=== PATIENT | female | born 1940 | race Two or more races ===

== ENCOUNTER 2016-10-08 20:23 | Emergency (ER) | payer OTHER ==
[~2016-10-08] VITALS: Ht 162.6 cm; Wt 58.0 kg
[~2016-10-08 20:23] MED LIST: AMLO-110 PO; ASPI81TA28 PO; CALC-20 PO; CIPR-255 PO; DICL1GEL12 TD; DONE5TAB14 PO; FERR1TAB62 PO; FLUO10CA48 PO; LEVO75TA5 PO; MAGNSOL11 PO; MULT-614 PO; OMEP40CA PO; SIMV5TAB2 PO; TRAM-10 PO; TRML160 TOP
[2016-10-08 20:36] VITALS: TEMP 36.6; Ht 162.6 cm; Wt 58.0 kg
[2016-10-08] MEDS ORDERED: SODIUM CHLORIDE 0.9% 1000ML 1,000 ML IV STA (21:37)
[2016-10-08] MEDS ORDERED: ONDANSETRON INJ 2 MG/ML 2 ML VIAL IV STA (21:37)
[2016-10-08] MEDS ORDERED: LOPERAMIDE LIQUID 1MG/7.5ML 120ML BTL PO ONE (21:45)
[2016-10-08 21:46] LABS: BASO % 0.4 %; BASO ABS # 0.03 K/uL (0-0.2); COMPLETE YES; EOS % 2.7 %; HEMATOCRIT 33.7 % (37-47); IG% 0.3 %; LYMPH % 22.8 %; MEAN CELL VOLUME 84.5 fL (80-100); MEAN CORPUSCULAR HEMOGLOBIN 27.8 pg (25-34); MEAN CORPUSCULAR HGB CONC 32.9 g/dl (32-36); MONO % 12.8 %; PLATELET COUNT 293 K/uL (130-400); RED BLOOD COUNT 3.99 M/uL (4.2-5.4); WHITE BLOOD COUNT 7.01 K/uL (4.8-10.8)
[2016-10-08 21:55] LABS: BUN/CREATININE RATIO 12.3 (10-20); CALCIUM 8.3 mg/dl (8.5-10.1); CREATININE 0.74 mg/dl (0.60-1.20); POTASSIUM 3.2 mmol/L (3.5-5.1)
[2016-10-08] MEDS ORDERED: ONDA4TAB10 SL (22:21)
--- NOTE | 2016-10-08 22:22 | EMERGENCY ROOM VISIT NOTE ---
History Report prepared by Dana: Mable Rodriguez Under the Supervision of: Dr. Neri Montoya D.O. 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 The patient' s states that she came back from [place] yesterday but states while in [place] only drank bottled water. She states that over the last few days she has been feeling weaker. She states she has had diarrhea and an upset stomach for the last 4 days. She states that after every meal she eats she has about 3-4 episodes of diarrhea and is unable to control her bowels. The patient states she also had an episode of vomiting yesterday and has been nauseous. She also states she has been having dizziness and pain in her facial muscles. 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 Review of Systems See HPI for pertinent positives & negatives. A total of 10 systems reviewed and were otherwise negative. Past Medical & Surgical Medical Problems: (1) H/O blood clots (2) Hypertension Surgical Problems: (1) H/O: hysterectomy Family History No significant family history Social History Smoking Status: Never Smoker Alcohol Use: none Drug Use: none Marital Status: Housing Status: lives with family Occupation Status: retired Current/Historical Medications Scheduled Amlodipine (Norvasc), 5 MG PO DAILY Aspirin (Aspirin Ec), 81 MG PO DAILY Calcium Carbonate-Vitamin D (Calcium 600 + D), 1 TABLET PO BID Ciprofloxacin Hcl (Cipro), 1 TAB PO BID Donepezil Hydrochloride (Aricept), 5 MG PO DAILY WITH FOOD Ferrous Sulfate (Ferrous Sulfate), 325 MG PO BID Fluoxetine (Prozac), 20 MG PO DAILY Levothyroxine Sodium (Levothyroxine Sodium), 75 MCG PO DAILY Multiple Vitamins W/ Minerals (Centrum Silver Ultra [place]), 1 TABLET PO DAILY Omeprazole (Prilosec), 40 MG PO DAILY Ondasetron Odt (Zofran Odt), 4 MG SL Q6H Simvastatin (Zocor), 5 MG PO QPM Scheduled PRN Diclofenac Sodium (Topical) (Voltaren 1% Top Gel), 1 APPLN TD BID PRN for Pain Magnesium Citrate (Citrate Of Magnesia), 4-8 OZ PO DAILY PRN for Constipation Tramadol (Ultram), 50 MG PO Q6 PRN Triamcinolone (Triamcinolone Acetonide), 1 APPLN TOP TID PRN for RASH Allergies Coded Allergies: Penicillins (Verified Allergy, Mild, RASH, 01/24/16) UNSURE OF REACTION. REPORTS SHE WAS TOLD SHE HAS AN ALLERGY TO PCN SINCE CHILDHOOD.POSSIBLY A RASH. Physical Exam Vital Signs Date Time Temp Pulse Resp B/P Pulse Ox O2 Delivery O2 Flow Rate FiO2 10/08/16 20:36 36.6 78 18 160/85 96 Room Air Physical Exam CONSTITUTIONAL/VITAL SIGNS: Reviewed / noted above. GENERAL: Non-toxic in appearance. INTEGUMENTARY: Warm, dry, and Flushing. HEAD: Normocephalic. EYES: without scleral icterus or trauma. ENT/OROPHARYNX: clear and moist. LYMPHADENOPATHY/NECK: Is supple without lymphadenopathy or meningismus. RESPIRATORY: Lungs clear and equal. CARDIOVASCULAR: Regular rate and rhythm. GI/ABDOMEN: Soft and nontender. No organomegaly or pulsatile mass. No rebound or guarding. Normal bowel sounds. EXTREMITIES: Warm and well perfused. BACK: No CVA tenderness. NEUROLOGICAL: Intact without focal deficits. PSYCHIATRIC: normal affect. MUSCULOSKELETAL: Normally developed with good muscle tone. Medical Decision & Procedures Laboratory Results 10/08/16 21:00 Red Blood Count 3.99, Mean Corpuscular Volume 84.5, Mean Corpuscular Hemoglobin 27.8, Mean Corpuscular Hemoglobin Concent 32.9, Mean Platelet Volume 9.0, Neutrophils (%) (Auto) 61.0, Lymphocytes (%) (Auto) 22.8, Monocytes (%) (Auto) 12.8, Eosinophils (%) (Auto) 2.7, Basophils (%) (Auto) 0.4, Neutrophils # (Auto ) 4.27, Lymphocytes # (Auto) 1.60, Monocytes # (Auto) 0.90, Eosinophils # (Auto ) 0.19, Basophils # (Auto) 0.03 10/08/16 21:00 Test 10/08/16 21:00 White Blood Count 7.01 K/uL (4.8-10.8) Red Blood Count 3.99 M/uL (4.2-5.4) Hemoglobin 11.1 g/dL (12.0-16.0) Hematocrit 33.7 % (37-47) Mean Corpuscular Volume 84.5 fL (80-100) Mean Corpuscular Hemoglobin 27.8 pg (25-34) Mean Corpuscular Hemoglobin Concent 32.9 g/dl (32-36) Platelet Count 293 K/uL (130-400) Mean Platelet Volume 9.0 fL (7.4-10.4) Neutrophils (%) (Auto) 61.0 % Lymphocytes (%) (Auto) 22.8 % Monocytes (%) (Auto) 12.8 % Eosinophils (%) (Auto) 2.7 % Basophils (%) (Auto) 0.4 % Neutrophils # (Auto) 4.27 K/uL (1.4-6.5) Lymphocytes # (Auto) 1.60 K/uL (1.2-3.4) Monocytes # (Auto) 0.90 K/uL (0.11-0.59) Eosinophils # (Auto) 0.19 K/uL (0-0.5) Basophils # (Auto) 0.03 K/uL (0-0.2) RDW Standard Deviation 41.6 fL (36.4-46.3) RDW Coefficient of Variation 13.5 % (11.5-14.5) Immature Granulocyte % (Auto) 0.3 % Immature Granulocyte # (Auto) 0.02 K/uL (0.00-0.02) Anion Gap 10.0 mmol/L (3-11) Est Creatinine Clear Calc Drug Dose 57.6 ml/min Estimated GFR () 92.5 Estimated GFR (Non- 79.8 BUN/Creatinine Ratio 12.3 (10-20) Calcium Level 8.3 mg/dl (8.5-10.1) Total Bilirubin 0.4 mg/dl (0.2-1) Direct Bilirubin 0.1 mg/dl (0-0.2) Aspartate Amino Transf (AST/SGOT) 22 U/L (15-37) Alanine Aminotransferase (ALT/SGPT) 18 U/L (12-78) Alkaline Phosphatase 80 U/L (45-117) Total Protein 7.0 gm/dl (6.4-8.2) Albumin 3.1 gm/dl (3.4-5.0) Lipase 123 U/L (73-393) Laboratory results as stated above per my review. Medications Administered Medications (Trade) Dose Ordered Sig/Yong Route Start Time Stop Time Status Last Admin Dose Admin Sodium Chloride (Nss 1000ml) 1,000 ml @ 999 mls/hr Q1H1M STAT IV 10/08/16 21:37 10/08/16 22:37 10/08/16 22:06 999 MLS/HR Ondansetron HCl (Zofran Inj) 4 mg NOW STAT IV 10/08/16 21:37 10/08/16 21:40 DC 10/08/16 22:06 4 MG Loperamide HCl (Imodium A-D Liquid) 2 mg ONE ONCE PO 10/08/16 21:45 10/08/16 21:46 DC 10/08/16 21:45 2 MG ED Course 3: Previous medical records were reviewed. The patient was evaluated in room B6. A complete history and physical examination was performed. 2136: Ordered Zofran Inj 4 mg IV, Sodium Chloride 1,000 ml @ 999 mls/hr IV. 2144: Ordered Loperamide HCl 2 mg PO. 2224: On reevaluation, the patient is resting comfortably. I discussed the results and findings with the patient. She verbalized agreement of the treatment plan. The patient was discharged home. Medical Decision Differential diagnosis: Etiologies such as gastroenteritis, food borne illness, infections, appendicitis , diverticulitis, inflammatory bowel disease, obstruction, GI bleed, biliary pathology, as well as others were entertained. This is 76-year-old female who presents to the ED with a chief complaint of generalized weakness. The patient just got back from [place] yesterday. While she was there she had 4-5 days worth of diarrhea. She vomited yesterday and has nausea. She states that her diarrhea is primarily with eating. She also felt little lightheaded/dizzy. Her vital signs are normal. Her physical exam did not reveal any tenderness to the abdomen. CBC is unremarkable. The potassium was 3.2. Chemistry panel was otherwise unremarkable. She was treated with normal saline IV, Zofran IV and Imodium by mouth. She was told the results the test. She is felt to be stable for discharge and outpatient follow-up. She was unable to provide a stool sample. Impression Primary Impression: Vomiting and diarrhea Scribe Attestation The scribe's documentation has been prepared under my direction and personally reviewed by me in its entirety. I confirm that the note above accurately reflects all work, treatment, procedures, and medical decision making performed by me. Departure Information Dispostion Home / Self-Care Prescriptions Ondasetron Odt (ZOFRAN ODT) 4 Mg Tab 4 MG SL Q6H for Nausea, #20 TAB Prov: Neri Montoya D.O. 10/08/16 Referrals Merced Mcgraw M.D. (PCP) Forms HOME CARE DOCUMENTATION FORM, IMPORTANT VISIT INFORMATION Patient Instructions Diarrhea, My [facility] Additional Instructions Try Imodium AD for diarrhea. Zofran: Allow one tablet to dissolve under the tongue every 6 hours as needed for nausea or vomiting. Follow-up with your doctor for further care and evaluation in 1-4 days. Return to the emergency department for worsening or new symptoms or any concerns. You have been examined and treated today on an emergency basis only. This is not a substitute for, or an effort to provide, complete comprehensive medical care. It is impossible to recognize and treat all injuries or illnesses in a single emergency department visit. It is therefore important that you follow up closely with your doctor. Call as soon as possible for an appointment.
[2016-10-08 22:32] VITALS: BP 127/76; PULSE 80; O2SAT 99
== END 2016-10-08 22:33 | disposition home or self-care (01) ==
LOC: C.EDB 20:24
DX: R11.10 Vomiting, unspecified (principal); R19.7 Diarrhea, unspecified; Z86.718 Personal history of other venous thrombosis and embolism; I10 Essential (primary) hypertension; Z79.82 Long term (current) use of aspirin; Z79.899 Other long term (current) drug therapy

== ENCOUNTER 2018-07-15 14:36 | Inpatient (IN) ==
--- NOTE | 2018-07-15 14:58 | CT Scan Report ---
CT OF THE HEAD WITHOUT CONTRAST CLINICAL HISTORY: Stroke evaluation. COMPARISON STUDY: Head CT and MRI of the brain February 08, 2013. TECHNIQUE: Helical axial images of the head were obtained without IV contrast. Automated exposure con trol was utilized for the study. A dose lowering technique was utilized adhering to the principles o f ALARA. FINDINGS: No acute intracranial hemorrhage, midline shift or mass effect is present. Jugular system i s stable. Basilar cisterns are patent. There are no extra-axial collections. White matter hypodensity suggests small vessel disease. Old infarct within the left caudate nucleus is unchanged since exam o f February 18, 2013. There are no findings to suggest acute dural sinus thrombosis or acute territorial infarct. There is no calvarial fracture. IMPRESSION: 1. No acute intracranial findings. 2. 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 Electronically signed by: King Decker M.D. 07/15/2018 2:56 PM
--- NOTE | 2018-07-15 15:02 | CT Scan Report ---
CERVICAL SPINE CT CT DOSE: 958.56 mGy.cm HISTORY: ams, on floor TECHNIQUE: Multiaxial CT images of the cervical spine were performed and reformatted in the sagittal and coronal plane without the use of contrast. A dose lowering technique was utilized adhering to th e principles of ALARA. COMPARISON: None. FINDINGS: No fractures within the cervical spine. There is 2 mm of anterolisthesis of C3 on C4 and 1 mm retrolisthesis of C5 on C6. Severe disc space narrowing at C5-C6. Mild to moderate disc space narr owing at C3-C4 and C4-C5. Mild disc space narrowing at C6-C7. Mild reversal of the normal lordotic cu rvature. Prevertebral soft tissues and the C1-C2 interval are intact. IMPRESSION: No fractures within the cervical spine. Degenerative changes as described above. Electronically signed by: Perry Gill M.D. 07/15/2018 3:01 PM
[2018-07-15 15:09] LABS: Basophils # (auto) 0.01 K/uL (0-0.2); Basophils % (auto) 0.2 %; Eosinophils # (auto) 0.07 K/uL (0-0.5); Eosinophils % (auto) 1.1 %; Hematocrit (blood only) 38.8 % (37-47); Hemoglobin 12.3 g/dL (12.0-16.0); Immature Granulocytes # (auto) 0.02 K/uL (0.00-0.02); Immature Granulocytes % (auto) 0.3 %; Lymphocytes # (auto) 1.14 K/uL (1.2-3.4); Lymphocytes % (auto) 17.3 %; Mean Corpuscular Hgb Conc 31.7 g/dL (32-36); Mean Corpuscular Volume 84.2 fL (80-100); Mean Platelet Volume 9.4 fL (7.4-10.4); Monocytes # (auto) 0.24 K/uL (0.11-0.59); Monocytes % (auto) 3.6 %; Neutrophils # (auto) 5.12 K/uL (1.4-6.5); Neutrophils % (auto) 77.5 %; Platelet Count 278 K/uL (130-400); RDW Coefficient of Variation 13.9 % (11.5-14.5); RDW Standard Deviation 42.9 fL (36.4-46.3); Red Blood Count 4.61 M/uL (4.2-5.4)
[2018-07-15 15:16] LABS: iSTAT Hemoglobin 13.6 g/dl (12.0-16.0); iSTAT Ionized Calcium 1.17 mmol/l (1.12-1.32)
[2018-07-15 15:18] LABS: Partial Thromboplastin Time 25.9 Seconds (21.0-31.0); Prothrombin Time 10.4 Seconds (9.0-12.0)
--- NOTE | 2018-07-15 15:31 | XRay Report ---
XR chest 1V portable HISTORY: Altered mental status. COMPARISON: Chest 01/20/2018. FINDINGS: The heart remains mildly enlarged. Stable calcified granuloma within the right upper lobe. No pleural effusions. No pneumothorax. No focal lung consolidations to suggest pneumonia. Round densi ty overlying the liver is likely external to the patient. IMPRESSION: Stable cardiomegaly. No acute process within the chest. Electronically signed by: Perry Gill M.D. 07/15/2018 3:30 PM
[2018-07-15] MEDS ORDERED: IOVERSOL 100ml IV PRN (16:00)
--- NOTE | 2018-07-15 16:28 | CT Scan Report ---
HEAD & NECK CTA HISTORY: weakness, L gaze, altered mental status TECHNIQUE: Multiaxial CT images of the head were performed following the intravenous administration o f contrast to evaluate the major cerebral vessels. Multiaxial CT images of the neck were also perform ed following the intravenous administration of contrast to evaluate the major cervical vessels. Maxim um intensity projection images were also obtained. A dose lowering technique was utilized adhering to the principles of ALARA. COMPARISON: Head CT 07/15/2018. Carotid Doppler 02/08/2013. Brain MRI 02/08/2013. FINDINGS: There is no mass, hematoma, midline shift, or acute infarct. Visualized intracranial internal carotid arteries, distal vertebral arteries, and basilar artery are widely patent. No aneurysm or arterial o cclusion identified. Mild calcified plaque within the bilateral carotid siphons. Mild focal stenosis within the left M1 segment. Mild multifocal stenosis within the bilateral ACAs and left POST ACUTE CARE REGISTERED NURSE. The righ t POST ACUTE CARE REGISTERED NURSE is widely patent. The aortic arch and proximal great vessels are widely patent. There is no significant stenosis, occ lusion, or dissection identified within the bilateral common carotid, internal carotid, or vertebral arteries. IMPRESSION: 1. No arterial occlusion or aneurysm within the [place]. Mild multifocal stenosis within the bilateral ACAs, left MCA, and left POST ACUTE CARE REGISTERED NURSE. 2. No significant stenosis, occlusion, or dissection identified within the carotid or vertebral arter ies. Electronically signed by: Perry Gill M.D. 07/15/2018 4:27 PM
--- NOTE | 2018-07-15 16:28 | CT Scan Report ---
HEAD & NECK CTA HISTORY: weakness, L gaze, altered mental status TECHNIQUE: Multiaxial CT images of the head were performed following the intravenous administration o f contrast to evaluate the major cerebral vessels. Multiaxial CT images of the neck were also perform ed following the intravenous administration of contrast to evaluate the major cervical vessels. Maxim um intensity projection images were also obtained. A dose lowering technique was utilized adhering to the principles of ALARA. COMPARISON: Head CT 07/15/2018. Carotid Doppler 02/08/2013. Brain MRI 02/08/2013. FINDINGS: There is no mass, hematoma, midline shift, or acute infarct. Visualized intracranial internal carotid arteries, distal vertebral arteries, and basilar artery are widely patent. No aneurysm or arterial o cclusion identified. Mild calcified plaque within the bilateral carotid siphons. Mild focal stenosis within the left M1 segment. Mild multifocal stenosis within the bilateral ACAs and left LARD BLEACHER. The righ t LARD BLEACHER is widely patent. The aortic arch and proximal great vessels are widely patent. There is no significant stenosis, occ lusion, or dissection identified within the bilateral common carotid, internal carotid, or vertebral arteries. IMPRESSION: 1. No arterial occlusion or aneurysm within the [place]. Mild multifocal stenosis within the bilateral ACAs, left MCA, and left LARD BLEACHER. 2. No significant stenosis, occlusion, or dissection identified within the carotid or vertebral arter ies. Electronically signed by: Perry Gill M.D. 07/15/2018 4:27 PM
--- NOTE | 2018-07-15 17:04 | Emergency Department Note ---
Entered by Misty Brown acting as a scribe for History of Present Illness General Chief complaint: Stroke Alert Time Seen by Provider: 07/15/18 14:38 Mode of arrival: EMS History of Present Illness Provider complaint: Stroke Alert The patient fell at home and was last seen at midnight by family. She is non verbal and has decreased movement of the left side. Left gaze preference. No complaints that family were aware of yesterday; they found her down today. Normal ambulatory and talks. HPI is limited secondary to patient's condition. Home Medications Home Medications Medication Instructions Recorded Confirmed Type amlodipine 2.5 mg PO DAILY 07/15/18 07/15/18 History aspirin [Aspirin Low Dose] 81 mg PO DAILY 07/15/18 07/15/18 History calcium carbonate-vitamin D3 1 tab PO BID 07/15/18 07/15/18 History [Calcium 600 + D(3)] dicyclomine 10 mg PO BIDM 07/15/18 07/15/18 History donepezil [Aricept] 5 mg PO HS 07/15/18 07/15/18 History ferrous sulfate 325 mg PO BIDM 07/15/18 07/15/18 History fluoxetine 20 mg PO QAM 07/15/18 07/15/18 History levothyroxine 50 mcg PO QAM 07/15/18 07/15/18 History udhozuiy-fdj-VN-lycopen-lutein 1 tab PO DAILY 07/15/18 07/15/18 History [Centrum Silver] omeprazole 40 mg PO QAM 07/15/18 07/15/18 History sennosides [senna] 8.6 mg PO DAILY PRN 07/15/18 07/15/18 History simvastatin 5 mg PO HS 07/15/18 07/15/18 History sucralfate 1 g PO QID 07/15/18 07/15/18 History Allergies Allergy/AdvReac Type Severity Reaction Status Date / Time Penicillins Allergy Mild RASH Verified 01/20/18 21:35 Past Med/Surg History Medical History Pre-diabetes (Chronic) Dementia (Chronic) Osteoporosis (Chronic) Osteoarthritis (Chronic) GERD (gastroesophageal reflux disease) (Chronic) H/O blood clots (Resolved) Hypertension (Chronic) Surgical History H/O: hysterectomy (Resolved) Family History Father Diabetes Social History marital status: Current Living Situation: Family current occupational status: retired Feels Safe at Home: Yes Smoking Status: Never smoker Hx Alcohol Use: No Preferred Language: Mike Review of Systems ROS limited secondary to patient's condition. Physical Exam Vital Signs Vital Signs - 24 hr 07/15/18 14:45 07/15/18 15:01 07/15/18 15:15 Temperature 35.3 C L Temperature Source Rectal Sepsis Recent Fever Within 48 Hours No Sepsis New/Unexplained Change in Mental Status No Sepsis Action Taken by Nursing No Action Required Pulse Rate 57 L 57 L 55 L Pulse Rate [Apical] Pulse Rhythm Regular Pulse Rhythm [Apical] Pulse Strength Normal Pulse Strength [Apical] Respiratory Rate 18 Respiratory Effort / Characteristics Non-Labored Spontaneous Respiratory Depth Normal Respiratory Pattern Regular Blood Pressure 202/83 H 202/83 H Blood Pressure [Right Arm] Blood Pressure Mean 122 122 Blood Pressure Mean [Right Arm] Pulse Oximetry 99 99 97 Oxygen Delivery Method Room Air 07/15/18 15:16 07/15/18 15:17 07/15/18 15:57 Temperature Temperature Source Sepsis Recent Fever Within 48 Hours Sepsis New/Unexplained Change in Mental Status Sepsis Action Taken by Nursing Pulse Rate 56 L 57 L 63 Pulse Rate [Apical] Pulse Rhythm Pulse Rhythm [Apical] Pulse Strength Pulse Strength [Apical] Respiratory Rate Respiratory Effort / Characteristics Respiratory Depth Respiratory Pattern Blood Pressure 191/82 H Blood Pressure [Right Arm] Blood Pressure Mean 118 Blood Pressure Mean [Right Arm] Pulse Oximetry 95 98 100 Oxygen Delivery Method 07/15/18 15:58 07/15/18 16:00 07/15/18 16:01 Temperature Temperature Source Sepsis Recent Fever Within 48 Hours Sepsis New/Unexplained Change in Mental Status Sepsis Action Taken by Nursing Pulse Rate 63 60 58 L Pulse Rate [Apical] Pulse Rhythm Pulse Rhythm [Apical] Pulse Strength Pulse Strength [Apical] Respiratory Rate Respiratory Effort / Characteristics Respiratory Depth Respiratory Pattern Blood Pressure 207/84 H 196/82 H Blood Pressure [Right Arm] Blood Pressure Mean 125 120 Blood Pressure Mean [Right Arm] Pulse Oximetry 100 99 96 Oxygen Delivery Method 07/15/18 16:02 07/15/18 16:15 07/15/18 16:16 Temperature Temperature Source Sepsis Recent Fever Within 48 Hours Sepsis New/Unexplained Change in Mental Status Sepsis Action Taken by Nursing Pulse Rate 59 L 56 L 56 L Pulse Rate [Apical] Pulse Rhythm Pulse Rhythm [Apical] Pulse Strength Pulse Strength [Apical] Respiratory Rate Respiratory Effort / Characteristics Respiratory Depth Respiratory Pattern Blood Pressure 191/81 H Blood Pressure [Right Arm] Blood Pressure Mean 117 Blood Pressure Mean [Right Arm] Pulse Oximetry 98 92 98 Oxygen Delivery Method 07/15/18 16:30 07/15/18 16:31 07/15/18 16:40 Temperature Temperature Source Sepsis Recent Fever Within 48 Hours Sepsis New/Unexplained Change in Mental Status Sepsis Action Taken by Nursing Pulse Rate 55 L 55 L 71 Pulse Rate [Apical] Pulse Rhythm Pulse Rhythm [Apical] Pulse Strength Pulse Strength [Apical] Respiratory Rate 23 Respiratory Effort / Characteristics Respiratory Depth Respiratory Pattern Blood Pressure 175/73 H 203/85 H Blood Pressure [Right Arm] Blood Pressure Mean 107 124 Blood Pressure Mean [Right Arm] Pulse Oximetry 96 99 97 Oxygen Delivery Method 07/15/18 17:00 07/15/18 17:30 07/15/18 18:00 Temperature Temperature Source Sepsis Recent Fever Within 48 Hours Sepsis New/Unexplained Change in Mental Status Sepsis Action Taken by Nursing Pulse Rate Pulse Rate [Apical] 55 L 54 L 57 L Pulse Rhythm Pulse Rhythm [Apical] Regular Regular Regular Pulse Strength Pulse Strength [Apical] Normal Normal Respiratory Rate 16 16 16 Respiratory Effort / Characteristics Non-Labored Spontaneous Non-Labored Spontaneous Non-Labored Spontaneous Respiratory Depth Normal Normal Normal Respiratory Pattern Regular Regular Regular Blood Pressure Blood Pressure [Right Arm] 181/78 H 191/85 H 201/84 H Blood Pressure Mean Blood Pressure Mean [Right Arm] 112 120 123 Pulse Oximetry 97 95 99 Oxygen Delivery Method Room Air Room Air Room Air GENERAL: Awake looking to left in no distress. Non-verbal. HENT: Normocephalic, atraumatic. Oropharynx unremarkable. EYES: Normal conjunctiva. Sclera non-icteric. Left gaze deviation. Pupils 3 mm and reactive bilaterally. NECK: Supple. No nuchal rigidity. RESPIRATORY: Clear to auscultation. No wheezes. Normal respiratory effort. CARDIAC: Bradycardic rate. Normal rhythm. Extremities warm and well perfused. GI: Soft, non-distended. No tenderness to palpation. No rebound or guarding. RECTAL: Deferred. MUSCULOSKELETAL: Atraumatic. Chest examination reveals no tenderness. LOWER EXTREMITIES: Calves are equal size bilaterally and non-tender. No edema NEURO: 1/5 left arm. 1/5 left leg. 3/5 right leg. 4/5 right arm. Unable to speak. Myself and family unable to get her to speak. With draws to pain in RUE/ RLE/LLE. SKIN: Warm and dry. No rash or jaundice noted. Course 1453: Past medical records reviewed. The patient was evaluated in room A1, and a complete history and physical examination were performed. 1455: I talked to radiology. Nothing acute on the CT. 1640: I paged Kerrie Martin. The patient is being admitted. 1647: I reviewed the patient's case with MANUEL Hearn at [facility]. She will evaluate the patient for further management. Administered Medications Ioversol (Optiray 320 100ml) 93 ml IV ONCE PRN PRN Reason: Interaction Checking Stop: 07/19/18 15:59 Last Admin: 07/15/18 16:00 Dose: 93 ml Medical Decision Making Differential Diagnosis Differential includes acute coronary syndrome, myocardial infarction, CVA, TIA , anemia, infection, pneumonia, UTI, pyelonephritis, poor nutrition, dehydration , electrolyte disturbance,hypoglycemia. Medical Records Attestation: I reviewed the patient's medical records. Home Medications Current Medication List: was personally reviewed by me Laboratory Data Attestation: I reviewed the patient's lab results. Result diagrams: 07/15/18 14:58 07/15/18 14:58 Lab Results 07/15/18 07/15/18 07/15/18 Range/Units 14:58 14:58 14:58 WBC 6.60 (4.8-10.8) K/uL RBC 4.61 (4.2-5.4) M/uL Hgb 12.3 (12.0-16.0) g/dL POC Hgb (12.0-16.0) g/dl Hct 38.8 (37-47) % POC Hct (37-47) % MCV 84.2 (80-100) fL MCH 26.7 (25-34) pg MCHC 31.7 L (32-36) g/dL RDW Std Deviation 42.9 (36.4-46.3) fL RDW Coeff of Vivienne 13.9 (11.5-14.5) % Plt Count 278 (130-400) K/uL MPV 9.4 (7.4-10.4) fL Immature Gran % (Auto) 0.3 % Neut % (Auto) 77.5 % Lymph % (Auto) 17.3 % [place] % (Auto) 3.6 % Eos % (Auto) 1.1 % Baso % (Auto) 0.2 % Immature Gran # (Auto) 0.02 (0.00-0.02) K/uL Neut # (Auto) 5.12 (1.4-6.5) K/uL Lymph # (Auto) 1.14 L (1.2-3.4) K/uL [place] # (Auto) 0.24 (0.11-0.59) K/uL Eos # (Auto) 0.07 (0-0.5) K/uL Baso # (Auto) 0.01 (0-0.2) K/uL PT 10.4 (9.0-12.0) Seconds INR 1.0 (0.9-1.1) APTT 25.9 (21.0-31.0) Seconds PTT Ratio 1.0 POC Sodium (135-144) mEq/L Sodium 134 L (136-145) mmol/L POC Potassium (3.3-5.0) mEq/L Potassium 3.2 L (3.5-5.1) mmol/L POC Chloride (101-112) mEq/L Chloride 98 (98-107) mmol/L Carbon Dioxide 28 (21-32) mmol/L POC Total CO2 (24-31) mEq/l Anion Gap 11.0 (3-11) POC Anion Gap (16-25) mmol/L POC BUN (7-18) mg/dl BUN 12 (7-18) mg/dl Creatinine 0.84 (0.6-1.2) mg/dl POC Creatinine (0.6-1.3) mg/dl Est Cr Clr Drug Dosing Not Reportable Est GFR ( Amer) 78.2 Est GFR (Non-Af Amer) 67.5 BUN/Creatinine Ratio 14.8 (10-20) Glucose 135 H (70-99) mg/dl POC Glucose (70-99) POC Glucose (other) (70-99) mg/dl Lactate (0.4-2.0) mmol/L Calcium 9.3 (8.5-10.1) mg/dl POC Ioniz Calcium Clemente (1.12-1.32) mmol/l Magnesium 2.0 (1.8-2.4) mg/dl Total Creatine Kinase (26-192) U/L Troponin I < 0.015 (0-0.045) ng/ml TSH (0.300-4.500) uIu/ml Blood Type Antibody Screen 07/15/18 07/15/18 07/15/18 Range/Units 14:58 14:58 14:58 WBC (4.8-10.8) K/uL RBC (4.2-5.4) M/uL Hgb (12.0-16.0) g/dL POC Hgb (12.0-16.0) g/dl Hct (37-47) % POC Hct (37-47) % MCV (80-100) fL MCH (25-34) pg MCHC (32-36) g/dL RDW Std Deviation (36.4-46.3) fL RDW Coeff of Vivienne (11.5-14.5) % Plt Count (130-400) K/uL MPV (7.4-10.4) fL Immature Gran % (Auto) % Neut % (Auto) % Lymph % (Auto) % [place] % (Auto) % Eos % (Auto) % Baso % (Auto) % Immature Gran # (Auto) (0.00-0.02) K/uL Neut # (Auto) (1.4-6.5) K/uL Lymph # (Auto) (1.2-3.4) K/uL [place] # (Auto) (0.11-0.59) K/uL Eos # (Auto) (0-0.5) K/uL Baso # (Auto) (0-0.2) K/uL PT (9.0-12.0) Seconds INR (0.9-1.1) APTT (21.0-31.0) Seconds PTT Ratio POC Sodium (135-144) mEq/L Sodium (136-145) mmol/L POC Potassium (3.3-5.0) mEq/L Potassium (3.5-5.1) mmol/L POC Chloride (101-112) mEq/L Chloride (98-107) mmol/L Carbon Dioxide (21-32) mmol/L POC Total CO2 (24-31) mEq/l Anion Gap (3-11) POC Anion Gap (16-25) mmol/L POC BUN (7-18) mg/dl BUN (7-18) mg/dl Creatinine (0.6-1.2) mg/dl POC Creatinine (0.6-1.3) mg/dl Est Cr Clr Drug Dosing Est GFR ( Amer) Est GFR (Non-Af Amer) BUN/Creatinine Ratio (10-20) Glucose (70-99) mg/dl POC Glucose (70-99) POC Glucose (other) (70-99) mg/dl Lactate 1.4 (0.4-2.0) mmol/L Calcium (8.5-10.1) mg/dl POC Ioniz Calcium Clemente (1.12-1.32) mmol/l Magnesium (1.8-2.4) mg/dl Total Creatine Kinase 122 (26-192) U/L Troponin I (0-0.045) ng/ml TSH 1.340 (0.300-4.500) uIu/ml Blood Type AB Positive Antibody Screen NEGATIVE 07/15/18 07/15/18 Range/Units 14:58 15:03 WBC (4.8-10.8) K/uL RBC (4.2-5.4) M/uL Hgb (12.0-16.0) g/dL POC Hgb 13.6 (12.0-16.0) g/dl Hct (37-47) % POC Hct 40 (37-47) % MCV (80-100) fL MCH (25-34) pg MCHC (32-36) g/dL RDW Std Deviation (36.4-46.3) fL RDW Coeff of Vivienne (11.5-14.5) % Plt Count (130-400) K/uL MPV (7.4-10.4) fL Immature Gran % (Auto) % Neut % (Auto) % Lymph % (Auto) % [place] % (Auto) % Eos % (Auto) % Baso % (Auto) % Immature Gran # (Auto) (0.00-0.02) K/uL Neut # (Auto) (1.4-6.5) K/uL Lymph # (Auto) (1.2-3.4) K/uL [place] # (Auto) (0.11-0.59) K/uL Eos # (Auto) (0-0.5) K/uL Baso # (Auto) (0-0.2) K/uL PT (9.0-12.0) Seconds INR (0.9-1.1) APTT (21.0-31.0) Seconds PTT Ratio POC Sodium 136 (135-144) mEq/L Sodium (136-145) mmol/L POC Potassium 3.2 L (3.3-5.0) mEq/L Potassium (3.5-5.1) mmol/L POC Chloride 96 L (101-112) mEq/L Chloride (98-107) mmol/L Carbon Dioxide (21-32) mmol/L POC Total CO2 26 (24-31) mEq/l Anion Gap (3-11) POC Anion Gap 18.0 (16-25) mmol/L POC BUN 12 (7-18) mg/dl BUN (7-18) mg/dl Creatinine (0.6-1.2) mg/dl POC Creatinine 0.7 (0.6-1.3) mg/dl Est Cr Clr Drug Dosing Est GFR ( Amer) Est GFR (Non-Af Amer) BUN/Creatinine Ratio (10-20) Glucose (70-99) mg/dl POC Glucose 136 H (70-99) POC Glucose (other) 138 H (70-99) mg/dl Lactate (0.4-2.0) mmol/L Calcium (8.5-10.1) mg/dl POC Ioniz Calcium Clemente 1.17 (1.12-1.32) mmol/l Magnesium (1.8-2.4) mg/dl Total Creatine Kinase (26-192) U/L Troponin I (0-0.045) ng/ml TSH (0.300-4.500) uIu/ml Blood Type Antibody Screen Imaging Data Radiologist's Impression: Radiology results as stated below per my review and the radiologist's interpretation: CERVICAL SPINE CT CT DOSE: 958.56 mGy.cm HISTORY: ams, on floor TECHNIQUE: Multiaxial CT images of the cervical spine were performed and reformatted in the sagittal and coronal plane without the use of contrast. A dose lowering technique was utilized adhering to the principles of ALARA. COMPARISON: None. FINDINGS: No fractures within the cervical spine. There is 2 mm of anterolisthesis of C3 on C4 and 1 mm retrolisthesis of C5 on C6. Severe disc space narrowing at C5-C6. Mild to moderate disc space narrowing at C3-C4 and C4- C5. Mild disc space narrowing at C6-C7. Mild reversal of the normal lordotic curvature. Prevertebral soft tissues and the C1-C2 interval are intact. IMPRESSION: No fractures within the cervical spine. Degenerative changes as described above. Electronically signed by: Perry Gill M.D. 07/15/2018 3:[address] OF THE HEAD WITHOUT CONTRAST CLINICAL HISTORY: Stroke evaluation. COMPARISON STUDY: Head CT and MRI of the brain February 08, 2013. TECHNIQUE: Helical axial images of the head were obtained without IV contrast. Automated exposure control was utilized for the study. A dose lowering technique was utilized adhering to the principles of ALARA. FINDINGS: No acute intracranial hemorrhage, midline shift or mass effect is present. Jugular system is stable. Basilar cisterns are patent. There are no extra-axial collections. White matter hypodensity suggests small vessel disease. Old infarct within the left caudate nucleus is unchanged since exam of February 18, 2013. There are no findings to suggest acute dural sinus thrombosis or acute territorial infarct. There is no calvarial fracture. IMPRESSION: 1. No acute intracranial findings. 2. 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 Electronically signed by: King Decker M.D. 07/15/2018 2:56 PM XR chest 1V portable HISTORY: Altered mental status. COMPARISON: Chest 01/20/2018. FINDINGS: The heart remains mildly enlarged. Stable calcified granuloma within the right upper lobe. No pleural effusions. No pneumothorax. No focal lung consolidations to suggest pneumonia. Round density overlying the liver is likely external to the patient. IMPRESSION: Stable cardiomegaly. No acute process within the chest. Electronically signed by: Perry Gill M.D. 07/15/2018 3:30 PM HEAD & NECK CTA HISTORY: weakness, L gaze, altered mental status TECHNIQUE: Multiaxial CT images of the head were performed following the intravenous administration of contrast to evaluate the major cerebral vessels. Multiaxial CT images of the neck were also performed following the intravenous administration of contrast to evaluate the major cervical vessels. Maximum intensity projection images were also obtained. A dose lowering technique was utilized adhering to the principles of ALARA. COMPARISON: Head CT 07/15/2018. Carotid Doppler 02/08/2013. Brain MRI 02/08/2013. FINDINGS: There is no mass, hematoma, midline shift, or acute infarct. Visualized intracranial internal carotid arteries, distal vertebral arteries, and basilar artery are widely patent. No aneurysm or arterial occlusion identified. Mild calcified plaque within the bilateral carotid siphons. Mild focal stenosis within the left M1 segment. Mild multifocal stenosis within the bilateral ACAs and left IC DESIGN MANAGER. The right IC DESIGN MANAGER is widely patent. The aortic arch and proximal great vessels are widely patent. There is no significant stenosis, occlusion, or dissection identified within the bilateral common carotid, internal carotid, or vertebral arteries. IMPRESSION: 1. No arterial occlusion or aneurysm within the [place]. Mild multifocal stenosis within the bilateral ACAs, left MCA, and left IC DESIGN MANAGER. 2. No significant stenosis, occlusion, or dissection identified within the carotid or vertebral arteries. Electronically signed by: Perry Gill M.D. 07/15/2018 4:27 PM HEAD & NECK CTA HISTORY: weakness, L gaze, altered mental status TECHNIQUE: Multiaxial CT images of the head were performed following the intravenous administration of contrast to evaluate the major cerebral vessels. Multiaxial CT images of the neck were also performed following the intravenous administration of contrast to evaluate the major cervical vessels. Maximum intensity projection images were also obtained. A dose lowering technique was utilized adhering to the principles of ALARA. COMPARISON: Head CT 07/15/2018. Carotid Doppler 02/08/2013. Brain MRI 02/08/2013. FINDINGS: There is no mass, hematoma, midline shift, or acute infarct. Visualized intracranial internal carotid arteries, distal vertebral arteries, and basilar artery are widely patent. No aneurysm or arterial occlusion identified. Mild calcified plaque within the bilateral carotid siphons. Mild focal stenosis within the left M1 segment. Mild multifocal stenosis within the bilateral ACAs and left IC DESIGN MANAGER. The right IC DESIGN MANAGER is widely patent. The aortic arch and proximal great vessels are widely patent. There is no significant stenosis, occlusion, or dissection identified within the bilateral common carotid, internal carotid, or vertebral arteries. IMPRESSION: 1. No arterial occlusion or aneurysm within the [place]. Mild multifocal stenosis within the bilateral ACAs, left MCA, and left IC DESIGN MANAGER. 2. No significant stenosis, occlusion, or dissection identified within the carotid or vertebral arteries. Electronically signed by: Perry Gill M.D. 07/15/2018 4:27 PM ECG Data Attestation: I personally reviewed and interpreted this ECG as follows: Indication: altered mental status Rate (beats per minute): 57 Rhythm: sinus bradycardia Findings: + 1st degree AV block; no PVC, no ST depression and no ST elevation Comparison ECG Date: from (January 20, 2018) Change: the following changes noted (Heart rate decreased.) Blood Pressure Blood Pressure Findings: Elevated blood pressure Blood Pressure Disposition: further management by hospitalist MDM Narrative 78-year-old female found on the floor nonverbal with left gaze preference by EMS. Reported history of TIAs, blood clots, and hypertension. Made stroke alert given report of some focal deficits. CT of the head and CT of the cervical spine was completed. Given the time course the patient is outside of TPA window. Patient's granddaughter stated last seen her at midnight last night. Minimal movement of the left arm movement of the right arm and right leg some diminished movement of the left leg. Significant left gaze deviation. Patient will nod to some questions when her is unable to speak. Limited history. CT the head shows no acute intracranial bleed. CT of the cervical spine was completed as well given the unclear history without acute traumatic findings. CT angiogram of the head and neck was completed as well to look for possible LVO. No leukocytosis or signs of anemia on laboratory studies. Kidney function within normal limits. Trop negative. TSH within normal limits. CT angiogram so no acute vessel cutoff. Given this will admit to the hospitalist for further stroke workup and MRI as clinically it appears she has had a stroke. Patient still with significant left-sided deficits and gaze preference. I do not believe this represents seizure or meningitis at this time. Discussed with hospitalist for admission. Impression & Plan Stroke, Altered mental status Discharge Plan Visit Data Chief Complaint: Stroke Alert ED Provider: Billy Avelar Discharge Problem: Stroke, Altered mental status Patient Disposition: Being Evaluated by Hospitalist Forms Stand Alone Forms: My [employer] Prescriptions Prescriptions: No Action sennosides [senna] 8.6 mg Tablet 8.6 mg PO DAILY PRN (Reason: Constipation) RF: 0 donepezil [Aricept] 5 mg Tablet 5 mg PO HS RF: 0 sucralfate 1 gram tablet 1 g PO QID RF: 0 amlodipine 2.5 mg tablet 2.5 mg PO DAILY RF: 0 omeprazole 40 mg capsule,delayed release(DR/EC) 40 mg PO QAM RF: 0 aspirin [Aspirin Low Dose] 81 mg Tablet,Delayed Release (Dr/Ec) 81 mg PO DAILY RF: 0 simvastatin 5 mg Tablet 5 mg PO HS RF: 0 levothyroxine 50 mcg tablet 50 mcg PO QAM RF: 0 ferrous sulfate 325 mg (65 mg iron) Tablet,Delayed Release (Dr/Ec) 325 mg PO BIDM RF: 0 fluoxetine 20 mg capsule 20 mg PO QAM RF: 0 dicyclomine 10 mg capsule 10 mg PO BIDM RF: 0 ewmnlyme-nkd-DA-lycopen-lutein [Centrum Silver] 0.4-300-250 mg-mcg-mcg Tablet 1 tab PO DAILY RF: 0 calcium carbonate-vitamin D3 [Calcium 600 + D(3)] 600 mg calcium- 200 unit Capsule 1 tab PO BID RF: 0 Referrals Referrals: Merced Mcgraw MD [Primary Care Provider] - The scribe's documentation has been prepared under my direction and personally reviewed by me in its entirety. I confirm that the note above accurately reflects all work, treatment, procedures, and medical decision making performed by me.
[2018-07-15 17:34] LABS: BUN Creatinine Ratio 14.8 (10-20); Blood Urea Nitrogen 12 mg/dl (7-18); Calcium 9.3 mg/dl (8.5-10.1); Chloride 98 mmol/L (98-107); Est GFR (African American) 78.2; Est GFR (Non-African American) 67.5; Glucose 135 mg/dl (70-99); Potassium 3.2 mmol/L (3.5-5.1); Sodium 134 mmol/L (136-145)
[2018-07-15 17:38] LABS: Troponin I < 0.015 ng/ml (0-0.045)
[2018-07-15 17:39] LABS: Carbon Dioxide 28 mmol/L (21-32)
--- NOTE | 2018-07-15 18:18 | History & Physical Report ---
Date of Service July 15, 2018 Assessment & Plan (1) Left-sided weakness: (2) Aphasia: This is a 78yo F with a PMH of HTN, mild dementia, pre-diabetes and other medical problems listed below who presents from home with stroke like symptoms. -Aphasia, leftward gaze, unable to open mouth, left sided weakness clinically consistent with CVA -Stroke alert called but outside of tpa window upon arrival -CT head, CTA head/neck without acute abnormality -Check MRI brain combo, echo w/ bubble study -Give Aspirin per rectum -Keep NPO until able to be evaluated by speech -Neuro checks -PT, OT, speech therapy evaluations -Discussed plan with neurology,who will evaluate patient tomorrow (3) Hypertension: Elevated at 202/83 -Allow for permissive HTN in setting of possible ischemic stroke * Notify provider if SBP exceeds 220 or DBP exceeds 110 -Hold home amlodipine for now (4) Dementia: Mild dementia at baseline but only limited to short term -Hold Aricept for now (5) GERD (gastroesophageal reflux disease): Hold home PPI for now DVT Ppx: SQ heparin Code status: FULL per discussion with patient (with granddaughter translating) PCP: Lucien Dispo: Admission telemetry. Patient seen in collaboration with Dr. Sunshine. Please see addendum. History of Present Illness Chief Complaint: stroke like symptoms Primary Care Provider: Merced Mcgraw MD This is a 78yo F with a PMH of HTN, mild dementia, pre-diabetes and other medical problems listed below who presents from home with stroke like symptoms. Patient lives at home with family and was found on the floor by granddaughter around 2 pm today, unable to speak or move off on the floor. Was last seen in normal state of health last evening. History was obtained by granddaughter at bedside. At baseline, patient has mild dementia but speaks readily with family (primary language is Mike) and is able to ambulate independently. Patient was evaluated as a stroke alert and was found to have left gaze preference and minimal movement of LUE as well as some movement of LUE. CT head , CTA head/neck without acute abnormality. EKG without acute ST changes. Is able to nod yes or no for a limited ROS and denies any chest pain, shortness of breath, abdominal pain or nausea. May take baby aspirin at home but granddaughter is not sure. No known history of CVA or seizure but was evaluated for TIA at [facility] in January 2013. Per chart review during that visit, patient did mention ? h/o blood clot in hip but family is unsure of this. Allergies Allergy/AdvReac Type Severity Reaction Status Date / Time Penicillins Allergy Mild RASH Verified 01/20/18 21:35 Home Medications Home Medications Medication Instructions Recorded Confirmed Type amlodipine 2.5 mg PO DAILY 07/15/18 07/15/18 History aspirin [Aspirin Low Dose] 81 mg PO DAILY 07/15/18 07/15/18 History calcium carbonate-vitamin D3 1 tab PO BID 07/15/18 07/15/18 History [Calcium 600 + D(3)] dicyclomine 10 mg PO BIDM 07/15/18 07/15/18 History donepezil [Aricept] 5 mg PO HS 07/15/18 07/15/18 History ferrous sulfate 325 mg PO BIDM 07/15/18 07/15/18 History fluoxetine 20 mg PO QAM 07/15/18 07/15/18 History levothyroxine 50 mcg PO QAM 07/15/18 07/15/18 History dpbvbpoi-egy-FJ-lycopen-lutein 1 tab PO DAILY 07/15/18 07/15/18 History [Centrum Silver] omeprazole 40 mg PO QAM 07/15/18 07/15/18 History sennosides [senna] 8.6 mg PO DAILY PRN 07/15/18 07/15/18 History simvastatin 5 mg PO HS 07/15/18 07/15/18 History sucralfate 1 g PO QID 07/15/18 07/15/18 History Past Med/Surg History Medical History Pre-diabetes (Chronic) Dementia (Chronic) Osteoporosis (Chronic) Osteoarthritis (Chronic) GERD (gastroesophageal reflux disease) (Chronic) H/O blood clots (Resolved) Hypertension (Chronic) Surgical History H/O: hysterectomy (Resolved) Family History Father Diabetes Social History marital status: Current Living Situation: Family current occupational status: retired Other Information That Helps Us Care for You: No Feels Safe at Home: Yes Safety Concerns: Feels Safe At This Time Smoking Status: Never smoker Hx Alcohol Use: No Hx Substance Use: No Beliefs That Will Affect Care: None Communication Tools: Lip Movement/Reading Review of Systems ROS limited 2/2 aphasia but able to not yes/no. Endorses weakness. Denies fever , chills, chest pain, shortness of breath or abdominal pain. Physical Exam 2 Vital Signs (Past 24 Hours): Last Vital Signs Temp 35.3 C L 07/15/18 14:45 Pulse 57 L 07/15/18 18:00 Resp 16 07/15/18 18:00 BP 201/84 H 07/15/18 18:00 Pulse Ox 99 07/15/18 18:00 Physical Exam: General Appearance: WD/WN, no apparent distress, left facial droop, able to nod yes/no Head: normocephalic, atraumatic Eyes: Left gaze preference but able to cross midline with gaze. PERRL. ENT: hearing grossly normal, unable to examine pharynx since patient cannot fully open mouth Neck: supple, no JVD, no adenopathy Respiratory/Chest: lungs clear to auscultation. No wheezes, rales or rhonci. No respiratory distress or accessory muscle use Cardiovascular: regular rate, rhythm, no murmur, normal peripheral pulses Abdomen/GI: normal bowel sounds, soft, non-tender to palpation Extremities/Musculoskelatal: normal inspection, no calf tenderness, normal capillary refill, no pedal edema Neurologic/Psych: Alert. + Aphasia. Unable to fully open mouth. Limited mobility of LUE. Strength deficits of left side LUE: 3/5, LLE: 4/5. RUE and RLE intact. Unable to perform [id number] on either side. Did not assess gate. Skin: normal color, warm/dry Results & Data Laboratory Results Short CBC 07/15/18 Range/Units 14:58 WBC 6.60 (4.8-10.8) K/uL Hgb 12.3 (12.0-16.0) g/dL Hct 38.8 (37-47) % Plt Count 278 (130-400) K/uL BMP 07/15/18 14:58 Sodium 134 L Potassium 3.2 L Chloride 98 Carbon Dioxide 28 BUN 12 Creatinine 0.84 Glucose 135 H Calcium 9.3 Cardiac Enzymes 07/15/18 07/15/18 Range/Units 14:58 14:58 Total Creatine Kinase 122 (26-192) U/L Troponin I < 0.015 (0-0.045) ng/ml ECG Rhythm: sinus rhythm Findings: + 1st degree AV block Code Status & VTE Plan Code Status FULL VTE Prophylaxis Plan VTE Prophylaxis will be ordered: Yes Supervising Physician Co-Signing Physician Notes HISTORY: Record reviewed. Patient interviewed and examined. Care coordinated with Addie Meyer PA-C. Please refer to her documentation for patient's history. Briefly, 78 YO female with history of cerebrovascular disease, s/p left caudate infarct prior to Jan 2013 and TIA in Jan. Found on floor this afternoon by family with confusion, left gaze preference, left-sided weakness. Last known well last evening- about 20 hours before ED arrival. EXAM: General- no distress Lungs- clear to auscultation; no respiratory distress Cardiovascular- RRR; no murmur; no gallop; no JVD; no pretibial edema Abdomen- + bowel sounds, soft, nontender Extremities- no cyanosis; no calf tenderness Neuro- alert, PERRL, left gaze preference, dysarthric, LUE 3/5, LLE 3/5, left plantar reflex equivocally upgoing Skin- warm & dry DATA: K 3.2. Other labs as noted. Other lab studies as noted. Chest x-ray - cardiomegaly, no acute findings. CT head - old left caudate infarct, no acute findings. CTA cervical and intracranial vessels - mild multifocal stenosis within bilateral ABHI's, left MCA, left FRAME ALIGNER. EKG performed at 1459 reviewed and demonstrated NB at 57 / minute, baseline artifact, no acute changes. ASSESSMENT AND PLAN: Probable ischemic stroke. Not candidate for TPA due to delayed presentation. Stroke care per protocol. Antiplatelet therapy with ASA. NPO pending FIRER AUTOMATIC STOKER eval. Check MRI. Consult Neuro. BP's elevated. Allow permissive hypertension for first 24-48 hrs, then then gradually lower BP. Hypokalemia. Replace, follow. History of dementia. Avoid meds with anticholinergic side effects. Monitor for delirium. Please refer to MANUEL Meyer's documentation for discussion of other issues.
[2018-07-15] MEDS ORDERED: PHARMACIST DISCHARGE MED REC CONSULT PRN (19:21)
[2018-07-15] MEDS ORDERED: ONDANSETRON INJ 2 MG/ML 2 ML VIAL IV PRN (19:21)
[2018-07-15] MEDS ORDERED: ASPIRIN 300 MG SUPP PR ONE (20:00)
[2018-07-15] MEDS: POTASSIUM CHLORIDE 40 MEQ in D5W AND NSS 1,000 ML IV SCH (20:02)
[2018-07-15] MEDS ORDERED: HEPARIN SOD 5,000 UNIT/0.5 ML VIAL SQ SCH (22:00)
[2018-07-16] MEDS ORDERED: GADOBUTROL 30ML VIAL IV PRN (01:35)
[2018-07-16 04:12] LABS: Appearance Urine Cloudy (Clear); Bacteria Urine Automated Negative (Negative); Bilirubin Urine Negative (Negative); Color Urine Yellow; Epithelial Cell Urine Auto 20-30 /lpf (0-5); Glucose Urine UA Trace (Negative); Ketones Urine Trace (Negative); Leukocyte Esterase Urine Negative (Negative); Nitrite Urine Negative (Negative); Specific Gravity Urine > 1.045 (1.000-1.030); Urobilinogen Urine Negative (Negative); pH Urine 7.5 (4.5-7.5)
[2018-07-16 04:29] LABS: Protein Urine 1+ (Negative)
[2018-07-16 06:57] LABS: Estimated Average Glucose 137 mg/dl
--- NOTE | 2018-07-16 07:14 | Magnetic Resonance Report ---
MRI OF THE BRAIN WITHOUT AND WITH IV CONTRAST CLINICAL HISTORY: Stroke symptoms. COMPARISON STUDY: Head CT and CTA of the head July 15, 2018. TECHNIQUE: Utilizing a 1.5 Laura magnet and dedicated coil, multiplanar, multiecho imaging of the br ain was performed pre and postcontrast administration. IV administration of 5.4 mL of Gadavist contr ast was uneventful. FINDINGS: Diffusion-weighted sequences demonstrate ill-defined increased hyperintensity within the po ns this is likely hypointense on the ADC map. This suggest small acute to subacute infarct. No additi onal sites of restricted diffusion are noted. Ventricular system is stable. Basilar cisterns are muniz nt. There are no extra-axial collections. Old infarct within the left caudate head is noted. There is no acute intracranial hemorrhage, midline shift or mass effect. White matter T2 hyperintense foci re present small vessel disease. There is no intracranial mass or pathologic enhancement. IMPRESSION: 1. Small ill-defined foci of restricted diffusion within the jozef suggestive of small acute to subacu te infarcts. No hemorrhage. No mass effect. 2. No intracranial mass or pathologic enhancement. 3. 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 Electronically signed by: King Decker M.D. 07/16/2018 7:13 AM
[2018-07-16 07:35] LABS: Basophils # (auto) 0.01 K/uL (0-0.2); Basophils % (auto) 0.1 %; Hematocrit (blood only) 33.4 % (37-47); Hemoglobin 10.6 g/dL (12.0-16.0); Immature Granulocytes # (auto) 0.05 K/uL (0.00-0.02); Immature Granulocytes % (auto) 0.3 %; Lymphocytes # (auto) 1.33 K/uL (1.2-3.4); Lymphocytes % (auto) 8.6 %; Mean Corpuscular Hgb Conc 31.7 g/dL (32-36); Mean Corpuscular Volume 83.7 fL (80-100); Mean Platelet Volume 9.1 fL (7.4-10.4); Monocytes # (auto) 0.74 K/uL (0.11-0.59); Monocytes % (auto) 4.8 %; Neutrophils # (auto) 13.36 K/uL (1.4-6.5); Neutrophils % (auto) 86.2 %; Platelet Count 258 K/uL (130-400); RDW Coefficient of Variation 14.1 % (11.5-14.5); Red Blood Count 3.99 M/uL (4.2-5.4); White Blood Count 15.49 K/uL (4.8-10.8)
[2018-07-16 08:10] LABS: BUN Creatinine Ratio 16.3 (10-20); Calcium 9.3 mg/dl (8.5-10.1); Creatinine Clr Calc Pharmacy 38.4 ml/min; Est GFR (African American) 68.3; Est GFR (Non-African American) 58.9; Potassium 3.5 mmol/L (3.5-5.1)
[2018-07-16] MEDS: POTASSIUM CHLORIDE 40 MEQ in D5W AND NSS 1,000 ML IV SCH (10:27)
[2018-07-16] MEDS: HEPARIN SOD 5,000 UNIT/0.5 ML VIAL SQ SCH ×2 (10:28→21:37)
--- NOTE | 2018-07-16 13:04 | Neurology Consultation ---
Date of Consultation July 16, 2018 Assessment & Plan (1) Left-sided weakness: 1. aspirin 81 mg daily- was not taking on regular basis 2. lipid profile - would continue statin 3. optimize DM, HLD, HTN, LDL <70 last check in [facility] system LDL = 155 4. MRI brain with small jozef infarct 5. TTE- EF 60-65% 6. CTA head and neck - no high grade stenosis on imaging 7. PT/OT speech for discharge needs follow up with neurology 8 weeks Mary Do PAC schedule (2) Aphasia: 1. same as above Supervising Physician Co-Signing Physician Notes I have seen and discussed above patient with Dr Hank Andersen. Patient was seen and examined. I argee with Mary Do PA-C as noted below. Granddaughter at bedside helps with examine and history as patient does not speek equatorial guinean. abdirizak states speech has improved. Patient without complaint. Wishing to do home PT/OT. MRI results discussed with abdirizak. 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 Recommend starting ASA 81 mg daily and high intensity statin, Lipitor 40 mg daily TTE completed, Preserved EF Recommend SBP goal <140 mm Hg, DBP<90 mm Hg HA1c 6.4 , TSH WNL CTA head and neck review. No high grade stenosis. Dispo: Patient wishes to be discharged to home. PT/OT ordered. Patient can follow up with neurology in 8-weeks. Please call with any further questions. History of Present Illness Reason for Consultation: EF 60-65% No ASD Requesting Physician: Caleb Painter MD Attending Physician: Caleb Painter MD History of Present Illness Kade is a 78 year old [place] woman with PMH of HTN, mild dementia, pre- diabetes. She presents from home after family and was found on the floor by her granddaughter. She was unable to speak or move off on the floor. History is obtained through granddaughter at bedside. At baseline, patient has mild dementia but speaks readily with family (primary language is Mike) and is able to ambulate independently. A stroke alert was called, and was found to have left gaze preference and minimal movement of LUE as well as some movement of LUE. CT head, CTA head/neck without acute abnormality. EKG without acute ST changes. She has taken an aspirin at home but granddaughter but not daily. There was an admission in 2013 for some left sided weakness. After the testing it was thought to be small vessel event and recommended to have blood pressure control and continue aspirin. She denies CP, SOB, abdominal pain, current issues with swallowing or weakness. Allergies Allergy/AdvReac Type Severity Reaction Status Date / Time Penicillins Allergy Mild RASH Verified 01/20/18 21:35 Home Medications Home Medications Medication Instructions Recorded Confirmed Type amlodipine 2.5 mg PO DAILY 07/15/18 07/15/18 History aspirin [Aspirin Low Dose] 81 mg PO DAILY 07/15/18 07/15/18 History calcium carbonate-vitamin D3 1 tab PO BID 07/15/18 07/15/18 History [Calcium 600 + D(3)] dicyclomine 10 mg PO BIDM 07/15/18 07/15/18 History donepezil [Aricept] 5 mg PO HS 07/15/18 07/15/18 History ferrous sulfate 325 mg PO BIDM 07/15/18 07/15/18 History fluoxetine 20 mg PO QAM 07/15/18 07/15/18 History levothyroxine 50 mcg PO QAM 07/15/18 07/15/18 History hsmgigzm-ttw-RI-lycopen-lutein 1 tab PO DAILY 07/15/18 07/15/18 History [Centrum Silver] omeprazole 40 mg PO QAM 07/15/18 07/15/18 History sennosides [senna] 8.6 mg PO DAILY PRN 07/15/18 07/15/18 History simvastatin 5 mg PO HS 07/15/18 07/15/18 History sucralfate 1 g PO QID 07/15/18 07/15/18 History Patient History Medical History Pre-diabetes (Chronic) Dementia (Chronic) Osteoporosis (Chronic) Osteoarthritis (Chronic) GERD (gastroesophageal reflux disease) (Chronic) H/O blood clots (Resolved) Hypertension (Chronic) Surgical History H/O: hysterectomy (Resolved) Family History Father Diabetes Social History marital status: Current Living Situation: Family current occupational status: retired Other Information That Helps Us Care for You: No Feels Safe at Home: Yes Safety Concerns: Feels Safe At This Time Smoking Status: Never smoker Hx Alcohol Use: No Hx Substance Use: No Beliefs That Will Affect Care: None Communication Tools: Lip Movement/Reading Physical Exam 2 Vital Signs (Past 24 Hours): Last Vital Signs Temp 36.6 C 07/16/18 11:48 Pulse 60 07/16/18 11:48 Resp 18 07/16/18 11:48 BP 158/71 H 07/16/18 11:48 Pulse Ox 91 07/16/18 11:48 Physical Exam: Constitutional: appearance nourished, healthy and normal Ears, Nose, Mouth and Throat: mucous membranes moist, no injection and skin normal, eyes normal Cardiovascular: normal S-1 and S-2 and regular rate and rhythm Respiratory: clear to auscultation (CTA) and no rales, rhonchi or wheeze Musculoskeletal: no peripheral edema and good distal pulses Skin: no stigmata of neurocutaneous disease noted and normal and intact Eyes: extraocular muscles intact (EOMI) and pupils equal, round and reactive to light (PERRL) no gaze preference NEUROLOGIC EXAMINATION: Mental status: Alert and interactive Oriented to person Speech appears intact responds actively with questions instructions Cranial Nerves smile eye brow raise, facial symmetry Reflexes: Deep tendon reflexes were symmetrical and graded 2/5. Plantar responses were flexor. Sensory: intact to light touch and cool touch Coordination: finger to nose no bi pass Gait/Stance: Posture normal. lying in bed Motor: Negative for pronator drift of out stretched arms with eyes closed. Strength: hand grizzly worker biceps triceps bilaterally 5/5, hip flex 5/5 Results & Data Laboratory Results Abnormal lab results 07/15/18 07/15/18 07/15/18 Range/Units 14:58 14:58 14:58 WBC (4.8-10.8) K/uL RBC (4.2-5.4) M/uL Hgb (12.0-16.0) g/dL Hct (37-47) % MCHC 31.7 L (32-36) g/dL Immature Gran # (Auto) (0.00-0.02) K/uL Neut # (Auto) (1.4-6.5) K/uL Lymph # (Auto) 1.14 L (1.2-3.4) K/uL [place] # (Auto) (0.11-0.59) K/uL Sodium 134 L (136-145) mmol/L POC Potassium (3.3-5.0) mEq/L Potassium 3.2 L (3.5-5.1) mmol/L POC Chloride (101-112) mEq/L Glucose 135 H (70-99) mg/dl POC Glucose 136 H (70-99) POC Glucose (other) (70-99) mg/dl Hemoglobin A1c (4.5-5.6) % Total Creatine Kinase (26-192) U/L Cholesterol (0-200) mg/dl Urine Appearance (Clear) Ur Specific [place] (1.000-1.030) Urine Protein (Negative) Urine Glucose (UA) (Negative) Urine Ketones (Negative) Urine WBC (Auto) (0-5) /hpf U Epithel Cells (Auto) (0-5) /lpf 07/15/18 07/15/18 07/15/18 Range/Units 14:58 15:03 19:46 WBC (4.8-10.8) K/uL RBC (4.2-5.4) M/uL Hgb (12.0-16.0) g/dL Hct (37-47) % MCHC (32-36) g/dL Immature Gran # (Auto) (0.00-0.02) K/uL Neut # (Auto) (1.4-6.5) K/uL Lymph # (Auto) (1.2-3.4) K/uL [place] # (Auto) (0.11-0.59) K/uL Sodium (136-145) mmol/L POC Potassium 3.2 L (3.3-5.0) mEq/L Potassium (3.5-5.1) mmol/L POC Chloride 96 L (101-112) mEq/L Glucose (70-99) mg/dl POC Glucose (70-99) POC Glucose (other) 138 H (70-99) mg/dl Hemoglobin A1c 6.4 H (4.5-5.6) % Total Creatine Kinase 280 H (26-192) U/L Cholesterol (0-200) mg/dl Urine Appearance (Clear) Ur Specific [place] (1.000-1.030) Urine Protein (Negative) Urine Glucose (UA) (Negative) Urine Ketones (Negative) Urine WBC (Auto) (0-5) /hpf U Epithel Cells (Auto) (0-5) /lpf 07/16/18 07/16/18 07/16/18 Range/Units 03:40 07:24 07:24 WBC 15.49 H (4.8-10.8) K/uL RBC 3.99 L (4.2-5.4) M/uL Hgb 10.6 L (12.0-16.0) g/dL Hct 33.4 L (37-47) % MCHC 31.7 L (32-36) g/dL Immature Gran # (Auto) 0.05 H (0.00-0.02) K/uL Neut # (Auto) 13.36 H (1.4-6.5) K/uL Lymph # (Auto) (1.2-3.4) K/uL [place] # (Auto) 0.74 H (0.11-0.59) K/uL Sodium (136-145) mmol/L POC Potassium (3.3-5.0) mEq/L Potassium (3.5-5.1) mmol/L POC Chloride (101-112) mEq/L Glucose 144 H (70-99) mg/dl POC Glucose (70-99) POC Glucose (other) (70-99) mg/dl Hemoglobin A1c (4.5-5.6) % Total Creatine Kinase (26-192) U/L Cholesterol 201 H (0-200) mg/dl Urine Appearance Cloudy H (Clear) Ur Specific [place] > 1.045 H (1.000-1.030) Urine Protein 1+ H (Negative) Urine Glucose (UA) Trace H (Negative) Urine Ketones Trace H (Negative) Urine WBC (Auto) 10-30 H (0-5) /hpf U Epithel Cells (Auto) 20-30 H (0-5) /lpf Diagnostic Findings CT neck- No fractures within the cervical spine. Degenerative changes as described in full report CT head- No acute intracranial findings. 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 CXR- Stable cardiomegaly. No acute process within the chest. CTA head and neck -No arterial occlusion or aneurysm within the [place] of [place]. Mild multifocal stenosis within the bilateral ACAs, left MCA, and left LOGISTIC MANAGER. No significant stenosis, occlusion, or dissection identified within the carotid or vertebral arteries. MRI brain- Small ill-defined foci of restricted diffusion within the jozef suggestive of small acute to subacute infarcts. No hemorrhage. No mass effect. No intracranial mass or pathologic enhancement. 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 TTE- 60-65% EF, no ASD
--- NOTE | 2018-07-16 15:01 | Hospitalist Progress Note ---
Date of Service July 16, 2018 Assessment & Plan (1) Left-sided weakness: (2) Aphasia: 78 year old female with history of cerebrovascular disease, s/p left caudate infarct prior to Jan 2013 and TIA in Jan. Found on floor by family with confusion, left gaze preference, left-sided weakness. -Aphasia, leftward gaze, unable to open mouth, left sided weakness clinically consistent with stroke (cerebrovascular accident) -Stroke alert called but outside of TPA window upon arrival -CT head, CTA head/neck without acute abnormality -MRI brain 07/16/18: Small ill-defined foci of restricted diffusion within the jozef suggestive of small acute to subacute infarcts. No hemorrhage. No mass effect. No intracranial mass or pathologic enhancement. Old left caudate infarct -perhaps have pontine stroke? -Give Aspirin per rectum, continue for now. when more certain that patient can swallow then can transition to aspirin 81 mg daily as per neurology service - optimize DM, HLD, HTN, LDL <70 recent LDL is 134, when more certain that patient can swallow then can give statin -speech swallow services: puree, nectar thick liquids for now -PT, OT evaluations (3) Hypertension: admission with hypertension in context of stroke blood pressure today 173/73 is better, will stop IV fluids and monitor blood pressure, plan on resuming home oral amlodipine and add other oral antihypertensives when more confident that patient can tolerate orals; for now can give hydralazine 5 mg q6 hours if systolic blood pressure greater than 180 echocardiogram 07/16/18 with EF 60 to 65% (4) Dementia: Mild dementia at baseline but only limited to short term -Hold Aricept for now (5) GERD (gastroesophageal reflux disease): Hold home PPI for now DVT Ppx: SQ heparin Code status: FULL Patient's son Jaime [phone], daughter in law Get [phone], granddaughter [phone] Dilkeith[place]osteve, granddaughter [phone] Subjective I have seen and examined patient with patient's grand daughter at bedside who speaks Mike with the patient as there is a lack of official Mike coffee brewer services. Patient has been following directions as per medical doctor. She is able to follow directions by tracking examiner's finger with her eyes only and able to follow commands to raise upper and lower extremities. Patient is verbal in her [place] language Patient denies of having any acute pain or distress Physical Exam 2 Vital Signs (Past 24 Hours): Last Vital Signs Temp 36.6 C 07/16/18 14:41 Pulse 61 07/16/18 14:41 Resp 18 07/16/18 14:41 BP 173/73 H 07/16/18 14:41 Pulse Ox 92 07/16/18 14:41 Physical Exam: Constitutional: appearance nourished, healthy and normal Ears, Nose, Mouth and Throat: mucous membranes moist, no injection and skin normal, eyes normal Cardiovascular:egular rate and rhythm Respiratory: clear to auscultation Musculoskeletal: no peripheral edema and good distal pulses Skin: no stigmata of neurocutaneous disease noted and normal and intact Eyes: extraocular muscles intact (EOMI) and pupils equal, round and reactive to light (PERRL) no gaze preference NEUROLOGIC EXAMINATION: Mental status: Alert and interactive Speech appears intact responds actively with questions instructions Cranial Nerves smile eye brow raise, facial symmetry Gait/Stance: Posture normal. lying in bed Motor: moves upper and lower extremities
[2018-07-16] MEDS ORDERED: ASPIRIN 300 MG SUPP PR ONE (15:10)
[2018-07-16] MEDS ORDERED: HydrALAZINE HCL 20 MG/ML VIAL IV PRN (15:22)
[2018-07-16] MEDS ORDERED: ASPIRIN 81 MG ECTAB PO STA (16:27)
[2018-07-17 06:46] LABS: Basophils # (auto) 0.04 K/uL (0-0.2); Basophils % (auto) 0.5 %; Eosinophils # (auto) 0.16 K/uL (0-0.5); Eosinophils % (auto) 1.8 %; Hematocrit (blood only) 34.5 % (37-47); Hemoglobin 10.7 g/dL (12.0-16.0); Immature Granulocytes # (auto) 0.02 K/uL (0.00-0.02); Immature Granulocytes % (auto) 0.2 %; Lymphocytes # (auto) 2.06 K/uL (1.2-3.4); Lymphocytes % (auto) 23.6 %; Mean Corpuscular Volume 85.4 fL (80-100); Mean Platelet Volume 9.5 fL (7.4-10.4); Monocytes # (auto) 0.67 K/uL (0.11-0.59); Monocytes % (auto) 7.7 %; Neutrophils # (auto) 5.77 K/uL (1.4-6.5); Neutrophils % (auto) 66.2 %; Platelet Count 262 K/uL (130-400); RDW Coefficient of Variation 14.3 % (11.5-14.5); RDW Standard Deviation 44.7 fL (36.4-46.3); Red Blood Count 4.04 M/uL (4.2-5.4); White Blood Count 8.72 K/uL (4.8-10.8)
[2018-07-17 07:16] LABS: BUN Creatinine Ratio 20.4 (10-20); Calcium 9.1 mg/dl (8.5-10.1); Creatinine Clr Calc Pharmacy 46.9 ml/min; Est GFR (African American) 86.9; Potassium 3.6 mmol/L (3.5-5.1)
[2018-07-17] MEDS: HEPARIN SOD 5,000 UNIT/0.5 ML VIAL SQ SCH ×2 (08:04→20:40)
[2018-07-17] MEDS: ASPIRIN 81 MG CHEW PO SCH (08:07)
[2018-07-17] MEDS: ATORVASTATIN 40 MG TAB PO SCH (12:56)
[2018-07-17] MEDS: AMLODIPINE BESYLATE 5 MG TAB PO SCH (12:56)
--- NOTE | 2018-07-17 19:25 | Hospitalist Progress Note ---
Date of Service July 17, 2018 Assessment & Plan (1) Left-sided weakness: (2) Aphasia: 78 year old female with history of cerebrovascular disease, s/p left caudate infarct prior to Jan 2013 and TIA in Jan. Found on floor by family with confusion, left gaze preference, left-sided weakness. stroke involving the Jozef -on admission with Aphasia, leftward gaze, unable to open mouth, left sided weakness clinically consistent with stroke (cerebrovascular accident), Stroke alert called but outside of TPA window upon arrival, CT head, CTA head/neck without acute abnormality -as of 07/16/18 the strength is symmetric on both sides and the aphasia is resolved and no occular gaze deviations -MRI brain 07/16/18: Small ill-defined foci of restricted diffusion within the jozef suggestive of small acute to subacute infarcts. No hemorrhage. No mass effect. No intracranial mass or pathologic enhancement. 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 video swallow test to be performed on 07/18/18 -PT, OT evaluation recommending acute rehabilitation center and case management is working on this disposition (3) Hypertension: admission with hypertension in context of stroke echocardiogram 07/16/18 with EF 60 to 65% blood pressure controlled today continue amlodipine as 5 mg daily can give hydralazine 5 mg q6 hours if systolic blood pressure greater than 180 (4) Dementia: Mild dementia at baseline but only limited to short term -mentating well at this time -Hold Aricept for now -resume fluoxetine History of hypothyroidism TSH with in normal limits resume home dose levothyroxine (5) GERD (gastroesophageal reflux disease): Hold home PPI for now DVT Ppx: SQ heparin Code status: FULL Patient's son Jaime [phone], daughter in law Get [phone], granddaughter [phone] Dilkeithyot, granddaughter [phone] Subjective I have seen and examined patient with patient's family at bedside who speaks Mike with the patient as there is a lack of official [facility] volcanology professor services. Patient has been following directions as per medical doctor. Patient is verbal in her sitka language Patient denies of having any acute pain or distress or changes with vision Patient has been able to ambulate with walker today. Patient had pike removed today and no apparent problems with bathroom needs Physical Exam 2 Vital Signs (Past 24 Hours): Last Vital Signs Temp 36.4 C L 07/17/18 15:40 Pulse 64 07/17/18 15:40 Resp 20 07/17/18 15:40 BP 126/66 07/17/18 15:40 Pulse Ox 92 07/17/18 15:40 Physical Exam: Constitutional: appearance nourished, healthy and normal Ears, Nose, Mouth and Throat: mucous membranes moist, no injection and skin normal, eyes normal Cardiovascular:egular rate and rhythm Respiratory: clear to auscultation Musculoskeletal: no peripheral edema and good distal pulses Eyes: extraocular muscles intact (EOMI) and pupils equal, round and reactive to light (PERRL) no gaze deviation NEUROLOGIC EXAMINATION: Mental status: Alert and interactive Speech appears intact responds actively with questions instructions in sitka language Cranial Nerves smile eye brow raise, facial symmetry Motor: moves upper and lower extremities
[2018-07-18] MEDS: LEVOTHYROXINE SODIUM 50 MCG TABLET PO SCH (05:51)
[2018-07-18 06:21] LABS: Basophils # (auto) 0.02 K/uL (0-0.2); Basophils % (auto) 0.2 %; Eosinophils # (auto) 0.21 K/uL (0-0.5); Eosinophils % (auto) 2.1 %; Hematocrit (blood only) 35.3 % (37-47); Hemoglobin 11.1 g/dL (12.0-16.0); Immature Granulocytes # (auto) 0.02 K/uL (0.00-0.02); Immature Granulocytes % (auto) 0.2 %; Lymphocytes % (auto) 17.9 %; Mean Corpuscular Hgb Conc 31.4 g/dL (32-36); Mean Corpuscular Volume 85.3 fL (80-100); Mean Platelet Volume 9.6 fL (7.4-10.4); Monocytes # (auto) 0.66 K/uL (0.11-0.59); Monocytes % (auto) 6.6 %; Neutrophils # (auto) 7.34 K/uL (1.4-6.5); Platelet Count 269 K/uL (130-400); RDW Coefficient of Variation 14.2 % (11.5-14.5); RDW Standard Deviation 43.7 fL (36.4-46.3); Red Blood Count 4.14 M/uL (4.2-5.4); White Blood Count 10.05 K/uL (4.8-10.8)
[2018-07-18 07:00] LABS: BUN Creatinine Ratio 23.2 (10-20); Calcium 8.9 mg/dl (8.5-10.1); Creatinine Clr Calc Pharmacy 51.6 ml/min; Est GFR (African American) 97.5; Est GFR (Non-African American) 84.2; Potassium 3.5 mmol/L (3.5-5.1)
[2018-07-18] MEDS: AMLODIPINE BESYLATE 5 MG TAB PO SCH (07:32)
[2018-07-18] MEDS: ATORVASTATIN 40 MG TAB PO SCH (07:33)
[2018-07-18] MEDS: ASPIRIN 81 MG CHEW PO SCH (07:33)
[2018-07-18] MEDS: HEPARIN SOD 5,000 UNIT/0.5 ML VIAL SQ SCH ×2 (07:33→21:57)
[2018-07-18] MEDS: FLUOXETINE HCL 20 MG CAP PO SCH (07:33)
--- NOTE | 2018-07-18 08:58 | Hospitalist Progress Note ---
Date of Service July 18, 2018 Assessment & Plan (1) Left-sided weakness: (2) Aphasia: 78 year old female with history of cerebrovascular disease, s/p left caudate infarct prior to Jan 2013 and TIA in Jan. Found on floor by family with confusion, left gaze preference, left-sided weakness. ACUTE CVA, ACUTE PONTINE INFARCT -on admission with Aphasia, leftward gaze, unable to open mouth, left sided weakness clinically consistent with stroke (cerebrovascular accident), Stroke alert called but outside of TPA window upon arrival, CT head, CTA head/neck without acute abnormality -MRI brain 07/16/18: Small ill-defined foci of restricted diffusion within the jozef suggestive of small acute to subacute infarcts. No hemorrhage. No mass effect. No intracranial mass or pathologic enhancement. 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 video swallow test to be performed on 07/18/18 (3) Hypertension: admission with hypertension in context of stroke echocardiogram 07/16/18 with EF 60 to 65% Amlodipine increased to 5mg daily goal BP for today 140s to 150s monitor (4) Dementia: Mild dementia at baseline but only limited to short term - usually on Aricept and Fluoxeteine\ History of hypothyroidism TSH with in normal limits continue levothyroxine (5) GERD (gastroesophageal reflux disease): usually on PPI DVT Ppx: SQ heparin Code status: FULL Patient's son Jaime [phone], daughter in law Get [phone], granddaughter [phone] Diljyot, granddaughter [phone] Subjective seen with granddaughter at bedside, sought assistance for translation seen resting in bed, comfortable able to walk better, speech is 90% better as per family denies any new focal neuro symptoms reports dysuria, but no abdominal pain/chills/hematuria denies other symptoms Physical Exam 2 Vital Signs (Past 24 Hours): Last Vital Signs Temp 36.9 C 07/18/18 07:07 Pulse 56 L 07/18/18 08:47 Resp 17 07/18/18 07:07 BP 157/78 H 07/18/18 07:07 Pulse Ox 93 07/18/18 07:07 Physical Exam: General- oriented x 2, not in distress, speaks in sentences with no effort or accessory muscle use Head- atraumatic Eyes- PERRL, EOMI, anicteric ENT- oropharynx clear Neck- supple, no JVD, no adenopathy, no thyromegaly; carotids +2/2, no bruits appreciated Lungs- clear to auscultation bilaterally, no rales/wheezes Heart- normal rate, regular rhythm; no murmur, no gallop, no rub appreciated Abdomen- normal bowel sounds, nondistended, soft, nontender, no masses or hepatosplenomegaly Extremities- no pretibial edema, no calf tenderness; peripheral pulses intact Neuro- alert, oriented x 2; CN 2-12 grossly intact; motor 5/5 bilaterally; sensation 100% on all extremities; no other gross focal neurologic deficits Skin- warm & dry Results & Data Laboratory Results Laboratory Results - last 24 hr 07/18/18 07/18/18 07/18/18 05:53 05:53 15:10 WBC 10.05 RBC 4.14 L Hgb 11.1 L Hct 35.3 L MCV 85.3 MCH 26.8 MCHC 31.4 L RDW Std Deviation 43.7 RDW Coeff of Vivienne 14.2 Plt Count 269 MPV 9.6 Immature Gran % (Auto) 0.2 Neut % (Auto) 73.0 Lymph % (Auto) 17.9 [place] % (Auto) 6.6 Eos % (Auto) 2.1 Baso % (Auto) 0.2 Immature Gran # (Auto) 0.02 Neut # (Auto) 7.34 H Lymph # (Auto) 1.80 [place] # (Auto) 0.66 H Eos # (Auto) 0.21 Baso # (Auto) 0.02 Sodium 138 Potassium 3.5 Chloride 105 Carbon Dioxide 27 Anion Gap 6.0 BUN 16 Creatinine 0.70 Est Cr Clr Drug Dosing 51.6 Est GFR ( Amer) 97.5 Est GFR (Non-Af Amer) 84.2 BUN/Creatinine Ratio 23.2 H Glucose 103 H Calcium 8.9 Urine Color Yellow Urine Appearance Turbid H Urine pH 7.5 Ur Specific [place] 1.018 Urine Protein 2+ H Urine Glucose (UA) Trace H Urine Ketones Negative Urine Blood 3+ H Urine Nitrite Positive H Urine Bilirubin Negative Urine Urobilinogen Negative Ur Leukocyte Esterase 3+ H Urine WBC (Auto) >30 H Urine RBC (Auto) 10-30 H U Hyaline Cast (Auto) 0 U Epithel Cells (Auto) >30 H Urine Bacteria (Auto) 4+ H Urine Yeast Not Reportable
[2018-07-18] MEDS: SENNA 8.6 MG TAB PO SCH (11:06)
--- NOTE | 2018-07-18 13:37 | Fluoroscopy Report ---
FL video swallow CLINICAL HISTORY: r/o aspiration COMPARISON STUDY: None. FLUOROSCOPY TIME: 4.3 minutes. FINDINGS: There were several episodes of tracheal aspiration with thin liquids. Premature spillage wa s noted with delayed initiation of the swallowing mechanism. Note is made of mild prominence of the c ricopharyngeus. There is no aspiration with nectar thick liquids, pudding or crackers with paste. IMPRESSION: 1. Mild tracheal aspiration within liquids. No aspiration with the remainder of the consistencies. 2. Premature spillage with delayed initiation of the swallowing mechanism. 3. Full recommendations by speech pathology to follow. Electronically signed by: King Decker M.D. 07/18/2018 1:36 PM
[2018-07-18 16:10] LABS: Appearance Urine Turbid (Clear); Bacteria Urine Automated 4+ (Negative); Bilirubin Urine Negative (Negative); Color Urine Yellow; Epithelial Cell Urine Auto >30 /lpf (0-5); Glucose Urine UA Trace (Negative); Ketones Urine Negative (Negative); Leukocyte Esterase Urine 3+ (Negative); Nitrite Urine Positive (Negative); Specific Gravity Urine 1.018 (1.000-1.030); Urobilinogen Urine Negative (Negative); WBC Urine Automated >30 /hpf (0-5); pH Urine 7.5 (4.5-7.5)
[2018-07-18 16:22] LABS: Protein Urine 2+ (Negative)
[2018-07-18 16:25] LABS: Cast Urine Automated 0 /lpf (0-5)
[2018-07-18] MEDS: PANTOprazole 40 MG TAB PO SCH (18:39)
[2018-07-18] MEDS: cefTRIAXone SODIUM 1,000 MG in DEXTROSE 5% 50 ML IV SCH (18:40)
[2018-07-19] MEDS: LEVOTHYROXINE SODIUM 50 MCG TABLET PO SCH (06:44)
[2018-07-19] MEDS ORDERED: AMLODIPINE BESYLATE 5 MG TAB PO SCH (09:00)
[2018-07-19] MEDS: ATORVASTATIN 40 MG TAB PO SCH (09:13)
[2018-07-19] MEDS: ASPIRIN 81 MG CHEW PO SCH (09:13)
[2018-07-19] MEDS: SENNA 8.6 MG TAB PO SCH (09:14)
[2018-07-19] MEDS: PANTOprazole 40 MG TAB PO SCH (09:14)
[2018-07-19] MEDS: FLUOXETINE HCL 20 MG CAP PO SCH (09:15)
[2018-07-19] MEDS: HEPARIN SOD 5,000 UNIT/0.5 ML VIAL SQ SCH (09:23)
--- NOTE | 2018-07-19 12:27 | Hospitalist Progress Note ---
Date of Service July 19, 2018 Assessment & Plan (1) Left-sided weakness: (2) Aphasia: 78 year old female with history of cerebrovascular disease, s/p left caudate infarct prior to Jan 2013 and TIA in Jan. Found on floor by family with confusion, left gaze preference, left-sided weakness. ACUTE CVA, ACUTE PONTINE INFARCT -on admission with Aphasia, leftward gaze, unable to open mouth, left sided weakness clinically consistent with stroke (cerebrovascular accident), Stroke alert called but outside of TPA window upon arrival, CT head, CTA head/neck without acute abnormality -MRI brain 07/16/18: Small ill-defined foci of restricted diffusion within the jozef suggestive of small acute to subacute infarcts. No hemorrhage. No mass effect. No intracranial mass or pathologic enhancement. 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 video swallow test to be performed on 07/18/1807/19 stable overall BP improved Speech Therapy recommendations noted ok for discharge today home health with PT/OT/ST ff up with Neurology in 1 month (3) Hypertension: admission with hypertension in context of stroke echocardiogram 07/16/18 with EF 60 to 65% Amlodipine increased to 7.5mg daily BP improved now 132/66 continue to monitor as outpatient (4) Dementia: Mild dementia at baseline but only limited to short term - usually on Aricept and Fluoxeteine History of hypothyroidism TSH with in normal limits continue levothyroxine (5) GERD (gastroesophageal reflux disease): usually on PPI DVT Ppx: SQ heparin Code status: FULL d/c home with home PT, OT, ST ff up with PCP Dr. Jennifer Mcgraw 07/24/18 ff up with Neurologist Dr. Johnson in 1 month Subjective ff up for acute CVA seen resting in bed, comfortable family at the bedside, they helped to translate patient feels fine overall, just a mild frontal headache, intermittent no nausea, dizziness, chest pain, dyspnea, palpitations speech is back to baseline no problems with swallowing today no new focal deficits, tolerating PT/OT, per granddaughter she is able to move better today patient states she is comfortable for discharge today family also comfortable with her discharge Physical Exam 2 Vital Signs (Past 24 Hours): Last Vital Signs Temp 36.9 C 07/19/18 10:53 Pulse 61 07/19/18 10:53 Resp 16 07/19/18 10:53 BP 132/66 07/19/18 10:53 Pulse Ox 92 07/19/18 10:53 Physical Exam: General- oriented x 2, not in distress, speaks in sentences with no effort or accessory muscle use Eyes- anicteric Neck- no JVD Lungs- clear breath sounds bilaterally Heart- normal rate, regular rhythm; no murmurs Abdomen- normal bowel sounds, nondistended, soft, nontender Extremities- no pretibial edema, no calf tenderness Neuro- alert, oriented x 2; no gross focal neurologic deficits Skin- warm & dry Results & Data Laboratory Results Laboratory Results - last 24 hr 07/18/18 15:10 Urine Color Yellow Urine Appearance Turbid H Urine pH 7.5 Ur Specific [place] 1.018 Urine Protein 2+ H Urine Glucose (UA) Trace H Urine Ketones Negative Urine Blood 3+ H Urine Nitrite Positive H Urine Bilirubin Negative Urine Urobilinogen Negative Ur Leukocyte Esterase 3+ H Urine WBC (Auto) >30 H Urine RBC (Auto) 10-30 H U Hyaline Cast (Auto) 0 U Epithel Cells (Auto) >30 H Urine Bacteria (Auto) 4+ H Urine Yeast Not Reportable
[2018-07-19] MEDS: cefTRIAXone SODIUM 1,000 MG in DEXTROSE 5% 50 ML IV SCH (12:52)
--- NOTE | 2018-07-19 13:11 | Discharge Summary ---
Date of Service July 19, 2018 Admission HPI Per Admitting Provider This is a 78yo F with a PMH of HTN, mild dementia, pre-diabetes and other medical problems listed below who presents from home with stroke like symptoms. Patient lives at home with family and was found on the floor by granddaughter around 2 pm today, unable to speak or move off on the floor. Was last seen in normal state of health last evening. History was obtained by granddaughter at bedside. At baseline, patient has mild dementia but speaks readily with family (primary language is Mike) and is able to ambulate independently. Patient was evaluated as a stroke alert and was found to have left gaze preference and minimal movement of LUE as well as some movement of LUE. CT head , CTA head/neck without acute abnormality. EKG without acute ST changes. Is able to nod yes or no for a limited ROS and denies any chest pain, shortness of breath, abdominal pain or nausea. May take baby aspirin at home but granddaughter is not sure. No known history of CVA or seizure but was evaluated for TIA at [facility] in January 2013. Per chart review during that visit, patient did mention ? h/o blood clot in hip but family is unsure of this. Admission Exam Per Admitting Provider Vital Signs (Past 24 Hours): Last Vital Signs Temp 35.3 C L 07/15/18 14:45 Pulse 57 L 07/15/18 18:00 Resp 16 07/15/18 18:00 BP 201/84 H 07/15/18 18:00 Pulse Ox 99 07/15/18 18:00 Physical Exam: General Appearance: WD/WN, no apparent distress, left facial droop, able to nod yes/no Head: normocephalic, atraumatic Eyes: Left gaze preference but able to cross midline with gaze. PERRL. ENT: hearing grossly normal, unable to examine pharynx since patient cannot fully open mouth Neck: supple, no JVD, no adenopathy Respiratory/Chest: lungs clear to auscultation. No wheezes, rales or rhonci. No respiratory distress or accessory muscle use Cardiovascular: regular rate, rhythm, no murmur, normal peripheral pulses Abdomen/GI: normal bowel sounds, soft, non-tender to palpation Extremities/Musculoskelatal: normal inspection, no calf tenderness, normal capillary refill, no pedal edema Neurologic/Psych: Alert. + Aphasia. Unable to fully open mouth. Limited mobility of LUE. Strength deficits of left side LUE: 3/5, LLE: 4/5. RUE and RLE intact. Unable to perform deqshx-cm-btol on either side. Did not assess gate. Skin: normal color, warm/dry Principal Diagnosis ACUTE CVA, JARAD Discharge Exam Vital Signs (Past 24 Hours): Last Vital Signs Temp 36.9 C 07/19/18 10:53 Pulse 61 07/19/18 10:53 Resp 16 07/19/18 10:53 BP 132/66 07/19/18 10:53 Pulse Ox 92 07/19/18 10:53 Physical Exam: General- oriented x 2, not in distress, speaks in sentences with no effort or accessory muscle use Eyes- anicteric Neck- no JVD Lungs- clear breath sounds bilaterally Heart- normal rate, regular rhythm; no murmurs Abdomen- normal bowel sounds, nondistended, soft, nontender Extremities- no pretibial edema, no calf tenderness Neuro- alert, oriented x 2; no gross focal neurologic deficits Skin- warm & dry Discharge Data Allergies Allergy/AdvReac Type Severity Reaction Status Date / Time Penicillins Allergy Mild RASH Verified 01/20/18 21:35 Consultations 07/15/18 16:48 ED Decision to Admit Stat 07/15/18 19:21 Consult Case Management - Discharge Planning Routine Consult Neurology Routine Ordered Studies 07/15/18 14:38 CT cervical spine wo con Stat IMPRESSION: No fractures within the cervical spine. Degenerative changes as described above. CT head/brain wo con Stat 1. No acute intracranial findings. 2. 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 07/15/18 14:43 CT angio head w con Stat CT angio neck with con Stat 1. No arterial occlusion or aneurysm within the [place] of [place]. Mild multifocal stenosis within the bilateral ACAs, left MCA, and left WATCH ADJUSTER. 2. No significant stenosis, occlusion, or dissection identified within the carotid or vertebral arteries. 07/16/18 00:41 MR brain wo/w con Routine 1. Small ill-defined foci of restricted diffusion within the jarad suggestive of small acute to subacute infarcts. No hemorrhage. No mass effect. 2. No intracranial mass or pathologic enhancement. 3. Old left caUdate infarct. 07/18/18 11:30 FL video swallow Routine 1. Mild tracheal aspiration within liquids. No aspiration with the remainder of the consistencies. 2. Premature spillage with delayed initiation of the swallowing mechanism. 3. Full recommendations by speech pathology to follow. Hospital Course (1) Left-sided weakness: (2) Aphasia: 78 year old female with history of cerebrovascular disease, s/p left caudate infarct prior to Jan 2013 and TIA in Jan. Found on floor by family with confusion, left gaze preference, left-sided weakness. ACUTE CVA, ACUTE PONTINE INFARCT -on admission with Aphasia, leftward gaze, unable to open mouth, left sided weakness clinically consistent with stroke (cerebrovascular accident), Stroke alert called but outside of TPA window upon arrival, CT head, CTA head/neck without acute abnormality -MRI brain 07/16/18: Small ill-defined foci of restricted diffusion within the jarad suggestive of small acute to subacute infarcts. No hemorrhage. No mass effect. No intracranial mass or pathologic enhancement. Old left caudate infarct - Neurology consulted Dr. 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 continued on ASA 81mg (patient was not taking consistently), added Lipitor 40mg HS - symptoms resolved patient showed progress during PT/OT eval, recommend home with home health/PT speech therapy evaluated the aptient, s/p video swallow test: mechanical soft diet -- stable overall BP improved home health with PT/OT/ST ff up with Neurology in 1 month (3) Hypertension: admission with hypertension in context of stroke echocardiogram 07/16/18 with EF 60 to 65% Amlodipine increased to 7.5mg daily BP improved now 132/66 continue to monitor as outpatient (4) UTI (urinary tract infection): pike cath placed during admission patient then developed UTI symptoms UA showed possible UTI patient received empiric Ceftri x 2 days, discharged with 1 day of Cefuroxime urine culture showing Enterobacter >100k and Klebsiella 50k (sens to Cipro) patient's son called, informed of findings, Cipro 250mg BID x 5 days sent to pharmacy , son advised to pick and he agreed (5) Dementia: Mild dementia at baseline but only limited to short term - usually on Aricept and Fluoxeteine History of hypothyroidism - TSH with in normal limits continue levothyroxine (6) GERD (gastroesophageal reflux disease): usually on PPI d/c home with home PT, OT, ST ff up with PCP Dr. Jennifer Mcgraw 07/24/18 ff up with Neurologist Dr. Johnson in 1 month Total Time Total Time Spent Total Time Spent (In Minutes): 45 mins Discharge Plan Discharge Items Patient Disposition: Home - Home Health Services Reason For Visit: STROKE LIKE SYMPTOMS Discharge Diagnosis: ACUTE STROKE, HIGH BLOOD PRESSURE Discharge Goals: Diagnostic testing Activity: As commented below Activity Comment: ALWAYS USE ROLLING WALKER, ALWAYS WITH ASSISTANCE Lifting: Wait until after follow-up appointment Exercise/Sports: Wait until after follow-up appointment Driving/Machine Use Comment: NO DRIVING Non-emergency contact: Primary Care Provider Call non-emergency contact if: you have any medication questions, your pain is not controlled, your pain is worsening, your pain is unusual for you, your pain is concerning for you and you have a fever Follow-up/Referrals: Olga Mcgraw MD [Primary Care Provider] - 07/24/18 1:45 pm Hank Andersen, [Physician] - Diet: Heart Healthy Diet Texture: Mechanical soft (ground) Liquid Consistency: [place] thick Addtl Provider Instructions: FOLLOW UP WITH DR. OLGA MCGRAW NOTED ABOVE. PLEASE FOLLOW UP WITH [facility] NEUROLOGIST DR. ANDERSEN IN 1 MONTH. PLEASE CALL HIS OFFICE FOR AN APPOINTMENT. CONTACT INFORMATION NOTED ABOVE. CONTINUE PHYSICAL THERAPY, OCCUPATIONAL THERAPY, SPEECH THERAPY AT HOME. PLEASE FOLLOW SPEECH THERAPY RECOMMENDATIONS. Minced and moist mechanical soft diet Aspiration and Reflux precautions Supervise patient at meals. Make sure the patient actually swallow each bite/ sip before another one is taken. Alternate solid and liquid Crush medications Supervise meals Fully alert and upright Give medications in a carrier Oral hygiene Single bites/Small sips/Slow rate Alternate solids and liquids Head of Bed 30 degrees ALL the time Upright with meals for at least 30 minutes Who to Call and When: Medical Emergencies: Call 911 immediately if you experience any of the following warning signs and symptoms of Stroke: Sudden numbness or weakness of the face, arm or leg, especially on one side of the body Sudden confusion, trouble speaking or understanding Sudden trouble seeing in one or both eyes Sudden trouble walking, dizziness, loss of balance or coordination Sudden severe headache with no cause Delay in seeking medical attention may affect what treatments can be given to you. Risk Factors for Stroke: You can reduce your chances of stroke by working with your medical provider to adopt a healthy lifestyle. Some specific ways to lower your chance of stroke are: If you are a smoker, now is the time to stop smoking cigarettes If you are diabetic, improve the control of your blood sugars Avoid excessive amounts of alcohol Control high blood pressure Lose weight if you are overweight Be sure to lead an active lifestyle Eat a healthy diet low in salt, cholesterol and fat You should know about other risk factors for stroke that you are unable to control. These include: Age 55 years or older Male gender Certain racial groups: , or / Family History of Stroke, Mini stroke or Heart Attack Sickle Cell Disease Follow Up: It is important for you to keep your follow up appointments with your medical provider. Prescriptions: New atorvastatin 40 mg Tablet 40 mg PO DAILY 30 Days Qty: 30 RF: 2 amlodipine [Norvasc] 5 mg Tablet 7.5 mg PO QAM 30 Days Qty: 45 RF: 2 ciprofloxacin HCl 250 mg tablet 250 mg PO BID 5 Days Qty: 10 RF: 0 Continue sennosides [senna] 8.6 mg Tablet 8.6 mg PO DAILY PRN (Reason: Constipation) RF: 0 donepezil [Aricept] 5 mg Tablet 5 mg PO HS RF: 0 sucralfate 1 gram tablet 1 g PO QID RF: 0 omeprazole 40 mg capsule,delayed release(DR/EC) 40 mg PO QAM RF: 0 levothyroxine 50 mcg tablet 50 mcg PO QAM RF: 0 ferrous sulfate 325 mg (65 mg iron) Tablet,Delayed Release (Dr/Ec) 325 mg PO BIDM RF: 0 fluoxetine 20 mg capsule 20 mg PO QAM RF: 0 dicyclomine 10 mg capsule 10 mg PO BIDM RF: 0 uustztzc-zfu-KM-lycopen-lutein [Centrum Silver] 0.4-300-250 mg-mcg-mcg Tablet 1 tab PO DAILY RF: 0 calcium carbonate-vitamin D3 [Calcium 600 + D(3)] 600 mg calcium- 200 unit Capsule 1 tab PO BID RF: 0 aspirin [Aspirin Low Dose] 81 mg Tablet,Delayed Release (Dr/Ec) 81 mg PO DAILY Qty: 0 RF: 0 Discontinued amlodipine 2.5 mg tablet 2.5 mg PO DAILY RF: 0 simvastatin 5 mg Tablet 5 mg PO HS RF: 0 Stand-Alone Forms: Medications to Prevent Stroke, [facility]/Other Patient Handouts: Cefuroxime Axetil Oral tablet, Stroke Sx, Dysarthria, Stroke Taking Meds, Stroke Prepare Home After, Stroke Resources Support, Stroke Self Care, Stroke Tips Swallow, Stroke Prevent Recurrent Discharge Orders: Discharge Order (Routine); Ordered 07/19/18 Ordered By: Randy Salcedo Admission Data Admit Date/Time: 07/15/18 17:55 Attending Provider: Randy Salcedo Admit Provider: Clinton Sunshine Primary Care Provider: Olga Mcgraw Other Providers: Hank Andersen ; Home,Nursing Agency Service: Telemetry Other Interventions: Discharge Summary Assessment (RN) Last Done: 07/19/18 17:05 DC Date/Time DO NOT enter until pt leaves facility: 07/19/18 18:23
--- NOTE | 2018-07-19 13:12 | Pharmacy Report ---
Pharmacist Stroke Counseling - Date of Service July 19, 2018 - Scope: Pharmacy has been consulted to provide medication discharge counseling for this patient admitted with [ischemic stroke] [hemorrhagic stroke] [transient ischemic attack] as per the Pharmacist Discharge Counseling for Stroke Patients Protocol. - Medications on Discharge: Home Medications Medication Instructions Recorded Confirmed amlodipine 2.5 mg PO DAILY 07/15/18 07/15/18 aspirin [Aspirin Low Dose] 81 mg PO DAILY 07/15/18 07/15/18 calcium carbonate-vitamin D3 1 tab PO BID 07/15/18 07/15/18 [Calcium 600 + D(3)] dicyclomine 10 mg PO BIDM 07/15/18 07/15/18 donepezil [Aricept] 5 mg PO HS 07/15/18 07/15/18 ferrous sulfate 325 mg PO BIDM 07/15/18 07/15/18 fluoxetine 20 mg PO QAM 07/15/18 07/15/18 levothyroxine 50 mcg PO QAM 07/15/18 07/15/18 hapomumi-fmz-XP-lycopen-lutein 1 tab PO DAILY 07/15/18 07/15/18 [Centrum Silver] omeprazole 40 mg PO QAM 07/15/18 07/15/18 sennosides [senna] 8.6 mg PO DAILY PRN 07/15/18 07/15/18 simvastatin 5 mg PO HS 07/15/18 07/15/18 sucralfate 1 g PO QID 07/15/18 07/15/18 New Rx's Medication Instructions Recorded amlodipine [Norvasc] 7.5 mg PO QAM 30 Days #45 tab 07/19/18 atorvastatin 40 mg PO DAILY 30 Days #30 tab 07/19/18 cefuroxime axetil 250 mg PO BID 1 Days #2 tab 07/19/18 - Action: The above medications, specifically ones for stroke treatment/prophylaxis, have been reviewed in detail with the patient and/or patient customer care representative(s) prior to discharge. This includes indication, common adverse reactions, drug interactions, and medication administration. Medication counseling has been employed using the teach-back method to ensure understanding. - Outcome: The patient and/or patient customer care representative(s) have demonstrated understanding of the medications. Please note, they are aware that the pharmacist will call them within 72 hours post-discharge to confirm that the appropriate medications are being taken and answer any further medication related questions the patient might have at that time. Contact information Individual to be contacted: Ramses Relationship to patient (if applicable): daughter Phone number: [phone] Best time to call: anytime Additional comments: Ramses asked if she could change the administration time of [facility] home meds to simplify regimen. I reviewed her medication list. I recommended that amlodipine remain in the morning, levothyroxine remain in the morning (taken on empty stomach and from other meds), and Aricept remain at HS. I suggested that all other meds ordered once daily could be adjusted to her preferred administration time as long as they are consistently taken at the same time each day. Thank you for allowing pharmacy to be involved in the care of this patient. Please call [phone] with any additional questions
[2018-07-19] MEDS ORDERED: STROKE PATIENT DISCHARGE STA (16:27)
--- NOTE | 2018-07-19 17:12 | Pharmacy Report ---
Pharmacist Stroke Counseling - Date of Service July 19, 2018 - Scope: Pharmacy has been consulted to provide medication discharge counseling for this patient admitted with [ischemic stroke] [hemorrhagic stroke] [transient ischemic attack] as per the Pharmacist Discharge Counseling for Stroke Patients Protocol. - Medications on Discharge: Home Medications Medication Instructions Recorded Confirmed amlodipine 2.5 mg PO DAILY 07/15/18 07/15/18 aspirin [Aspirin Low Dose] 81 mg PO DAILY 07/15/18 07/15/18 calcium carbonate-vitamin D3 1 tab PO BID 07/15/18 07/15/18 [Calcium 600 + D(3)] dicyclomine 10 mg PO BIDM 07/15/18 07/15/18 donepezil [Aricept] 5 mg PO HS 07/15/18 07/15/18 ferrous sulfate 325 mg PO BIDM 07/15/18 07/15/18 fluoxetine 20 mg PO QAM 07/15/18 07/15/18 levothyroxine 50 mcg PO QAM 07/15/18 07/15/18 indwogcf-lfr-RI-lycopen-lutein 1 tab PO DAILY 07/15/18 07/15/18 [Centrum Silver] omeprazole 40 mg PO QAM 07/15/18 07/15/18 sennosides [senna] 8.6 mg PO DAILY PRN 07/15/18 07/15/18 simvastatin 5 mg PO HS 07/15/18 07/15/18 sucralfate 1 g PO QID 07/15/18 07/15/18 New Rx's Medication Instructions Recorded amlodipine [Norvasc] 7.5 mg PO QAM 30 Days #45 tab 07/19/18 atorvastatin 40 mg PO DAILY 30 Days #30 tab 07/19/18 cefuroxime axetil 250 mg PO BID 1 Days #2 tab 07/19/18 - Action: The above medications, specifically ones for stroke treatment/prophylaxis, have been reviewed in detail with the patient and/or patient retail customer service representative(s) prior to discharge. This includes indication, common adverse reactions, drug interactions, and medication administration. Medication counseling has been employed using the teach-back method to ensure understanding. - Outcome: The patient and/or patient retail customer service representative(s) have demonstrated understanding of the medications. Please note, they are aware that the pharmacist will call them within 72 hours post-discharge to confirm that the appropriate medications are being taken and answer any further medication related questions the patient might have at that time. Contact information Individual to be contacted: Ramses (pronounced "dill-deep") Relationship to patient (if applicable): raymond Phone number: [phone] Best time to call: after 9am Additional comments: Patient does not speak any [place]o. Her granddaughter translates for her. Thank you for allowing pharmacy to be involved in the care of this patient. Please call [phone] with any additional questions
== END 2018-07-19 18:23 | disposition home health service (06) | DRG 65 ==
LOC: ED 14:36 → 2S 17:55 → SUATTDRO 17:55 → 2S 18:54

== ENCOUNTER 2020-05-28 10:23 | Inpatient (IN) ==
--- NOTE | 2020-05-28 11:09 | XRay Report ---
XR chest 1V portable HISTORY: 80 years-old Female fall acute chest trauma status post fall COMPARISON: Chest radiograph 07/15/2018 TECHNIQUE: Portable AP view of the chest FINDINGS: Cardiac silhouette is mildly enlarged, unchanged. Calcified plaque of the thoracic aorta. There is no pneumothorax, large pleural effusion, airspace consolidation or overt pulmonary edema. Descending th oracic aortic tortuosity. Degenerative changes of the shoulders and spine. IMPRESSION: No acute process. ACT 112: Negative or not required by law. The above report was generated using voice recognition software. It may contain grammatical, syntax o r spelling errors. Electronically signed by: Tejinder Rangel M.D. 05/28/2020 11:07 AM
--- NOTE | 2020-05-28 11:10 | XRay Report ---
XR pelvis 1-2V routine HISTORY: 80 years-old Female fall acute pelvic pain status post fall COMPARISON: Pelvis radiograph 09/07/2017 TECHNIQUE: AP view of the pelvis FINDINGS: Linear 8 mm calcification adjacent to the right greater trochanter suggests calcific tendinosis of th e gluteal insertion site. Mildly demineralized appearance of the bones. No acute fracture, dislocatio n or avascular necrosis. 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 IMPRESSION: No acute fracture or dislocation. ACT 112: Negative or not required by law. The above report was generated using voice recognition software. It may contain grammatical, syntax o r spelling errors. Electronically signed by: Tejinder Rangel M.D. 05/28/2020 11:09 AM
[2020-05-28 11:14] LABS: Basophils # (auto) 0.02 K/uL (0-0.2); Basophils % (auto) 0.1 %; Eosinophils # (auto) 0.06 K/uL (0-0.5); Eosinophils % (auto) 0.4 %; Hematocrit (blood only) 35.7 % (37-47); Hemoglobin 11.5 g/dL (12.0-16.0); Immature Granulocytes # (auto) 0.04 K/uL (0.00-0.02); Immature Granulocytes % (auto) 0.3 %; Lymphocytes # (auto) 1.46 K/uL (1.2-3.4); Lymphocytes % (auto) 9.9 %; Mean Corpuscular Hemoglobin 28.7 pg (25-34); Mean Corpuscular Hgb Conc 32.2 g/dL (32-36); Mean Platelet Volume 9.4 fL (7.4-10.4); Monocytes # (auto) 1.82 K/uL (0.11-0.59); Monocytes % (auto) 12.3 %; Neutrophils # (auto) 11.38 K/uL (1.4-6.5); Platelet Count 293 K/uL (130-400); RDW Coefficient of Variation 12.9 % (11.5-14.5); RDW Standard Deviation 42.1 fL (36.4-46.3); Red Blood Count 4.01 M/uL (4.2-5.4); White Blood Count 14.78 K/uL (4.8-10.8)
[2020-05-28 11:24] LABS: Partial Thromboplastin Time 27.5 Seconds (21.0-31.0); Prothrombin Time 10.9 Seconds (9.0-12.0)
[2020-05-28 11:31] LABS: Alanine Aminotransferase 25 U/L (12-78); Albumin Level 2.9 gm/dl (3.4-5.0); Aspartate Aminotransferase 18 U/L (15-37); BUN Creatinine Ratio 19.8 (10-20); Blood Urea Nitrogen 17 mg/dl (7-18); Calcium 9.4 mg/dl (8.5-10.1); Carbon Dioxide 32 mmol/L (21-32); Chloride 101 mmol/L (98-107); Est GFR (Non-African American) 64.7; Glucose 115 mg/dl (70-99); Lipase 81 U/L (73-393); Magnesium 2.4 mg/dl (1.8-2.4); Potassium 3.2 mmol/L (3.5-5.1); Sodium 136 mmol/L (136-145)
[2020-05-28 11:36] LABS: Albumin Globulin Ratio 0.6 (0.9-2); Alkaline Phosphatase 92 U/L (45-117); Bilirubin,Total 0.5 mg/dl (0.2-1); Creatine Kinase 63 U/L (26-192); Globulin 4.6 gm/dl (2.5-4.0); Total Protein 7.5 gm/dl (6.4-8.2); Troponin I < 0.015 ng/ml (0-0.045)
[2020-05-28] MEDS ORDERED: IOVERSOL 100ml IV ONE (11:57)
--- NOTE | 2020-05-28 12:05 | CT Scan Report ---
CT head/brain wo con CLINICAL HISTORY: 80 years-old Female with fall. Acute head injury status post fall TECHNIQUE: Multiple axial CT images of the head were obtained without contrast. A dose lowering tech nique was utilized adhering to the principles of ALARA. COMPARISON: CT cervical spine of same day, head CT 07/15/2018, brain MRI 07/16/2018. FINDINGS: No acute intracranial hemorrhage, midline shift, intracranial mass, hydrocephalus, territorial ischem ia or abnormal extra-axial collection. Age-related involutional changes. Remote lacunar infarct of th e left caudate nucleus/anterior limb left internal capsule. Patchy white matter hypodensities suggest chronic microvascular disease. Remote pontine lacunar infarct, 6 mm. The calvarium is intact. Prior bilateral lens replacement. Small right mastoid effusion. Left mastoid air cells and paranasal sinuses are unremarkable. IMPRESSION: No acute intracranial abnormality or calvarial fracture. ACT 112: Negative or not required by law. The above report was generated using voice recognition software. It may contain grammatical, syntax o r spelling errors. Electronically signed by: Tejinder Rangel M.D. 05/28/2020 12:04 PM
--- NOTE | 2020-05-28 12:11 | CT Scan Report ---
CT cervical spine wo con CT DOSE: 1199.66 mGy.cm CLINICAL HISTORY: 80 years-old Female with fall. Acute head and neck injury status post fall COMPARISON: CT cervical spine 07/15/2018 TECHNIQUE: Multiple axial CT images of the cervical spine were obtained without contrast. A dose low ering technique was utilized adhering to the principles of ALARA. FINDINGS: There is unchanged anterolisthesis C3 on C4 and minimal retrolisthesis C5 on C6. Severe disc space na rrowing at C5-6 with moderate space narrowing at C6-C7. Moderate multilevel spondylitic spurring with severe facet arthrosis. No acute fracture or subluxation. Small right mastoid effusion. Evaluation o f the central canal and neuroforamina is better assessed by MRI. Note is made of multilevel foraminal narrowing. No pneumothorax or prevertebral edema. IMPRESSION: No acute fracture or subluxation. ACT 112: Negative or not required by law. The above report was generated using voice recognition software. It may contain grammatical, syntax o r spelling errors. Electronically signed by: Tejinder Rangel M.D. 05/28/2020 12:10 PM
--- NOTE | 2020-05-28 12:24 | Emergency Department Note ---
History of Present Illness General Chief Complaint: Abdominal Pain Stated Complaint: RLQ ABD PAIN,WONT EAT,2 FALL IN PAST 24 HOURS Time Seen by Provider: 05/28/20 10:34 Source: family (Granddaughter is translating from [facility] language) History of Present Illness Provider Complaint: abdominal pain Onset (ago): 2 day(s) Pain Consistency: intermittent Location: RLQ Radiation: none Migration to: no migration Severity: severe Maximum Pain Intensity: 10 Current Pain Intensity: 10 Quality: + sharp Relieved By: + nothing Exacerbated By: + nothing Context: no foreign travel, no possible food poisoning, no sick contacts, no recent antibiotic use, no recent surgery/procedure and no recent injury Associated Symptoms: + anorexia and + weakness; no nausea, no vomiting, no diarrhea, no fever, no dysuria, no hematemesis, no hematochezia, no melena, no hematuria, no headache and no chest pain Patient's granddaughter states that the patient also fell twice yesterday. She states her hit her head yesterday and was confused afterward. Home Medications Medication Instructions Recorded Confirmed Type Calcium 600 + D(3) 1 tab PO BID 07/15/18 05/28/20 History Centrum Silver 1 tab PO QAM 07/15/18 05/28/20 History dicyclomine 10 mg PO BIDM 07/15/18 05/28/20 History donepezil [Aricept] 5 mg PO HS 07/15/18 05/28/20 History ferrous sulfate 325 mg PO Q2D 07/15/18 05/28/20 History fluoxetine 20 mg PO QAM 07/15/18 05/28/20 History levothyroxine 50 mcg PO QAM 07/15/18 05/28/20 History omeprazole 40 mg PO QAM 07/15/18 05/28/20 History sennosides [senna] 8.6 mg PO DAILY PRN 07/15/18 05/28/20 History sucralfate 1 g PO QID 07/15/18 05/28/20 History ciprofloxacin HCl 250 mg PO BID 07/28/18 07/28/18 History aspirin [Aspirin Low Dose] 81 mg PO QAM 05/28/20 05/28/20 History polyethylene glycol 3350 [Miralax] 17 g PO QPM 11/26/20 11/26/20 History Allergies Allergy/AdvReac Type Severity Reaction Status Date / Time Penicillins Allergy Mild RASH Verified 05/28/20 12:23 Past Med/Surg History Medical History Dementia GERD (gastroesophageal reflux disease) H/O blood clots Hypertension Osteoarthritis Osteoporosis Pre-diabetes Stroke Surgical History H/O: hysterectomy Family History Father Diabetes Social History Smoking Status: Never smoker Hx Alcohol Use: No Hx Substance Use: No Preferred Language: Clif Communication Tools: Lip Movement/Reading Review Engineer Required: Yes Beliefs That Will Affect Care: None marital status: Current Living Situation: Family current occupational status: retired Feels Safe at Home: Yes Assistive Devices: None and Walker Review of Systems A total of 10 systems reviewed and were otherwise negative Physical Exam Vital Signs: Vital Signs - 24 hr 05/28/20 10:31 05/28/20 11:14 05/28/20 11:37 Temperature 37.1 C Temperature Source Oral Pulse Rate 71 77 Pulse Rate [Right Finger] Pulse Rate from Sp O2 Sensor Respiratory Rate 18 20 Respiratory Effort / Characteristics Respiratory Depth Respiratory Patter n Blood Pressure 120/76 140/67 Blood Pressure [Le ft Arm] Blood Pressure Peggy n 90 95 Blood Pressure Peggy n [Left Arm] Blood Pressure Pos ition [Left Arm] Pulse Oximetry 97 Oxygen Delivery Me thod Room Air Sepsis Recent Feve r Within 48 Hours No Sepsis New/Unexpla ined Change in Men royer Status No Sepsis Action Take n by Nursing No Action Required 05/28/20 11:38 05/28/20 11:55 05/28/20 11:56 Temperature Temperature Source Pulse Rate 77 73 Pulse Rate [Right Finger] 70 Pulse Rate from Sp O2 Sensor 76 74 Respiratory Rate 18 16 20 Respiratory Effort / Characteristics Respiratory Depth Normal Respiratory Patter n Regular Blood Pressure 139/55 L Blood Pressure [Le ft Arm] 140/67 Blood Pressure Peggy n 74 Blood Pressure Peggy n [Left Arm] 91 Blood Pressure Pos ition [Left Arm] Sitting Pulse Oximetry 94 93 94 Oxygen Delivery Me thod Room Air Room Air Room Air Sepsis Recent Feve r Within 48 Hours Sepsis New/Unexpla ined Change in Men royer Status Sepsis Action Take n by Nursing 05/28/20 13:30 Temperature Temperature Source Pulse Rate Pulse Rate [Right Finger] 69 Pulse Rate from Sp O2 Sensor Respiratory Rate 18 Respiratory Effort / Characteristics Non-Labored Sponta neous Respiratory Depth Normal Respiratory Patter n Regular Blood Pressure Blood Pressure [Le ft Arm] 125/59 L Blood Pressure Peggy n Blood Pressure Peggy n [Left Arm] 81 Blood Pressure Pos ition [Left Arm] Lying Pulse Oximetry 93 Oxygen Delivery Me thod Room Air Sepsis Recent Feve r Within 48 Hours Sepsis New/Unexpla ined Change in Men royer Status Sepsis Action Take n by Nursing Physical Exam: Physical Exam HENT: Exam performed. -Head: Normocephalic and atraumatic. -Right Ear: External ear normal. No mastoid tenderness. -Left Ear: External ear normal. No mastoid tenderness. -Mouth/Throat: The oropharynx is clear and moist. No trismus in the jaw. No dental abscesses or uvula swelling. No oropharyngeal exudate or tonsillar abscesses. EYES: Conjunctivae and EOM are normal. Pupils are equal, round, and reactive to light. Right eye exhibits no discharge. Left eye exhibits no discharge. No scleral icterus. NECK: Normal range of motion. Neck supple. No JVD present. No spinous process tenderness present. No carotid bruit present. No rigidity. No tracheal deviation and normal range of motion present. No Brudzinski's sign and no Kernig's sign noted. CV: Normal rate, regular rhythm, normal heart sounds and intact distal pulses. There is no peripheral edema. Palpable radial pulses bue. PULM/CHEST: Effort normal and breath sounds normal. No respiratory distress. No stridor. She has no wheezes. She has no rales. -Chest Wall: She exhibits no tenderness. ABD: The abdomen is soft. Bowel sounds are normal. She has no distension. No mass is present. There is tenderness to palpation of the right lower quadrant. There is no rebound, no guarding, no Giordano's sign. MUSC/SKEL: Normal range of motion. There is no peripheral edema, tenderness or deformity. LYMPH: No cervical adenopathy. NEURO: Motor and sensation is grossly intact. Course Course 1034: The patient was evaluated in room B2. A complete history and physical exam was performed. Cardiac monitoring: An order was placed for continuous cardiac monitoring. The monitor shows a rate of 70 with sinus rhythm 1300: Vital signs stable. Labs show a leukocytosis of 14.78. Potassium 3.2. CT of the abdomen shows a perforated acute appendicitis with right lower quadrant abscess measuring up to 2.8 cm with an appendicolith present. I discussed the case with Dr. Bhat general surgery who stated that this could be managed medically with IV antibiotics. She states she will come in to evaluate the patient but the patient should be admitted to medicine. We were going to give the patient Zosyn however the patient has a listed allergy to penicillins. I discussed this with the family emergency at bedside and they stated that the patient was diagnosed with an allergy to penicillins during the while she was in [place] and they are not sure what her exact allergy is they are in the medical profession or asking that we avoid penicillins as we do not know if she has ever had truly anaphylactic reaction. Given this the patient will be started on meropenem. Dr. Bhat is okay with this antibiotic. Case will be discussed with Dr. Jong Harkins hospitalist who will evaluate the patient for admission. Administered Medications Discontinued Medications Meropenem 500 mg/ Syringe 10 mls @ 2 mls/min IV NOW ONE; Protocol Stop: 05/28/20 14:49 Last Admin: 05/28/20 14:53 Dose: 2 mls/min Documented by: [id number] Ioversol (Ioversol 100ml) 94 ml IV ONCE ONE Stop: 05/28/20 11:58 Last Admin: 05/28/20 11:57 Dose: 94 ml Documented by: [id number] Morphine Sulfate (Morphine Sulfate 2 Mg/Ml Carp) 2 mg IV NOW STA Stop: 05/28/20 13:20 Last Admin: 05/28/20 13:28 Dose: 2 mg Documented by: [id number] Ondansetron HCl (Ondansetron Inj 2 Mg/Ml 2 Ml Vial) 4 mg IV NOW STA Stop: 05/28/20 13:20 Last Admin: 05/28/20 13:28 Dose: 4 mg Documented by: [id number] Medical Decision Making Laboratory Data Result diagrams: 05/28/20 10:59 05/28/20 10:59 Lab Results 05/28/20 05/28/20 05/28/20 Range/Units 10:59 10:59 10:59 WBC 14.78 H (4.8-10.8) K/uL RBC 4.01 L (4.2-5.4) M/uL Hgb 11.5 L (12.0-16.0) g/dL Hct 35.7 L (37-47) % MCV 89.0 (80-100) fL MCH 28.7 (25-34) pg MCHC 32.2 (32-36) g/dL RDW Std Deviation 42.1 (36.4-46.3) fL RDW Coeff of Vivienne 12.9 (11.5-14.5) % Plt Count 293 (130-400) K/uL MPV 9.4 (7.4-10.4) fL Immature Gran % (Auto) 0.3 % Neut % (Auto) 77.0 % Lymph % (Auto) 9.9 % [place] % (Auto) 12.3 % Eos % (Auto) 0.4 % Baso % (Auto) 0.1 % Neut # (Auto) 11.38 H (1.4-6.5) K/uL Lymph # (Auto) 1.46 (1.2-3.4) K/uL [place] # (Auto) 1.82 H (0.11-0.59) K/uL Eos # (Auto) 0.06 (0-0.5) K/uL Baso # (Auto) 0.02 (0-0.2) K/uL Immature Gran # (Auto) 0.04 H (0.00-0.02) K/uL PT 10.9 (9.0-12.0) Seconds INR 1.0 (0.9-1.1) APTT 27.5 (21.0-31.0) Seconds PTT Ratio 1.0 Sodium 136 (136-145) mmol/L Potassium 3.2 L (3.5-5.1) mmol/L Chloride 101 (98-107) mmol/L Carbon Dioxide 32 (21-32) mmol/L Anion Gap 3.0 (3-11) BUN 17 (7-18) mg/dl Creatinine 0.86 (0.6-1.2) mg/dl Est Cr Clr Drug Dosing 51.0 ml/min Est GFR ( Amer) 75.0 Est GFR (Non-Af Amer) 64.7 BUN/Creatinine Ratio 19.8 (10-20) Glucose 115 H (70-99) mg/dl Lactate (0.4-2.0) mmol/L Calcium 9.4 (8.5-10.1) mg/dl Magnesium 2.4 (1.8-2.4) mg/dl Total Bilirubin 0.5 (0.2-1) mg/dl AST 18 (15-37) U/L ALT 25 (12-78) U/L Alkaline Phosphatase 92 (45-117) U/L Total Creatine Kinase 63 (26-192) U/L Troponin I < 0.015 (0-0.045) ng/ml Total Protein 7.5 (6.4-8.2) gm/dl Albumin 2.9 L (3.4-5.0) gm/dl Globulin 4.6 H (2.5-4.0) gm/dl Albumin/Globulin Ratio 0.6 L (0.9-2) Lipase 81 (73-393) U/L Procalcitonin (0-0.5) ng/ml 05/28/20 05/28/20 Range/Units 10:59 10:59 WBC (4.8-10.8) K/uL RBC (4.2-5.4) M/uL Hgb (12.0-16.0) g/dL Hct (37-47) % MCV (80-100) fL MCH (25-34) pg MCHC (32-36) g/dL RDW Std Deviation (36.4-46.3) fL RDW Coeff of Vivienne (11.5-14.5) % Plt Count (130-400) K/uL MPV (7.4-10.4) fL Immature Gran % (Auto) % Neut % (Auto) % Lymph % (Auto) % [place] % (Auto) % Eos % (Auto) % Baso % (Auto) % Neut # (Auto) (1.4-6.5) K/uL Lymph # (Auto) (1.2-3.4) K/uL [place] # (Auto) (0.11-0.59) K/uL Eos # (Auto) (0-0.5) K/uL Baso # (Auto) (0-0.2) K/uL Immature Gran # (Auto) (0.00-0.02) K/uL PT (9.0-12.0) Seconds INR (0.9-1.1) APTT (21.0-31.0) Seconds PTT Ratio Sodium (136-145) mmol/L Potassium (3.5-5.1) mmol/L Chloride (98-107) mmol/L Carbon Dioxide (21-32) mmol/L Anion Gap (3-11) BUN (7-18) mg/dl Creatinine (0.6-1.2) mg/dl Est Cr Clr Drug Dosing ml/min Est GFR ( Amer) Est GFR (Non-Af Amer) BUN/Creatinine Ratio (10-20) Glucose (70-99) mg/dl Lactate 1.0 (0.4-2.0) mmol/L Calcium (8.5-10.1) mg/dl Magnesium (1.8-2.4) mg/dl Total Bilirubin (0.2-1) mg/dl AST (15-37) U/L ALT (12-78) U/L Alkaline Phosphatase (45-117) U/L Total Creatine Kinase (26-192) U/L Troponin I (0-0.045) ng/ml Total Protein (6.4-8.2) gm/dl Albumin (3.4-5.0) gm/dl Globulin (2.5-4.0) gm/dl Albumin/Globulin Ratio (0.9-2) Lipase (73-393) U/L Procalcitonin 0.23 (0-0.5) ng/ml Imaging Data Radiologist's Impression: ABDOMEN AND PELVIS CT WITH IV CONTRAST HISTORY: Acute right lower quadrant abdominal pain abdominal pain fall RLQ tenderness TECHNIQUE: Multiaxial CT images of the abdomen and pelvis were performed following the IV administration of 94 cc of Optiray 320, A dose lowering technique was utilized adhering to the principles of ALARA. COMPARISON STUDY: CT abdomen and pelvis 01/24/2016 FINDINGS: Mild subsegmental bibasilar atelectasis. No pneumatosis or pneumoperitoneum. Cardiomegaly. Coronary artery calcifications. Mitral and aortic annular calcifications also noted. Trace pericardial effusion. The spleen, mildly atrophic pancreas, adrenal glands and mildly contracted gallbladder are unremarkable. Liver is also within normal limits. Punctate calcification near the alyssa hepatis. There is patency of the hepatic and portal veins. Cortical scarring and parenchymal thinning of the left kidney. No hydronephrosis. Indeterminate ill-defined 12 mm area of decreased attenuation involves the lateral interpolar left kidney. No ureteral calculi or obstructive uropathy. Partial distention of the urinary bladder with mild wall thickening. Hysterectomy. No adnexal mass lesions. Mixed plaque of the abdominal aorta without aneurysm. Unremarkable IVC. Mildly prominent lymph nodes of the retroperitoneum measuring up to 7 mm are likely reactive. No bowel obstruction. Moderate fecal retention. There is moderate circumferential wall thickening of the terminal ileum. Wall thickening of the cecum and proximal ascending colon is also noted. The visualized appendix is thick and and hyperemic measuring up to approximately 1.4 cm transversely. Peripherally enhancing fluid collection of the abdominal right lower quadrant measures 2.4 x 2.8 x 2.8 cm containing a 6 mm linear calcification possibly reflective of an appendicolith. Prominent lymph nodes of the right lower quadrant mesentery measure up to 7 mm. Unremarkable soft tissues. Degenerative changes of the spine, pelvis and hips. L1 compression deformity without retropulsion is chronic and unchanged. Healed remote fracture deformity of the left inferior pubic ramus. No acute fracture identified. IMPRESSION: 1. Findings are suggestive of acute appendicitis with perforation and right lower quadrant abscess measuring up to 2.8 cm. Subcentimeter linear calcification within the fluid collection may reflect an appendicolith. Surgical consultation is needed. 2. Wall thickening of the cecum, ascending colon and terminal ileum is likely reactive. 3. Cardiomegaly. 4. Moderate fecal retention. 5. Ill-defined 12 mm area of decreased attenuation involving the posterolateral aspect of the interpolar left kidney. This may reflect a complex cyst versus solid lesion. 6. Additional findings as above. ACT 112: Negative or not required by law. The above report was generated using voice recognition software. It may contain grammatical, syntax or spelling errors. Electronically signed by: Tejinder Rangel M.D. 05/28/2020 12:25 PM Dictated: 05/28/20 1210Transcribed: 05/28/20 1210 XR pelvis 1-2V routine HISTORY: 80 years-old Female fall acute pelvic pain status post fall COMPARISON: Pelvis radiograph 09/07/2017 TECHNIQUE: AP view of the pelvis FINDINGS: Linear 8 mm calcification adjacent to the right greater trochanter suggests calcific tendinosis of the gluteal insertion site. Mildly demineralized appearance of the bones. No acute fracture, dislocation or avascular necrosis. 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 IMPRESSION: No acute fracture or dislocation. ACT 112: Negative or not required by law. The above report was generated using voice recognition software. It may contain grammatical, syntax or spelling errors. Electronically signed by: Tejinder Rangel M.D. 05/28/2020 11:09 AM Dictated: 05/28/20 1108Transcribed: 05/28/[address] head/brain wo con CLINICAL HISTORY: 80 years-old Female with fall. Acute head injury status post fall TECHNIQUE: Multiple axial CT images of the head were obtained without contrast. A dose lowering technique was utilized adhering to the principles of ALARA. COMPARISON: CT cervical spine of same day, head CT 07/15/2018, brain MRI . FINDINGS: No acute intracranial hemorrhage, midline shift, intracranial mass, hydrocepha jignesh, territorial ischemia or abnormal extra-axial collection. Age-related involutional changes. Remote lacunar infarct of the left caudate nucleus/anterior limb left internal capsule. Patchy white matter hypodensities suggest chronic microvascular disease. Remote pontine lacunar infarct, 6 mm. The calvarium is intact. Prior bilateral lens replacement. Small right mastoid effusion. Left mastoid air cells and paranasal sinuses are unremarkable. IMPRESSION: No acute intracranial abnormality or calvarial fracture. ACT 112: Negative or not required by law. The above report was generated using voice recognition software. It may contain grammatical, syntax or spelling errors. Electronically signed by: Tejinder Rangel M.D. 05/28/2020 12:04 PM Dictated: 05/28/20 1200Transcribed: 05/28/20 1200 XR chest 1V portable HISTORY: 80 years-old Female fall acute chest trauma status post fall COMPARISON: Chest radiograph 07/15/2018 TECHNIQUE: Portable AP view of the chest FINDINGS: Cardiac silhouette is mildly enlarged, unchanged. Calcified plaque of the thoracic aorta. There is no pneumothorax, large pleural effusion, airspace consolidation or overt pulmonary edema. Descending thoracic aortic tortuosity. Degenerative changes of the shoulders and spine. IMPRESSION: No acute process. ACT 112: Negative or not required by law. The above report was generated using voice recognition software. It may contain grammatical, syntax or spelling errors. Electronically signed by: Tejinder Rangel M.D. 05/28/2020 11:07 AM Dictated: 05/28/201105Transcribed: 05/28/201105 CT cervical spine wo con CT DOSE: 1199.66 mGy.cm CLINICAL HISTORY: 80 years-old Female with fall. Acute head and neck injury status post fall COMPARISON: CT cervical spine 07/15/2018 TECHNIQUE: Multiple axial CT images of the cervical spine were obtained without contrast. A dose lowering technique was utilized adhering to the principles of ALARA. FINDINGS: There is unchanged anterolisthesis C3 on C4 and minimal retrolisthesis C5 on C6. Severe disc space narrowing at C5-6 with moderate space narrowing at C6-C7. Moderate multilevel spondylitic spurring with severe facet arthrosis. No acute fracture or subluxation. Small right mastoid effusion. Evaluation of the central canal and neuroforamina is better assessed by MRI. Note is made of multilevel foraminal narrowing. No pneumothorax or prevertebral edema. IMPRESSION: No acute fracture or subluxation. ACT 112: Negative or not required by law. The above report was generated using voice recognition software. It may contain grammatical, syntax or spelling errors. Electronically signed by: Tejinder Rangel M.D. 05/28/2020 12:10 PM Dictated: 05/28/20 1204Transcribed: 05/28/20 120 ECG Data Indication: abdominal pain Rate (beats per minute): 69 Rhythm: normal sinus Findings: + mobitz I block; no ST depression, no ST elevation and no prolonged QT Additional Comments: QRS interval within normal limits. MDM Narrative Vital signs stable. Labs show a leukocytosis of 14.78. Potassium 3.2. CT of the abdomen shows a perforated acute appendicitis with right lower quadrant abscess measuring up to 2.8 cm with an appendicolith present. I discussed the case with Dr. Bhat general surgery who stated that this could be managed medically with IV antibiotics. She states she will come in to evaluate the pat ient but the patient should be admitted to medicine. We were going to give the patient Zosyn however the patient has a listed allergy to penicillins. I discussed this with the family emergency at bedside and they stated that the patient was diagnosed with an allergy to penicillins during the while she was in [place] and they are not sure what her exact allergy is they are in the medical profession or asking that we avoid penicillins as we do not know if she has ever had truly anaphylactic reaction. Given this the patient will be started on meropenem. Dr. Bhat is okay with this antibiotic. Case will be discussed with Dr. Jong Harkins hospitalist who will evaluate the patient fo r admission. Impression & Plan Acute appendicitis Discharge Plan Visit Data Chief Complaint: Abdominal Pain Stated Complaint: RLQ ABD PAIN,WONT EAT,2 FALL IN PAST 24 HOURS ED Provider: Omero Estevez Discharge Problem: Acute appendicitis Patient Disposition: Admitted As Inpatient Discharge Instructions Interventions: ED Discharge Assessment Last Done: 05/28/20 16:14 Discharge Problem: Acute appendicitis Qualifiers: Acute appendicitis type: with localized peritonitis Appendicitis gangrene presence: unspecified whether gangrene present Appendicitis perforation presence: with perforation Appendicitis abscess presence: with abscess Qualified Code(s): K35.33 - Acute appendicitis with perforation and localized peritonitis, with abscess
--- NOTE | 2020-05-28 12:27 | CT Scan Report ---
ABDOMEN AND PELVIS CT WITH IV CONTRAST HISTORY: Acute right lower quadrant abdominal pain abdominal pain fall RLQ tenderness TECHNIQUE: Multiaxial CT images of the abdomen and pelvis were performed following the IV administrat ion of 94 cc of Optiray 320, A dose lowering technique was utilized adhering to the principles of AL MAYTE. COMPARISON STUDY: CT abdomen and pelvis 01/24/2016 FINDINGS: Mild subsegmental bibasilar atelectasis. No pneumatosis or pneumoperitoneum. Cardiomegaly. Coronary artery calcifications. Mitral and aortic annular calcifications also noted. Trace pericardia l effusion. The spleen, mildly atrophic pancreas, adrenal glands and mildly contracted gallbladder are unremarkab le. Liver is also within normal limits. Punctate calcification near the alyssa hepatis. There is paten cy of the hepatic and portal veins. Cortical scarring and parenchymal thinning of the left kidney. No hydronephrosis. Indeterminate ill-defined 12 mm area of decreased attenuation involves the lateral i nterpolar left kidney. No ureteral calculi or obstructive uropathy. Partial distention of the urinary bladder with mild wall thickening. Hysterectomy. No adnexal mass lesions. Mixed plaque of the abdomi nal aorta without aneurysm. Unremarkable IVC. Mildly prominent lymph nodes of the retroperitoneum ney suring up to 7 mm are likely reactive. No bowel obstruction. Moderate fecal retention. There is moderate circumferential wall thickening of the terminal ileum. Wall thickening of the cecum and proximal ascending colon is also noted. The visu alized appendix is thick and and hyperemic measuring up to approximately 1.4 cm transversely. Periphe rally enhancing fluid collection of the abdominal right lower quadrant measures 2.4 x 2.8 x 2.8 cm co ntaining a 6 mm linear calcification possibly reflective of an appendicolith. Prominent lymph nodes o f the right lower quadrant mesentery measure up to 7 mm. Unremarkable soft tissues. Degenerative more ges of the spine, pelvis and hips. L1 compression deformity without retropulsion is chronic and uncha nged. Healed remote fracture deformity of the left inferior pubic ramus. No acute fracture identified . IMPRESSION: 1. Findings are suggestive of acute appendicitis with perforation and right lower quadrant abscess me asuring up to 2.8 cm. Subcentimeter linear calcification within the fluid collection may reflect an a ppendicolith. Surgical consultation is needed. 2. Wall thickening of the cecum, ascending colon and terminal ileum is likely reactive. 3. Cardiomegaly. 4. Moderate fecal retention. 5. Ill-defined 12 mm area of decreased attenuation involving the posterolateral aspect of the interpo lar left kidney. This may reflect a complex cyst versus solid lesion. 6. Additional findings as above. ACT 112: Negative or not required by law. The above report was generated using voice recognition software. It may contain grammatical, syntax o r spelling errors. Electronically signed by: Tejinder Rangel M.D. 05/28/2020 12:25 PM
--- NOTE | 2020-05-28 13:12 | Surgery Consultation ---
Date of Consultation May 28, 2020 Assessment & Plan (1) Acute perforated appendicitis: 80 yr old woman with perforated appendicitis with 2.8 cm abscess. Discussed that treatment is usually nonoperative (similar to diverticulitis) with IV abx, bowel rest. If no improvement, would repeat CT scan in 48 hrs to assess for drainable fluid or increase in size of abscess. If improves on IV abx, will be able to advance diet and finish course of treatment with PO antibiotics. Reviewed that interval appendectomy is no longer routinely recommended but done for persistent symptoms or recurrent infections. Will follow. Plan IV abx (given pcn allergy, cipro/flagyl is reasonable alternative), bowel rest until improvement in pain/ leukocytosis, IV hydration. Present on Admission?: Yes History of Present Illness Reason for Consultation: abdominal pain Requesting Physician: Dr. Estevez History of Present Illness 80 yr old Mike speaking woman accompanied by granddaughter today (PA student). She notes a history of lower abdominal pain in the past. For the last few days, pain has been more intense, both sides of lower abdomen but worse on right side. No fevers/ chills. Has been noticing decreased appetite. Bowels are still functioning (small bowel movement last night and today). Grand-daughter had examined abdomen on Monday and no psoas sign was present. Today, pain worsened and on repeat exam, she had a psoas sign. Thus, brought to ER for evaluation. PMHx notable for stroke a few years ago with residual dysphagia, history of hysterectomy in past. Allergies Allergy/AdvReac Type Severity Reaction Status Date / Time Penicillins Allergy Mild RASH Verified 05/28/20 12:23 Home Medications Medication Instructions Recorded Confirmed Type Calcium 600 + D(3) 1 tab PO BID 07/15/18 05/28/20 History Centrum Silver 1 tab PO QAM 07/15/18 05/28/20 History dicyclomine 10 mg PO BIDM 07/15/18 05/28/20 History donepezil [Aricept] 5 mg PO HS 07/15/18 05/28/20 History ferrous sulfate 325 mg PO Q2D 07/15/18 05/28/20 History fluoxetine 20 mg PO QAM 07/15/18 05/28/20 History levothyroxine 50 mcg PO QAM 07/15/18 05/28/20 History omeprazole 40 mg PO QAM 07/15/18 05/28/20 History sennosides [senna] 8.6 mg PO DAILY PRN 07/15/18 05/28/20 History sucralfate 1 g PO QID 07/15/18 05/28/20 History ciprofloxacin HCl 250 mg PO BID 07/28/18 07/28/18 History aspirin [Aspirin Low Dose] 81 mg PO QAM 05/28/20 05/28/20 History polyethylene glycol 3350 [Miralax] 17 g PO QPM 05/28/20 05/28/20 History Patient History Medical History Dementia GERD (gastroesophageal reflux disease) H/O blood clots Hypertension Osteoarthritis Osteoporosis Pre-diabetes Stroke Surgical History H/O: hysterectomy Family History Father Diabetes Social History Smoking Status: Never smoker Hx Alcohol Use: No Hx Substance Use: No Preferred Language: Clif Communication Tools: Lip Movement/Reading Solutions Specialist Required: Yes Beliefs That Will Affect Care: None marital status: Current Living Situation: Family current occupational status: retired Feels Safe at Home: Yes Assistive Devices: None and Walker Review of Systems Review of Systems: All systems reviewed & are unremarkable except as noted in HPI & below dysphagia from stroke Physical Exam Constitutional: WD/WN, vitals as above Eyes: PERRL, conjunctivae normal, anicteric sclerae ENMT: Ears: no hearing impairment and no external ear abnormality Neck: trachea midline Respiratory: normal respiratory effort, lungs clear to auscultation Cardiovascular: RRR, no murmur, no edema Gastrointestinal (Abdomen): Inspection/Auscultation: abdomen normal to inspection and normal bowel sounds; abdomen not distended Percussion/Palpation: + abdomen tender (over McBurney's point) and + guarding (in RLQ) Musculoskeletal: Head/Neck/Chest: normocephalic and head atraumatic Skin: no rashes, warm and dry Neurologic: CN's II-XI intact bilaterally; no focal motor deficits Psychiatric: Orientation: alert and oriented x 3 Results & Data ([facility]) Vital Signs (Past 12 Hours) Vital Signs Temp Pulse Pulse Resp BP BP Pulse Ox 05/28/20 11:56 73 20 139/55 L 94 05/28/20 11:55 77 16 93 05/28/20 11:38 70 18 140/67 94 05/28/20 11:37 140/67 05/28/20 11:14 77 20 05/28/20 10:31 37.1 C 71 18 120/76 97 Laboratory Results Abnormal lab results 05/28/20 05/28/20 Range/Units 10:59 10:59 WBC 14.78 H (4.8-10.8) K/uL RBC 4.01 L (4.2-5.4) M/uL Hgb 11.5 L (12.0-16.0) g/dL Hct 35.7 L (37-47) % Neut # (Auto) 11.38 H (1.4-6.5) K/uL [place] # (Auto) 1.82 H (0.11-0.59) K/uL Immature Gran # (Auto) 0.04 H (0.00-0.02) K/uL Potassium 3.2 L (3.5-5.1) mmol/L Glucose 115 H (70-99) mg/dl Albumin 2.9 L (3.4-5.0) gm/dl Globulin 4.6 H (2.5-4.0) gm/dl Albumin/Globulin Ratio 0.6 L (0.9-2) Diagnostic Findings FINDINGS: Mild subsegmental bibasilar atelectasis. No pneumatosis or pneumoperitoneum. Cardiomegaly. Coronary artery calcifications. Mitral and aortic annular calcifications also noted. Trace pericardial effusion. The spleen, mildly atrophic pancreas, adrenal glands and mildly contracted gallbladder are unremarkable. Liver is also within normal limits. Punctate calcification near the alyssa hepatis. There is patency of the hepatic and portal veins. Cortical scarring and parenchymal thinning of the left kidney. No hydronephrosis. Indeterminate ill-defined 12 mm area of decreased attenuation involves the lateral interpolar left kidney. No ureteral calculi or obstructive uropathy. Partial distention of the urinary bladder with mild wall thickening. Hysterectomy. No adnexal mass lesions. Mixed plaque of the abdominal aorta without aneurysm. Unremarkable IVC. Mildly prominent lymph nodes of the retroperitoneum measuring up to 7 mm are likely reactive. No bowel obstruction. Moderate fecal retention. There is moderate circumferential wall thickening of the terminal ileum. Wall thickening of the cecum and proximal ascending colon is also noted. The visualized appendix is thick and and hyperemic measuring up to approximately 1.4 cm transversely. Peripherally enhancing fluid collection of the abdominal right lower quadrant measures 2.4 x 2.8 x 2.8 cm containing a 6 mm linear calcification possibly reflective of an appendicolith. Prominent lymph nodes of the right lower quadrant mesentery measure up to 7 mm. Unremarkable soft tissues. Degenerative changes of the spine, pelvis and hips. L1 compression deformity without retropulsion is chronic and unchanged. Healed remote fracture deformity of the left inferior pubic ramus. No acute fracture identified. IMPRESSION: 1. Findings are suggestive of acute appendicitis with perforation and right lower quadrant abscess measuring up to 2.8 cm. Subcentimeter linear calcification within the fluid collection may reflect an appendicolith. Surgical consultation is needed. 2. Wall thickening of the cecum, ascending colon and terminal ileum is likely reactive. 3. Cardiomegaly. 4. Moderate fecal retention. 5. Ill-defined 12 mm area of decreased attenuation involving the posterolateral aspect of the interpolar left kidney. This may reflect a complex cyst versus solid lesion. 6. Additional findings as above.
[2020-05-28] MEDS ORDERED: MoRPHine SULFATE 2 MG/ML CARP IV STA (13:19)
[2020-05-28] MEDS ORDERED: ONDANSETRON INJ 2 MG/ML 2 ML VIAL IV STA (13:19)
--- NOTE | 2020-05-28 13:53 | History & Physical Report ---
Date of Service May 28, 2020 Assessment & Plan (1) Acute appendicitis: Presented with RLQ abdominal pain. WBC 14,000. Afebrile. Hemodynamically stable. CT demonstrated acute appendicitis with perforation and 2.8 cm abscess. General Surgery consulted and assessed patient in ED. Medical management recommended unless condition worsens. Initial management will consist of bowel rest, IV antibiotics (meropenem selected in light of penicillin allergy), analgesics. Follow-up CT in 48 hours recommended if no improvement. (2) Hypokalemia: K = 3.2. IV replacement. Follow. (3) Hypertension: Hemodynamically stable. Continue amlodipine. (4) Cerebrovascular disease: 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. No acute findings on CT of head. Hold aspirin until need for urgent invasive procedures ruled out. Continue statin. (5) GERD (gastroesophageal reflux disease): Continue PPI. (6) Dysphagia: Dysphagia secondary to stroke. Thicken liquids. Aspiration precautions. (7) Dyslipidemia: Continue atorvastatin. (8) Dementia: Continue donepezil. Monitor for delirium. Maintain adequate pain control. Avoid or minimize meds with LORRY WEIGHER side-effects. (9) Depression: Continue fluoxetine. (10) Abnormal CT scan, kidney: Incidental finding on CT of abdomen & pelvis: "Ill-defined 12 mm area of decreased attenuation involving the posterolateral aspect of the interpolar left kidney. This may reflect a complex cyst versus solid lesion." Check ultrasound of kidney once abdominal pain has improved. (11) COVID-19 ruled out: COVID-19 screening per protocol. SARS-CoV-2 antigen negative. (12) DVT prophylaxis: SQ heparin. Ambulate with walker and assistance. (13) Discharge planning issues: Anticipated discharge to home. Internal Medicine follow-up with Dr. Merced Mcgraw. History of Present Illness Chief Complaint: abdominal pain Primary Care Provider: Merced Mcgraw MD 80 YO female followed by Dr. Merced Mcgraw for Internal Medicine. History of hypertension, pre-diabetes, and other problems noted below. Lives with her family. Ambulatory with walker. Speaks Mike. Granddaughter at bedside in ED and assisted with history and translation. Experiencing lower abdominal pain for last few days. Patient and her family were not very concerned because has chronic constipation. Pain was much worse today; located in RLQ with some radiation towards the left. Pain rated as severe. Nothing seemed to alleviate the pain. No associated fever, chills, sweats. No nausea, vomiting, diarrhea, melena, hematochezia. Patient feels weak. 1 day prior to admission she fell twice. Allergies Allergy/AdvReac Type Severity Reaction Status Date / Time Penicillins Allergy Mild RASH Verified 05/28/20 12:23 Home Medications Medication Instructions Recorded Confirmed Type Calcium 600 + D(3) 1 tab PO BID 07/15/18 05/28/20 History Centrum Silver 1 tab PO QAM 07/15/18 05/28/20 History donepezil [Aricept] 5 mg PO HS 07/15/18 05/28/20 History ferrous sulfate 325 mg PO Q2D 07/15/18 05/28/20 History fluoxetine 20 mg PO QAM 07/15/18 05/28/20 History levothyroxine 50 mcg PO QAM 07/15/18 05/28/20 History omeprazole 40 mg PO QAM 07/15/18 05/28/20 History sennosides [senna] 8.6 mg PO DAILY PRN 07/15/18 05/28/20 History sucralfate 1 g PO QID 07/15/18 05/28/20 History amlodipine 7.5 mg PO DAILY 05/28/20 05/28/20 History aspirin [Aspirin Low Dose] 81 mg PO QAM 05/28/20 05/28/20 History atorvastatin 40 mg PO DAILY 05/28/20 05/28/20 History polyethylene glycol 3350 [Miralax] 17 g PO QPM 05/28/20 05/28/20 History Past Med/Surg History Medical History (Updated 05/28/20 @ 23:04 by Clinton Sunshine MD) Abnormal CT scan, kidney Cerebrovascular disease stroke L caudate before 2012; TIA 2012; stroke jozef 2018 Dementia Depression Dyslipidemia Dysphagia Dysphagia due to stroke. Thickened liquids. GERD (gastroesophageal reflux disease) H/O blood clots Hypertension Osteoarthritis Osteoporosis Pre-diabetes Stroke Surgical History H/O: hysterectomy Family History (Updated 05/28/20 @ 21:55 by Clinton Sunshine MD) Father Diabetes Son Hypertension Diabetes Sister Cancer ? primary Social History Smoking Status: Former smoker Do You Dip or Chew Tobacco: No; Hx Alcohol Use: No Hx Substance Use: No Preferred Language: Mike Communication Ability: Impaired Communication Tools: Lip Movement/Reading Cow Trimmer Required: Yes Beliefs That Will Affect Care: None marital status: Current Living Situation: Family current occupational status: retired Feels Safe at Home: Yes Safety Concerns: Feels Safe At This Time Assistive Devices: Cane Review of Systems Constitutional: + malaise and + weight loss; no fever Eyes: no worsening vision Ear, Nose, Mouth, Throat: no nasal congestion, no sinus pain/pressure and no sore throat Respiratory: no cough and no dyspnea Cardiovascular: no chest pain, no palpitations and no edema Gastrointestinal: as per Subjective / HPI Genitourinary: + dysuria (occasional); no hematuria Musculoskeletal: + joint pain Integumentary: + rash (recent rash LLE, ? zoster) Neurologic: + memory loss; no headache(s) Endocrine: no polydipsia and no polyuria Hematologic / Lymphatic: + easy bruising; no easy bleeding and no lymphadeno samina Physical Exam Physical Exam: VS- as noted Constitutional- elderly female; thin; no acute distress Eyes- PERRL, anicteric sclerae, conjunctivae normal ENMT- external ear and nose normal; oropharynx clear; upper dentures + lower partial plate Neck- trachea midline; no thyromegaly Respiratory- no respiratory distress; lungs clear Cardiovascular- RRR, no murmur/gallop/rub; no JVD; no pretibial edema; normal capillary refill Abdomen- diminished bowel sounds; nondistended; moderate RLQ tenderness with g uarding; no palpable masses or hepatosplenomegaly Musculoskeletal- no cyanosis Skin- warm & dry; normal color; no rashes Neurologic- no facial palsy; no dysarthria or aphasia; motor strength extrem ities grossly intact; patellar DTR's 2/2 bilaterally Psychiatric- alert, oriented x 2 (person and hospital); normal affect Lymphatic- no cervical adenopathy Results & Data Results & Data ([facility]) Vital Signs (Past 12 Hours) Vital Signs Temp Pulse Pulse Resp BP BP Pulse Ox 05/28/20 11:56 73 20 139/55 L 94 05/28/20 11:55 77 16 93 05/28/20 11:38 70 18 140/67 94 05/28/20 11:37 140/67 05/28/20 11:14 77 20 05/28/20 10:31 37.1 C 71 18 120/76 97 Laboratory Results Laboratory Results - last 24 hr 05/28/20 05/28/20 05/28/20 10:59 10:59 10:59 WBC 14.78 H RBC 4.01 L Hgb 11.5 L Hct 35.7 L MCV 89.0 MCH 28.7 MCHC 32.2 RDW Std Deviation 42.1 RDW Coeff of Vivienne 12.9 Plt Count 293 MPV 9.4 Immature Gran % (Auto) 0.3 Neut % (Auto) 77.0 Lymph % (Auto) 9.9 Mayes % (Auto) 12.3 Eos % (Auto) 0.4 Baso % (Auto) 0.1 Neut # (Auto) 11.38 H Lymph # (Auto) 1.46 [place] # (Auto) 1.82 H Eos # (Auto) 0.06 Baso # (Auto) 0.02 Immature Gran # (Auto) 0.04 H PT 10.9 INR 1.0 APTT 27.5 PTT Ratio 1.0 Sodium 136 Potassium 3.2 L Chloride 101 Carbon Dioxide 32 Anion Gap 3.0 BUN 17 Creatinine 0.86 Est Cr Clr Drug Dosing 51.0 Est GFR ( Amer) 75.0 Est GFR (Non-Af Amer) 64.7 BUN/Creatinine Ratio 19.8 Glucose 115 H Lactate Calcium 9.4 Magnesium 2.4 Total Bilirubin 0.5 AST 18 ALT 25 Alkaline Phosphatase 92 Total Creatine Kinase 63 Troponin I < 0.015 Total Protein 7.5 Albumin 2.9 L Globulin 4.6 H Albumin/Globulin Ratio 0.6 L Lipase 81 Procalcitonin SARS-CoV-2 Ag (Rapid) 05/28/20 05/28/20 05/28/20 10:59 10:59 Unknown WBC RBC Hgb Hct MCV MCH MCHC RDW Std Deviation RDW Coeff of Vivienne Plt Count MPV Immature Gran % (Auto) Neut % (Auto) Lymph % (Auto) [place] % (Auto) Eos % (Auto) Baso % (Auto) Neut # (Auto) Lymph # (Auto) [place] # (Auto) Eos # (Auto) Baso # (Auto) Immature Gran # (Auto) PT INR APTT PTT Ratio Sodium Potassium Chloride Carbon Dioxide Anion Gap BUN Creatinine Est Cr Clr Drug Dosing Est GFR ( Amer) Est GFR (Non-Af Amer) BUN/Creatinine Ratio Glucose Lactate 1.0 Calcium Magnesium Total Bilirubin AST ALT Alkaline Phosphatase Total Creatine Kinase Troponin I Total Protein Albumin Globulin Albumin/Globulin Ratio Lipase Procalcitonin 0.23 SARS-CoV-2 Ag (Rapid) Negative 05/28/20 Unknown WBC RBC Hgb Hct MCV MCH MCHC RDW Std Deviation RDW Coeff of Vivienne Plt Count MPV Immature Gran % (Auto) Neut % (Auto) Lymph % (Auto) [place] % (Auto) Eos % (Auto) Baso % (Auto) Neut # (Auto) Lymph # (Auto) Mayes # (Auto) Eos # (Auto) Baso # (Auto) Immature Gran # (Auto) PT INR APTT PTT Ratio Sodium Potassium Chloride Carbon Dioxide Anion Gap BUN Creatinine Est Cr Clr Drug Dosing Est GFR ( Amer) Est GFR (Non-Af Amer) BUN/Creatinine Ratio Glucose Lactate Calcium Magnesium Total Bilirubin AST ALT Alkaline Phosphatase Total Creatine Kinase Troponin I Total Protein Albumin Globulin Albumin/Globulin Ratio Lipase Procalcitonin SARS-CoV-2 Ag (Rapid) Negative Diagnostic Findings PORTABLE CHEST X-RAY Reviewed by the undersigned and formally interpreted by Radiology: FINDINGS: Cardiac silhouette is mildly enlarged, unchanged. Calcified plaque of the thoracic aorta. There is no pneumothorax, large pleural effusion, airspace consolidation or overt pulmonary edema. Descending thoracic aortic tortuosity. Degenerative changes of the shoulders and spine. IMPRESSION: No acute process. Electronically signed by: Tejinder Rangel M.D. 05/28/2020 11:07 AM X-RAY PELVIS FINDINGS: Linear 8 mm calcification adjacent to the right greater trochanter suggests calcific tendinosis of the gluteal insertion site. Mildly demineralized appearance of the bones. No acute fracture, dislocation or avascular necrosis. 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 IMPRESSION: No acute fracture or dislocation. Electronically signed by: Tejinder Rangel M.D. 05/28/2020 11:[address] HEAD FINDINGS: No acute intracranial hemorrhage, midline shift, intracranial mass, hydrocephalus, territorial ischemia or abnormal extra-axial collection. Age- related involutional changes. Remote lacunar infarct of the left caudate nucleus/anterior limb left internal capsule. Patchy white matter hypodensities suggest chronic microvascular disease. Remote pontine lacunar infarct, 6 mm. The calvarium is intact. Prior bilateral lens replacement. Small right mastoid effusion. Left mastoid air cells and paranasal sinuses are unremarkable. IMPRESSION: No acute intracranial abnormality or calvarial fracture. Electronically signed by: Tejinder Rangel M.D. 05/28/2020 12:[address] C-SPINE FINDINGS: There is unchanged anterolisthesis C3 on C4 and minimal retrolisthesis C5 on C6. Severe disc space narrowing at C5-6 with moderate space narrowing at C6-C7. Moderate multilevel spondylitic spurring with severe facet arthrosis. No acute fracture or subluxation. Small right mastoid effusion. Evaluation of the central canal and neuroforamina is better assessed by MRI. Note is made of multilevel foraminal narrowing. No pneumothorax or prevertebral edema. IMPRESSION: No acute fracture or subluxation. Electronically signed by: Tejinder Rangel M.D. 05/28/2020 12:[address] ABDOMEN & PELVIS IMPRESSION: 1. Findings are suggestive of acute appendicitis with perforation and right lower quadrant abscess measuring up to 2.8 cm. Subcentimeter linear calcification within the fluid collection may reflect an appendicolith. Surgical consultation is needed. 2. Wall thickening of the cecum, ascending colon and terminal ileum is likely reactive. 3. Cardiomegaly. 4. Moderate fecal retention. 5. Ill-defined 12 mm area of decreased attenuation involving the posterolateral aspect of the interpolar left kidney. This may reflect a complex cyst versus solid lesion. 6. Additional findings as above. Electronically signed by: Tejinder Rangel M.D. 05/28/2020 12:25 PM ECG Additional Comments: EKG performed at 1109 reviewed and demonstrated NSR at 70 / min, no acute changes. Code Status & VTE Plan Code Status Discussed with patient and her granddaughter. No living will. Full code. VTE Prophylaxis Plan VTE Prophylaxis will be ordered: Yes (1) Acute appendicitis Acute appendicitis type: with localized peritonitis Appendicitis abscess presence: with abscess Appendicitis gangrene presence: unspecified whether gangrene present Appendicitis perforation presence: with perforation Qualified Code(s): K35.33 - Acute appendicitis with perforation and localized peritonitis, with abscess
[2020-05-28] MEDS ORDERED: MEROPENEM 500 MG in SYRINGE 0 ML IV ONE (14:45)
[2020-05-28] MEDS ORDERED: HYDROmorphone INJ 0.5 MG/0.5 ML SYR IV PRN (15:54)
[2020-05-28] MEDS ORDERED: MEROPENEM CONSULT ACITVE PRN ×2 (15:54)
[2020-05-28] MEDS: POTASSIUM CHLORIDE 40 MEQ in D5W AND 1/2NSS 1,000 ML IV SCH (17:32)
[2020-05-28] MEDS: DONEPEZIL HCL 5 MG TAB PO SCH (20:30)
[2020-05-28] MEDS: MEROPENEM 500 MG in SYRINGE 0 ML IV SCH (20:30)
[2020-05-28] MEDS: HEPARIN SOD 5,000 UNIT/0.5 ML VIAL SQ SCH (20:38)
[2020-05-29] MEDS: POTASSIUM CHLORIDE 40 MEQ in D5W AND 1/2NSS 1,000 ML IV SCH (03:18)
[2020-05-29] MEDS: MEROPENEM 500 MG in SYRINGE 0 ML IV SCH ×4 (03:18→23:52)
[2020-05-29] MEDS: LEVOTHYROXINE SODIUM 50 MCG TABLET PO SCH (06:01)
[2020-05-29] MEDS: HEPARIN SOD 5,000 UNIT/0.5 ML VIAL SQ SCH (06:01)
[2020-05-29 07:01] LABS: Basophils # (auto) 0.02 K/uL (0-0.2); Basophils % (auto) 0.1 %; Eosinophils # (auto) 0.05 K/uL (0-0.5); Eosinophils % (auto) 0.4 %; Hematocrit (blood only) 31.8 % (37-47); Hemoglobin 10.1 g/dL (12.0-16.0); Immature Granulocytes # (auto) 0.06 K/uL (0.00-0.02); Immature Granulocytes % (auto) 0.4 %; Lymphocytes # (auto) 1.48 K/uL (1.2-3.4); Mean Corpuscular Hemoglobin 27.9 pg (25-34); Mean Corpuscular Hgb Conc 31.8 g/dL (32-36); Mean Corpuscular Volume 87.8 fL (80-100); Mean Platelet Volume 8.9 fL (7.4-10.4); Monocytes # (auto) 1.32 K/uL (0.11-0.59); Monocytes % (auto) 9.8 %; Neutrophils # (auto) 10.53 K/uL (1.4-6.5); Neutrophils % (auto) 78.3 %; Platelet Count 257 K/uL (130-400); RDW Coefficient of Variation 12.9 % (11.5-14.5); RDW Standard Deviation 41.7 fL (36.4-46.3); Red Blood Count 3.62 M/uL (4.2-5.4); White Blood Count 13.46 K/uL (4.8-10.8)
[2020-05-29] MEDS ORDERED: ACETAMINOPHEN 325 MG TAB PO PRN (07:18)
[2020-05-29] MEDS ORDERED: ACETAMINOPHEN 325 MG TAB PO ONE (07:19)
[2020-05-29 07:32] LABS: BUN Creatinine Ratio 16.5 (10-20); Calcium 8.5 mg/dl (8.5-10.1); Creatinine Clr Calc Pharmacy 46.6 ml/min; Est GFR (African American) 67.3; Est GFR (Non-African American) 58.1; Potassium 4.2 mmol/L (3.5-5.1)
--- NOTE | 2020-05-29 07:55 | Hospitalist Progress Note ---
Date of Service May 29, 2020 Assessment & Plan (1) Acute appendicitis: -patient presented Presented with RLQ abdominal pain and was afebrile with WBC at 14K, Hemodynamically stable. CT demonstrated acute appendicitis with perforation and 2.8 cm abscess. General Surgery Dr. Bhat consulted and assessed patient in ED. -as per general surgery Dr. Bhat on 05/28/2020 "that treatment is usually nonoperative (similar to diverticulitis) with IV abx, bowel rest. If no improvement, would repeat CT scan in 48 hrs to assess for drainable fluid or increase in size of abscess. If improves on IV abx, will be able to advance diet and finish course of treatment with PO antibiotics. Reviewed that interval appendectomy is no longer routinely recommended but done for persistent symptoms or recurrent infections. Will follow. Plan IV abx (given pcn allergy, cipro/flagyl is reasonable alterna tive), bowel rest until improvement in pain/ leukocytosis, IV hydration." -because of reported penicillin allergy, admitting hospitalist Dr. Sunshine started patient on Meropenem antibiotics -05/29/2020: Patient had fever of 38.4 celsius (101 F) at 7 AM on 05/29/2020. Acetaminophen ordered and additional lactic acid and blood culture labs to be drawn. Patient is otherwise hemodynamically stable. She is not in distress. She is in the bed with granddaughter [phone] who helps with translating [facility] [place] language and also for corroboration of health history. Patient reports right lower quadrant pain still present but that there is less pain compared to day of admission on 05/28/2020. Patient denies vomiting. She had bowel movement yesterday. She has been able to urinate. She denies any pains to chest or problems with breathing. No other symptoms on review of systems. Granddaughter also reports that patient's son Jaime [phone] is the patient's medical decision maker and that her family has been confused as to why patient has had appendix operation at this time. Hospitalist explained of initial surgical assessment on 05/29/2020 for further observation with antibiotics. Currently on Meropenem antibiotics. Hospitalist attempting to notify general surgery team of recent fever and will transfer patient to telemetry [facility]ott for closer monitoring (2) Hypokalemia: -admission serum potassium 3.2 -after IV fluids with potassium supplementation serum potassium 4.2 on 05/29/2020 labs (3) Hypertension: -on home dose amlodipine 7.5 mg (4) Cerebrovascular disease: -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. -No acute findings on CT of head. -Hold aspirin until need for urgent invasive procedures ruled out. 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 -Aspiration precautions. (7) Dyslipidemia: -hold atorvastatin for now while NPO (8) Dementia: -Continue donepezil. (9) Depression: -Continue fluoxetine. (10) Abnormal CT scan, kidney: -Incidental finding on CT of abdomen & pelvis: "Ill-defined 12 mm area of decreased attenuation involving the posterolateral aspect of the interpolar left kidney. This may reflect a complex cyst versus solid lesion." Check ultrasound of kidney once abdominal pain has improved. (11) COVID-19 ruled out: -COVID-19 screening per protocol and SARS-CoV-2 antigen negative. (12) DVT prophylaxis: -SCDs for now -Ambulate with walker and assistance (13) Discharge planning issues: -awaiting general surgery re-assessments Admission and Anticipated Discharge Date Admission Date: May 28, 2020 Subjective Patient had fever of 38.4 celsius (101 F) at 7 AM on 05/29/2020. Acetaminophen ordered and additional lactic acid and blood culture labs to be drawn. Patient is otherwise hemodynamically stable. She is not in distress. She is in the bed with granddaughter [phone] who helps with translating [facility] [place] language and also for corroboration of health history. Patient reports right lower quadrant pain still present but that there is less pain compared to day of admission on 05/28/2020. Patient denies vomiting. She had bowel movement yesterday. She has been able to urinate. She denies any pains to chest or problems with breathing. No other symptoms on review of systems. Granddaughter also reports that patient's son Jaime [phone] is the patient's medical decision maker and that her family has been confused as to why patient has had appendix operation at this time. Hospitalist explained of initial surgical assessment on 05/29/2020 for further observation with antibiotics. Currently on Meropenem antibiotics. Hospitalist attempting to notify general surgery team of recent fever and will transfer patient to telemetry abbott for closer monitoring. Review of Systems Review of Systems: All systems reviewed & are unremarkable except as noted in Subjective Physical Exam Constitutional: cooperative Eyes: PERRL, conjunctivae normal, anicteric sclerae EOM intact bilaterally ENMT: external ear and nose normal, oropharynx normal Neck: normal visual inspection Respiratory: normal respiratory effort, lungs clear to auscultation Cardiovascular: Rate/Rhythm: regular rate Gastrointestinal (Abdomen): Percussion/Palpation: + abdomen tender (tenderness of right lower quadrant) and abdomen soft Neurologic: moves all extremities Psychiatric: Orientation: alert and cooperative Results & Data Results & Data ([facility]) Vital Signs (Past 12 Hours) Vital Signs Temp Pulse Resp BP Pulse Ox 05/29/20 07:02 38.4 C H 87 19 116/69 88 L 05/28/20 22:50 36.7 C 80 18 116/69 90 (1) Acute appendicitis Acute appendicitis type: with localized peritonitis Appendicitis abscess presence: with abscess Appendicitis gangrene presence: unspecified whether gangrene present Appendicitis perforation presence: with perforation Qualified Code(s): K35.33 - Acute appendicitis with perforation and localized peritonitis, with abscess
[2020-05-29] MEDS: D5W AND 1/2NSS 1,000 ML IV SCH ×2 (08:02→23:52)
[2020-05-29] MEDS: amLODIPine BESYLATE 5 MG TAB PO SCH (08:02)
[2020-05-29] MEDS: FLUoxetine HCL 20 MG CAP PO SCH (08:02)
[2020-05-29] MEDS ORDERED: ATORVASTATIN 40 MG TAB PO SCH (09:00)
[2020-05-29] MEDS: PANTOprazole 40 MG in SYRINGE 0 ML IV SCH (12:15)
--- NOTE | 2020-05-29 15:06 | Surgery Progress Note ---
Date of Service May 29, 2020 Assessment & Plan (1) Acute perforated appendicitis: Acute appendicitis with perforation and small abscess Continue conservative management with IV antibiotics Had a long discussion with patient's granddaughter about the benefits of conservative management and the possible increased complications with surgical intervention in this situation The patient has no evidence of peritonitis White blood cell count has decreased slightly today Admission and Anticipated Discharge Date Admission Date: May 28, 2020 Subjective Patient resting comfortably Interviewed with help from granddaughter who translated Not complaining of pain Has burning sensation in the upper chest area No shortness of breath Physical Exam Gastrointestinal (Abdomen): Inspection/Auscultation: normal bowel sounds; abdomen not distended Percussion/Palpation: + abdomen tender (Tender to moderate palpation in the right lower quadrant only) and abdomen soft Results & Data ([facility]) Vital Signs (Past 12 Hours) Vital Signs Temp Pulse Pulse Resp BP Pulse Ox 05/29/20 11:07 37.0 C 66 18 104/58 L 97 05/29/20 09:40 82 05/29/20 09:00 37.5 C 87 18 116/64 94 05/29/20 08:18 93 05/29/20 07:02 38.4 C H 87 19 116/69 88 L Laboratory Results 05/29/20 05/29/20 05/29/20 Range/Units 14:45 07:52 06:49 WBC (4.8-10.8) K/uL RBC (4.2-5.4) M/uL Hgb (12.0-16.0) g/dL Hct (37-47) % MCV (80-100) fL MCH (25-34) pg MCHC (32-36) g/dL RDW Std Deviation (36.4-46.3) fL RDW Coeff of Vivienne (11.5-14.5) % Plt Count (130-400) K/uL MPV (7.4-10.4) fL Immature Gran % (Auto) % Neut % (Auto) % Lymph % (Auto) % [place] % (Auto) % Eos % (Auto) % Baso % (Auto) % Neut # (Auto) (1.4-6.5) K/uL Lymph # (Auto) (1.2-3.4) K/uL [place] # (Auto) (0.11-0.59) K/uL Eos # (Auto) (0-0.5) K/uL Baso # (Auto) (0-0.2) K/uL Immature Gran # (Auto) (0.00-0.02) K/uL Sodium 136 (136-145) mmol/L Potassium 4.2 D (3.5-5.1) mmol/L Chloride 105 (98-107) mmol/L Carbon Dioxide 31 (21-32) mmol/L Anion Gap 0 L (3-11) BUN 16 (7-18) mg/dl Creatinine 0.94 (0.6-1.2) mg/dl Est Cr Clr Drug Dosing 46.6 ml/min Est GFR ( Amer) 67.3 Est GFR (Non-Af Amer) 58.1 BUN/Creatinine Ratio 16.5 (10-20) Glucose 158 H (70-99) mg/dl Lactate 0.7 (0.4-2.0) mmol/L Calcium 8.5 (8.5-10.1) mg/dl Urine Color Pending Urine Appearance Pending Urine pH Pending Ur Specific [place] Pending Urine Protein Pending Urine Glucose (UA) Pending Urine Ketones Pending Urine Blood Pending Urine Nitrite Pending Urine Bilirubin Pending Urine Urobilinogen Pending Ur Leukocyte Esterase Pending 05/29/20 Range/Units 06:49 WBC 13.46 H (4.8-10.8) K/uL RBC 3.62 L (4.2-5.4) M/uL Hgb 10.1 L (12.0-16.0) g/dL Hct 31.8 L (37-47) % MCV 87.8 (80-100) fL MCH 27.9 (25-34) pg MCHC 31.8 L (32-36) g/dL RDW Std Deviation 41.7 (36.4-46.3) fL RDW Coeff of Vivienne 12.9 (11.5-14.5) % Plt Count 257 (130-400) K/uL MPV 8.9 (7.4-10.4) fL Immature Gran % (Auto) 0.4 % Neut % (Auto) 78.3 % Lymph % (Auto) 11.0 % [place] % (Auto) 9.8 % Eos % (Auto) 0.4 % Baso % (Auto) 0.1 % Neut # (Auto) 10.53 H (1.4-6.5) K/uL Lymph # (Auto) 1.48 (1.2-3.4) K/uL [place] # (Auto) 1.32 H (0.11-0.59) K/uL Eos # (Auto) 0.05 (0-0.5) K/uL Baso # (Auto) 0.02 (0-0.2) K/uL Immature Gran # (Auto) 0.06 H (0.00-0.02) K/uL Sodium (136-145) mmol/L Potassium (3.5-5.1) mmol/L Chloride (98-107) mmol/L Carbon Dioxide (21-32) mmol/L Anion Gap (3-11) BUN (7-18) mg/dl Creatinine (0.6-1.2) mg/dl Est Cr Clr Drug Dosing ml/min Est GFR ( Amer) Est GFR (Non-Af Amer) BUN/Creatinine Ratio (10-20) Glucose (70-99) mg/dl Lactate (0.4-2.0) mmol/L Calcium (8.5-10.1) mg/dl Urine Color Urine Appearance Urine pH Ur Specific [place] Urine Protein Urine Glucose (UA) Urine Ketones Urine Blood Urine Nitrite Urine Bilirubin Urine Urobilinogen Ur Leukocyte Esterase
[2020-05-29 15:07] LABS: Appearance Urine Clear (Clear); Bacteria Urine Automated Negative (Negative); Bilirubin Urine Negative (Negative); Blood Urine Negative (Negative); Color Urine Yellow; Epithelial Cell Urine Auto >30 /lpf (0-5); Glucose Urine UA Negative (Negative); Ketones Urine Trace (Negative); Leukocyte Esterase Urine 1+ (Negative); Nitrite Urine Negative (Negative); Protein Urine 1+ (Negative); RBC Urine Automated 0-4 /hpf (0-4); Specific Gravity Urine 1.023 (1.000-1.030); Urobilinogen Urine Negative (Negative); pH Urine 6.5 (4.5-7.5)
[2020-05-29] MEDS: DONEPEZIL HCL 5 MG TAB PO SCH (20:55)
--- NOTE | 2020-05-29 22:19 | Electrocardiogram Report ---
Test Reason : Blood Pressure : / mmHG Vent. Rate : 069 BPM Atrial Rate : 069 BPM P-R Int : 208 ms QRS Dur : 086 ms QT Int : 416 ms P-R-T Axes : 004 027 029 degrees QTc Int : 445 ms Normal sinus rhythm Low voltage QRS Borderline ECG When compared with ECG of 28-JUL-2018 00:53, No significant change was found Confirmed by Tyron Elise ([id number]) on 05/29/2020 10:18:35 PM Referred By: REFERRED SELF Confirmed By:Tyron Elise
[2020-05-30] MEDS: LEVOTHYROXINE SODIUM 50 MCG TABLET PO SCH (06:33)
[2020-05-30 07:39] LABS: Basophils # (auto) 0.02 K/uL (0-0.2); Basophils % (auto) 0.2 %; Eosinophils # (auto) 0.07 K/uL (0-0.5); Eosinophils % (auto) 0.7 %; Hematocrit (blood only) 32.6 % (37-47); Hemoglobin 10.2 g/dL (12.0-16.0); Immature Granulocytes # (auto) 0.08 K/uL (0.00-0.02); Immature Granulocytes % (auto) 0.8 %; Lymphocytes # (auto) 1.07 K/uL (1.2-3.4); Lymphocytes % (auto) 11.3 %; Mean Corpuscular Hgb Conc 31.3 g/dL (32-36); Mean Corpuscular Volume 89.6 fL (80-100); Mean Platelet Volume 9.4 fL (7.4-10.4); Monocytes # (auto) 1.46 K/uL (0.11-0.59); Monocytes % (auto) 15.4 %; Neutrophils # (auto) 6.78 K/uL (1.4-6.5); Neutrophils % (auto) 71.6 %; Platelet Count 297 K/uL (130-400); RDW Standard Deviation 42.7 fL (36.4-46.3); Red Blood Count 3.64 M/uL (4.2-5.4); White Blood Count 9.48 K/uL (4.8-10.8)
[2020-05-30 07:56] LABS: Albumin Level 2.4 gm/dl (3.4-5.0); BUN Creatinine Ratio 13.9 (10-20); Calcium 8.9 mg/dl (8.5-10.1); Creatinine Clr Calc Pharmacy 44.3 ml/min; Est GFR (African American) 83.1; Est GFR (Non-African American) 71.7; Potassium 3.4 mmol/L (3.5-5.1)
[2020-05-30 08:00] LABS: Albumin Globulin Ratio 0.6 (0.9-2); Bilirubin,Total 0.5 mg/dl (0.2-1); Total Protein 6.4 gm/dl (6.4-8.2)
[2020-05-30] MEDS ORDERED: POTASSIUM CHLORIDE CRTAB 20 MEQ TABCR PO STA (08:28)
--- NOTE | 2020-05-30 08:51 | Hospitalist Progress Note ---
Date of Service May 30, 2020 Assessment & Plan (1) Acute appendicitis: -patient presented Presented with RLQ abdominal pain and was afebrile with WBC at 14K, Hemodynamically stable. CT demonstrated acute appendicitis with perforation and 2.8 cm abscess. General Surgery Dr. Bhat consulted and assessed patient in ED. -as per general surgery Dr. Bhat on 05/28/2020 "that treatment is usually nonoperative (similar to diverticulitis) with IV abx, bowel rest. If no improvement, would repeat CT scan in 48 hrs to assess for drainable fluid or increase in size of abscess. If improves on IV abx, will be able to advance diet and finish course of treatment with PO antibiotics. Reviewed that interval appendectomy is no longer routinely recommended but done for persistent symptoms or recurrent infections. Will follow. Plan IV abx (given pcn allergy, cipro/flagyl is reasonable alterna tive), bowel rest until improvement in pain/ leukocytosis, IV hydration." -because of reported penicillin allergy, admitting hospitalist Dr. Sunshine started patient on Meropenem antibiotics -05/29/2020: Patient had fever of 38.4 celsius (101 F) at 7 AM on 05/29/2020. Acetaminophen ordered and additional lactic acid and blood culture labs to be drawn. Patient is otherwise hemodynamically stable. She is not in distress. She is in the bed with granddaughter [phone] who helps with translating [place] language and also for corroboration of health history. Patient reports right lower quadrant pain still present but that there is less pain compared to day of admission on 05/28/2020. Patient denies vomiting. She had bowel movement yesterday. She has been able to urinate. She denies any pains to chest or problems with breathing. No other symptoms on review of systems. Granddaughter also reports that patient's son Jaime [phone] is the patient's medical decision maker. Genera surgery following and continues to recommend antibiotic management at this time -05/30/2020: the WBC normalized as 9.48 K as of AM labs. Patient seen at bedside with granddaughter translating in [place]. As per both granddaughter and patient there appears to be less discomfort of the right sided abdomen recently. On my exam with palpation of the right abdomen, the patient not grimacing compared to 05/29/2020 AM. Continues to be on IV Meropenem antibiotics. Discussed at this time with patient and granddaughter that general surgery continues to follow and patient to remain NPO unless otherwise recommended by general surgery. Continues to be on IV fluids with D5 1/2 normal saline at 60 cc/hr. additional potassium ordered for patient as serum potassium low normal levels of 4.34. Tentatively a CT abdomen/pelvis with IV contrast is ordered for 05/31/2020 AM. On review of systems, patient denies other symptoms although granddaughter did report she was told that patient has been having hallucination there there has been "a man" watching her in the room but this is likely due to mild delirium in context of patient with dementia. Patient has been cooperative with medical staff and does not pull the IV line) (2) Hypokalemia: -admission serum potassium 3.2 -after IV fluids with potassium supplementation serum potassium 4.2 on 05/29/2020 labs -additional potassium supplements ordered for 05/30/2020 (3) Hypertension: -on home dose amlodipine 7.5 mg (4) Abnormal CT scan, kidney: -Incidental finding on CT of abdomen & pelvis: "Ill-defined 12 mm area of decreased attenuation involving the posterolateral aspect of the interpolar left kidney. This may reflect a complex cyst versus solid lesion." -re-assess with planned repeat CT abdomen/pelvis (5) Dementia: -Continue donepezil. 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 -No acute findings on CT of head. -Hold aspirin until need for urgent invasive procedures ruled out. -Hold statin while NPO (7) Dysphagia: -Dysphagia secondary to stroke in the past -Thicken liquids. -Aspiration precautions. (8) GERD (gastroesophageal reflux disease): -on PPI (9) Dyslipidemia: -hold atorvastatin for now while NPO (10) Depression: -Continue fluoxetine. (11) COVID-19 ruled out: -COVID-19 screening per protocol and SARS-CoV-2 antigen negative. (12) DVT prophylaxis: -SCDs for now -Ambulate with walker and assistance (13) Discharge planning issues: -awaiting general surgery re-assessments Admission and Anticipated Discharge Date Admission Date: May 28, 2020 Subjective the WBC normalized as 9.48 K as of AM labs. Patient seen at bedside with granddaughter translating in [facility]. As per both granddaughter and patient there appears to be less discomfort of the right sided abdomen recently. On my exam with palpation of the right abdomen, the patient not grimacing compared to 05/29/2020 AM. Continues to be on IV Meropenem antibiotics. Discussed at this time with patient and granddaughter that general surgery continues to follow and patient to remain NPO unless otherwise recommended by general surgery. Continues to be on IV fluids with D5 1/2 normal saline at 60 cc/hr. additional potassium ordered for patient as serum potassium low normal levels of 4.34. Tentatively a CT abdomen/pelvis with IV contrast is ordered for 05/31/2020 AM. On review of systems, patient denies other symptoms although granddaughter did report she was told that patient has been having hallucination there there has been "a man" watching her in the room but this is likely due to mild delirium in context of patient with dementia. Patient has been cooperative with medical staff and does not pull the IV line) Review of Systems Review of Systems: All systems reviewed & are unremarkable except as noted in Subjective Physical Exam 2 Constitutional: cooperative Eyes: PERRL, conjunctivae normal, anicteric sclerae EOM intact bilaterally ENMT: external ear and nose normal, oropharynx normal Neck: normal visual inspection Respiratory: normal respiratory effort, lungs clear to auscultation Cardiovascular: Rate/Rhythm: regular rate Gastrointestinal (Abdomen): Percussion/Palpation: + abdomen tender (tenderness of right lower quadrant) and abdomen soft Neurologic: moves all extremities Psychiatric: Orientation: alert and cooperative Results & Data Results & Data ([facility]) Vital Signs (Past 12 Hours) Vital Signs Temp Pulse Pulse Resp BP Pulse Ox 05/30/20 07:24 65 05/30/20 07:10 36.6 C 67 18 130/69 94 05/30/20 04:00 37.7 C H 78 18 110/62 94 05/30/20 02:00 38 C H 05/30/20 00:11 37.2 C 87 84 18 133/65 84 L (1) Acute appendicitis Acute appendicitis type: with localized peritonitis Appendicitis abscess presence: with abscess Appendicitis gangrene presence: unspecified whether gangrene present Appendicitis perforation presence: with perforation Qualified Code(s): K35.33 - Acute appendicitis with perforation and localized peritonitis, with abscess
[2020-05-30] MEDS: POTASSIUM CHLORIDE / WTR 10 MEQ/100 ML PLCT IV SCH (09:56)
[2020-05-30] MEDS: MEROPENEM 500 MG in SYRINGE 0 ML IV SCH ×2 (09:57→14:40)
[2020-05-30] MEDS: amLODIPine BESYLATE 5 MG TAB PO SCH (09:58)
[2020-05-30] MEDS: FLUoxetine HCL 20 MG CAP PO SCH (09:58)
[2020-05-30] MEDS: PANTOprazole 40 MG in SYRINGE 0 ML IV SCH (11:13)
[2020-05-30] MEDS: D5W AND 1/2NSS 1,000 ML IV SCH (14:39)
--- NOTE | 2020-05-30 19:14 | Surgery Progress Note ---
Date of Service May 30, 2020 Assessment & Plan (1) Acute perforated appendicitis: Patient with perforated appendicitis and a small abscess Tolerating and responding to conservative medical management We will continue IV antibiotics Consider clear liquid diet Temperature curve decreasing Admission and Anticipated Discharge Date Admission Date: May 28, 2020 Subjective Feeling much better Having very little pain No nausea or vomiting Passing flatus but no bowel movement T-max 38 Physical Exam Gastrointestinal (Abdomen): Inspection/Auscultation: normal bowel sounds; abdomen not distended Percussion/Palpation: + abdomen tender (Minimal tenderness in the right lower quadrant) and abdomen soft; no abdominal mass Results & Data ([facility]) Vital Signs (Past 12 Hours) Vital Signs Temp Pulse Pulse Resp BP Pulse Ox 05/30/20 15:20 36.9 C 83 18 129/65 96 05/30/20 11:10 37.3 C 88 18 131/71 94 05/30/20 08:00 75 05/30/20 07:24 65 Laboratory Results 05/30/20 05/30/20 05/30/20 Range/Units Unknown Unknown 07:07 WBC (4.8-10.8) K/uL RBC (4.2-5.4) M/uL Hgb (12.0-16.0) g/dL Hct (37-47) % MCV (80-100) fL MCH (25-34) pg MCHC (32-36) g/dL RDW Std Deviation (36.4-46.3) fL RDW Coeff of Vivienne (11.5-14.5) % Plt Count (130-400) K/uL MPV (7.4-10.4) fL Immature Gran % (Auto) % Neut % (Auto) % Lymph % (Auto) % [place] % (Auto) % Eos % (Auto) % Baso % (Auto) % Neut # (Auto) (1.4-6.5) K/uL Lymph # (Auto) (1.2-3.4) K/uL [place] # (Auto) (0.11-0.59) K/uL Eos # (Auto) (0-0.5) K/uL Baso # (Auto) (0-0.2) K/uL Immature Gran # (Auto) (0.00-0.02) K/uL Sodium 136 (136-145) mmol/L Potassium 3.4 L D (3.5-5.1) mmol/L Chloride 103 (98-107) mmol/L Carbon Dioxide 29 (21-32) mmol/L Anion Gap 4.0 (3-11) BUN 11 (7-18) mg/dl Creatinine 0.79 (0.6-1.2) mg/dl Est Cr Clr Drug Dosing 44.3 ml/min Est GFR ( Amer) 83.1 Est GFR (Non-Af Amer) 71.7 BUN/Creatinine Ratio 13.9 (10-20) Glucose 121 H (70-99) mg/dl Calcium 8.9 (8.5-10.1) mg/dl Total Bilirubin 0.5 (0.2-1) mg/dl AST 27 (15-37) U/L ALT 23 (12-78) U/L Alkaline Phosphatase 80 (45-117) U/L Total Protein 6.4 (6.4-8.2) gm/dl Albumin 2.4 L (3.4-5.0) gm/dl Globulin 4.0 (2.5-4.0) gm/dl Albumin/Globulin Ratio 0.6 L (0.9-2) COVID-19 Eval [facility] SARS-CoV-2, RNA, NAAT NEGATIVE (NEGATIVE) 05/30/20 Range/Units 07:07 WBC 9.48 (4.8-10.8) K/uL RBC 3.64 L (4.2-5.4) M/uL Hgb 10.2 L (12.0-16.0) g/dL Hct 32.6 L (37-47) % MCV 89.6 (80-100) fL MCH 28.0 (25-34) pg MCHC 31.3 L (32-36) g/dL RDW Std Deviation 42.7 (36.4-46.3) fL RDW Coeff of Vivienne 13.0 (11.5-14.5) % Plt Count 297 (130-400) K/uL MPV 9.4 (7.4-10.4) fL Immature Gran % (Auto) 0.8 % Neut % (Auto) 71.6 % Lymph % (Auto) 11.3 % [place] % (Auto) 15.4 % Eos % (Auto) 0.7 % Baso % (Auto) 0.2 % Neut # (Auto) 6.78 H (1.4-6.5) K/uL Lymph # (Auto) 1.07 L (1.2-3.4) K/uL [place] # (Auto) 1.46 H (0.11-0.59) K/uL Eos # (Auto) 0.07 (0-0.5) K/uL Baso # (Auto) 0.02 (0-0.2) K/uL Immature Gran # (Auto) 0.08 H (0.00-0.02) K/uL Sodium (136-145) mmol/L Potassium (3.5-5.1) mmol/L Chloride (98-107) mmol/L Carbon Dioxide (21-32) mmol/L Anion Gap (3-11) BUN (7-18) mg/dl Creatinine (0.6-1.2) mg/dl Est Cr Clr Drug Dosing ml/min Est GFR ( Amer) Est GFR (Non-Af Amer) BUN/Creatinine Ratio (10-20) Glucose (70-99) mg/dl Calcium (8.5-10.1) mg/dl Total Bilirubin (0.2-1) mg/dl AST (15-37) U/L ALT (12-78) U/L Alkaline Phosphatase (45-117) U/L Total Protein (6.4-8.2) gm/dl Albumin (3.4-5.0) gm/dl Globulin (2.5-4.0) gm/dl Albumin/Globulin Ratio (0.9-2) COVID-19 Eval Order SARS-CoV-2, RNA, NAAT (NEGATIVE)
[2020-05-30] MEDS: DONEPEZIL HCL 5 MG TAB PO SCH (20:40)
[2020-05-31] MEDS: MEROPENEM 500 MG in SYRINGE 0 ML IV SCH ×4 (00:31→23:20)
[2020-05-31] MEDS: LEVOTHYROXINE SODIUM 50 MCG TABLET PO SCH (06:04)
[2020-05-31 07:00] LABS: Basophils # (auto) 0.01 K/uL (0-0.2); Basophils % (auto) 0.1 %; Eosinophils # (auto) 0.05 K/uL (0-0.5); Eosinophils % (auto) 0.5 %; Hematocrit (blood only) 31.3 % (37-47); Hemoglobin 9.9 g/dL (12.0-16.0); Immature Granulocytes # (auto) 0.05 K/uL (0.00-0.02); Immature Granulocytes % (auto) 0.5 %; Lymphocytes % (auto) 12.6 %; Mean Corpuscular Hgb Conc 31.6 g/dL (32-36); Mean Corpuscular Volume 88.7 fL (80-100); Mean Platelet Volume 9.1 fL (7.4-10.4); Monocytes # (auto) 1.68 K/uL (0.11-0.59); Monocytes % (auto) 17.7 %; Neutrophils # (auto) 6.51 K/uL (1.4-6.5); Neutrophils % (auto) 68.6 %; Platelet Count 310 K/uL (130-400); RDW Coefficient of Variation 13.1 % (11.5-14.5); RDW Standard Deviation 42.1 fL (36.4-46.3); Red Blood Count 3.53 M/uL (4.2-5.4)
[2020-05-31 07:29] LABS: Albumin Level 2.3 gm/dl (3.4-5.0); BUN Creatinine Ratio 11.3 (10-20); Calcium 8.9 mg/dl (8.5-10.1); Creatinine Clr Calc Pharmacy 46.6 ml/min; Est GFR (African American) 88.5; Est GFR (Non-African American) 76.3; Potassium 3.4 mmol/L (3.5-5.1)
[2020-05-31 07:33] LABS: Albumin Globulin Ratio 0.6 (0.9-2); Bilirubin,Total 0.5 mg/dl (0.2-1); Globulin 4.1 gm/dl (2.5-4.0); Total Protein 6.4 gm/dl (6.4-8.2)
[2020-05-31] MEDS: FLUoxetine HCL 20 MG CAP PO SCH (07:37)
[2020-05-31] MEDS: amLODIPine BESYLATE 5 MG TAB PO SCH (07:37)
[2020-05-31] MEDS ORDERED: POTASSIUM CHLORIDE / WTR 10 MEQ/100 ML PLCT IV ONE (07:56)
[2020-05-31] MEDS ORDERED: IOVERSOL 100ml IV ONE (09:13)
--- NOTE | 2020-05-31 09:48 | CT Scan Report ---
CT SCAN OF THE ABDOMEN AND PELVIS WITH IV CONTRAST CLINICAL HISTORY: Generalized abdominal pain. Appendicitis with abscess. COMPARISON STUDY: Abdominal CT dated 05/28/2020. TECHNIQUE: Following the IV administration of 94 cc of Optiray 320, CT scan of the abdomen and pelvi s is performed from the lung bases to the proximal femora. Images are reviewed in the axial, sagittal , and coronal planes. IV contrast was administered without complication. A dose lowering technique wa s utilized adhering to the principles of ALARA. The examination is degraded by motion artifact. CT DOSE: 291.74 mGy.cm FINDINGS: Lung bases: The heart is enlarged and without pericardial effusion. The coronary arteries and mitral annulus are densely calcified. There is ectasia of the aortic root which measures up to 3.8 cm in xavi meter. Evaluation of the lung bases is degraded by motion artifact. The lung bases are clear noting d ependent atelectasis. Liver: The contrast-enhanced liver is normal in size, contour, and attenuation. There is no intrahepa tic biliary ductal dilatation. The hepatic veins and portal veins are patent. Gallbladder: Unremarkable. Spleen: Normal in size and attenuation. Pancreas: Moderately atrophic and grossly unremarkable. Adrenal glands: Unremarkable. Kidneys: The contrast enhanced kidneys are normal in size and without hydronephrosis. The kidneys enh ance symmetrically. Foci of cortical scarring are noted in the left kidney. A 12 mm indeterminate low -attenuation lesion is again suggested in the interpolar left kidney on image #144. This was better s een on the 05/28/2020 examination. Abdominal vasculature: There is moderate to advanced atherosclerotic calcification and ectasia of the abdominal aorta. Bowel: Again seen is an inflammatory process in the right lower quadrant, likely resenting acute per forated appendicitis. There is significant associated edema within the cecum, ascending colon, and th e adjacent distal ileum. There is an enlarging multiloculated and thick-walled intramural abscess at the base of the cecum seen on image #276. This measures 3.7 x 4.2 x 3.9 cm. A calcified appendicolith is seen within the abscess on image #282. A developing peripherally enhancing loculated fluid collec tion is also seen along the medial aspect of the ascending colon on image #223. This measures 6.7 x 4 .0 x 2.0 cm. There is mild colonic diverticulosis without CT evidence of acute diverticulitis. No bow el obstruction is seen. Peritoneum: There is no intraperitoneal free air. Trace free fluid is noted in the right paracolic gu tter. Lymphadenopathy: None. Pelvic viscera: The bladder is normal as visualized. The uterus is surgically absent. No adnexal lesi on is seen. Skeletal structures: The skeletal structures are osteopenic. No lytic or blastic lesions are seen. Mo derate lumbosacral spondylosis is observed. There is a mild chronic compression deformity of L1. Ther e are healed left pubic ring fractures. IMPRESSION: 1. An inflammatory process is again seen in the right lower quadrant. This is most typical for perfor ated appendicitis. 2. There is an enlarging multiloculated intramural abscess at the base of the cecum which contains a calcified appendicolith. 3. There is a second developing abscess identified along the medial aspect of the ascending colon. 4. There is associated wall thickening and edema of the cecum, ascending colon, and adjacent distal i leum. 5. Cardiomegaly with ectasia of the aortic root. 6. There is no bowel obstruction. 7. An indeterminant left renal lesion is again suggested in the interpolar left kidney. 8. Additional findings as above. ACT 112: Negative or not required by law. Electronically signed by: Shaheen Lopez M.D. 05/31/2020 9:47 AM
[2020-05-31] MEDS ORDERED: SODIUM CHLORIDE 0.9% 500 ML IV SCH (10:00)
--- NOTE | 2020-05-31 10:13 | Hospitalist Progress Note ---
Date of Service May 31, 2020 Assessment & Plan (1) Acute appendicitis: -patient presented Presented with RLQ abdominal pain and was afebrile with WBC at 14K, Hemodynamically stable. CT demonstrated acute appendicitis with perforation and 2.8 cm abscess. General Surgery Dr. Bhat consulted and assessed patient in ED. -as per general surgery Dr. Bhat on 05/28/2020 "that treatment is usually nonoperative (similar to diverticulitis) with IV abx, bowel rest. If no improvement, would repeat CT scan in 48 hrs to assess for drainable fluid or increase in size of abscess. If improves on IV abx, will be able to advance diet and finish course of treatment with PO antibiotics. Reviewed that interval appendectomy is no longer routinely recommended but done for persistent symptoms or recurrent infections. Will follow. Plan IV abx (given pcn allergy, cipro/flagyl is reasonable alterna tive), bowel rest until improvement in pain/ leukocytosis, IV hydration." -because of reported penicillin allergy, admitting hospitalist Dr. Sunshine started patient on Meropenem antibiotics -05/29/2020: Patient had fever of 38.4 celsius (101 F) at 7 AM on 05/29/2020. Acetaminophen ordered and additional lactic acid and blood culture labs to be drawn. Patient is otherwise hemodynamically stable. She is not in distress. She is in the bed with granddaughter [phone] who helps with translating [place] language and also for corroboration of health history. Patient reports right lower quadrant pain still present but that there is less pain compared to day of admission on 05/28/2020. Patient denies vomiting. She had bowel movement yesterday. She has been able to urinate. She denies any pains to chest or problems with breathing. No other symptoms on review of systems. Granddaughter also reports that patient's son Jaime [phone] is the patient's medical decision maker. Genera surgery following and continues to recommend antibiotic management at this time -05/30/2020: the WBC normalized as 9.48 K as of AM labs. Patient seen at bedside with granddaughter translating in Mike. As per both granddaughter and patient there appears to be less discomfort of the right sided abdomen recently. On my exam with palpation of the right abdomen, the patient not grimacing compared to 05/29/2020 AM. Continues to be on IV Meropenem antibiotics. Discussed at this time with patient and granddaughter that general surgery continues to follow and patient to remain NPO unless otherwise recommended by general surgery. Continues to be on IV fluids with D5 1/2 normal saline at 60 cc/hr. additional potassium ordered for patient as serum potassium low normal levels of 4.34. Tentatively a CT abdomen/pelvis with IV contrast is ordered for 05/31/2020 AM. On review of systems, patient denies other symptoms although granddaughter did report she was told that patient has been having hallucination there there has been "a man" watching her in the room but this is likely due to mild delirium in context of patient with dementia. Patient has been cooperative with medical staff and does not pull the IV line) -05/31/2020 CT abdomen performed: Again seen is an inflammatory process in the right lower quadrant, likely resenting acute perforated appendicitis. There is significant associated edema within the cecum, ascending colon, and the adjacent distal ileum. There is an enlarging multiloculated and thick-walled intramural abscess at the base of the cecum seen on image #276. This measures 3.7 x 4.2 x 3.9 cm. A calcified appendicolith is seen within the abscess on image #282. A developing peripherally enhancing loculated fluid collection is also seen along the medial aspect of the ascending colon on image #223. This measures 6.7 x 4.0 x 2.0 cm. There is mild colonic diverticulosis without CT evidence of acute diverticulitis. No bowel obstruction is seen. -general surgery notified about CT abdomen results on 05/31/2020. patient's WBC remains normalized. There is tenderness on palpation on right lower quadrant on exam. On exam with her granddaughter at bedside as Mike translating, patient denies other acute symptoms. She has been able to make bowel movement. Continues to be breathing comfortably on room air. Patient is cooperative on exam and is cooperative with medical staff. Discussed with her through the granddaughter that hospitalist awaiting general surgery to review with radiologist about the 05/31/2020 CT scan in regards to treatment plans and currently still NPO with IV hydration and IV antibiotics until further (2) Hypokalemia: -admission serum potassium 3.2 -after IV fluids with potassium supplementation serum potassium 4.2 on 05/29/2020 labs -additional potassium supplements ordered for 05/30/2020 and 05/31/2020 when serum potassium around 3.4 (3) Hypertension: -on home dose amlodipine 7.5 mg (4) Abnormal CT scan, kidney: -Incidental finding on CT of abdomen & pelvis on 05/28/2020 "Ill-defined 12 mm area of decreased attenuation involving the posterolateral aspect of the interpolar left kidney. This may reflect a complex cyst versus solid lesion." -05/31/2020 CT abdomen finding: "The contrast enhanced kidneys are normal in size and without hydronephrosis. The kidneys enhance symmetrically. Foci of cortical scarring are noted in the left kidney. A 12 mm indeterminate low- attenuation lesion is again suggested in the interpolar left kidney on image #144. This was better seen on the 05/28/2020 examination." (5) Dementia: -Continue donepezil. 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 -No acute findings on CT of head. -Hold aspirin until need for urgent invasive procedures ruled out. -Hold statin while NPO (7) Dysphagia: -Dysphagia secondary to stroke in the past -Thicken liquids. -Aspiration precautions. (8) GERD (gastroesophageal reflux disease): -on PPI (9) Dyslipidemia: -hold atorvastatin for now while NPO (10) Depression: -Continue fluoxetine. (11) COVID-19 ruled out: -COVID-19 negative test on admission and negative on 05/30/2020 (12) DVT prophylaxis: -SCDs for now -Ambulate with walker and assistance (13) Discharge planning issues: -awaiting general surgery re-assessments Admission and Anticipated Discharge Date Admission Date: May 28, 2020 Subjective -05/31/2020 CT abdomen performed: Again seen is an inflammatory process in the right lower quadrant, likely resenting acute perforated appendicitis. There is significant associated edema within the cecum, ascending colon, and the adjacent distal ileum. There is an enlarging multiloculated and thick-walled intramural abscess at the base of the cecum seen on image #276. This measures 3.7 x 4.2 x 3.9 cm. A calcified appendicolith is seen within the abscess on image #282. A developing peripherally enhancing loculated fluid collection is also seen along the medial aspect of the ascending colon on image #223. This measures 6.7 x 4.0 x 2.0 cm. There is mild colonic diverticulosis without CT evidence of acute diverticulitis. No bowel obstruction is seen. -general surgery notified about CT abdomen results on 05/31/2020. patient's WBC remains normalized. There is tenderness on palpation on right lower quadrant on exam. On exam with her granddaughter at bedside as Mike huitron, patient denies other acute symptoms. She has been able to make bowel movement. Continues to be breathing comfortably on room air. Patient is cooperative on exam and is cooperative with medical staff. Discussed with her through the granddaughter that hospitalist awaiting general surgery to review with radiologist about the 05/31/2020 CT scan in regards to treatment plans Review of Systems Review of Systems: All systems reviewed & are unremarkable except as noted in Subjective Physical Exam Constitutional: cooperative Eyes: PERRL, conjunctivae normal, anicteric sclerae EOM intact bilaterally ENMT: external ear and nose normal, oropharynx normal Neck: normal visual inspection Respiratory: normal respiratory effort, lungs clear to auscultation Cardiovascular: Rate/Rhythm: regular rate and regular rhythm Gastrointestinal (Abdomen): Inspection/Auscultation: abdomen normal to inspection Percussion/Palpation: + abdomen tender (right lower quadrant tenderness on palpation) Musculoskeletal: Head/Neck/Chest: normocephalic and head atraumatic Neurologic: PERRL, EOMI, accommodation nl, no face palsy, no dysarthria Psychiatric: Orientation: alert and cooperative Results & Data Results & Data ([facility]) Vital Signs (Past 12 Hours) Vital Signs Temp Pulse Pulse Resp BP Pulse Ox 05/31/20 06:41 36.8 C 77 18 110/63 92 05/31/20 03:37 36.8 C 73 18 115/59 L 90 05/31/20 00:06 71 05/30/20 23:18 36.7 C 70 18 130/65 93 (1) Acute appendicitis Acute appendicitis type: with localized peritonitis Appendicitis abscess presence: with abscess Appendicitis gangrene presence: unspecified whether gangrene present Appendicitis perforation presence: with perforation Qualified Code(s): K35.33 - Acute appendicitis with perforation and localized peritonitis, with abscess
[2020-05-31] MEDS: PANTOprazole 40 MG in SYRINGE 0 ML IV SCH (11:04)
--- NOTE | 2020-05-31 17:18 | Surgery Progress Note ---
Date of Service May 31, 2020 Assessment & Plan (1) Acute perforated appendicitis: This patient has an increase in the size of her abscess may be developing a second abscess. Percutaneous drainage would be the best option for her at this time. Transfer to a tertiary care center would be appropriate. I discussed her case with Dr. Jv Cerda at [facility]. He has accepted the patient. I discussed transfer with the patient's granddaughter. They are agreeable. Admission and Anticipated Discharge Date Admission Date: May 28, 2020 Subjective She seems to be having some pain today. Her temperature curve is been normal over the last 24 hours. Her white blood cell count has decreased to normal. Physical Exam Gastrointestinal (Abdomen): Inspection/Auscultation: normal bowel sounds; abdomen not distended Percussion/Palpation: + abdomen tender (Moderate tenderness to moderate palpation in the right lower quadrant) and abdomen soft Results & Data ([facility]) Vital Signs (Past 12 Hours) Vital Signs Temp Pulse Pulse Resp BP Pulse Ox 05/31/20 16:03 37.0 C 70 18 113/80 91 05/31/20 11:41 36.5 C 71 18 114/61 96 05/31/20 11:38 67 05/31/20 06:41 36.8 C 77 18 110/63 92 Laboratory Results 05/31/20 05/31/20 Range/Units 06:35 06:35 WBC 9.50 (4.8-10.8) K/uL RBC 3.53 L (4.2-5.4) M/uL Hgb 9.9 L (12.0-16.0) g/dL Hct 31.3 L (37-47) % MCV 88.7 (80-100) fL MCH 28.0 (25-34) pg MCHC 31.6 L (32-36) g/dL RDW Std Deviation 42.1 (36.4-46.3) fL RDW Coeff of Vivienne 13.1 (11.5-14.5) % Plt Count 310 (130-400) K/uL MPV 9.1 (7.4-10.4) fL Immature Gran % (Auto) 0.5 % Neut % (Auto) 68.6 % Lymph % (Auto) 12.6 % Bandera % (Auto) 17.7 % Eos % (Auto) 0.5 % Baso % (Auto) 0.1 % Neut # (Auto) 6.51 H (1.4-6.5) K/uL Lymph # (Auto) 1.20 (1.2-3.4) K/uL Bandera # (Auto) 1.68 H (0.11-0.59) K/uL Eos # (Auto) 0.05 (0-0.5) K/uL Baso # (Auto) 0.01 (0-0.2) K/uL Immature Gran # (Auto) 0.05 H (0.00-0.02) K/uL Sodium 134 L (136-145) mmol/L Potassium 3.4 L (3.5-5.1) mmol/L Chloride 100 (98-107) mmol/L Carbon Dioxide 29 (21-32) mmol/L Anion Gap 5.0 (3-11) BUN 8 (7-18) mg/dl Creatinine 0.75 (0.6-1.2) mg/dl Est Cr Clr Drug Dosing 46.6 ml/min Est GFR ( Amer) 88.5 Est GFR (Non-Af Amer) 76.3 BUN/Creatinine Ratio 11.3 (10-20) Glucose 123 H (70-99) mg/dl Calcium 8.9 (8.5-10.1) mg/dl Total Bilirubin 0.5 (0.2-1) mg/dl AST 27 (15-37) U/L ALT 21 (12-78) U/L Alkaline Phosphatase 74 (45-117) U/L Total Protein 6.4 (6.4-8.2) gm/dl Albumin 2.3 L (3.4-5.0) gm/dl Globulin 4.1 H (2.5-4.0) gm/dl Albumin/Globulin Ratio 0.6 L (0.9-2) Diagnostic Findings CT SCAN OF THE ABDOMEN AND PELVIS WITH IV CONTRAST CLINICAL HISTORY: Generalized abdominal pain. Appendicitis with abscess. COMPARISON STUDY: Abdominal CT dated 05/28/2020. TECHNIQUE: Following the IV administration of 94 cc of Optiray 320, CT scan of the abdomen and pelvis is performed from the lung bases to the proximal femora. Images are reviewed in the axial, sagittal, and coronal planes. IV contrast was administered without complication. A dose lowering technique was utilized adhering to the principles of ALARA. The examination is degraded by motion artifact. CT DOSE: 291.74 mGy.cm FINDINGS: Lung bases: The heart is enlarged and without pericardial effusion. The coronary arteries and mitral annulus are densely calcified. There is ectasia of the aortic root which measures up to 3.8 cm in diameter. Evaluation of the lung bases is degraded by motion artifact. The lung bases are clear noting dependent atelectasis. Liver: The contrast-enhanced liver is normal in size, contour, and attenuation. There is no intrahepatic biliary ductal dilatation. The hepatic veins and portal veins are patent. Gallbladder: Unremarkable. Spleen: Normal in size and attenuation. Pancreas: Moderately atrophic and grossly unremarkable. Adrenal glands: Unremarkable. Kidneys: The contrast enhanced kidneys are normal in size and without hydronephrosis. The kidneys enhance symmetrically. Foci of cortical scarring are noted in the left kidney. A 12 mm indeterminate low-attenuation lesion is again suggested in the interpolar left kidney on image #144. This was better seen on the 05/28/2020 examination. Abdominal vasculature: There is moderate to advanced atherosclerotic calcification and ectasia of the abdominal aorta. Bowel: Again seen is an inflammatory process in the right lower quadrant, likely resenting acute perforated appendicitis. There is significant associated edema within the cecum, ascending colon, and the adjacent distal ileum. There is an enlarging multiloculated and thick-walled intramural abscess at the base of the cecum seen on image #276. This measures 3.7 x 4.2 x 3.9 cm. A calcified appendicolith is seen within the abscess on image #282. A developing peripherally enhancing loculated fluid collection is also seen along the medial aspect of the ascending colon on image #223. This measures 6.7 x 4.0 x 2.0 cm. There is mild colonic diverticulosis without CT evidence of acute diverticulitis. No bowel obstruction is seen. Peritoneum: There is no intraperitoneal free air. Trace free fluid is noted in the right paracolic gutter. Lymphadenopathy: None. Pelvic viscera: The bladder is normal as visualized. The uterus is surgically absent. No adnexal lesion is seen. Skeletal structures: The skeletal structures are osteopenic. No lytic or blastic lesions are seen. Moderate lumbosacral spondylosis is observed. There is a mild chronic compression deformity of L1. There are healed left pubic ring fractures. IMPRESSION: 1. An inflammatory process is again seen in the right lower quadrant. This is most typical for perforated appendicitis. 2. There is an enlarging multiloculated intramural abscess at the base of the cecum which contains a calcified appendicolith. 3. There is a second developing abscess identified along the medial aspect of the ascending colon. 4. There is associated wall thickening and edema of the cecum, ascending colon, and adjacent distal ileum. 5. Cardiomegaly with ectasia of the aortic root. 6. There is no bowel obstruction. 7. An indeterminant left renal lesion is again suggested in the interpolar left kidney. 8. Additional findings as above.
[2020-05-31] MEDS: D5W AND 1/2NSS 1,000 ML IV SCH (17:32)
--- NOTE | 2020-05-31 18:20 | Discharge Summary ---
Date of Service May 31, 2020 Admission HPI Per Admitting Provider 80 YO female followed by Dr. Merced Mcgraw for Internal Medicine. History of hypertension, pre-diabetes, and other problems noted below. Lives with her family. Ambulatory with walker. Speaks Mike. Granddaughter at bedside in ED and assisted with history and translation. Experiencing lower abdominal pain for last few days. Patient and her family were not very concerned because has chronic constipation. Pain was much worse today; located in RLQ with some radiation towards the left. Pain rated as severe. Nothing seemed to alleviate the pain. No associated fever, chills, sweats. No nausea, vomiting, diarrhea, melena, hematochezia. Patient feels weak. 1 day prior to admission she fell twice. 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 Dementia GERD (gastroesophageal reflux disease) Discharge Exam Constitutional cooperative Eyes PERRL, conjunctivae normal, anicteric sclerae EOM intact bilaterally ENMT external ear and nose normal, oropharynx normal Neck normal visual inspection Respiratory normal respiratory effort, lungs clear to auscultation Cardiovascular Rate/Rhythm: regular rate and regular rhythm Gastrointestinal (Abdomen) Inspection/Auscultation: abdomen normal to inspection Percussion/Palpation: + abdomen tender (right lower quadrant tenderness on palpation) and abdomen soft Musculoskeletal Head/Neck/Chest: normocephalic and head atraumatic Neurologic PERRL, EOMI, accommodation nl, no face palsy, no dysarthria moves all extremities Psychiatric Orientation: alert and cooperative Discharge Data Allergies Allergy/AdvReac Type Severity Reaction Status Date / Time Penicillins Allergy Mild RASH Verified 05/28/20 12:23 Consultations 05/28/20 15:14 ED Decision to Admit Stat 05/28/20 23:24 Consult General Surgery Routine Ordered Studies 05/28/20 10:44 CT abd pelvis IV con only Stat CT cervical spine wo con Stat CT head/brain wo con Stat 05/31/20 08:00 CT abd pelvis IV con only Routine Hospital Course (1) Acute appendicitis: acute appendicitis (with perforation and abscess) -patient presented Presented with RLQ abdominal pain and was afebrile with WBC at 14K, Hemodynamically stable. CT demonstrated acute appendicitis with perforation and 2.8 cm abscess. General Surgery Dr. Bhat consulted and assessed patient in ED. -as per general surgery Dr. Bhat on 05/28/2020 "that treatment is usually nonoperative (similar to diverticulitis) with IV abx, bowel rest. If no improvement, would repeat CT scan in 48 hrs to assess for drainable fluid or increase in size of abscess. If improves on IV abx, will be able to advance diet and finish course of treatment with PO antibiotics. Reviewed that interval appendectomy is no longer routinely recommended but done for persistent symptoms or recurrent infections. Will follow. Plan IV abx (given pcn allergy, cipro/flagyl is reasonable alternative), bowel rest until improvement in pain/ leukocytosis, IV hydration." -because of reported penicillin allergy, admitting hospitalist Dr. Sunshine started patient on Meropenem antibiotics -05/29/2020: Patient had fever of 38.4 celsius (101 F) at 7 AM on 05/29/2020. Acetaminophen ordered and additional lactic acid and blood culture labs to be drawn. Patient is otherwise hemodynamically stable. She is not in distress. She is in the bed with granddaughter [phone] who helps with translating [facility] [place] language and also for corroboration of health history. Patient reports right lower quadrant pain still present but that there is less pain compared to day of admission on 05/28/2020. Patient denies vomiting. She had bowel movement yesterday. She has been able to urinate. She denies any pains to chest or problems with breathing. No other symptoms on review of systems. Granddaughter also reports that patient's son Jaime [phone] is the patient's medical decision maker. Genera surgery following and continues to recommend antibiotic management at this time -05/30/2020: the WBC normalized as 9.48 K as of AM labs. Patient seen at bedside with granddaughter translating in Mike. As per both granddaughter and patient there appears to be less discomfort of the right sided abdomen recently. On my exam with palpation of the right abdomen, the patient not grimacing compared to 05/29/2020 AM. Continues to be on IV Meropenem antibiotics. Discussed at this time with patient and granddaughter that general surgery continues to follow and patient to remain NPO unless otherwise recommended by general surgery. Continues to be on IV fluids with D5 1/2 normal saline at 60 cc/hr. additional potassium ordered for patient as serum potassium low normal levels of 4.34. Tentatively a CT abdomen/pelvis with IV contrast is ordered for 05/31/2020 AM. On review of systems, patient denies other symptoms although granddaughter did report she was told that patient has been having hallucination there there has been "a man" watching her in the room but this is likely due to mild delirium in context of patient with dementia. Patient has been cooperative with medical staff and does not pull the IV line) -05/31/2020 CT abdomen performed: Again seen is an inflammatory process in the right lower quadrant, likely resenting acute perforated appendicitis. There is significant associated edema within the cecum, ascending colon, and the adjacent distal ileum. There is an enlarging multiloculated and thick-walled intramural abscess at the base of the cecum seen on image #276. This measures 3.7 x 4.2 x 3.9 cm. A calcified appendicolith is seen within the abscess on image #282. A developing peripherally enhancing loculated fluid collection is also seen along the medial aspect of the ascending colon on image #223. This measures 6.7 x 4.0 x 2.0 cm. There is mild colonic diverticulosis without CT evidence of acute diverticulitis. No bowel obstruction is seen. -general surgery notified about CT abdomen results on 05/31/2020. patient's WBC remains normalized. There is tenderness on palpation on right lower quadrant on exam. On exam with her granddaughter at bedside as Mike translating, patient denies other acute symptoms. She has been able to make bowel movement. Continues to be breathing comfortably on room air. Patient is cooperative on exam and is cooperative with medical staff. Discussed with her through the granddaughter that hospitalist awaiting general surgery to review with radiologist about the 05/31/2020 CT scan in regards to treatment plans and currently still NPO with IV hydration and IV antibiotics To summarize (while performing initial conservative management as initially requested by general surgery that patient under [facility] hospitalist team at [facility], patient has been on bowel rest since 05/28/2020 and on D5 1/2 normal saline. She is on D5 1/2 normal saline recently at 50 cc/hr for hydration and nutrition - continue IV hydration and bowel rest for now. Patient also have been on IV antibiotics of Meropenem 500 mg q8 hours - continue for now) per general surgery Dr. Gipson recommendations on Acute perforated appendicitis on 05/31/2020 "This patient has an increase in the size of her abscess may be developing a second abscess. Percutaneous drainage would be the best option for her at this time. Transfer to a tertiary care center would be appropriate. I discussed her case with Dr. Jv Cerda at [facility]. He has accepted the patient" discharge/Transfer to [facility] in [place] when available bed and transportation (2) Hypokalemia: -admission serum potassium 3.2 -after IV fluids with potassium supplementation serum potassium 4.2 on 05/29/2020 labs -additional potassium supplements ordered for 05/30/2020 and 05/31/2020 when serum potassium around 3.4 (3) Hypertension: -on home dose amlodipine 7.5 mg (4) Abnormal CT scan, kidney: -Incidental finding on CT of abdomen & pelvis on 05/28/2020 "Ill-defined 12 mm area of decreased attenuation involving the posterolateral aspect of the interpolar left kidney. This may reflect a complex cyst versus solid lesion." -05/31/2020 CT abdomen finding: "The contrast enhanced kidneys are normal in size and without hydronephrosis. The kidneys enhance symmetrically. Foci of cortical scarring are noted in the left kidney. A 12 mm indeterminate low- attenuation lesion is again suggested in the interpolar left kidney on image #144. This was better seen on the 05/28/2020 examination." (5) Dementia: -Continue donepezil. 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 -No acute findings on CT of head. -Hold aspirin until need for urgent invasive procedures ruled out. -Hold statin while NPO (7) Dysphagia: -Dysphagia secondary to stroke in the past -Thicken liquids. -Aspiration precautions. (8) GERD (gastroesophageal reflux disease): -on PPI (9) Dyslipidemia: -hold atorvastatin for now while NPO (10) Depression: -Continue fluoxetine. (11) COVID-19 ruled out: -COVID-19 negative test on admission and negative on 05/30/2020 (12) DVT prophylaxis: -SCDs for now -Ambulate with walker and assistance (13) Discharge planning issues: -awaiting transfer to [facility] Total Time Total Time Spent Total Time Spent (In Minutes): 40 minutes Total Time Includes: Examination of the Patient, Discharge Planning, Medication Reconciliation and Communication With Other Providers Discharge Plan Discharge Items Patient Disposition: Transfer Acute Care Hospital Reason For Visit: ABDOMINAL PAIN Discharge Diagnosis: acute appendicitis (with perforation and abscess) hypokalemia hypertension Other diagnosis (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 Dementia GERD (gastroesophageal reflux disease) Condition on Discharge: Fair Activity: Per Instructions section Non-emergency contact: Surgeon Call non-emergency contact if: you have any medication questions Follow-up/Referrals: Merced Mcgraw MD [Primary Care Provider] - Diet: Other - See Diet Comment Diet Comment: npo Addtl Attending Provider Instructions: while performing initial conservative management as initially requested by general surgery that patient under [facility] hospitalist team at [facility], patient has been on bowel rest since 05/28/2020 and on D5 1/2 normal saline. She is on D5 1/2 normal saline recently at 50 cc/hr for hydration and nutrition - continue IV hydration and bowel rest for now. 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 Gipson recommendations on Acute perforated appendicitis on 05/31/2020 "This patient has an increase in the size of her abscess may be developing a second abscess. Percutaneous drainage would be the best option for her at this time. Transfer to a tertiary care center would be appropriate. I discussed her case with Dr. Jv Cerda at [facility]. He has accepted the patient" discharge/Transfer to [facility] in [place] when available bed and transportation Pending Studies at Discharge: No Stand-Alone Forms: My [facility] Skilled Items Patient informed of condition?: Yes DNR: No Discharge Level of Care: Other Communicable Disease: No Discharge Prognosis: Stable Lines: Peripheral IV Urinary Catheter: No Medications and DC Order Prescriptions: Continued donepezil [Aricept] 5 mg Tablet 5 mg PO HS RF: 0 levothyroxine 50 mcg tablet 50 mcg PO QAM RF: 0 fluoxetine 20 mg capsule 20 mg PO QAM RF: 0 amlodipine 2.5 mg tablet 7.5 mg PO DAILY RF: 0 Discontinued sennosides [senna] 8.6 mg Tablet 8.6 mg PO DAILY PRN (Reason: Constipation) RF: 0 sucralfate 1 gram tablet 1 g PO QID RF: 0 omeprazole 40 mg capsule,delayed release(DR/EC) 40 mg PO QAM RF: 0 ferrous sulfate 325 mg (65 mg iron) Tablet,Delayed Release (Dr/Ec) 325 mg PO Q2D RF: 0 Centrum Silver 0.4-300-250 mg-mcg-mcg Tablet 1 tab PO QAM RF: 0 Calcium 600 + D(3) 600 mg calcium- 200 unit Capsule 1 tab PO BID RF: 0 polyethylene glycol 3350 [Miralax] 17 gram Powder In Packet 17 g PO QPM RF: 0 aspirin [Aspirin Low Dose] 81 mg tablet,delayed release (DR/EC) 81 mg PO QAM RF: 0 atorvastatin 40 mg tablet 40 mg PO DAILY RF: 0 Discharge Orders: Discharge Order (Routine); Ordered 05/31/20 Ordered By: Caleb Painter Admission Data Admit Date/Time: 05/28/20 13:39 Attending Provider: Caleb Painter Admit Provider: Clinton Sunshine Primary Care Provider: Merced Mcgraw Other Providers: Clinton Sunshine ; Apolonia Bhat
[2020-05-31] MEDS: DONEPEZIL HCL 5 MG TAB PO SCH (20:36)
[2020-06-01] MEDS: LEVOTHYROXINE SODIUM 50 MCG TABLET PO SCH (06:31)
[2020-06-01] MEDS: FLUoxetine HCL 20 MG CAP PO SCH (10:09)
[2020-06-01] MEDS: amLODIPine BESYLATE 5 MG TAB PO SCH (10:09)
[2020-06-01] MEDS: MEROPENEM 500 MG in SYRINGE 0 ML IV SCH ×2 (10:10→18:55)
[2020-06-01] MEDS: PANTOprazole 40 MG in SYRINGE 0 ML IV SCH (10:10)
[2020-06-01] MEDS: D5W AND 1/2NSS 1,000 ML IV SCH (10:11)
--- NOTE | 2020-06-01 11:07 | Surgery Progress Note ---
Date of Service June 01, 2020 Assessment & Plan (1) Acute perforated appendicitis: Perforated appendicitis with abscess formation Plan is for transfer to [facility] which has been arranged. Awaiting bed availability No evidence of sepsis or diffuse peritonitis Continue antibiotics Admission and Anticipated Discharge Date Admission Date: May 28, 2020 Subjective Awake and alert Appears comfortable Has some pain in the right lower quadrant Has not had nausea or vomiting Physical Exam Gastrointestinal (Abdomen): Inspection/Auscultation: abdomen not distended Percussion/Palpation: + abdomen tender (Mild tenderness in the right lower quadrant) and abdomen soft; no abdominal mass Results & Data ([facility]) Vital Signs (Past 12 Hours) Vital Signs Temp Pulse Pulse Resp BP Pulse Ox 06/01/20 07:12 37.0 C 67 18 118/69 90 06/01/20 04:28 36.6 C 71 18 127/65 90 06/01/20 00:27 75 05/31/20 23:57 36.6 C 68 15 145/64 H 93
--- NOTE | 2020-06-01 17:50 | Communication Note ---
Date of Service: June 01, 2020 Hospitalist, Dr. Painter called [facility] transfer center and notified that [facility] has accepting bed in [address] and the nursing report number is [phone]. hospitalist communicated to the front office developer. Patient is currently sleeping. There are no translators at the bedside currently
--- NOTE | 2020-06-01 18:41 | Discharge Summary ---
Date of Service June 01, 2020 Admission HPI Per Admitting Provider 80 YO female followed by Dr. Merced Mcgraw for Internal Medicine. History of hypertension, pre-diabetes, and other problems noted below. Lives with her family. Ambulatory with walker. Speaks Mike. Granddaughter at bedside in ED and assisted with history and translation. Experiencing lower abdominal pain for last few days. Patient and her family were not very concerned because has chronic constipation. Pain was much worse today; located in RLQ with some radiation towards the left. Pain rated as severe. Nothing seemed to alleviate the pain. No associated fever, chills, sweats. No nausea, vomiting, diarrhea, melena, hematochezia. Patient feels weak. 1 day prior to admission she fell twice. 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 Dementia GERD (gastroesophageal reflux disease) Principal Diagnosis Discharge Exam Constitutional cooperative Eyes PERRL, conjunctivae normal, anicteric sclerae EOM intact bilaterally ENMT external ear and nose normal, oropharynx normal Neck normal visual inspection Respiratory normal respiratory effort, lungs clear to auscultation Cardiovascular Rate/Rhythm: regular rate and regular rhythm Gastrointestinal (Abdomen) Inspection/Auscultation: abdomen normal to inspection Percussion/Palpation: + abdomen tender (right lower quadrant tenderness on palpation) and abdomen soft Musculoskeletal Head/Neck/Chest: normocephalic and head atraumatic Neurologic PERRL, EOMI, accommodation nl, no face palsy, no dysarthria moves all extremities Psychiatric Orientation: alert and cooperative Discharge Data Allergies Allergy/AdvReac Type Severity Reaction Status Date / Time Penicillins Allergy Mild RASH Verified 05/28/20 12:23 Consultations 05/28/20 15:14 ED Decision to Admit Stat 05/28/20 23:24 Consult General Surgery Routine 05/31/20 18:23 Burn CD for patient Stat Ordered Studies 05/28/20 10:44 CT abd pelvis IV con only Stat CT cervical spine wo con Stat CT head/brain wo con Stat 05/31/20 08:00 CT abd pelvis IV con only Routine Hospital Course (1) Acute appendicitis: acute appendicitis (with perforation and abscess) -patient presented Presented with RLQ abdominal pain and was afebrile with WBC at 14K, Hemodynamically stable. CT demonstrated acute appendicitis with perforation and 2.8 cm abscess. General Surgery Dr. Bhat consulted and assessed patient in ED. -as per general surgery Dr. Bhat on 05/28/2020 "that treatment is usually nonoperative (similar to diverticulitis) with IV abx, bowel rest. If no improvement, would repeat CT scan in 48 hrs to assess for drainable fluid or increase in size of abscess. If improves on IV abx, will be able to advance diet and finish course of treatment with PO antibiotics. Reviewed that interval appendectomy is no longer routinely recommended but done for persistent symptoms or recurrent infections. Will follow. Plan IV abx (given pcn allergy, cipro/flagyl is reasonable alternative), bowel rest until improvement in pain/ leukocytosis, IV hydration." -because of reported penicillin allergy, admitting hospitalist Dr. Sunshine started patient on Meropenem antibiotics -05/29/2020: Patient had fever of 38.4 celsius (101 F) at 7 AM on 05/29/2020. Acetaminophen ordered and additional lactic acid and blood culture labs to be drawn. Patient is otherwise hemodynamically stable. She is not in distress. She is in the bed with granddaughter [phone] who helps with translating [facility] deering language and also for corroboration of health history. Patient reports right lower quadrant pain still present but that there is less pain compared to day of admission on 05/28/2020. Patient denies vomiting. She had bowel movement yesterday. She has been able to urinate. She denies any pains to chest or problems with breathing. No other symptoms on review of systems. Granddaughter also reports that patient's son Jaime [phone] is the patient's medical decision maker. Genera surgery following and continues to recommend antibiotic management at this time -05/30/2020: the WBC normalized as 9.48 K as of AM labs. Patient seen at bedside with granddaughter translating in Mike. As per both granddaughter and patient there appears to be less discomfort of the right sided abdomen recently. On my exam with palpation of the right abdomen, the patient not grimacing compared to 05/29/2020 AM. Continues to be on IV Meropenem antibiotics. Discussed at this time with patient and granddaughter that general surgery continues to follow and patient to remain NPO unless otherwise recommended by general surgery. Continues to be on IV fluids with D5 1/2 normal saline at 60 cc/hr. additional potassium ordered for patient as serum potassium low normal levels of 4.34. Tentatively a CT abdomen/pelvis with IV contrast is ordered for 05/31/2020 AM. On review of systems, patient denies other symptoms although granddaughter did report she was told that patient has been having hallucination there there has been "a man" watching her in the room but this is likely due to mild delirium in context of patient with dementia. Patient has been cooperative with medical staff and does not pull the IV line) -05/31/2020 CT abdomen performed: Again seen is an inflammatory process in the right lower quadrant, likely resenting acute perforated appendicitis. There is significant associated edema within the cecum, ascending colon, and the adjacent distal ileum. There is an enlarging multiloculated and thick-walled intramural abscess at the base of the cecum seen on image #276. This measures 3.7 x 4.2 x 3.9 cm. A calcified appendicolith is seen within the abscess on image #282. A developing peripherally enhancing loculated fluid collection is also seen along the medial aspect of the ascending colon on image #223. This measures 6.7 x 4.0 x 2.0 cm. There is mild colonic diverticulosis without CT evidence of acute diverticulitis. No bowel obstruction is seen. -general surgery notified about CT abdomen results on 05/31/2020. patient's WBC remains normalized. There is tenderness on palpation on right lower quadrant on exam. On exam with her granddaughter at bedside as Mike huitron, patient denies other acute symptoms. She has been able to make bowel movement. Continues to be breathing comfortably on room air. Patient is cooperative on exam and is cooperative with medical staff. Discussed with her through the granddaughter that hospitalist awaiting general surgery to review with radiologist about the 05/31/2020 CT scan in regards to treatment plans and currently still NPO with IV hydration and IV antibiotics To summarize (while performing initial conservative management as initially requested by general surgery that patient under [facility] hospitalist team at [facility], patient has been on bowel rest since 05/28/2020 and on D5 1/2 normal saline. She is on D5 1/2 normal saline recently at 50 cc/hr for hydration and nutrition - continue IV hydration and bowel rest for now. Patient also have been on IV antibiotics of Meropenem 500 mg q8 hours - continue for now) per general surgery Dr. Gipson recommendations on Acute perforated appendicitis on 05/31/2020 "This patient has an increase in the size of her abscess may be developing a second abscess. Percutaneous drainage would be the best option for her at this time. Transfer to a tertiary care center would be appropriate. I discussed her case with Dr. Jv Cerda at [facility]. He has accepted the patient" discharge/Transfer to [facility] in [place] when available bed and transportation 06/01/2020: Hospitalist, Dr. Painter called [facility] transfer center and notified that sandip has accepting bed in [facility] and the nursing report number is [phone]. hospitalist communicated to the front end developer. Patient seen and examined at bedside. No acute changes on exam compared to that of 05/31/2020. continue current IV fluids and antibiotics, nursing station informed that transport expect to be at 10 PM from [facility] to [facility] in [place] (2) Hypokalemia: -admission serum potassium 3.2 -after IV fluids with potassium supplementation serum potassium 4.2 on 05/29/2020 labs -additional potassium supplements ordered for 05/30/2020 and 05/31/2020 when serum potassium around 3.4 (3) Hypertension: -on home dose amlodipine 7.5 mg (4) Abnormal CT scan, kidney: -Incidental finding on CT of abdomen & pelvis on 05/28/2020 "Ill-defined 12 mm area of decreased attenuation involving the posterolateral aspect of the interpolar left kidney. This may reflect a complex cyst versus solid lesion." -05/31/2020 CT abdomen finding: "The contrast enhanced kidneys are normal in size and without hydronephrosis. The kidneys enhance symmetrically. Foci of cortical scarring are noted in the left kidney. A 12 mm indeterminate low- attenuation lesion is again suggested in the interpolar left kidney on image #144. This was better seen on the 05/28/2020 examination." (5) Dementia: -Continue donepezil. 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 -No acute findings on CT of head. -Hold aspirin until need for urgent invasive procedures ruled out. -Hold statin while NPO (7) Dysphagia: -Dysphagia secondary to stroke in the past -Thicken liquids. -Aspiration precautions. (8) GERD (gastroesophageal reflux disease): -on PPI (9) Dyslipidemia: -hold atorvastatin for now while NPO (10) Depression: -Continue fluoxetine. (11) COVID-19 ruled out: -COVID-19 negative test on admission and negative on 05/30/2020 (12) DVT prophylaxis: -SCDs for now -Ambulate with walker and assistance (13) Discharge planning issues: [facility] Total Time Total Time Spent Total Time Spent (In Minutes): 40 minutes Total Time Includes: Examination of the Patient, Discharge Planning, Medication Reconciliation and Communication With Other Providers Discharge Plan Discharge Items Patient Disposition: Transfer Acute Care Hospital Reason For Visit: ABDOMINAL PAIN Discharge Diagnosis: acute appendicitis (with perforation and abscess) hypokalemia hypertension Other diagnosis (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 Dementia GERD (gastroesophageal reflux disease) Condition on Discharge: Fair Activity: Per Instructions section Non-emergency contact: Surgeon Call non-emergency contact if: you have any medication questions Follow-up/Referrals: Merced Mcgraw MD [Primary Care Provider] - Diet: Other - See Diet Comment Diet Comment: npo Addtl Attending Provider Instructions: while performing initial conservative management as initially requested by general surgery that patient under [facility] hospitalist team at [facility], patient has been on bowel rest since 05/28/2020 and on D5 1/2 normal saline. She is on D5 1/2 normal saline recently at 50 cc/hr for hydration and nutrition - co ntinue IV hydration and bowel rest for now. 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 Gipson recommendations on Acute perforated appendicitis on 05/31/2020 "This patient has an increase in the size of her abscess may be developing a second abscess. Percutaneous drainage would be the best option for her at this time. Transfer to a tertiary care center would be appropriate. I discussed her case with Dr. Jv Cerda at [facility]. He has accepted the patient" discharge/Transfer to [facility] in [place] when available bed and transportation Pending Studies at Discharge: No Stand-Alone Forms: My [facility] Skilled Items Patient informed of condition?: Yes DNR: No Discharge Level of Care: Other Communicable Disease: No Discharge Prognosis: Stable Lines: Peripheral IV Urinary Catheter: No Medications and DC Order Prescriptions: Continued donepezil [Aricept] 5 mg Tablet 5 mg PO HS RF: 0 levothyroxine 50 mcg tablet 50 mcg PO QAM RF: 0 fluoxetine 20 mg capsule 20 mg PO QAM RF: 0 amlodipine 2.5 mg tablet 7.5 mg PO DAILY RF: 0 Discontinued sennosides [senna] 8.6 mg Tablet 8.6 mg PO DAILY PRN (Reason: Constipation) RF: 0 sucralfate 1 gram tablet 1 g PO QID RF: 0 omeprazole 40 mg capsule,delayed release(DR/EC) 40 mg PO QAM RF: 0 ferrous sulfate 325 mg (65 mg iron) Tablet,Delayed Release (Dr/Ec) 325 mg PO Q2D RF: 0 Centrum Silver 0.4-300-250 mg-mcg-mcg Tablet 1 tab PO QAM RF: 0 Calcium 600 + D(3) 600 mg calcium- 200 unit Capsule 1 tab PO BID RF: 0 polyethylene glycol 3350 [Miralax] 17 gram Powder In Packet 17 g PO QPM RF: 0 aspirin [Aspirin Low Dose] 81 mg tablet,delayed release (DR/EC) 81 mg PO QAM RF: 0 atorvastatin 40 mg tablet 40 mg PO DAILY RF: 0 Discharge Orders: Discharge Order (Routine); Ordered 05/31/20 Ordered By: Caleb Painter Admission Data Admit Date/Time: 05/28/20 13:39 Attending Provider: Caleb Painter Admit Provider: Clinton Sunshine Primary Care Provider: Merced Mcgraw Other Providers: Clinton Sunshine ; Apolonia Bhat Other Interventions: Discharge Summary Assessment (RN) Last Done: 06/01/20 12:18
[2020-06-01] MEDS: DONEPEZIL HCL 5 MG TAB PO SCH (19:08)
== END 2020-06-01 23:15 | disposition short-term general hospital (02) | DRG 373 ==
LOC: ED 10:23 → 3W 13:39 → SUATTDRO 13:39 → 3W 16:14 → 2N 05-29 09:31

== ENCOUNTER 2022-04-07 15:39 | Inpatient (IN) ==
[2022-04-07] MEDS ORDERED: SODIUM CHLORIDE 0.9% 1000ML 1,000 ML IV SCH (16:30)
[2022-04-07 16:36] LABS: Basophils # (auto) 0.04 K/uL (0-0.2); Basophils % (auto) 0.3 %; Eosinophils # (auto) 0.09 K/uL (0-0.50); Eosinophils % (auto) 0.6 %; Hematocrit (blood only) 40.2 % (34.1-44.9); Hemoglobin 12.8 g/dl (12.0-16.0); Immature Granulocytes # (auto) 0.06 K/uL (0.00-0.02); Immature Granulocytes % (auto) 0.4 %; Lymphocytes # (auto) 1.32 K/uL (1.2-3.4); Lymphocytes % (auto) 8.7 %; Mean Corpuscular Hemoglobin 27.1 pg (25.0-34.0); Mean Corpuscular Hgb Conc 31.8 g/dL (32.0-36.0); Mean Platelet Volume 10.1 fL (9.4-12.3); Monocytes % (auto) 4.6 %; Neutrophils # (auto) 12.93 K/uL (1.4-6.5); Neutrophils % (auto) 85.4 %; Platelet Count 287 K/uL (130-400); RDW Coefficient of Variation 13.3 % (11.5-14.5); RDW Standard Deviation 41.4 fL (36.4-46.3); Red Blood Count 4.73 M/uL (3.93-5.22); White Blood Count 15.14 K/ul (4.8-10.8)
--- NOTE | 2022-04-07 16:44 | CT Scan Report ---
CT SCAN OF THE BRAIN WITHOUT IV CONTRAST CLINICAL HISTORY: Strokelike symptoms. COMPARISON STUDY: CT of the brain dated 05/28/2020. TECHNIQUE: Unenhanced axial CT scan of the brain is performed from the vertex to the skull base. A do se lowering technique was utilized adhering to the principles of ALARA. FINDINGS: Brain parenchyma: There is age-related involutional change noting [id number] subcortical and pe riventricular microangiopathic disease. There is no hemorrhage, mass effect, or evidence of acute ter ritorial ischemia by CT criteria. A chronic lacunar infarct is noted in the left basal ganglia. Villagran- white matter differentiation is preserved. No extra-axial fluid collection is seen. Ventricles, sulci, cisterns: Prominent secondary to involutional change. Intracranial vasculature: There is atherosclerotic calcification of the cavernous carotid and vertebr al arteries. Calvarium: Unremarkable. Sinuses and mastoids: The visualized paranasal sinuses are clear. The mastoid air cells are well pneu matized. Orbits: The bony orbits are grossly intact. There are bilateral ocular lens implants. IMPRESSION: There is no hemorrhage, mass effect, or evidence of acute territorial ischemia by CT daisha colón. ACT 112: Negative or not required by law. Electronically signed by: Shaheen Lopez M.D. 04/07/2022 4:41 PM
[2022-04-07] MEDS ORDERED: OPTIRAY 300 500mL IV ONE (16:47)
[2022-04-07 16:52] LABS: Prothrombin Time 10.6 Seconds (9.0-12.0)
--- NOTE | 2022-04-07 17:03 | CT Scan Report ---
CT ANGIOGRAM OF THE BRAIN CLINICAL HISTORY: Strokelike symptoms. COMPARISON STUDY: Unenhanced CT of the brain performed concurrently on 04/07/2022. CT angiogram of th e brain dated 07/15/2018 TECHNIQUE: Following the IV administration of 118 cc of Optiray 300, CT angiogram of the brain was pe rformed from the skull base to the vertex. Images are reviewed in the axial, sagittal, and coronal pl anes. 3-D MIPS images are created and assessed. IV contrast was administered without complication. A dose lowering technique was utilized adhering to the principles of ALARA. FINDINGS: Brain parenchyma: There is age related involutional change noting mild to moderate subcortical and pe riventricular microangiopathic disease. A chronic lacunar infarct is noted in the left basal ganglia. There is no evidence of hemorrhage, mass effect, or acute territorial ischemia noting angiographic p hase technique. There is no evidence of enhancing mass lesion on the angiogram phase images. No extra -axial fluid collection is seen. Villagran-white matter differentiation is preserved. Ventricles, sulci, and cisterns: Prominent secondary to involutional change. CT angiogram of the brain: There is atherosclerotic calcification of the cavernous carotid and verteb ral arteries. The internal carotid arteries are widely patent, as are the anterior and middle cerebra l arteries. The vertebrobasilar system and posterior cerebral arteries are widely patent. The vertebr al arteries are codominant. 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 No aneurysm or focal vessel cutoff identified throughout the intracranial circ ulation. Dural sinuses: Clear as visualized. Orbits: The bony orbits are intact. The orbital contents are normal as visualized noting bilateral oc ular lens implants. Sinuses and mastoids: The paranasal sinuses are clear. There is a small right mastoid effusion. The l eft mastoid air cells are well pneumatized. Calvarium: Unremarkable. IMPRESSION: 1 There is no evidence of hemorrhage, mass effect, or acute territorial ischemia noting angiographic phase technique. 2. 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 3. Otherwise unremarkable CT angiogram of the brain. ACT 112: Negative or not required by law. Electronically signed by: Shaheen Lopez M.D. 04/07/2022 5:02 PM
--- NOTE | 2022-04-07 17:03 | CT Scan Report ---
NECK CTA HISTORY: Stroke Like Symptoms TECHNIQUE: Multiaxial CT images of the neck were performed following the intravenous administration o f contrast to evaluate the major cervical vessels. Maximum intensity projection images were also obta ined. All measurements were calculated based on NASCET criteria. A dose lowering technique was utili zed adhering to the principles of ALARA. COMPARISON STUDY: Neck CTA 07/15/2018. FINDINGS: The aortic arch is widely patent. There is no significant stenosis, occlusion, or dissecti on identified within the bilateral common carotid, internal carotid, or vertebral arteries. Calcified plaque within the proximal right subclavian artery demonstrating approximately 20% stenosis. This re nicole unchanged. IMPRESSION: No significant stenosis, occlusion, or dissection identified within the carotid or vertebral arteries . ACT 112: Negative or not required by law. Electronically signed by: Perry Gill M.D. 04/07/2022 5:01 PM
[2022-04-07 17:06] LABS: Troponin I High Sensitivity 10.1 pg/ml (0-14)
[2022-04-07 17:16] LABS: Alanine Aminotransferase 8 U/L (7-52); Albumin Globulin Ratio 1.1 (0.9-2); Albumin Level 3.8 gm/dl (3.4-5.0); Alkaline Phosphatase 101 U/L (34-104); Anion Gap 8 (3-11); Aspartate Aminotransferase 16 U/L (13-39); BUN Creatinine Ratio 19.8 (10-20); Bilirubin,Total 0.4 mg/dl (0.2-1.0); Blood Urea Nitrogen 18 mg/dl (6-23); Calcium 9.5 mg/dl (8.5-10.1); Carbon Dioxide 28 mmol/L (21-32); Chloride 103 mmol/L (98-107); Est GFR (African American) 69.1 ml/min; Est GFR (Non-African American) 59.6 ml/min; Globulin 3.5 gm/dl (2.5-4.0); Glucose 138 mg/dl (70-99(Fasting)); Magnesium 1.9 mg/dl (1.7-2.4); Potassium 3.9 mmol/L (3.5-5.1); Sodium 139 mmol/L (136-145); Total Protein 7.3 gm/dl (6.0-8.3)
[2022-04-07] MEDS ORDERED: ASPIRIN CHEW 324 MG PO STA (18:20)
--- NOTE | 2022-04-07 18:56 | Emergency Department Note ---
History of Present Illness General Chief complaint: TIA Symptoms Stated complaint: possible tia, shortness of breath, speech slurred Time Seen by Provider: 04/07/22 16:10 Source: patient Mode of arrival: ambulatory Limitations: language barrier (Family helps to translate at bedside) History of Present Illness Provider complaint: possible cva This is an 82-year-old female presents emergency department due to concern for possible recurrent stroke. Family states symptoms began at 2 PM when they noticed she was having a difficult time walking and was almost dragging her left leg. Patient does have residual left-sided deficits from a prior stroke in 2019. Patient has been taking low-dose aspirin daily however ran out of her medication 6 days ago. They state they also noticed her left arm/hand were weak, she seemed to have difficulty understanding conversation and questions, and they noticed a slight facial droop and slight slurred speech in her [place] language. Granddaughter is at bedside help with translation and performing evaluation. They deny any recent fevers, chills, or illness. No recent trauma or change in activity. Home Medications Medication Instructions Recorded Confirmed Type donepezil 5 mg tablet (Aricept) 5 mg PO QDL 07/15/18 04/07/22 History fluoxetine 20 mg capsule 20 mg PO QPM 07/15/18 04/07/22 History levothyroxine 50 mcg tablet 50 mcg PO DAILYBB 07/15/18 04/07/22 History amlodipine 2.5 mg tablet 7.5 mg PO QAM 05/28/20 04/07/22 History atorvastatin 40 mg tablet 40 mg PO HS 08/25/20 04/07/22 History calcium carbonate 600 mg-vitamin 1 tab PO BID 08/25/20 04/07/22 History D3 5 mcg (200 unit) tablet docusate sodium 100 mg capsule 100 mg PO BID PRN Constipation 08/25/20 04/07/22 History (Stool Softener) ferrous sulfate 325 mg (65 mg 325 mg PO BID 08/25/20 04/07/22 History iron) tablet [id number] 0.4 mg-calcium 162 1 tab PO QDL 08/25/20 04/07/22 History mg-iron 18 [id number] tablet omeprazole 40 mg capsule,delayed 40 mg PO QDL 08/25/20 04/07/22 History release sucralfate 1 gram tablet 1 g PO QID 08/25/20 04/07/22 History vitamin B complex 1 tab PO HS 08/25/20 04/07/22 History aspirin 81 mg tablet,delayed 81 mg PO HS 04/07/22 04/07/22 History release bisacodyl 5 mg tablet,delayed 5 - 10 mg PO DAILY PRN Constipation 04/07/22 04/07/22 History release (Dulcolax (bisacodyl)) magnesium citrate 120 ml PO DAILY PRN Constipation 04/07/22 04/07/22 History multivitamin 1 tab PO DAILY 04/07/22 04/07/22 History polyethylene glycol 3350 17 17 g PO DAILY PRN Constipation 04/07/22 04/07/22 History gram/dose oral powder (Miralax) Allergies Allergy/AdvReac Type Severity Reaction Status Date / Time Penicillins Allergy Mild RASH Verified 08/27/20 09:38 Past Med/Surg History Medical History Abnormal CT scan, kidney Cerebrovascular disease stroke L caudate before 2012; TIA 2012; stroke jozef 2019 (treated at [facility]) Dementia Alert & Oriented x3. "loose train of thought and has trouble putting words together at times". Depression Dyslipidemia Dysphagia Dysphagia due to stroke. Thickened liquids. GERD (gastroesophageal reflux disease) H/O blood clots possibly in 2019? family unsure of specifics. Hypertension Osteoarthritis Osteoporosis Pre-diabetes family denies Stroke hx of stroke (2013 & 2019) treated at [facility]. dysphagia since stroke 2019 -- uses thickening for liquids. Transient ischemic attack (TIA) 2012 Surgical History H/O: hysterectomy History of colonoscopy Family History Father Diabetes Son Diabetes Hypertension Sister Cancer ? primary Other No family history of adverse response to anesthesia Social History Smoking Status: Never smoker Second Hand Exposure: No; Hx Alcohol Use: No Hx Substance Use: No Preferred Language: Mike Communication Ability: Impaired Communication Tools: Other Personal Fitness Manager Required: Yes Beliefs That Will Affect Care: None marital status: Current Living Situation: Family current occupational status: retired Feels Safe at Home: Yes Assistive Devices: Walker Review of Systems A total of 10 systems reviewed and were otherwise negative All systems reviewed & are unremarkable except as noted in HPI & below Physical Exam Vital Signs Vital Signs - 24 hr 04/07/22 15:56 04/07/22 15:40 04/07/22 17:40 Temperature 37.3 C Temperature Source Oral Pulse Rate 100 H Pulse Rate [Apical] 92 H 87 Pulse Rhythm Regular Pulse Rhythm [Apical] Regular Regular Pulse Strength Normal Pulse Strength [Apical] Normal Normal Respiratory Rate 20 18 18 Respiratory Effort / Characteristics Non-Labored Spontaneous Non-Labored Non-Labored Respiratory Depth Normal Normal Normal Respiratory Pattern Regular Regular Regular Blood Pressure 149/86 H Blood Pressure [Left Arm] 161/83 H 131/77 Blood Pressure Mean 107 Blood Pressure Mean [Left Arm] 109 95 Blood Pressure Position Sitting Blood Pressure Position [Left Arm] Lying Lying Pulse Oximetry 91 94 94 Oxygen Delivery Method Room Air Room Air Room Air Sepsis Recent Fever Within 48 Hours No Sepsis New/Unexplained Change in Mental Status No Sepsis Action Taken by Nursing No Action Required 04/07/22 19:00 Temperature Temperature Source Pulse Rate Pulse Rate [Apical] 86 Pulse Rhythm Pulse Rhythm [Apical] Regular Pulse Strength Pulse Strength [Apical] Normal Respiratory Rate 20 Respiratory Effort / Characteristics Respiratory Depth Respiratory Pattern Blood Pressure Blood Pressure [Left Arm] 138/55 L Blood Pressure Mean Blood Pressure Mean [Left Arm] 82 Blood Pressure Position Blood Pressure Position [Left Arm] Lying Pulse Oximetry 94 Oxygen Delivery Method Room Air Sepsis Recent Fever Within 48 Hours Sepsis New/Unexplained Change in Mental Status Sepsis Action Taken by Nursing GENERAL: alert, well appearing, well nourished, no distress, non-toxic EYE EXAM: normal conjunctiva, PERRL and EOM's grossly intact OROPHARYNX: no exudate, no erythema, lips, buccal mucosa, and tongue normal and mucous membranes are moist NECK: supple, no nuchal rigidity, no adenopathy, non-tender LUNGS: Clear to auscultation. Normal chest wall mechanics, no w/r/r HEART: no murmurs, S1 normal and S2 normal ABDOMEN: abdomen soft, non-tender, normo-active bowel sounds, no masses, no rebound or guarding. BACK: Back is symmetrical on inspection and there is no deformity, no midline tenderness, no CVA tenderness. SKIN: no rashes and no bruising UPPER EXTREMITIES: upper extremities are grossly normal. FROM, nml pulses b/l. LOWER EXTREMITIES: No pitting edema. FROM, nml pulses b/l. NEURO EXAM: Normal sensorium, cranial nerves II-XII grossly intact, normal speech, no gross weakness of arms, no gross weakness of legs. Gross sensation intact. Course Course 1634: [place] Khalil[place] [facility] [place]. 1700: Dr. Khalil evaluating pt via stroke cart. Administered Medications Discontinued Medications Aspirin (Aspirin Chew 324 Mg) 324 mg PO NOW STA Stop: 04/07/22 18:21 Last Admin: 04/07/22 18:45 Dose: 324 mg Documented By: RSL Sodium Chloride (Nss 1000ml) 1,000 mls @ 125 mls/hr IV .Q8H [place] Stop: 05/07/22 16:29 Last Admin: 04/07/22 23:03 Dose: Not Given Documented By: THERESE Magnesium Sulfate/Dextrose (Magnesium Sulfate / D5w) 1 gm in 100 mls @ 50 mls/hr IV ONE ONE Stop: 04/07/22 21:21 Last Infusion: 04/07/22 23:03 Dose: 0 mls/hr Documented By: Admin: 04/07/22 20:37 Dose: 50 mls/hr Documented By: RSFrancisco Cefepime HCl (Maxipime) 2,000 mg in 20 mls @ 5 mls/min IV NOW STA; Protocol Stop: 04/07/22 20:19 Last Admin: 04/07/22 20:37 Dose: 5 mls/min Documented By: RSL Ioversol (Optiray 300 500ml) 118 ml IV ONCE ONE Stop: 04/07/22 16:48 Last Admin: 04/07/22 16:48 Dose: 118 ml Documented By: NGUYEN Medical Decision Making Medical Records Attestation: I reviewed the patient's medical records. Home Medications Current Medication List: was personally reviewed by me Laboratory Data Attestation: I reviewed the patient's lab results. Result diagrams: 04/07/22 16:15 04/07/22 16:15 Lab Results 04/07/22 04/07/22 04/07/22 Range/Units 16:15 16:15 16:15 WBC 15.14 H (4.8-10.8) K/ul RBC 4.73 (3.93-5.22) M/uL Hgb 12.8 (12.0-16.0) g/dl Hct 40.2 (34.1-44.9) % MCV 85.0 (80.0-100.0) fL MCH 27.1 (25.0-34.0) pg MCHC 31.8 L (32.0-36.0) g/dL RDW Std Deviation 41.4 (36.4-46.3) fL RDW Coeff of Vivienne 13.3 (11.5-14.5) % Plt Count 287 (130-400) K/uL MPV 10.1 (9.4-12.3) fL Immature Gran % (Auto) 0.4 % Neut % (Auto) 85.4 % Lymph % (Auto) 8.7 % [place] % (Auto) 4.6 % Eos % (Auto) 0.6 % Baso % (Auto) 0.3 % Neut # (Auto) 12.93 H (1.4-6.5) K/uL Lymph # (Auto) 1.32 (1.2-3.4) K/uL [place] # (Auto) 0.70 (0.24-0.82) K/uL Eos # (Auto) 0.09 (0-0.50) K/uL Baso # (Auto) 0.04 (0-0.2) K/uL Immature Gran # (Auto) 0.06 H (0.00-0.02) K/uL PT 10.6 (9.0-12.0) Seconds INR 1.0 (0.9-1.1) Sodium 139 (136-145) mmol/L Potassium 3.9 (3.5-5.1) mmol/L Chloride 103 (98-107) mmol/L Carbon Dioxide 28 (21-32) mmol/L Anion Gap 8 (3-11) BUN 18 (6-23) mg/dl Creatinine 0.91 (0.6-1.2) mg/dl Est Cr Clr Drug Dosing Not Reportable Est GFR ( Amer) 69.1 ml/min Est GFR (Non-Af Amer) 59.6 ml/min BUN/Creatinine Ratio 19.8 (10-20) Glucose 138 H (70-99(Fasting)) mg/dl POC Glucose (70-99) mg/dl Calcium 9.5 (8.5-10.1) mg/dl Magnesium 1.9 (1.7-2.4) mg/dl Total Bilirubin 0.4 (0.2-1.0) mg/dl AST 16 (13-39) U/L ALT 8 (7-52) U/L Alkaline Phosphatase 101 (34-104) U/L Troponin I High Sens 10.1 (0-14) pg/ml Total Protein 7.3 (6.0-8.3) gm/dl Albumin 3.8 (3.4-5.0) gm/dl Globulin 3.5 (2.5-4.0) gm/dl Albumin/Globulin Ratio 1.1 (0.9-2) Urine Color Urine Appearance (Clear) Urine pH (4.5-7.5) Ur Specific [place] (1.000-1.030) Urine Protein (Negative) Urine Glucose (UA) (Negative) Urine Ketones (Negative) Urine Blood (Negative) Urine Nitrite (Negative) Urine Bilirubin (Negative) Urine Urobilinogen (Negative) Ur Leukocyte Esterase (Negative) Urine WBC (Auto) (0-5) /hpf Urine RBC (Auto) (0-4) /hpf U Hyaline Cast (Auto) (0-5) /lpf U Epithel Cells (Auto) (0-5) /lpf Urine Bacteria (Auto) (Negative) SARS-CoV-2, RNA, NAAT (NEGATIVE) 04/07/22 04/07/22 04/07/22 Range/Units 16:48 19:02 19:31 WBC (4.8-10.8) K/ul RBC (3.93-5.22) M/uL Hgb (12.0-16.0) g/dl Hct (34.1-44.9) % MCV (80.0-100.0) fL MCH (25.0-34.0) pg MCHC (32.0-36.0) g/dL RDW Std Deviation (36.4-46.3) fL RDW Coeff of Vivienne (11.5-14.5) % Plt Count (130-400) K/uL MPV (9.4-12.3) fL Immature Gran % (Auto) % Neut % (Auto) % Lymph % (Auto) % [place] % (Auto) % Eos % (Auto) % Baso % (Auto) % Neut # (Auto) (1.4-6.5) K/uL Lymph # (Auto) (1.2-3.4) K/uL [place] # (Auto) (0.24-0.82) K/uL Eos # (Auto) (0-0.50) K/uL Baso # (Auto) (0-0.2) K/uL Immature Gran # (Auto) (0.00-0.02) K/uL PT (9.0-12.0) Seconds INR (0.9-1.1) Sodium (136-145) mmol/L Potassium (3.5-5.1) mmol/L Chloride (98-107) mmol/L Carbon Dioxide (21-32) mmol/L Anion Gap (3-11) BUN (6-23) mg/dl Creatinine (0.6-1.2) mg/dl Est Cr Clr Drug Dosing Est GFR ( Amer) ml/min Est GFR (Non-Af Amer) ml/min BUN/Creatinine Ratio (10-20) Glucose (70-99(Fasting)) mg/dl POC Glucose 136 H (70-99) mg/dl Calcium (8.5-10.1) mg/dl Magnesium (1.7-2.4) mg/dl Total Bilirubin (0.2-1.0) mg/dl AST (13-39) U/L ALT (7-52) U/L Alkaline Phosphatase (34-104) U/L Troponin I High Sens (0-14) pg/ml Total Protein (6.0-8.3) gm/dl Albumin (3.4-5.0) gm/dl Globulin (2.5-4.0) gm/dl Albumin/Globulin Ratio (0.9-2) Urine Color [place] Urine Appearance Cloudy A (Clear) Urine pH 8.5 H (4.5-7.5) Ur Specific [place] 1.032 H (1.000-1.030) Urine Protein Trace H (Negative) Urine Glucose (UA) Negative (Negative) Urine Ketones Negative (Negative) Urine Blood 2+ H (Negative) Urine Nitrite Positive A (Negative) Urine Bilirubin Negative (Negative) Urine Urobilinogen Negative (Negative) Ur Leukocyte Esterase 1+ H (Negative) Urine WBC (Auto) 5-10 H (0-5) /hpf Urine RBC (Auto) 10-30 H (0-4) /hpf U Hyaline Cast (Auto) 1-5 (0-5) /lpf U Epithel Cells (Auto) >30 H (0-5) /lpf Urine Bacteria (Auto) 4+ H (Negative) SARS-CoV-2, RNA, NAAT NEGATIVE (NEGATIVE) Imaging Data Radiologist's Impression: Chest X-Ray 04/07/22 16:23 SINGLE VIEW CHEST CLINICAL HISTORY: Strokelike symptoms. FINDINGS: An AP, portable, upright chest radiograph is compared to study dated 05/28/2020. The examination is degraded by portable technique and patient rotation. The heart is mildly enlarged note the atherosclerotic calcification of the thoracic aorta. There is prominence of the pulmonary vasculature. Atelectasis is noted at the lung bases. The lungs and pleural spaces are otherwise clear. No pneumothorax is seen. The skeletal structures are osteopenic. The bony thorax is grossly intact. IMPRESSION: 1. Cardiomegaly with prominence of the pulmonary vasculature. Correlate clinically for evidence of fluid overload/congestive changes. 2. No airspace consolidation or large pleural effusion is identified ACT 112: Negative or not required by law. Electronically signed by: Shaheen Lopez M.D. 04/07/2022 7:[address] 04/07/22 16:23 CT SCAN OF THE BRAIN WITHOUT IV CONTRAST CLINICAL HISTORY: Strokelike symptoms. COMPARISON STUDY: CT of the brain dated 05/28/2020. TECHNIQUE: Unenhanced axial CT scan of the brain is performed from the vertex to the skull base. A dose lowering technique was utilized adhering to the principles of ALARA. FINDINGS: Brain parenchyma: There is age-related involutional change noting [id number] subcortical and periventricular microangiopathic disease. There is no hemorrhage, mass effect, or evidence of acute territorial ischemia by CT criteria. A chronic lacunar infarct is noted in the left basal ganglia. Villagran- white matter differentiation is preserved. No extra-axial fluid collection is seen. Ventricles, sulci, cisterns: Prominent secondary to involutional change. Intracranial vasculature: There is atherosclerotic calcification of the [place] carotid and vertebral arteries. Calvarium: Unremarkable. Sinuses and mastoids: The visualized paranasal sinuses are clear. The mastoid air cells are well pneumatized. Orbits: The bony orbits are grossly intact. There are bilateral ocular lens implants. IMPRESSION: There is no hemorrhage, mass effect, or evidence of acute territorial ischemia by CT criteria. ACT 112: Negative or not required by law. Electronically signed by: Shaheen Lopez M.D. 04/07/2022 4:41 PM Head CTA 04/07/22 16:23 CT ANGIOGRAM OF THE BRAIN CLINICAL HISTORY: Strokelike symptoms. COMPARISON STUDY: Unenhanced CT of the brain performed concurrently on 04/07/2022. CT angiogram of the brain dated 07/15/2018 TECHNIQUE: Following the IV administration of 118 cc of Optiray 300, CT angiogram of the brain was performed from the skull base to the vertex. Images are reviewed in the axial, sagittal, and coronal planes. 3-D MIPS images are created and assessed. IV contrast was administered without complication. A dose lowering technique was utilized adhering to the principles of ALARA. FINDINGS: Brain parenchyma: There is age related involutional change noting mild to moderate subcortical and periventricular microangiopathic disease. A chronic lacunar infarct is noted in the left basal ganglia. There is no evidence of hemorrhage, mass effect, or acute territorial ischemia noting angiographic phase technique. There is no evidence of enhancing mass lesion on the angiogram phase images. No extra-axial fluid collection is seen. Villagran-white matter differentiation is preserved. Ventricles, sulci, and cisterns: Prominent secondary to involutional change. CT angiogram of the brain: There is atherosclerotic calcification of the cavernous carotid and vertebral arteries. The internal carotid arteries are widely patent, as are the anterior and middle cerebral arteries. The vertebrobasilar system and posterior cerebral arteries are widely patent. The vertebral arteries are codominant. 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 No aneurysm or focal vessel cutoff identified throughout the intracranial circulation. Dural sinuses: Clear as visualized. Orbits: The bony orbits are intact. The orbital contents are normal as visualized noting bilateral ocular lens implants. Sinuses and mastoids: The paranasal sinuses are clear. There is a small right mastoid effusion. The left mastoid air cells are well pneumatized. Calvarium: Unremarkable. IMPRESSION: 1 There is no evidence of hemorrhage, mass effect, or acute territorial ischemia noting angiographic phase technique. 2. 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 3. Otherwise unremarkable CT angiogram of the brain. ACT 112: Negative or not required by law. Electronically signed by: Shaheen Lopez M.D. 04/07/2022 5:02 PM Neck CTA 04/07/22 16:23 NECK CTA HISTORY: Stroke Like Symptoms TECHNIQUE: Multiaxial CT images of the neck were performed following the intravenous administration of contrast to evaluate the major cervical vessels. Maximum intensity projection images were also obtained. All measurements were calculated based on NASCET criteria. A dose lowering technique was utilized adhering to the principles of ALARA. COMPARISON STUDY: Neck CTA 07/15/2018. FINDINGS: The aortic arch is widely patent. There is no significant stenosis, occlusion, or dissection identified within the bilateral common carotid, internal carotid, or vertebral arteries. Calcified plaque within the proximal right subclavian artery demonstrating approximately 20% stenosis. This remains unchanged. IMPRESSION: No significant stenosis, occlusion, or dissection identified within the carotid or vertebral arteries. ACT 112: Negative or not required by law. Electronically signed by: Perry Gill M.D. 04/07/2022 5:01 PM ECG Data Attestation: I personally reviewed and interpreted this ECG as follows: Indication: + weakness Rate (beats per minute): 91 Rhythm: + normal sinus ECG Intervals/blocks: + Normal QRS and + Normal QT ECG [place]: + Normal ECG ST segments: + Nonspecific ST abnormalities MDM Narrative An order was placed for continuous cardiac monitoring. The monitor shows a rate of _80_ with _normal sinus__ rhythm. This is an 82-year-old female who presents emergency department with family at bedside due to concern for strokelike symptoms. Patient with prior history of stroke. Patient has been off her aspirin for the last 6 days, no other anticoagulation. No trauma or recent illness. Patient made a stroke alert and was sent promptly to CT. Case discussed with [place] telemetry neurologist Dr. Khalil who was eventually able to perform a bedside evaluation using the telestroke cart after some technical difficulties that required some troubleshooting. Patient was hemodynamically stable, no significant hypertension. Family did feel that her symptoms had improved by the time of presentation here although are still not at her usual baseline. Additional evaluation was undertaken to try and find an alternative cause of her symptoms also. Case discussed with hospitalist for additional evaluation and management, urinalysis still pending at that time. Labs otherwise reassuring. CT/CTA without any acutely concerning findings. Patient not a candidate for TNK after discussion with Dr. Khalil given improving symptoms and other likely alternative diagnosis. They did recommend MRI and ASA as a precaution given advanced age and prior CVA. Impression & Plan Left-sided weakness, AMS (altered mental status) Discharge Plan Visit Data Chief Complaint: TIA Symptoms Stated Complaint: possible tia, shortness of breath, speech slurred ED Provider: Paulina Vo Discharge Problem: Left-sided weakness, AMS (altered mental status) Patient Disposition: Admitted As Inpatient Discharge Instructions Interventions: ED Discharge Assessment Last Done: 04/07/22 21:31
--- NOTE | 2022-04-07 19:14 | XRay Report ---
SINGLE VIEW CHEST CLINICAL HISTORY: Strokelike symptoms. FINDINGS: An AP, portable, upright chest radiograph is compared to study dated 05/28/2020. The examin ation is degraded by portable technique and patient rotation. The heart is mildly enlarged note the atherosclerotic calcification of the thoracic aorta. There is prominence of the pulmonary vasculature . Atelectasis is noted at the lung bases. The lungs and pleural spaces are otherwise clear. No pneumo thorax is seen. The skeletal structures are osteopenic. The bony thorax is grossly intact. IMPRESSION: 1. Cardiomegaly with prominence of the pulmonary vasculature. Correlate clinically for evidence of fl uid overload/congestive changes. 2. No airspace consolidation or large pleural effusion is identified ACT 112: Negative or not required by law. Electronically signed by: Shaheen Lopez M.D. 04/07/2022 7:13 PM
[2022-04-07] MEDS ORDERED: MAGNESIUM SULFATE / D5W 1 GM/100 ML BAG IV ONE (19:22)
[2022-04-07 19:42] LABS: Appearance Urine Cloudy (Clear); Bacteria Urine Automated 4+ (Negative); Bilirubin Urine Negative (Negative); Blood Urine 2+ (Negative); Color Urine Orange; Epithelial Cell Urine Auto >30 /lpf (0-5); Glucose Urine UA Negative (Negative); Ketones Urine Negative (Negative); Leukocyte Esterase Urine 1+ (Negative); Nitrite Urine Positive (Negative); Specific Gravity Urine 1.032 (1.000-1.030); Urobilinogen Urine Negative (Negative); pH Urine 8.5 (4.5-7.5)
[2022-04-07 19:43] LABS: Protein Urine Trace (Negative)
[2022-04-07] MEDS ORDERED: CEFEPIME 2,000 MG/20 ML VIAL IV STA (20:16)
--- NOTE | 2022-04-07 20:16 | History & Physical Report ---
Date of Service April 07, 2022 Assessment & Plan (1) Complicated UTI (urinary tract infection): Plan: No overt sepsis for now TIA hx CVA as per records ? Stroke recrudescence secondary to UTI hypertension, slight elevated hyperlipidemia on statin Rx dementia prediabetes, hemoglobin A1c of 6.4 last April 2021 hypothyroidism, euthyroid as of today's TSH Medical telemetry Urine CS, Cefepime Neurochecks Facilitate aspirin and statin for secondary stroke prevention MRI brain, TTE for additional stroke work-up May need Neurology consultation pending MRI results. Permissive hypertension for now given possible TIA Update hemoglobin A1c and lipid profile DVT prophylaxis. Lovenox subcu Full code for now as per granddaughter, Ms. German Diggs. She requests updates from providers through [phone]. Text document was generated using [employer] voice recognition software. It may contain grammatical or spelling errors. Kindly contact undersigned for clarification of any documentation item in question. History of Present Illness Chief Complaint: Stroke like symptoms, confusion as per records Primary Care Provider: Merced Mcgraw MD History obtained from patient, family, and records. Limited history from patient secondary to language barrier. Patient's yocha dehe language is Mike. Medical history significant for CVA, hypertension, hyperlipidemia, dementia, GERD, prediabetes, hypothyroidism. Last confinement May 2020 for perforated appendicitis with secondary abscess. Patient transferred to [place] for further management. Around 2 PM today, patient noted by family to be more confused than usual. Patient noted to have left-sided weakness similar to stroke in 2019. Patient dr agging her leg. Slight facial droop and slurred speech noted by family. Patient missed about 6 days of home aspirin Rx because of a pillbox issue as per granddaughter. Patient denies chest pain, shortness of breath, abdominal pain, dysuria symptoms. Improving neurologic symptoms upon arrival at the ER. Stroke alert called upon arrival at the ER. Aspirin administered at the ER. 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 Allergies Allergy/AdvReac Type Severity Reaction Status Date / Time Penicillins Allergy Mild RASH Verified 08/27/20 09:38 Home Medications Medication Instructions Recorded Confirmed Type donepezil 5 mg tablet (Aricept) 5 mg PO QDL 07/15/18 04/07/22 History fluoxetine 20 mg capsule 20 mg PO QPM 07/15/18 04/07/22 History levothyroxine 50 mcg tablet 50 mcg PO DAILYBB 07/15/18 04/07/22 History amlodipine 2.5 mg tablet 7.5 mg PO QAM 05/28/20 04/07/22 History atorvastatin 40 mg tablet 40 mg PO HS 08/25/20 04/07/22 History calcium carbonate 600 mg-vitamin 1 tab PO BID 08/25/20 04/07/22 History D3 5 mcg (200 unit) tablet docusate sodium 100 mg capsule 100 mg PO BID PRN Constipation 08/25/20 04/07/22 History (Stool Softener) ferrous sulfate 325 mg (65 mg 325 mg PO BID 08/25/20 04/07/22 History iron) tablet [id number]-MU 0.4 mg-calcium 162 1 tab PO QDL 08/25/20 04/07/22 History mg-iron 18 sb-[id number]-zohmkz tablet omeprazole 40 mg capsule,delayed 40 mg PO QDL 08/25/20 04/07/22 History release sucralfate 1 gram tablet 1 g PO QID 08/25/20 04/07/22 History vitamin B complex 1 tab PO HS 08/25/20 04/07/22 History aspirin 81 mg tablet,delayed 81 mg PO HS 04/07/22 04/07/22 History release bisacodyl 5 mg tablet,delayed 5 - 10 mg PO DAILY PRN Constipation 04/07/22 04/07/22 History release (Dulcolax (bisacodyl)) magnesium citrate 120 ml PO DAILY PRN Constipation 04/07/22 04/07/22 History multivitamin 1 tab PO DAILY 04/07/22 04/07/22 History polyethylene glycol 3350 17 17 g PO DAILY PRN Constipation 04/07/22 04/07/22 His tory gram/dose oral powder (Miralax) Past Med/Surg History Medical History Abnormal CT scan, kidney Cerebrovascular disease stroke L caudate before 2012; TIA 2012; stroke jozef 2019 (treated at [facility]) Dementia Alert & Oriented x3. "loose train of thought and has trouble putting words together at times". Depression Dyslipidemia Dysphagia Dysphagia due to stroke. Thickened liquids. GERD (gastroesophageal reflux disease) H/O blood clots possibly in 2019? family unsure of specifics. Hypertension Osteoarthritis Osteoporosis Pre-diabetes family denies Stroke hx of stroke (2013 & 2018) treated at [facility]. dysphagia since stroke 2019 -- uses thickening for liquids. Transient ischemic attack (TIA) 2013 Surgical History H/O: hysterectomy History of colonoscopy Family History Father Diabetes Son Diabetes Hypertension Sister Cancer ? primary Other No family history of adverse response to anesthesia Social History Smoking Status: Never smoker Second Hand Exposure: No; Hx Alcohol Use: No Hx Substance Use: No Preferred Language: Mike Communication Ability: Impaired Communication Tools: Other Advertising Operations Coordinator Required: Yes Beliefs That Will Affect Care: None marital status: Current Living Situation: Family current occupational status: retired Feels Safe at Home: Yes Assistive Devices: Walker Review of Systems Review of Systems: Could not be reliably obtained secondary to language barrier Physical Exam Physical Exam: GENERAL: Comfortable, pleasant, no respiratory distress SKIN: Normal color, warm HEENT: [place] palpebral conjunctivae, no ptosis, dry buccal mucosa, facial hair noted NECK : Supple, no tenderness CHEST : CTA, no tenderness HEART : RRR, no obvious murmurs ABDOMEN: Some distention, nontender EXTREMITIES : No LE swelling/tenderness, no other conspicuous deformities noted NEUROLOGIC : Coherent, no facial asymmetry, no other gross focality Results & Data Results & Data ([facility]) Vital Signs (Past 12 Hours) Vital Signs Temp Pulse Pulse Resp BP BP Pulse Ox 04/07/22 19:00 86 20 138/55 L 94 04/07/22 17:40 87 18 131/77 94 04/07/22 15:40 92 H 18 161/83 H 94 04/07/22 15:56 37.3 C 100 H 20 149/86 H 91 O2 Del Method 04/07/22 19:00 Room Air 04/07/22 17:40 Room Air 04/07/22 15:40 Room Air 04/07/22 15:56 Room Air Laboratory Results Laboratory Results WBC 15.14 K/ul (4.8-10.8) H 04/07/22 16:15 RBC 4.73 M/uL (3.93-5.22) 04/07/22 16:15 Hgb 12.8 g/dl (12.0-16.0) 04/07/22 16:15 Hct 40.2 % (34.1-44.9) 04/07/22 16:15 MCV 85.0 fL (80.0-100.0) 04/07/22 16:15 MCH 27.1 pg (25.0-34.0) 04/07/22 16:15 MCHC 31.8 g/dL (32.0-36.0) L 04/07/22 16:15 RDW Std Deviation 41.4 fL (36.4-46.3) 04/07/22 16:15 RDW Coeff of Vivienen 13.3 % (11.5-14.5) 04/07/22 16:15 Plt Count 287 K/uL (130-400) 04/07/22 16:15 MPV 10.1 fL (9.4-12.3) 04/07/22 16:15 Immature Gran % (Auto) 0.4 % 04/07/22 16:15 Neut % (Auto) 85.4 % 04/07/22 16:15 Lymph % (Auto) 8.7 % 04/07/22 16:15 [place] % (Auto) 4.6 % 04/07/22 16:15 Eos % (Auto) 0.6 % 04/07/22 16:15 Baso % (Auto) 0.3 % 04/07/22 16:15 Neut # (Auto) 12.93 K/uL (1.4-6.5) H 04/07/22 16:15 Lymph # (Auto) 1.32 K/uL (1.2-3.4) 04/07/22 16:15 [place] # (Auto) 0.70 K/uL (0.24-0.82) 04/07/22 16:15 Eos # (Auto) 0.09 K/uL (0-0.50) 04/07/22 16:15 Baso # (Auto) 0.04 K/uL (0-0.2) 04/07/22 16:15 Immature Gran # (Auto) 0.06 K/uL (0.00-0.02) H 04/07/22 16:15 PT 10.6 Seconds (9.0-12.0) 04/07/22 16:15 INR 1.0 (0.9-1.1) 04/07/22 16:15 Sodium 139 mmol/L (136-145) 04/07/22 16:15 Potassium 3.9 mmol/L (3.5-5.1) 04/07/22 16:15 Chloride 103 mmol/L (98-107) 04/07/22 16:15 Carbon Dioxide 28 mmol/L (21-32) 04/07/22 16:15 Anion Gap 8 (3-11) 04/07/22 16:15 BUN 18 mg/dl (6-23) 04/07/22 16:15 Creatinine 0.91 mg/dl (0.6-1.2) 04/07/22 16:15 Est Cr Clr Drug Dosing Not Reportable 04/07/22 16:15 Est GFR ( Amer) 69.1 ml/min 04/07/22 16:15 Est GFR (Non-Af Amer) 59.6 ml/min 04/07/22 16:15 BUN/Creatinine Ratio 19.8 (10-20) 04/07/22 16:15 Glucose 138 mg/dl (70-99(Fasting)) H 04/07/22 16:15 POC Glucose 136 mg/dl (70-99) H 04/07/22 16:48 Calcium 9.5 mg/dl (8.5-10.1) 04/07/22 16:15 Magnesium 1.9 mg/dl (1.7-2.4) 04/07/22 16:15 Total Bilirubin 0.4 mg/dl (0.2-1.0) 04/07/22 16:15 AST 16 U/L (13-39) 04/07/22 16:15 ALT 8 U/L (7-52) 04/07/22 16:15 Alkaline Phosphatase 101 U/L (34-104) 04/07/22 16:15 Troponin I High Sens 10.1 pg/ml (0-14) 04/07/22 16:15 Total Protein 7.3 gm/dl (6.0-8.3) 04/07/22 16:15 Albumin 3.8 gm/dl (3.4-5.0) 04/07/22 16:15 Globulin 3.5 gm/dl (2.5-4.0) 04/07/22 16:15 Albumin/Globulin Ratio 1.1 (0.9-2) 04/07/22 16:15 Urine Color [place] 04/07/22: Urine Appearance Cloudy (Clear) A 04/07/22: Urine pH 8.5 (4.5-7.5) H 04/07/22: Ur Specific [place] 1.032 (1.000-1.030) H 04/07/22: Urine Protein Trace (Negative) H 04/07/22: Urine Glucose (UA) Negative (Negative) 04/07/22: Urine Ketones Negative (Negative) 04/07/22: Urine Blood 2+ (Negative) H 04/07/22: Urine Nitrite Positive (Negative) A 04/07/22: Urine Bilirubin Negative (Negative) 04/07/22: Urine Urobilinogen Negative (Negative) 04/07/22: Ur Leukocyte Esterase 1+ (Negative) H 04/07/22: Urine WBC (Auto) 5-10 /hpf (0-5) H 04/07/22 19: Urine RBC (Auto) 10-30 /hpf (0-4) H 04/07/22: U Hyaline Cast (Auto) 1-5 /lpf (0-5) 04/07/22: U Epithel Cells (Auto) >30 /lpf (0-5) H 04/07/22: Urine Bacteria (Auto) 4+ (Negative) H 04/07/22: SARS-CoV-2, RNA, NAAT NEGATIVE (NEGATIVE) 04/07/22 19:02 Impressions Chest X-Ray 04/07/22 16:23 SINGLE VIEW CHEST CLINICAL HISTORY: Strokelike symptoms. FINDINGS: An AP, portable, upright chest radiograph is compared to study dated 05/28/2020. The examination is degraded by portable technique and patient rotation. The heart is mildly enlarged note the atherosclerotic calcification of the thoracic aorta. There is prominence of the pulmonary vasculature. Atelectasis is noted at the lung bases. The lungs and pleural spaces are otherwise clear. No pneumothorax is seen. The skeletal structures are osteopenic. The bony thorax is grossly intact. IMPRESSION: 1. Cardiomegaly with prominence of the pulmonary vasculature. Correlate clinically for evidence of fluid overload/congestive changes. 2. No airspace consolidation or large pleural effusion is identified ACT 112: Negative or not required by law. Electronically signed by: Shaheen Lopez M.D. 04/07/2022 7:[address] 04/07/22 16:23 CT SCAN OF THE BRAIN WITHOUT IV CONTRAST CLINICAL HISTORY: Strokelike symptoms. COMPARISON STUDY: CT of the brain dated 05/28/2020. TECHNIQUE: Unenhanced axial CT scan of the brain is performed from the vertex to the skull base. A dose lowering technique was utilized adhering to the principles of ALARA. FINDINGS: Brain parenchyma: There is age-related involutional change noting gaxs-vz-dmyddivf subcortical and periventricular microangiopathic disease. There is no hemorrhage, mass effect, or evidence of acute territorial ischemia by CT criteria. A chronic lacunar infarct is noted in the left basal ganglia. Villagran- white matter differentiation is preserved. No extra-axial fluid collection is seen. Ventricles, sulci, cisterns: Prominent secondary to involutional change. Intracranial vasculature: There is atherosclerotic calcification of the cavernous carotid and vertebral arteries. Calvarium: Unremarkable. Sinuses and mastoids: The visualized paranasal sinuses are clear. The mastoid air cells are well pneumatized. Orbits: The bony orbits are grossly intact. There are bilateral ocular lens implants. IMPRESSION: There is no hemorrhage, mass effect, or evidence of acute territorial ischemia by CT criteria. ACT 112: Negative or not required by law. Electronically signed by: Shaheen Lopez M.D. 04/07/2022 4:41 PM Head CTA 04/07/22 16:23 CT ANGIOGRAM OF THE BRAIN CLINICAL HISTORY: Strokelike symptoms. COMPARISON STUDY: Unenhanced CT of the brain performed concurrently on 04/07/2022. CT angiogram of the brain dated 07/15/2018 TECHNIQUE: Following the IV administration of 118 cc of Optiray 300, CT angiogram of the brain was performed from the skull base to the vertex. Images are reviewed in the axial, sagittal, and coronal planes. 3-D MIPS images are created and assessed. IV contrast was administered without complication. A dose lowering technique was utilized adhering to the principles of ALARA. FINDINGS: Brain parenchyma: There is age related involutional change noting mild to moderate subcortical and periventricular microangiopathic disease. A chronic lacunar infarct is noted in the left basal ganglia. There is no evidence of hemorrhage, mass effect, or acute territorial ischemia noting angiographic phase technique. There is no evidence of enhancing mass lesion on the angiogram phase images. No extra-axial fluid collection is seen. Villagran-white matter differentiation is preserved. Ventricles, sulci, and cisterns: Prominent secondary to involutional change. CT angiogram of the brain: There is atherosclerotic calcification of the cavernous carotid and vertebral arteries. The internal carotid arteries are wid charline patent, as are the anterior and middle cerebral arteries. The vertebrobasilar system and posterior cerebral arteries are widely patent. The vertebral arteries are codominant. There is moderate focal stenosis of the left anterior cerebral artery seen on axial image #179. No aneurysm or focal vessel cutoff identified throughout the intracranial circulation. Dural sinuses: Clear as visualized. Orbits: The bony orbits are intact. The orbital contents are normal as visualized noting bilateral ocular lens implants. Sinuses and mastoids: The paranasal sinuses are clear. There is a small right mastoid effusion. The left mastoid air cells are well pneumatized. Calvarium: Unremarkable. IMPRESSION: 1 There is no evidence of hemorrhage, mass effect, or acute territorial ischemia noting angiographic phase technique. 2. 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 3. Otherwise unremarkable CT angiogram of the brain. ACT 112: Negative or not required by law. Electronically signed by: Shaheen Lopez M.D. 04/07/2022 5:02 PM Neck CTA 04/07/22 16:23 NECK CTA HISTORY: Stroke Like Symptoms TECHNIQUE: Multiaxial CT images of the neck were performed following the intravenous administration of contrast to evaluate the major cervical vessels. Maximum intensity projection images were also obtained. All measurements were calculated based on NASCET criteria. A dose lowering technique was utilized adhering to the principles of ALARA. COMPARISON STUDY: Neck CTA 07/15/2018. FINDINGS: The aortic arch is widely patent. There is no significant stenosis, occlusion, or dissection identified within the bilateral common carotid, internal carotid, or vertebral arteries. Calcified plaque within the proximal right subclavian artery demonstrating approximately 20% stenosis. This remains unchanged. IMPRESSION: No significant stenosis, occlusion, or dissection identified within the carotid or vertebral arteries. ACT 112: Negative or not required by law. Electronically signed by: Perry iGll M.D. 04/07/2022 5:01 PM Diagnostic Findings EKG as per my interpretation :Rate 90, NSR, normal axis, 1 AVB, inferior infarct, T wave abnormaliies septal leads
[2022-04-07] MEDS ORDERED: PROMETHAZINE HCL 6.25 MG in SODIUM CHLORIDE 0.9% 50 ML IV PRN (20:23)
[2022-04-07] MEDS ORDERED: hydrOXYzine HCl 10 MG TAB PO PRN (20:23)
[2022-04-07] MEDS ORDERED: DOCUSATE SODIUM 100 MG CAP PO PRN (22:57)
[2022-04-07] MEDS ORDERED: ACETAMINOPHEN 325 MG TAB PO PRN (22:57)
[2022-04-07] MEDS ORDERED: ATORVASTATIN 40 MG TAB PO SCH (22:57)
[2022-04-07] MEDS ORDERED: POLYETHYLENE (MIRALAX) 17 GM PACK PO PRN (23:19)
[2022-04-07] MEDS ORDERED: Patient's HEIGHT &/or WEIGHT Needed SCH (23:30)
[2022-04-08 07:18] LABS: Estimated Average Glucose 137 mg/dl; Hemoglobin A1C 6.4 % (4.5-5.6)
--- NOTE | 2022-04-08 07:28 | Magnetic Resonance Report ---
Brain MRI WITHOUT CONTRAST HISTORY: Slurred speech. Left leg weakness. TECHNIQUE: Multiplanar multisequence MRI of the brain was performed without the use of contrast. COMPARISON STUDY: Head CT 04/07/2022. FINDINGS: There is a punctate focus of restricted diffusion within the right hemipons consistent with an acute to subacute infarct. There is evidence for old infarct within the jozef. No additional areas of restricted diffusion identified. The remaining midline structures are intact. No mass, midline sh ift, or acute hemorrhage identified. Evidence for bilateral lens replacement. The paranasal sinuses a re clear. There are trace bilateral mastoid effusions. The major vascular flow-voids at the skull bas e are well-maintained. There is an old left basal ganglia infarct. Mild atrophy and mild microvascula r ischemic changes are noted. IMPRESSION: 1. Acute to subacute punctate infarct within the right hemipons. 2. 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 3. Atrophy and microvascular ischemic changes. ACT 112: Negative or not required by law. Electronically signed by: Perry Gill M.D. 04/08/2022 7:26 AM
[2022-04-08] MEDS ORDERED: CEFEPIME 1,000 MG in SYRINGE 0 ML IV SCH (08:00)
[2022-04-08 09:00] LABS: Basophils # (auto) 0.03 K/uL (0-0.2); Basophils % (auto) 0.2 %; Eosinophils # (auto) 0.14 K/uL (0-0.50); Eosinophils % (auto) 1.1 %; Hematocrit (blood only) 35.8 % (34.1-44.9); Hemoglobin 11.6 g/dl (12.0-16.0); Immature Granulocytes # (auto) 0.05 K/uL (0.00-0.02); Immature Granulocytes % (auto) 0.4 %; Lymphocytes # (auto) 2.17 K/uL (1.2-3.4); Lymphocytes % (auto) 17.7 %; Mean Corpuscular Hemoglobin 27.2 pg (25.0-34.0); Mean Corpuscular Hgb Conc 32.4 g/dL (32.0-36.0); Mean Platelet Volume 10.4 fL (9.4-12.3); Monocytes # (auto) 0.91 K/uL (0.24-0.82); Monocytes % (auto) 7.4 %; Neutrophils # (auto) 8.99 K/uL (1.4-6.5); Neutrophils % (auto) 73.2 %; Platelet Count 266 K/uL (130-400); RDW Coefficient of Variation 13.6 % (11.5-14.5); RDW Standard Deviation 41.9 fL (36.4-46.3); Red Blood Count 4.26 M/uL (3.93-5.22); White Blood Count 12.29 K/ul (4.8-10.8)
[2022-04-08 09:23] LABS: BUN Creatinine Ratio 18.7 (10-20); Calcium 9.1 mg/dl (8.5-10.1); Creatinine Clr Calc Pharmacy 41.7 ml/min; Est GFR (African American) 69.1 ml/min; Est GFR (Non-African American) 59.6 ml/min; Potassium 3.6 mmol/L (3.5-5.1)
[2022-04-08] MEDS: SUCRALFATE 1 GM TAB PO SCH ×4 (09:33→22:40)
[2022-04-08] MEDS: ENOXAPARIN INJ 30 MG/0.3 ML SYR SQ SCH (09:33)
[2022-04-08] MEDS: FERROUS SULFATE 325 MG TAB PO SCH ×2 (09:34→22:42)
[2022-04-08] MEDS: MULTIVITAMIN TAB PO SCH (09:35)
[2022-04-08] MEDS: PANTOprazole 40 MG TAB PO SCH (12:48)
[2022-04-08] MEDS: DONEPEZIL HCL 5 MG TAB PO SCH (12:48)
--- NOTE | 2022-04-08 13:38 | Electrocardiogram Report ---
Test Reason : Blood Pressure : / mmHG Vent. Rate : 091 BPM Atrial Rate : 091 BPM P-R Int : 228 ms QRS Dur : 068 ms QT Int : 366 ms P-R-T Axes : 038 017 032 degrees QTc Int : 450 ms Poor data quality, interpretation may be adversely affected Sinus rhythm with 1st degree A-V block Poor R wave progression, consider anterior [place] vs. lead placement vs. LVH Abnormal ECG When compared with ECG of 28-MAY-2020 11:09, No significant change was found Confirmed by Jv Ferguson ([id number]) on 04/08/2022 1:37:52 PM Referred By: REFERRED SELF Confirmed By:Neptali Ferguson
--- NOTE | 2022-04-08 14:49 | Neurology Consultation ---
Date of Consultation April 08, 2022 Assessment & Plan (1) CVA (cerebral vascular accident): Impression: The patient had new neurological symptoms about the left leg weakness, speech difficulty, facial asymmetry, and was brought to emergency department. MRI revealed acute/subacute ischemic stroke involving right median jozef. Based on imaging findings, mechanism of stroke is most likely small vessel disease. The patient has multiple stroke risk factors including age, prior strokes, prediabetes, hyperlipidemia, and noncompliance to treatment. Plan/recommendations: Aspirin 81 mg daily is restarted. We will recommend adding Plavix 75 mg daily to treatment for at least following 3 months. If the patient tolerates double antiplatelet treatment, she can continue using both medications as before. Based on noncompliance on aspirin, current stroke should not be considered as aspirin failure. Physical therapy on Occupational Therapy. There is no indication for permissive hypertension. Goal blood pressure is below 130/80. Management of hyperlipidemia. Current LDL level is higher than goal level which is lower than 70. We do recommend increasing Lipitor dosage to 60 mg daily. The patient is currently stable neurologically, with improvement no acute neurological deficit and she can be discharged home in next 24 hours. Follow-up with neurology clinic with Dr. Trejo in a month. 2. Hyperlipidemia Impression: The patient has been on Lipitor 40 mg since having strokes in the past. According to family, the patient has been compliant. However, LDL level is much higher than goal level. Plan: As seen able. 3. Hypertension Impression: Good blood pressure control. There is no indication for permissive hypertension and current blood pressure is optimal. 4. Dementia Impression: The patient has been having gradually worsening cognitive functionin g. The patient might have neurodegenerative or senile type dementia with additional vascular component. Plan: We will keep the patient on donepezil as before. Follow-up with neurology. 5. Urinary tract infection Impression: According to family, the patient has been having recurrent urinary tract infections. Recent urinalysis was consistent with UTI. Plan: Per hospitalist physician. Thank you for the consultation. (2) Cerebrovascular disease: (3) UTI (urinary tract infection): (4) AMS (altered mental status): (5) Dyslipidemia: (6) Dementia: Plan As seen above. History of Present Illness Reason for Consultation: CVA Requesting Physician: Ignacio Newton MD Attending Physician: Ignacio Newton MD History of Present Illness The patient is a 82-year-old pleasant female, who was brought to emergency department yesterday, after family noticed that the patient was confused with left leg dragging as well as some facial asymmetry. Apparently, the patient has history of cerebrovascular accidents. In 2014, symptoms were considered to be TIA, but in 2019, the patient had pontine ischemic stroke, which caused leg weakness, confusion, and swallowing difficulty. According to granddaughter, the patient has recovered very well from prior strokes. On her baseline, she is able to ambulate with walker. She eats and sleeps well. She has no residual swallowing difficulty. She has been having progressive cognitive decline and was diagnosed with dementia, which has been treated on donepezil. Since having strokes, the patient has been on daily aspirin and Lipitor. Apparently, she has not been taking aspirin for last 6 days after running out of this medication. In emergency department, the patient's symptoms were resolving gradually and she was not considered a candidate for thrombolytic treatment. CT angiography of head and neck showed mild to moderate atherosclerotic changes of multiple vessels, without hemodynamically significant stenosis. Urinalysis showed urinary tract infection and patient is started on antibiotic treatment. Cardiac monitoring has been showing sinus rhythm. Echocardiogram did not show intracardiac embolic source. Lipid panel showed elevated LDL.The patient's neurological symptoms have been resolved almost completely since the admission. Brain MRI showed acute/subacute lacunar ischemic stroke of right median jozef. This study also showed diffuse cerebral atrophy and old basal ganglia and pontine strokes. I have reviewed the patient's chart and visualized imaging studies personally. I have discussed the case with the family and I have answered their questions in detail. Allergies Allergy/AdvReac Type Severity Reaction Status Date / Time Penicillins Allergy Mild RASH Verified 08/27/20 09:38 Home Medications Medication Instructions Recorded Confirmed Type donepezil 5 mg tablet (Aricept) 5 mg PO QDL 07/15/18 04/07/22 History fluoxetine 20 mg capsule 20 mg PO QPM 07/15/18 04/07/22 History levothyroxine 50 mcg tablet 50 mcg PO DAILYBB 07/15/18 04/07/22 History amlodipine 2.5 mg tablet 7.5 mg PO QAM 05/28/20 04/07/22 History atorvastatin 40 mg tablet 40 mg PO HS 08/25/20 04/07/22 History calcium carbonate 600 mg-vitamin 1 tab PO BID 08/25/20 04/07/22 History D3 5 mcg (200 unit) tablet docusate sodium 100 mg capsule 100 mg PO BID PRN Constipation 08/25/20 04/07/22 History (Stool Softener) ferrous sulfate 325 mg (65 mg 325 mg PO BID 08/25/20 04/07/22 History iron) tablet [id number] 0.4 mg-calcium 162 1 tab PO QDL 08/25/20 04/07/22 History mg-iron 18 vo-lzfhtmk-exdvvo tablet omeprazole 40 mg capsule,delayed 40 mg PO QDL 08/25/20 04/07/22 History release sucralfate 1 gram tablet 1 g PO QID 08/25/20 04/07/22 History vitamin B complex 1 tab PO HS 08/25/20 04/07/22 History aspirin 81 mg tablet,delayed 81 mg PO HS 04/07/22 04/07/22 History release bisacodyl 5 mg tablet,delayed 5 - 10 mg PO DAILY PRN Constipation 04/07/22 04/07/22 History release (Dulcolax (bisacodyl)) magnesium citrate 120 ml PO DAILY PRN Constipation 04/07/22 04/07/22 History multivitamin 1 tab PO DAILY 04/07/22 04/07/22 History polyethylene glycol 3350 17 17 g PO DAILY PRN Constipation 04/07/22 04/07/22 History gram/dose oral powder (Miralax) Patient History Medical History Abnormal CT scan, kidney Cerebrovascular disease stroke L caudate before 2012; TIA 2012; stroke jozef 2019 (treated at [facility]) Dementia Alert & Oriented x3. "loose train of thought and has trouble putting words together at times". Depression Dyslipidemia Dysphagia Dysphagia due to stroke. Thickened liquids. GERD (gastroesophageal reflux disease) H/O blood clots possibly in 2019? family unsure of specifics. Hypertension Osteoarthritis Osteoporosis Pre-diabetes family denies Stroke hx of stroke (2013 & 2019) treated at [facility]. dysphagia since stroke 2019 -- uses thickening for liquids. Transient ischemic attack (TIA) 2012 Surgical History H/O: hysterectomy History of colonoscopy Family History Father Diabetes Son Diabetes Hypertension Sister Cancer ? primary Other No family history of adverse response to anesthesia Social History Smoking Status: Never smoker Second Hand Exposure: No; Hx Alcohol Use: No Hx Substance Use: No Preferred Language: Mike Communication Ability: Impaired Communication Tools: Other [employer] Required: Yes Beliefs That Will Affect Care: None marital status: Current Living Situation: Family current occupational status: retired Feels Safe at Home: Yes Assistive Devices: Cane, Glasses and Walker Review of Systems Review of Systems: All systems reviewed & are unremarkable except as noted in HPI & below Physical Exam Physical Exam: General Examination: Constitutional: Well developed person in no acute distress. HEENT: Normal exam with inspection. CV: Hearth rhythm is regular. Neck: Supple, no carotid bruits. Lungs: Non-labored and comfortable breathing. Abdomen: Soft, non-tender, non-distended. Skin: No rash or ecchymosis. Extremities: No edema or cyanosis NEUROLOGICAL EXAMINATION: Mental Status: Alert and oriented to place, person and time. Cranial Nerves: II-XII are intact. No nystagmus. Funduscopy: Unable to visualize Motor: 5-/5 in all extremities without asymmetry. Tone: Normal without spasticity or rigidity. Sensory: Intact to all sensory modalities. Coordination: No dysmetria with FTN testing. Speech: Fluent. Comprehension is intact. Gait: At her baseline per family. DTR's: 1+ in upper and lower extremities. Plantar reflexes are bilaterally down going. Musculoskeletal: Normal muscle bulk, no atrophy. Results & Data ([facility]) Vital Signs (Past 12 Hours) Vital Signs Temp Pulse Pulse Resp BP Pulse Ox O2 Del Method 04/08/22 12:22 36.7 C 78 16 111/69 93 Room Air 04/08/22 08:41 36.9 C 69 16 128/71 92 Room Air 04/08/22 07:34 67 04/08/22 04:00 36.8 C 86 18 138/86 93 Room Air Laboratory Results Laboratory Results - last 24 hr 04/07/22 04/07/22 04/07/22 16:15 16:15 16:15 WBC 15.14 H RBC 4.73 Hgb 12.8 Hct 40.2 MCV 85.0 MCH 27.1 MCHC 31.8 L RDW Std Deviation 41.4 RDW Coeff of Vivienne 13.3 Plt Count 287 MPV 10.1 Immature Gran % (Auto) 0.4 Neut % (Auto) 85.4 Lymph % (Auto) 8.7 [place] % (Auto) 4.6 Eos % (Auto) 0.6 Baso % (Auto) 0.3 Neut # (Auto) 12.93 H Lymph # (Auto) 1.32 [place] # (Auto) 0.70 Eos # (Auto) 0.09 Baso # (Auto) 0.04 Immature Gran # (Auto) 0.06 H PT 10.6 INR 1.0 Sodium 139 Potassium 3.9 Chloride 103 Carbon Dioxide 28 Anion Gap 8 BUN 18 Creatinine 0.91 Est Cr Clr Drug Dosing Not Reportable Est GFR ( Amer) 69.1 Est GFR (Non-Af Amer) 59.6 BUN/Creatinine Ratio 19.8 Glucose 138 H POC Glucose Estimat Average Glucose Hemoglobin A1c Calcium 9.5 Magnesium 1.9 Total Bilirubin 0.4 AST 16 ALT 8 Alkaline Phosphatase 101 Troponin I High Sens 10.1 B-Natriuretic Peptide Total Protein 7.3 Albumin 3.8 Globulin 3.5 Albumin/Globulin Ratio 1.1 Triglycerides Cholesterol LDL Cholesterol, Calc VLDL Cholesterol, Calc HDL Cholesterol Cholesterol/HDL Ratio TSH Urine Color Urine Appearance Urine pH Ur Specific [place] Urine Protein Urine Glucose (UA) Urine Ketones Urine Blood Urine Nitrite Urine Bilirubin Urine Urobilinogen Ur Leukocyte Esterase Urine WBC (Auto) Urine RBC (Auto) U Hyaline Cast (Auto) U Epithel Cells (Auto) Urine Bacteria (Auto) SARS-CoV-2, RNA, NAAT 04/07/22 04/07/22 04/07/22 16:48 19:02 19:31 WBC RBC Hgb Hct MCV MCH MCHC RDW Std Deviation RDW Coeff of Vivienne Plt Count MPV Immature Gran % (Auto) Neut % (Auto) Lymph % (Auto) [place] % (Auto) Eos % (Auto) Baso % (Auto) Neut # (Auto) Lymph # (Auto) [place] # (Auto) Eos # (Auto) Baso # (Auto) Immature Gran # (Auto) PT INR Sodium Potassium Chloride Carbon Dioxide Anion Gap BUN Creatinine Est Cr Clr Drug Dosing Est GFR ( Amer) Est GFR (Non-Af Amer) BUN/Creatinine Ratio Glucose POC Glucose 136 H Estimat Average Glucose Hemoglobin A1c Calcium Magnesium Total Bilirubin AST ALT Alkaline Phosphatase Troponin I High Sens B-Natriuretic Peptide Total Protein Albumin Globulin Albumin/Globulin Ratio Triglycerides Cholesterol LDL Cholesterol, Calc VLDL Cholesterol, Calc HDL Cholesterol Cholesterol/HDL Ratio TSH Urine Color [place] Urine Appearance Cloudy A Urine pH 8.5 H Ur Specific [place] 1.032 H Urine Protein Trace H Urine Glucose (UA) Negative Urine Ketones Negative Urine Blood 2+ H Urine Nitrite Positive A Urine Bilirubin Negative Urine Urobilinogen Negative Ur Leukocyte Esterase 1+ H Urine WBC (Auto) 5-10 H Urine RBC (Auto) 10-30 H U Hyaline Cast (Auto) 1-5 U Epithel Cells (Auto) >30 H Urine Bacteria (Auto) 4+ H SARS-CoV-2, RNA, NAAT NEGATIVE 04/07/22 04/07/22 04/07/22 20:39 20:39 20:39 WBC RBC Hgb Hct MCV MCH MCHC RDW Std Deviation RDW Coeff of Vivienne Plt Count MPV Immature Gran % (Auto) Neut % (Auto) Lymph % (Auto) [place] % (Auto) Eos % (Auto) Baso % (Auto) Neut # (Auto) Lymph # (Auto) [place] # (Auto) Eos # (Auto) Baso # (Auto) Immature Gran # (Auto) PT INR Sodium Potassium Chloride Carbon Dioxide Anion Gap BUN Creatinine Est Cr Clr Drug Dosing Est GFR ( Amer) Est GFR (Non-Af Amer) BUN/Creatinine Ratio Glucose POC Glucose Estimat Average Glucose 137 Hemoglobin A1c 6.4 H Calcium Magnesium Total Bilirubin AST ALT Alkaline Phosphatase Troponin I High Sens B-Natriuretic Peptide 303 H Total Protein Albumin Globulin Albumin/Globulin Ratio Triglycerides Cholesterol LDL Cholesterol, Calc VLDL Cholesterol, Calc HDL Cholesterol Cholesterol/HDL Ratio TSH 0.863 Urine Color Urine Appearance Urine pH Ur Specific [place] Urine Protein Urine Glucose (UA) Urine Ketones Urine Blood Urine Nitrite Urine Bilirubin Urine Urobilinogen Ur Leukocyte Esterase Urine WBC (Auto) Urine RBC (Auto) U Hyaline Cast (Auto) U Epithel Cells (Auto) Urine Bacteria (Auto) SARS-CoV-2, RNA, NAAT 04/08/22 04/08/22 07:30 07:30 WBC 12.29 H RBC 4.26 Hgb 11.6 L Hct 35.8 MCV 84.0 MCH 27.2 MCHC 32.4 RDW Std Deviation 41.9 RDW Coeff of Vivienne 13.6 Plt Count 266 MPV 10.4 Immature Gran % (Auto) 0.4 Neut % (Auto) 73.2 Lymph % (Auto) 17.7 [place] % (Auto) 7.4 Eos % (Auto) 1.1 Baso % (Auto) 0.2 Neut # (Auto) 8.99 H Lymph # (Auto) 2.17 [place] # (Auto) 0.91 H Eos # (Auto) 0.14 Baso # (Auto) 0.03 Immature Gran # (Auto) 0.05 H PT INR Sodium 139 Potassium 3.6 Chloride 105 Carbon Dioxide 28 Anion Gap 6 BUN 17 Creatinine 0.91 Est Cr Clr Drug Dosing 41.7 Est GFR ( Amer) 69.1 Est GFR (Non-Af Amer) 59.6 BUN/Creatinine Ratio 18.7 Glucose 104 H POC Glucose Estimat Average Glucose Hemoglobin A1c Calcium 9.1 Magnesium Total Bilirubin AST ALT Alkaline Phosphatase Troponin I High Sens B-Natriuretic Peptide Total Protein Albumin Globulin Albumin/Globulin Ratio Triglycerides 52 Cholesterol 182 LDL Cholesterol, Calc 126 VLDL Cholesterol, Calc 10 HDL Cholesterol 46 Cholesterol/HDL Ratio 4.0 TSH Urine Color Urine Appearance Urine pH Ur Specific [place] Urine Protein Urine Glucose (UA) Urine Ketones Urine Blood Urine Nitrite Urine Bilirubin Urine Urobilinogen Ur Leukocyte Esterase Urine WBC (Auto) Urine RBC (Auto) U Hyaline Cast (Auto) U Epithel Cells (Auto) Urine Bacteria (Auto) SARS-CoV-2, RNA, NAAT Diagnostic Findings Chest X-Ray 04/07/22 16:23 SINGLE VIEW CHEST CLINICAL HISTORY: Strokelike symptoms. FINDINGS: An AP, portable, upright chest radiograph is compared to study dated 05/28/2020. The examination is degraded by portable technique and patient rotation. The heart is mildly enlarged note the atherosclerotic calcification of the thoracic aorta. There is prominence of the pulmonary vasculature. Atelectasis is noted at the lung bases. The lungs and pleural spaces are otherwise clear. No pneumothorax is seen. The skeletal structures are osteopenic. The bony thorax is grossly intact. IMPRESSION: 1. Cardiomegaly with prominence of the pulmonary vasculature. Correlate clinically for evidence of fluid overload/congestive changes. 2. No airspace consolidation or large pleural effusion is identified ACT 112: Negative or not required by law. Electronically signed by: Shaheen Lopez M.D. 04/07/2022 7:[address] 04/07/22 16:23 CT SCAN OF THE BRAIN WITHOUT IV CONTRAST CLINICAL HISTORY: Strokelike symptoms. COMPARISON STUDY: CT of the brain dated 05/28/2020. TECHNIQUE: Unenhanced axial CT scan of the brain is performed from the vertex to the skull base. A dose lowering technique was utilized adhering to the principles of ALARA. FINDINGS: Brain parenchyma: There is age-related involutional change noting [id number] subcortical and periventricular microangiopathic disease. There is no hemorrhage, mass effect, or evidence of acute territorial ischemia by CT criteria. A chronic lacunar infarct is noted in the left basal ganglia. Villagran- white matter differentiation is preserved. No extra-axial fluid collection is seen. Ventricles, sulci, cisterns: Prominent secondary to involutional change. Intracranial vasculature: There is atherosclerotic calcification of the cavernous carotid and vertebral arteries. Calvarium: Unremarkable. Sinuses and mastoids: The visualized paranasal sinuses are clear. The mastoid air cells are well pneumatized. Orbits: The bony orbits are grossly intact. There are bilateral ocular lens implants. IMPRESSION: There is no hemorrhage, mass effect, or evidence of acute territorial ischemia by CT criteria. ACT 112: Negative or not required by law. Electronically signed by: Shaheen Lopez M.D. 04/07/2022 4:41 PM Head CTA 04/07/22 16:23 CT ANGIOGRAM OF THE BRAIN CLINICAL HISTORY: Strokelike symptoms. COMPARISON STUDY: Unenhanced CT of the brain performed concurrently on 04/07/2022. CT angiogram of the brain dated 07/15/2018 TECHNIQUE: Following the IV administration of 118 cc of Optiray 300, CT angiog chance of the brain was performed from the skull base to the vertex. Images are reviewed in the axial, sagittal, and coronal planes. 3-D MIPS images are created and assessed. IV contrast was administered without complication. A dose lowering technique was utilized adhering to the principles of ALARA. FINDINGS: Brain parenchyma: There is age related involutional change noting mild to moderate subcortical and periventricular microangiopathic disease. A chronic lacunar infarct is noted in the left basal ganglia. There is no evidence of hemorrhage, mass effect, or acute territorial ischemia noting angiographic phase technique. There is no evidence of enhancing mass lesion on the angiogram phase images. No extra-axial fluid collection is seen. Villagran-white matter differentiation is preserved. Ventricles, sulci, and cisterns: Prominent secondary to involutional change. CT angiogram of the brain: There is atherosclerotic calcification of the cavernous carotid and vertebral arteries. The internal carotid arteries are widely patent, as are the anterior and middle cerebral arteries. The vertebrobasilar system and posterior cerebral arteries are widely patent. The vertebral arteries are codominant. There is moderate focal stenosis of the left anterior cerebral artery seen on axial image #179. No aneurysm or focal vessel cutoff identified throughout the intracranial circulation. Dural sinuses: Clear as visualized. Orbits: The bony orbits are intact. The orbital contents are normal as visualized noting bilateral ocular lens implants. Sinuses and mastoids: The paranasal sinuses are clear. There is a small right mastoid effusion. The left mastoid air cells are well pneumatized. Calvarium: Unremarkable. IMPRESSION: 1 There is no evidence of hemorrhage, mass effect, or acute territorial ischemia noting angiographic phase technique. 2. 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 3. Otherwise unremarkable CT angiogram of the brain. ACT 112: Negative or not required by law. Electronically signed by: Shaheen Lopez M.D. 04/07/2022 5:02 PM Neck CTA 04/07/22 16:23 NECK CTA HISTORY: Stroke Like Symptoms TECHNIQUE: Multiaxial CT images of the neck were performed following the intravenous administration of contrast to evaluate the major cervical vessels. Maximum intensity projection images were also obtained. All measurements were calculated based on NASCET criteria. A dose lowering technique was utilized adhering to the principles of ALARA. COMPARISON STUDY: Neck CTA 07/15/2018. FINDINGS: The aortic arch is widely patent. There is no significant stenosis, occlusion, or dissection identified within the bilateral common carotid, internal carotid, or vertebral arteries. Calcified plaque within the proximal right subclavian artery demonstrating approximately 20% stenosis. This remains unchanged. IMPRESSION: No significant stenosis, occlusion, or dissection identified within the carotid or vertebral arteries. ACT 112: Negative or not required by law. Electronically signed by: Perry Gill M.D. 04/07/2022 5:01 PM Brain MRI 04/08/22 00:16 Brain MRI WITHOUT CONTRAST HISTORY: Slurred speech. Left leg weakness. TECHNIQUE: Multiplanar multisequence MRI of the brain was performed without the use of contrast. COMPARISON STUDY: Head CT 04/07/2022. FINDINGS: There is a punctate focus of restricted diffusion within the right hemipons consistent with an acute to subacute infarct. There is evidence for old infarct within the jozef. No additional areas of restricted diffusion identified. The remaining midline structures are intact. No mass, midline shift, or acute hemorrhage identified. Evidence for bilateral lens replacement. The paranasal sinuses are clear. There are trace bilateral mastoid effusions. The major vascular flow-voids at the skull base are well-maintained. There is an old left basal ganglia infarct. Mild atrophy and mild microvascular ischemic changes are noted. IMPRESSION: 1. Acute to subacute punctate infarct within the right hemipons. 2. 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 3. Atrophy and microvascular ischemic changes. ACT 112: Negative or not required by law. Electronically signed by: Perry Gill M.D. 04/08/2022 7:26 AM ECHO--Normal LV chamber size with moderate concentric LVH. Normal ejection fraction of 55 to 60%. No PFO. Mild aortic valve sclerosis without significant aortic valvular stenosis.
--- NOTE | 2022-04-08 15:01 | Hospitalist Progress Note ---
Date of Service April 08, 2022 Assessment & Plan (1) Complicated UTI (urinary tract infection): Plan: Acute CVA: Missed taking aspirin for about 6 days due to pillbox issue. --MRI Brain: Acute to subacute punctate infarct within the right hemipons. 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 Atrophy and microvascular ischemic changes. --Neck CTA:No significant stenosis, occlusion, or dissection identified within the carotid or vertebral arteries. --Head CTA:There is no evidence of hemorrhage, mass effect, or acute territorial ischemia noting angiographic phase technique. 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 Otherwise unremarkable CT angiogram of the brain. --Head CT:There is no hemorrhage, mass effect, or evidence of acute territorial ischemia by CT criteria. --ECHO: Normal LV chamber size with moderate concentric LVH. EF 55 to 60%. No segmental left ventricle wall motion abnormality. Grade 1 diastolic dysfunction. Interatrial septum is intact with no evidence of ASD. Injection of contrast documented no interatrial shunt. HbA1c 6.4 LDL 126 Speech, PT OT eval Continue Continue aspirin, Lipitor Neuro checks Appreciate neurology input Plan to be started on Plavix 75 mg daily to be continued for at least 3 months. Plan to increase Lipitor to 60 mg daily Needs follow-up with neurology upon discharge Urinary tract infection Urine culture growing gram-negative bacilli Continue IV cefepime Hypertension Slight elevated on presentation Continue home medications Monitor BP Hyperlipidemia on statin Dementia Continue home medications Prediabetes HbA1C:6.4 Hypothyroidism Normal TSH Continue levothyroxine DVT Px: Lovenox SQ Code Status Full code Disposition PT/OT prior to discharge Admission and Anticipated Discharge Date Admission Date: April 07, 2022 Subjective Patient is seen and examined at bedside Poor historian secondary to dementia Discussed with patient's family at bedside Reports generalized weakness Denies chest pain, dyspnea, dizziness, nausea, abdominal pain, change in vision Also denies dysuria, hematuria Review of Systems Review of Systems: Unobtainable due to cognitive status Physical Exam Physical Exam: Physical Exam: Vitals signs as noted above General Appearance:Moderately built and nourished, no apparent distress, Elderly Head: normocephalic, Atraumatic Eyes: normal inspection, EOMI Neck: supple, Trachea midline Respiratory/Chest: Normal breath sounds, CTA, No accessory muscle use Cardiovascular: S1, S2, No murmur Abdomen/GI:Soft, Non tender, Bowel sounds present Extremities/Musculoskeletal:normal inspection, no edema Neurologic/Psych:Alert, awake, grossly no focal neurological deficits, +dementia Skin: normal color, warm Results & Data Results & Data ([facility]) Vital Signs (Past 12 Hours) Vital Signs Temp Pulse Pulse Resp BP Pulse Ox O2 Del Method 04/08/22 12:22 36.7 C 78 16 111/69 93 Room Air 04/08/22 08:41 36.9 C 69 16 128/71 92 Room Air 04/08/22 07:34 67 04/08/22 04:00 36.8 C 86 18 138/86 93 Room Air Laboratory Results Short CBC 04/07/22 04/08/22 Range/Units 16:15 07:30 WBC 15.14 H 12.29 H (4.8-10.8) K/ul Hgb 12.8 11.6 L (12.0-16.0) g/dl Hct 40.2 35.8 (34.1-44.9) % Plt Count 287 266 (130-400) K/uL BMP 04/07/22 04/08/22 16:15 07:30 Sodium 139 139 Potassium 3.9 3.6 Chloride 103 105 Carbon Dioxide 28 28 BUN 18 17 Creatinine 0.91 0.91 Glucose 138 H 104 H Calcium 9.5 9.1 Liver Function 04/07/22 Range/Units 16:15 Total Bilirubin 0.4 (0.2-1.0) mg/dl AST 16 (13-39) U/L ALT 8 (7-52) U/L Alkaline Phosphatase 101 (34-104) U/L Albumin 3.8 (3.4-5.0) gm/dl Urine 04/07/22 Range/Units 19:31 Urine Color [place] Urine Appearance Cloudy A (Clear) Urine pH 8.5 H (4.5-7.5) Ur Specific [place] 1.032 H (1.000-1.030) Urine Protein Trace H (Negative) Urine Glucose (UA) Negative (Negative)
[2022-04-08] MEDS: CLOPIDOGREL BISULFATE 75 MG TAB PO SCH (15:52)
[2022-04-08] MEDS ORDERED: ASPIRIN 81 MG ECTAB PO SCH (21:00)
[2022-04-08] MEDS ORDERED: SERTRALINE HCL 50 MG TABLET PO SCH (21:00)
[2022-04-08] MEDS ORDERED: ATORVASTATIN 20 MG TAB PO SCH (21:00)
[2022-04-08] MEDS ORDERED: FLUoxetine HCL 20 MG CAP PO SCH (21:00)
[2022-04-08] MEDS ORDERED: VITAMIN B COMPLEX TAB PO SCH (21:00)
[2022-04-08] MEDS: CEFEPIME 2,000 MG in SYRINGE 0 ML IV SCH (22:54)
[2022-04-09 06:01] LABS: Basophils # (auto) 0.04 K/uL (0-0.2); Basophils % (auto) 0.5 %; Eosinophils # (auto) 0.46 K/uL (0-0.50); Eosinophils % (auto) 6.2 %; Hematocrit (blood only) 36.5 % (34.1-44.9); Hemoglobin 11.4 g/dl (12.0-16.0); Immature Granulocytes # (auto) 0.03 K/uL (0.00-0.02); Immature Granulocytes % (auto) 0.4 %; Lymphocytes # (auto) 2.05 K/uL (1.2-3.4); Lymphocytes % (auto) 27.5 %; Mean Corpuscular Hemoglobin 26.8 pg (25.0-34.0); Mean Corpuscular Hgb Conc 31.2 g/dL (32.0-36.0); Mean Corpuscular Volume 85.7 fL (80.0-100.0); Mean Platelet Volume 10.1 fL (9.4-12.3); Neutrophils # (auto) 4.28 K/uL (1.4-6.5); Neutrophils % (auto) 57.4 %; Platelet Count 261 K/uL (130-400); RDW Coefficient of Variation 13.6 % (11.5-14.5); RDW Standard Deviation 42.2 fL (36.4-46.3); Red Blood Count 4.26 M/uL (3.93-5.22); White Blood Count 7.46 K/ul (4.8-10.8)
[2022-04-09] MEDS ORDERED: LEVOTHYROXINE SODIUM 50 MCG TABLET PO SCH (06:30)
[2022-04-09 06:31] LABS: Calcium 8.9 mg/dl (8.5-10.1); Creatinine Clr Calc Pharmacy 37.8 ml/min; Est GFR (African American) 61.6 ml/min; Est GFR (Non-African American) 53.2 ml/min; Potassium 3.4 mmol/L (3.5-5.1)
[2022-04-09] MEDS ORDERED: amLODIPine BESYLATE 5 MG TAB PO SCH (09:00)
[2022-04-09] MEDS ORDERED: POTASSIUM CHLORIDE CRTAB 20 MEQ TABCR PO ONE (09:16)
[2022-04-09] MEDS: SUCRALFATE 1 GM TAB PO SCH ×2 (09:22→12:06)
[2022-04-09] MEDS: CLOPIDOGREL BISULFATE 75 MG TAB PO SCH (09:24)
[2022-04-09] MEDS: ENOXAPARIN INJ 30 MG/0.3 ML SYR SQ SCH (09:24)
[2022-04-09] MEDS: FERROUS SULFATE 325 MG TAB PO SCH (09:24)
[2022-04-09] MEDS: MULTIVITAMIN TAB PO SCH (09:25)
[2022-04-09] MEDS ORDERED: cefTRIAXone SODIUM 1,000 MG in DEXTROSE 5% 50 ML IV SCH (10:00)
[2022-04-09] MEDS: CEFEPIME 2,000 MG in SYRINGE 0 ML IV SCH (10:17)
[2022-04-09] MEDS: DONEPEZIL HCL 5 MG TAB PO SCH (12:06)
[2022-04-09] MEDS: PANTOprazole 40 MG TAB PO SCH (12:06)
--- NOTE | 2022-04-09 12:52 | Hospitalist Progress Note ---
Date of Service April 09, 2022 Assessment & Plan (1) Complicated UTI (urinary tract infection): Plan: Acute CVA: Missed taking aspirin for about 6 days due to pillbox issue. --MRI Brain: Acute to subacute punctate infarct within the right hemipons. 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 Atrophy and microvascular ischemic changes. --Neck CTA:No significant stenosis, occlusion, or dissection identified within the carotid or vertebral arteries. --Head CTA:There is no evidence of hemorrhage, mass effect, or acute territorial ischemia noting angiographic phase technique. 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 Otherwise unremarkable CT angiogram of the brain. --Head CT:There is no hemorrhage, mass effect, or evidence of acute territorial ischemia by CT criteria. --ECHO: Normal LV chamber size with moderate concentric LVH. EF 55 to 60%. No segmental left ventricle wall motion abnormality. Grade 1 diastolic dysfunction. Interatrial septum is intact with no evidence of ASD. Injection of contrast documented no interatrial shunt. HbA1c 6.4 LDL 126 Speech, PT OT eval Continue Continue aspirin, Lipitor Neuro checks Appreciate neurology input Plan to be started on Plavix 75 mg daily to be continued for at least 3 months. Plan to increase Lipitor to 60 mg daily Needs follow-up with neurology upon discharge Plan to discharge home with home health Urinary tract infection Urine culture growing E coli Continue IV cefepime>>Rocephin Hypertension Slight elevated on presentation Continue home medications Monitor BP Hyperlipidemia on statin Dementia Continue home medications Prediabetes HbA1C:6.4 Hypothyroidism Normal TSH Continue levothyroxine DVT Px: Lovenox SQ Code Status Full code Disposition Home with Admission and Anticipated Discharge Date Admission Date: April 07, 2022 Subjective Patient is seen and examined at bedside Poor historian secondary to dementia No new complaints Family at bedside Denies chest pain, dyspnea, dizziness, nausea, abdominal pain, change in vision, dysuria, hematuria Plan to be discharged home today Review of Systems Review of Systems: All systems reviewed & are unremarkable except as noted in Subjective Physical Exam Physical Exam: Physical Exam: Vitals signs as noted above General Appearance:Moderately built and nourished, no apparent distress, Elderly Head: normocephalic, Atraumatic Eyes: normal inspection, EOMI Neck: supple, Trachea midline Respiratory/Chest: Normal breath sounds, CTA, No accessory muscle use Cardiovascular: S1, S2, No murmur Abdomen/GI:Soft, Non tender, Bowel sounds present Extremities/Musculoskeletal:normal inspection, no edema Neurologic/Psych:Alert, awake, grossly no focal neurological deficits, +dementia Skin: normal color, warm Results & Data Results & Data ([facility]) Vital Signs (Past 12 Hours) Vital Signs Temp Pulse Pulse Pulse Resp BP BP 04/09/22 08:38 36.5 C 72 16 143/86 H 04/09/22 06:55 72 04/09/22 05:00 96 H 123/79 04/09/22 02:20 36.9 C 71 16 174/79 H Pulse Ox O2 Del Method 04/09/22 08:38 93 Room Air 04/09/22 06:55 04/09/22 05:00 04/09/22 02:20 90 Room Air Laboratory Results Short CBC 04/09/22 Range/Units 05:29 WBC 7.46 (4.8-10.8) K/ul Hgb 11.4 L (12.0-16.0) g/dl Hct 36.5 (34.1-44.9) % Plt Count 261 (130-400) K/uL BMP 04/09/22 05:29 Sodium 140 Potassium 3.4 L Chloride 108 H Carbon Dioxide 26 BUN 22 Creatinine 1.00 Glucose 124 H Calcium 8.9
--- NOTE | 2022-04-09 13:05 | Discharge Summary ---
Date of Service April 09, 2022 Admission HPI Per Admitting Provider History obtained from patient, family, and records. Limited history from patient secondary to language barrier. Patient's ewiiaapaayp language is Mike. Medical history significant for CVA, hypertension, hyperlipidemia, dementia, GERD, prediabetes, hypothyroidism. Last confinement May 2020 for perforated appendicitis with secondary abscess. Patient transferred to [facility] for further management. Around 2 PM today, patient noted by family to be more confused than usual. Patient noted to have left-sided weakness similar to stroke in 2019. Patient dragging her leg. Slight facial droop and slurred speech noted by family. Patient missed about 6 days of home aspirin Rx because of a pillbox issue as per granddaughter. Patient denies chest pain, shortness of breath, abdominal pain, dysuria symptoms. Improving neurologic symptoms upon arrival at the ER. Stroke alert called upon arrival at the ER. Aspirin administered at the ER. 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 Admission Exam Per Admitting Provider Physical Exam Physical Exam: GENERAL: Comfortable, pleasant, no respiratory distress SKIN: Normal color, warm HEENT: [place] palpebral conjunctivae, no ptosis, dry buccal mucosa, facial hair noted NECK : Supple, no tenderness CHEST : CTA, no tenderness HEART : RRR, no obvious murmurs ABDOMEN: Some distention, nontender EXTREMITIES : No LE swelling/tenderness, no other conspicuous deformities noted NEUROLOGIC : Coherent, no facial asymmetry, no other gross focality Principal Diagnosis Acute cerebrovascular accident Urinary tract infection Discharge Data Allergies Allergy/AdvReac Type Severity Reaction Status Date / Time Penicillins Allergy Mild RASH Verified 08/27/20 09:38 Consultations 04/07/22 18:56 ED Decision to Admit Stat 04/08/22 09:02 Consult Neurology Routine Procedures Performed Laboratory Results WBC 7.46 K/ul (4.8-10.8) 04/09/22 05:29 RBC 4.26 M/uL (3.93-5.22) 04/09/22 05:29 Hgb 11.4 g/dl (12.0-16.0) L 04/09/22 05:29 Hct 36.5 % (34.1-44.9) 04/09/22 05:29 MCV 85.7 fL (80.0-100.0) 04/09/22 05:29 MCH 26.8 pg (25.0-34.0) 04/09/22 05: MCHC 31.2 g/dL (32.0-36.0) L 04/09/22 05: RDW Std Deviation 42.2 fL (36.4-46.3) 04/09/22 05: RDW Coeff of Vivienne 13.6 % (11.5-14.5) 04/09/22 05:29 Plt Count 261 K/uL (130-400) 04/09/22 05: MPV 10.1 fL (9.4-12.3) 04/09/22 05:29 Immature Gran % (Auto) 0.4 % 04/09/22 05:29 Neut % (Auto) 57.4 % 04/09/22 05:29 Lymph % (Auto) 27.5 % 04/09/22 05:29 [place] % (Auto) 8.0 % 04/09/22 05:29 Eos % (Auto) 6.2 % 04/09/22 05:29 Baso % (Auto) 0.5 % 04/09/22 05:29 Neut # (Auto) 4.28 K/uL (1.4-6.5) 04/09/22 05:29 Lymph # (Auto) 2.05 K/uL (1.2-3.4) 04/09/22 05:29 [place] # (Auto) 0.60 K/uL (0.24-0.82) 04/09/22 05:29 Eos # (Auto) 0.46 K/uL (0-0.50) 04/09/22 05:29 Baso # (Auto) 0.04 K/uL (0-0.2) 04/09/22 05:29 Immature Gran # (Auto) 0.03 K/uL (0.00-0.02) H 04/09/22 05:29 PT 10.6 Seconds (9.0-12.0) 04/07/22 16:15 INR 1.0 (0.9-1.1) 04/07/22 16:15 Sodium 140 mmol/L (136-145) 04/09/22 05:29 Potassium 3.4 mmol/L (3.5-5.1) L 04/09/22 05:29 Chloride 108 mmol/L (98-107) H 04/09/22 05:29 Carbon Dioxide 26 mmol/L (21-32) 04/09/22 05:29 Anion Gap 6 (3-11) 04/09/22 05:29 BUN 22 mg/dl (6-23) 04/09/22 05:29 Creatinine 1.00 mg/dl (0.6-1.2) 04/09/22 05:29 Est Cr Clr Drug Dosing 37.8 ml/min 04/09/22 05:29 Est GFR ( Amer) 61.6 ml/min 04/09/22 05:29 Est GFR (Non-Af Amer) 53.2 ml/min 04/09/22 05:29 BUN/Creatinine Ratio 22.0 (10-20) H 04/09/22 05:29 Glucose 124 mg/dl (70-99(Fasting)) H 04/09/22 05:29 POC Glucose 136 mg/dl (70-99) H 04/07/22 16:48 Estimat Average Glucose 137 mg/dl 04/07/22 20:39 Hemoglobin A1c 6.4 % (4.5-5.6) H 04/07/22 20:39 Calcium 8.9 mg/dl (8.5-10.1) 04/09/22 05:29 Magnesium 1.9 mg/dl (1.7-2.4) 04/07/22 16:15 Total Bilirubin 0.4 mg/dl (0.2-1.0) 04/07/22 16:15 AST 16 U/L (13-39) 04/07/22 16:15 ALT 8 U/L (7-52) 04/07/22 16:15 Alkaline Phosphatase 101 U/L (34-104) 04/07/22 16:15 Troponin I High Sens 10.1 pg/ml (0-14) 04/07/22 16:15 B-Natriuretic Peptide 303 pg/ml (0-100) H 04/07/22 20:39 Total Protein 7.3 gm/dl (6.0-8.3) 04/07/22 16:15 Albumin 3.8 gm/dl (3.4-5.0) 04/07/22 16:15 Globulin 3.5 gm/dl (2.5-4.0) 04/07/22 16:15 Albumin/Globulin Ratio 1.1 (0.9-2) 04/07/22 16:15 Triglycerides 52 mg/dl (0-150) 04/08/22 07:30 Cholesterol 182 mg/dl (0-200) 04/08/22 07:30 LDL Cholesterol, Calc 126 mg/dl 04/08/22 07:30 VLDL Cholesterol, Calc 10 mg/dl (0-30) 04/08/22 07:30 HDL Cholesterol 46 mg/dl 04/08/22 07:30 Cholesterol/HDL Ratio 4.0 (0-5) 04/08/22 07:30 TSH 0.863 uIu/ml (0.300-4.500) 04/07/22 20:39 Urine Color [place] 04/07/22 19: Urine Appearance Cloudy (Clear) A 04/07/22: Urine pH 8.5 (4.5-7.5) H 04/07/22 19: Ur Specific [place] 1.032 (1.000-1.030) H 04/07/22 19:31 Urine Protein Trace (Negative) H 04/07/22: Urine Glucose (UA) Negative (Negative) 04/07/22: Urine Ketones Negative (Negative) 04/07/22 19: Urine Blood 2+ (Negative) H 04/07/22 19:31 Urine Nitrite Positive (Negative) A 04/07/22: Urine Bilirubin Negative (Negative) 04/07/22: Urine Urobilinogen Negative (Negative) 04/07/22 19: Ur Leukocyte Esterase 1+ (Negative) H 04/07/22 19:31 Urine WBC (Auto) 5-10 /hpf (0-5) H 04/07/22 19: Urine RBC (Auto) 10-30 /hpf (0-4) H 04/07/22 19: U Hyaline Cast (Auto) 1-5 /lpf (0-5) 04/07/22 19:31 U Epithel Cells (Auto) >30 /lpf (0-5) H 04/07/22 19: Urine Bacteria (Auto) 4+ (Negative) H 04/07/22 19:31 SARS-CoV-2, RNA, NAAT NEGATIVE (NEGATIVE) 04/07/22 19:02 Impressions Chest X-Ray 04/07/22 16:23 SINGLE VIEW CHEST CLINICAL HISTORY: Strokelike symptoms. FINDINGS: An AP, portable, upright chest radiograph is compared to study dated 05/28/2020. The examination is degraded by portable technique and patient rotation. The heart is mildly enlarged note the atherosclerotic calcification of the thoracic aorta. There is prominence of the pulmonary vasculature. Atelectasis is noted at the lung bases. The lungs and pleural spaces are otherwise clear. No pneumothorax is seen. The skeletal structures are osteopenic. The bony thorax is grossly intact. IMPRESSION: 1. Cardiomegaly with prominence of the pulmonary vasculature. Correlate clinically for evidence of fluid overload/congestive changes. 2. No airspace consolidation or large pleural effusion is identified ACT 112: Negative or not required by law. Electronically signed by: Shaheen Lopez M.D. 04/07/2022 7:[address] 04/07/22 16:23 CT SCAN OF THE BRAIN WITHOUT IV CONTRAST CLINICAL HISTORY: Strokelike symptoms. COMPARISON STUDY: CT of the brain dated 05/28/2020. TECHNIQUE: Unenhanced axial CT scan of the brain is performed from the vertex to the skull base. A dose lowering technique was utilized adhering to the principles of ALARA. FINDINGS: Brain parenchyma: There is age-related involutional change noting [id number] subcortical and periventricular microangiopathic disease. There is no hemorrhage, mass effect, or evidence of acute territorial ischemia by CT criteria. A chronic lacunar infarct is noted in the left basal ganglia. Villagran- white matter differentiation is preserved. No extra-axial fluid collection is seen. Ventricles, sulci, cisterns: Prominent secondary to involutional change. Intracranial vasculature: There is atherosclerotic calcification of the cavernous carotid and vertebral arteries. Calvarium: Unremarkable. Sinuses and mastoids: The visualized paranasal sinuses are clear. The mastoid air cells are well pneumatized. Orbits: The bony orbits are grossly intact. There are bilateral ocular lens implants. IMPRESSION: There is no hemorrhage, mass effect, or evidence of acute territorial ischemia by CT criteria. ACT 112: Negative or not required by law. Electronically signed by: Shaheen Lopez M.D. 04/07/2022 4:41 PM Head CTA 04/07/22 16:23 CT ANGIOGRAM OF THE BRAIN CLINICAL HISTORY: Strokelike symptoms. COMPARISON STUDY: Unenhanced CT of the brain performed concurrently on 04/07/2022. CT angiogram of the brain dated 07/15/2018 TECHNIQUE: Following the IV administration of 118 cc of Optiray 300, CT angiogram of the brain was performed from the skull base to the vertex. Images are reviewed in the axial, sagittal, and coronal planes. 3-D MIPS images are created and assessed. IV contrast was administered without complication. A dose lowering technique was utilized adhering to the principles of ALARA. FINDINGS: Brain parenchyma: There is age related involutional change noting mild to moderate subcortical and periventricular microangiopathic disease. A chronic lacunar infarct is noted in the left basal ganglia. There is no evidence of hemorrhage, mass effect, or acute territorial ischemia noting angiographic phase technique. There is no evidence of enhancing mass lesion on the angiogram phase images. No extra-axial fluid collection is seen. Villagran-white matter differentiation is preserved. Ventricles, sulci, and cisterns: Prominent secondary to involutional change. CT angiogram of the brain: There is atherosclerotic calcification of the cavernous carotid and vertebral arteries. The internal carotid arteries are widely patent, as are the anterior and middle cerebral arteries. The ve rtebrobasilar system and posterior cerebral arteries are widely patent. The vertebral arteries are codominant. 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 No aneurysm or focal vessel cutoff identified throughout the intracranial circulation. Dural sinuses: Clear as visualized. Orbits: The bony orbits are intact. The orbital contents are normal as visualized noting bilateral ocular lens implants. Sinuses and mastoids: The paranasal sinuses are clear. There is a small right mastoid effusion. The left mastoid air cells are well pneumatized. Calvarium: Unremarkable. IMPRESSION: 1 There is no evidence of hemorrhage, mass effect, or acute territorial ischemia noting angiographic phase technique. 2. 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 3. Otherwise unremarkable CT angiogram of the brain. ACT 112: Negative or not required by law. Electronically signed by: Shaheen Lopez M.D. 04/07/2022 5:02 PM Neck CTA 04/07/22 16:23 NECK CTA HISTORY: Stroke Like Symptoms TECHNIQUE: Multiaxial CT images of the neck were performed following the intrav enous administration of contrast to evaluate the major cervical vessels. Maximum intensity projection images were also obtained. All measurements were calculated based on NASCET criteria. A dose lowering technique was utilized adhering to the principles of ALARA. COMPARISON STUDY: Neck CTA 07/15/2018. FINDINGS: The aortic arch is widely patent. There is no significant stenosis, occlusion, or dissection identified within the bilateral common carotid, internal carotid, or vertebral arteries. Calcified plaque within the proximal right subclavian artery demonstrating approximately 20% stenosis. This remains unchanged. IMPRESSION: No significant stenosis, occlusion, or dissection identified within the carotid or vertebral arteries. ACT 112: Negative or not required by law. Electronically signed by: Perry Gill M.D. 04/07/2022 5:01 PM Brain MRI 04/08/22 00:16 Brain MRI WITHOUT CONTRAST HISTORY: Slurred speech. Left leg weakness. TECHNIQUE: Multiplanar multisequence MRI of the brain was performed without the use of contrast. COMPARISON STUDY: Head CT 04/07/2022. FINDINGS: There is a punctate focus of restricted diffusion within the right hemipons consistent with an acute to subacute infarct. There is evidence for old infarct within the jozef. No additional areas of restricted diffusion identified. The remaining midline structures are intact. No mass, midline shift, or acute hemorrhage identified. Evidence for bilateral lens replacement. The paranasal sinuses are clear. There are trace bilateral mastoid effusions. The major vascular flow-voids at the skull base are well-maintained. There is an old left basal ganglia infarct. Mild atrophy and mild microvascular ischemic changes are noted. IMPRESSION: 1. Acute to subacute punctate infarct within the right hemipons. 2. 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 3. Atrophy and microvascular ischemic changes. ACT 112: Negative or not required by law. Electronically signed by: Perry Gill M.D. 04/08/2022 7:26 AM Ordered Studies 04/07/22 16:23 CT angio head w con Stat CT angio neck with con Stat CT head/brain wo con Stat 04/08/22 00:16 MR brain wo con Urgent Hospital Course (1) Complicated UTI (urinary tract infection): Acute CVA: Missed taking aspirin for about 6 days due to pillbox issue. --MRI Brain: Acute to subacute punctate infarct within the right hemipons. 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 Atrophy and microvascular ischemic changes. --Neck CTA:No significant stenosis, occlusion, or dissection identified within the carotid or vertebral arteries. --Head CTA:There is no evidence of hemorrhage, mass effect, or acute territorial ischemia noting angiographic phase technique. 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 Otherwise unremarkable CT angiogr am of the brain. --Head CT:There is no hemorrhage, mass effect, or evidence of acute territorial ischemia by CT criteria. --ECHO: Normal LV chamber size with moderate concentric LVH. EF 55 to 60%. No segmental left ventricle wall motion abnormality. Grade 1 diastolic dysfunction. Interatrial septum is intact with no evidence of ASD. Injection of contrast documented no interatrial shunt. HbA1c 6.4 LDL 126 Speech, PT OT eval Continue Continue aspirin, Lipitor Neuro checks Appreciate neurology input Plan to be started on Plavix 75 mg daily to be continued for at least 3 months. Plan to increase Lipitor to 60 mg daily Needs follow-up with neurology upon discharge Plan to discharge home with home health Urinary tract infection Urine culture growing E coli Continue IV cefepime>>Rocephin Hypertension Slight elevated on presentation Continue home medications Monitor BP Hyperlipidemia on statin Dementia Continue home medications Prediabetes HbA1C:6.4 Hypothyroidism Normal TSH Continue levothyroxine DVT Px: Lovenox SQ Code Status Full code Disposition Home with Total Time Total Time Spent Total Time Spent (In Minutes): 50 minutes Discharge Plan Discharge Items Patient Disposition: Home - Home Health Services Reason For Visit: TIA, COMP UTI Discharge Diagnosis: Acute cerebrovascular accident Urinary tract infection Activity: Per Instructions section Exercise/Sports: Gradually increase as tolerated Non-emergency contact: Primary Care Provider and Neurologist Call non-emergency contact if: you have any medication questions, your symptoms worsen, your pain is concerning for you and you have a fever Follow-up/Referrals: Merced Mcgraw MD [Primary Care Provider] - Diet: Heart Healthy Addtl Attending Provider Instructions: Follow-up with your primary care physician Dr. Merced Mcgraw in 1 week as advised Follow-up with your neurologist Dr. Mary Johnson in 4 weeks as advised. Medication changes: 1)--- Complete the antibiotic course cefdinir 300 mg twice a day for urinary tract infection. Start taking from 04/10/2022 2_--- Start taking clopidogrel (Plavix) 75 mg daily in addition to aspirin 81 mg daily as recommended by your neurologist 3)--- Lipitor dose is increased to 60 mg daily at bedtime 4)--- Fluoxetine is changed to sertraline 25 mg at bedtime due to Interaction with Plavix. 5)--- Your omeprazole is changed to Protonix 40mg daily due to Interaction with Plavix. Seek immediate medical attention if your symptoms reoccur or worsen Please take all medications as instructed on discharge list below. Please call if you have any questions or problems. You can reach a [facility] hospitalist on duty at [facility] 24 hours a day by calling [phone] Risk Factors for Stroke: You can reduce your chances of stroke by working with your medical provider to adopt a healthy lifestyle. Some specific ways to lower your chance of stroke are: * If you are a smoker, now is the time to stop smoking cigarettes * If you are diabetic, improve the control of your blood sugars * Avoid excessive amounts of alcohol * Control high blood pressure * Lose weight if you are overweight * Be sure to lead an active lifestyle * Eat a healthy diet low in salt, cholesterol and fat You should know about other risk factors for stroke that you are unable to control. These include: * Age 55 years or older * Male gender * Certain racial groups: , or / * Family History of Stroke, Mini stroke or Heart Attack * Sickle Cell Disease Follow Up: It is important for you to keep your follow up appointments with your medical provider. Who to Call and When: Medical Emergencies: Call 911 immediately if you experience any of the following warning signs and symptoms of Stroke: * Sudden numbness or weakness of the face, arm or leg, especially on one side of the body * Sudden confusion, trouble speaking or understanding * Sudden trouble seeing in one or both eyes * Sudden trouble walking, dizziness, loss of balance or coordination * Sudden severe headache with no cause Do not delay calling 911 if you experience any warning signs or symptoms of a stroke. Delay in seeking medical attention may affect what treatments can be given to you. . Pending Studies at Discharge: No Stand-Alone Forms: [facility], Smoking Cessation Medications and DC Order Prescriptions: New clopidogrel 75 mg Tablet 75 mg PO QAM Qty: 30 1RF pantoprazole 40 mg Tablet,Delayed Release (Dr/Ec) 40 mg PO QDL Qty: 30 1RF sertraline 50 mg Tablet 25 mg PO HS Qty: 30 1RF atorvastatin [Lipitor] 20 mg tablet 20 mg PO HS Qty: 30 1RF cefdinir 300 mg capsule 300 mg PO BID Qty: 6 0RF Rx Instructions: Start taking from 04/10/22 Continued donepezil [Aricept] 5 mg Tablet 5 mg PO QDL levothyroxine 50 mcg tablet 50 mcg PO DAILYBB amlodipine 2.5 mg tablet 7.5 mg PO QAM Rx Instructions: TAKE THREE TABLETS DAILY atorvastatin 40 mg tablet 40 mg PO HS sucralfate 1 gram tablet 1 g PO QID calcium carbonate-vitamin D3 600 mg(1,500mg) -200 unit Tablet 1 tab PO BID ferrous sulfate 325 mg (65 mg iron) Tablet 325 mg PO BID docusate sodium [Stool Softener] 100 mg Capsule 100 mg PO BID PRN (Reason: Constipation) vitamin B complex Tablet 1 tab PO HS [id number]-TA-Qi-Hh-bnjhxji-lutein 0.4-162-18 mg Tablet 1 tab PO QDL aspirin [Aspir-Low] 81 mg Tablet,Delayed Release (Dr/Ec) 81 mg PO HS magnesium citrate Solution 120 ml PO DAILY PRN (Reason: Constipation) multivitamin [Multiple Vitamin] Tablet 1 tab PO DAILY bisacodyl [Dulcolax (bisacodyl)] 5 mg Tablet,Delayed Release (Dr/Ec) 5 - 10 mg PO DAILY PRN (Reason: Constipation) polyethylene glycol 3350 [Miralax] 17 gram/dose Powder 17 g PO DAILY PRN (Reason: Constipation) Discontinued fluoxetine 20 mg capsule 20 mg PO QPM omeprazole 40 mg capsule,delayed release(DR/EC) 40 mg PO QDL Discharge Orders: Discharge Order (Routine); Ordered 04/09/22 Ordered By: Ignacio Whitmore/Other Patient Handouts: Prediabetes Admission Data Admit Date/Time: 04/07/22 20:19 Attending Provider: Ignacio Newton Admit Provider: Diego Osullivan Primary Care Provider: Merced Mcgraw Other Providers: Diego Osullivan ; Mitchell Carr
== END 2022-04-09 15:51 | disposition home health service (06) | DRG 65 ==
LOC: ED 15:39 → 2N 20:19

== ENCOUNTER 2022-06-26 20:37 | Inpatient (IN) ==
[2022-06-26] MEDS ORDERED: ONDANSETRON INJ 2 MG/ML 2 ML VIAL ONE (21:07)
[2022-06-26 21:13] LABS: Hematocrit (blood only) 40.4 % (34.1-44.9); Hemoglobin 12.6 g/dl (12.0-16.0); Mean Corpuscular Hemoglobin 26.4 pg (25.0-34.0); Mean Corpuscular Hgb Conc 31.2 g/dL (32.0-36.0); Mean Corpuscular Volume 84.7 fL (80.0-100.0); Mean Platelet Volume 9.8 fL (9.4-12.3); Platelet Count 294 K/uL (130-400); RDW Coefficient of Variation 14.2 % (11.5-14.5); RDW Standard Deviation 43.9 fL (36.4-46.3); Red Blood Count 4.77 M/uL (3.93-5.22); White Blood Count 10.95 K/ul (4.8-10.8)
[2022-06-26 21:25] LABS: Partial Thromboplastin Ratio 0.8; Partial Thromboplastin Time 23.1 Seconds (21.0-31.0); Prothrombin Time 10.7 Seconds (9.0-12.0)
[2022-06-26 21:32] LABS: Alanine Aminotransferase 17 U/L (7-52); Albumin Globulin Ratio 1.1 (0.9-2); Albumin Level 4.3 gm/dl (3.4-5.0); Alkaline Phosphatase 112 U/L (34-104); Anion Gap 9 (3-11); Aspartate Aminotransferase 25 U/L (13-39); BUN Creatinine Ratio 16.7 (10-20); Bilirubin,Total 0.4 mg/dl (0.2-1.0); Blood Urea Nitrogen 15 mg/dl (6-23); Calcium 9.9 mg/dl (8.5-10.1); Carbon Dioxide 29 mmol/L (21-32); Chloride 101 mmol/L (98-107); Est GFR (Non-African American) 60.4 ml/min; Glucose 169 mg/dl (70-99(Fasting)); Potassium 3.9 mmol/L (3.5-5.1); Sodium 139 mmol/L (136-145); Total Protein 8.3 gm/dl (6.0-8.3)
[2022-06-26] MEDS ORDERED: CEFEPIME 2,000 MG/20 ML VIAL IV STA (21:45)
[2022-06-26 22:04] LABS: Troponin I High Sensitivity 7.1 pg/ml (0-14)
[2022-06-26] MEDS: SODIUM CHLORIDE 0.9% 1000ML 1,000 ML IV ONE ×2 (22:14→22:29)
[2022-06-26] MEDS ORDERED: SODIUM CHLORIDE 0.9% 1000ML 1,000 ML IV ONE (22:18)
[2022-06-26] MEDS ORDERED: ACETAMINOPHEN 1,000 MG/100 ML VIAL IV STA (22:18)
[2022-06-26 22:19] LABS: Appearance Urine Cloudy (Clear); Bacteria Urine Automated Negative (Negative); Bilirubin Urine Negative (Negative); Blood Urine Negative (Negative); Cast Urine Automated 0 /lpf (0-5); Color Urine Yellow; Glucose Urine UA Negative (Negative); Ketones Urine Negative (Negative); Leukocyte Esterase Urine Negative (Negative); Nitrite Urine Negative (Negative); Protein Urine Negative (Negative); RBC Urine Automated 0-4 /hpf (0-4); Specific Gravity Urine 1.014 (1.000-1.030); Urobilinogen Urine Negative (Negative)
[2022-06-26 22:37] LABS: iSTAT Creatinine 0.9 mg/dl (0.6-1.3); iSTAT Hemoglobin 13.3 g/dl (12.0-16.0); iSTAT Ionized Calcium 1.21 mmol/l (1.12-1.32)
[2022-06-26 23:02] LABS: Adenovirus PCR Not Detected (NotDetected); Bordetella parapertussis PCR Not Detected (NotDetected); Bordetella pertussis PCR Not Detected (NotDetected); Chlamydia pneumoniae PCR Not Detected (NotDetected); Coronavirus 229E PCR Not Detected (NotDetected); Coronavirus CoV-2 (COVID19)PCR Not Detected (NotDetected); Coronavirus HKU1 PCR Not Detected (NotDetected); Coronavirus NL63 PCR Not Detected (NotDetected); Coronavirus OC43PCR Not Detected (NotDetected); Human Metapneumovirus PCR Not Detected (NotDetected); Influenza A PCR Not Detected (NotDetected); Influenza B PCR Not Detected (NotDetected); Mycoplasma pneumoniae PCR Not Detected (NotDetected); Parainfluenza Virus 1 PCR Not Detected (NotDetected); Parainfluenza Virus 2 PCR Not Detected (NotDetected); Parainfluenza Virus 3 PCR Not Detected (NotDetected); Parainfluenza Virus 4 PCR Not Detected (NotDetected); Respiratory Syncytial VirusPCR Not Detected (NotDetected); Rhinovirus/Enterovirus PCR Not Detected (NotDetected)
[2022-06-26] MEDS ORDERED: OPTIRAY 320 500ml IV ONE (23:12)
--- NOTE | 2022-06-26 23:31 | Emergency Department Note ---
History of Present Illness General Chief complaint: TIA Symptoms Stated complaint: WEAK, CONFUSED, DRAGGING R FOOT, STROKE 2 MO AGO Time Seen by Provider: 06/26/22 21:26 History of Present Illness This 82-year-old with a history of CVA presents to the ER complaining of altered mental status but comes in with family who gives the history as patient is altered Location: Generalized Quality: Confused Severity: Moderate Duration: Today Timing: Today Context: Family was concerned and brought the patient in Modifying factors: better with rest; worse with activity Daughter states that the patient was acting more confused today and appeared weak. She is collapsed trying to go the bathroom. They are concerned she might of had another stroke. Temperature was 99 at home. Patient is confused and kelly ble to follow commands. Patient was immediately sent down for stroke work-up and septic work-up. Home Medications Medication Instructions Recorded Confirmed Type donepezil 5 mg tablet (Aricept) 5 mg PO QDL 07/15/18 04/07/22 History levothyroxine 50 mcg tablet 50 mcg PO DAILYBB 07/15/18 04/07/22 History amlodipine 2.5 mg tablet 7.5 mg PO QAM 05/28/20 04/07/22 History atorvastatin 40 mg tablet 40 mg PO HS 08/25/20 04/07/22 History calcium carbonate 600 mg-vitamin 1 tab PO BID 08/25/20 04/07/22 History D3 5 mcg (200 unit) tablet docusate sodium 100 mg capsule 100 mg PO BID PRN Constipation 08/25/20 04/07/22 History (Stool Softener) ferrous sulfate 325 mg (65 mg 325 mg PO BID 08/25/20 04/07/22 History iron) tablet [id number] 0.4 mg-calcium 162 1 tab PO QDL 08/25/20 04/07/22 History mg-iron 18 sr-jcvmiyt-qdocze tablet sucralfate 1 gram tablet 1 g PO QID 08/25/20 04/07/22 History vitamin B complex 1 tab PO HS 08/25/20 04/07/22 History aspirin 81 mg tablet,delayed 81 mg PO HS 04/07/22 04/07/22 History release bisacodyl 5 mg tablet,delayed 5 - 10 mg PO DAILY PRN Constipation 04/07/22 04/07/22 History release (Dulcolax (bisacodyl)) magnesium citrate 120 ml PO DAILY PRN Constipation 04/07/22 04/07/22 History multivitamin 1 tab PO DAILY 04/07/22 04/07/22 History polyethylene glycol 3350 17 17 g PO DAILY PRN Constipation 04/07/22 04/07/22 History gram/dose oral powder (Miralax) atorvastatin 20 mg tablet (Lipitor) 20 mg PO HS #30 tabs 04/09/22 Rx cefdinir 300 mg capsule 300 mg PO BID #6 caps 04/09/22 Rx clopidogrel 75 mg tablet 75 mg PO QAM #30 tabs 04/09/22 Rx pantoprazole 40 mg tablet,delayed 40 mg PO QDL #30 tabs 04/09/22 Rx release sertraline 50 mg tablet 25 mg PO HS #30 tabs 04/09/22 Rx Allergies Allergy/AdvReac Type Severity Reaction Status Date / Time Penicillins Allergy Mild RASH Verified 08/27/20 09:38 Past Med/Surg History Medical History Abnormal CT scan, kidney Cerebrovascular disease stroke L caudate before 2012; TIA 2012; stroke jozef 2019 (treated at [facility]) Dementia Alert & Oriented x3. "loose train of thought and has trouble putting words together at times". Depression Dyslipidemia Dysphagia Dysphagia due to stroke. Thickened liquids. GERD (gastroesophageal reflux disease) H/O blood clots possibly in 2019? family unsure of specifics. Hypertension Osteoarthritis Osteoporosis Pre-diabetes family denies Stroke hx of stroke (2013 & 2019) treated at [facility]. dysphagia since stroke 2019 -- uses thickening for liquids. Transient ischemic attack (TIA) 2012 Surgical History H/O: hysterectomy History of colonoscopy Family History Father Diabetes Son Diabetes Hypertension Sister Cancer ? primary Other No family history of adverse response to anesthesia Social History Smoking Status: Never smoker Second Hand Exposure: No; Hx Alcohol Use: No Hx Substance Use: No Preferred Language: Mike Communication Ability: Impaired Communication Tools: Facial Expression Associate Professor Of Medicine Required: Yes Beliefs That Will Affect Care: None marital status: Current Living Situation: Family current occupational status: retired Feels Safe at Home: Yes Assistive Devices: Cane, Glasses and Walker Review of Systems A total of 10 systems reviewed and were otherwise negative Physical Exam Vital Signs Vital Signs - 24 hr 06/26/22 20:41 06/26/22 21:58 06/26/22 20:38 Temperature 36.9 C 38.8 C H Temperature Source Temporal Artery Scan Rectal Pulse Rate 110 H Pulse Rate [Apical] 76 Respiratory Rate 20 16 Respiratory Effort / Characteristics Respiratory Depth Blood Pressure 146/84 H Blood Pressure [Right Arm] 145/67 H Blood Pressure Mean 104 Blood Pressure Mean [Right Arm] 93 Blood Pressure Position Sitting Blood Pressure Position [Right Arm] Pulse Oximetry 93 96 Oxygen Delivery Method Nasal Cannula Oxygen Flow Rate 2 Sepsis Recent Fever Within 48 Hours No Sepsis New/Unexplained Change in Mental Status N/A Sepsis Action Taken by Nursing No Action Required 06/26/22 20:45 06/26/22 20:45 06/26/22 22:38 Temperature Temperature Source Pulse Rate 76 Pulse Rate [Apical] 76 Respiratory Rate 18 Respiratory Effort / Characteristics Non-Labored Respiratory Depth Normal Blood Pressure Blood Pressure [Right Arm] 98/62 L Blood Pressure Mean Blood Pressure Mean [Right Arm] 74 Blood Pressure Position Blood Pressure Position [Right Arm] Lying Pulse Oximetry 96 96 96 Oxygen Delivery Method Room Air Room Air Nasal Cannula Oxygen Flow Rate 2 Sepsis Recent Fever Within 48 Hours Sepsis New/Unexplained Change in Mental Status Sepsis Action Taken by Nursing 06/27/22 00:00 Temperature Temperature Source Pulse Rate Pulse Rate [Apical] 67 Respiratory Rate 18 Respiratory Effort / Characteristics Non-Labored Respiratory Depth Normal Blood Pressure Blood Pressure [Right Arm] 103/64 Blood Pressure Mean Blood Pressure Mean [Right Arm] 77 Blood Pressure Position Blood Pressure Position [Right Arm] Pulse Oximetry 93 Oxygen Delivery Method Room Air Oxygen Flow Rate Sepsis Recent Fever Within 48 Hours Sepsis New/Unexplained Change in Mental Status Sepsis Action Taken by Nursing VITALS: Vitals are noted on the nurse's note and reviewed by myself. Vital signs febrile. GENERAL: Elderly female confused appearing but does follow some commands SKIN: The skin was without rashes, erythema, edema, or bruising. There is no tenting of the skin. Capillary reflex less than 2 seconds. HEAD: Normocephalic atraumatic. EARS: External auditory canals clear, tympanic membranes pearly mckeon without erythema or effusion bilaterally. EYES: Pupils equal round and reactive to light and accommodation. Conjunctivae without injection, sclerae without icterus. Extraocular movements intact. NOSE: Patent, turbinates without inflammation or discharge. MOUTH: Mucous membranes mildly dry. Pharynx without erythema or exudate. Uvula midline. Airway patent. Tongue does not deviate. NECK: Supple without nuchal rigidity. No lymphadenopathy. No thyromegaly. Cervical spine is nontender. No JVD. HEART: Regular rate and rhythm LUNGS: Clear to auscultation bilaterally without wheezes, rales or rhonchi. No retractions or accessory muscle use. ABDOMEN: Positive bowel sounds x 4. Normal tympanic percussion. Soft, tender lower abdomen,, without masses or organomegaly. Giordano sign negative. No guarding or rebound tenderness. No CVA tenderness MUSCULOSKELETAL: No muscle atrophy, erythema, or edema noted. NEURO: Patient was alert and oriented to person but not place and time. Normal sensation to light and sharp touch. No focal neurological deficits. Course Administered Medications Discontinued Medications Sodium Chloride (Nss 1000ml) 1,000 mls @ 999 mls/hr IV .Q1H1M ONE Stop: 06/26/22 22:40 Last Infusion: 06/26/22 23:57 Dose: 0 mls/hr Documented By: Admin: 06/26/22 22:29 Dose: 999 mls/hr Documented By: Infusion: 06/26/22 22:29 Dose: 999 mls/hr Documented By: Admin: 06/26/22 22:14 Dose: 999 mls/hr Documented By: TNB Cefepime HCl (Maxipime) 2,000 mg in 20 mls @ 5 mls/min IV NOW STA; Protocol Stop: 06/26/22 21:48 Last Admin: 06/26/22 22:14 Dose: 5 mls/min Documented By: TNB Acetaminophen (Ofirmev) 1,000 mg in 100 mls @ 400 mls/hr IV NOW STA Stop: 06/26/22 22:32 Last Infusion: 06/26/22 23:57 Dose: 0 mls/hr Documented By: Admin: 06/26/22 22:29 Dose: 400 mls/hr Documented By: TNB Sodium Chloride (Nss 1000ml) 1,000 mls @ 999 mls/hr IV .Q1H1M ONE Stop: 06/26/22 23:18 Last Infusion: 06/26/22 23:57 Dose: 0 mls/hr Documented By: Admin: 06/26/22 22:30 Dose: 999 mls/hr Documented By: NUBIA Ioversol (Optiray 320 500ml) 125 ml IV ONCE ONE Stop: 06/26/22 23:13 Last Admin: 06/26/22 23:13 Dose: 104 ml Documented By: DANE Ondansetron HCl (Ondansetron Inj 2 Mg/Ml 2 Ml Vial) Confirm Administered Dose 4 mg .ROUTE .STK-MED ONE Stop: 06/26/22 21:08 Last Admin: 06/26/22 21:13 Dose: 4 mg Documented By: KAILA Medical Decision Making Medical Records Attestation: I reviewed the patient's medical records. Home Medications Current Medication List: was personally reviewed by me Laboratory Data Attestation: I reviewed the patient's lab results. Result diagrams: 06/26/22 21:00 06/26/22 21:00 Lab Results 06/26/22 06/26/22 06/26/22 Range/Units 21:00 21:00 21:00 WBC 10.95 H (4.8-10.8) K/ul RBC 4.77 (3.93-5.22) M/uL Hgb 12.6 (12.0-16.0) g/dl POC Hgb (12.0-16.0) g/dl Hct 40.4 (34.1-44.9) % POC Hct (37-47) % MCV 84.7 (80.0-100.0) fL MCH 26.4 (25.0-34.0) pg MCHC 31.2 L (32.0-36.0) g/dL RDW Std Deviation 43.9 (36.4-46.3) fL RDW Coeff of Vivienne 14.2 (11.5-14.5) % Plt Count 294 (130-400) K/uL MPV 9.8 (9.4-12.3) fL PT 10.7 (9.0-12.0) Seconds INR 1.0 (0.9-1.1) APTT 23.1 (21.0-31.0) Seconds PTT Ratio 0.8 POC Sodium (135-144) mmol/L Sodium 139 (136-145) mmol/L POC Potassium (3.3-5.0) mmol/L Potassium 3.9 (3.5-5.1) mmol/L POC Chloride (101-112) mmol/L Chloride 101 (98-107) mmol/L Carbon Dioxide 29 (21-32) mmol/L POC Total CO2 (24-31) mmol/L Anion Gap 9 (3-11) POC Anion Gap (16-25) mmol/L POC BUN (7-18) mg/dl BUN 15 (6-23) mg/dl Creatinine 0.90 (0.6-1.2) mg/dl POC Creatinine (0.6-1.3) mg/dl Est Cr Clr Drug Dosing Not Reportable Est GFR ( Amer) 70.0 ml/min Est GFR (Non-Af Amer) 60.4 ml/min BUN/Creatinine Ratio 16.7 (10-20) Glucose 169 H (70-99(Fasting)) mg/dl POC Glucose (other) (70-99) mg/dl Lactate (0.4-2.0) mmol/L Calcium 9.9 (8.5-10.1) mg/dl POC Ioniz Calcium [place] (1.12-1.32) mmol/l Magnesium 2.0 (1.7-2.4) mg/dl Total Bilirubin 0.4 (0.2-1.0) mg/dl AST 25 (13-39) U/L ALT 17 (7-52) U/L Alkaline Phosphatase 112 H (34-104) U/L Total Creatine Kinase (26-192) U/L Troponin I High Sens (0-14) pg/ml Total Protein 8.3 (6.0-8.3) gm/dl Albumin 4.3 (3.4-5.0) gm/dl Globulin 4.0 (2.5-4.0) gm/dl Albumin/Globulin Ratio 1.1 (0.9-2) Procalcitonin (0-0.5) ng/ml Urine Color Urine Appearance (Clear) Urine pH (4.5-7.5) Ur Specific [place] (1.000-1.030) Urine Protein (Negative) Urine Glucose (UA) (Negative) Urine Ketones (Negative) Urine Blood (Negative) Urine Nitrite (Negative) Urine Bilirubin (Negative) Urine Urobilinogen (Negative) Ur Leukocyte Esterase (Negative) Urine WBC (Auto) (0-5) /hpf Urine RBC (Auto) (0-4) /hpf U Hyaline Cast (Auto) (0-5) /lpf U Epithel Cells (Auto) (0-5) /lpf Urine Bacteria (Auto) (Negative) Adenovirus (PCR) (NotDetected) B. pertussis DNA (PCR) (NotDetected) B.parapertussis DNA PCR (NotDetected) C. pneumoniae DNA (PCR) (NotDetected) Coronavirus OC43 (PCR) (NotDetected) Coronavirus HKU1 (PCR) (NotDetected) Coronavirus 229E (PCR) (NotDetected) SARS-CoV-2 (PCR) (NotDetected) Coronavirus NL63 (PCR) (NotDetected) Human Metapneumovir PCR (NotDetected) Influenza Type A (PCR) (NotDetected) Influenza Type B (PCR) (NotDetected) M. pneumoniae (PCR) (NotDetected) Parainfluenza 1 (PCR) (NotDetected) Parainfluenza 2 (PCR) (NotDetected) Parainfluenza 3 (PCR) (NotDetected) Parainfluenza 4 (PCR) (NotDetected) RSV (PCR) (NotDetected) Entero/Rhino (PCR) (NotDetected) 06/26/22 06/26/22 06/26/22 Range/Units 21:00 21:00 21:55 WBC (4.8-10.8) K/ul RBC (3.93-5.22) M/uL Hgb (12.0-16.0) g/dl POC Hgb (12.0-16.0) g/dl Hct (34.1-44.9) % POC Hct (37-47) % MCV (80.0-100.0) fL MCH (25.0-34.0) pg MCHC (32.0-36.0) g/dL RDW Std Deviation (36.4-46.3) fL RDW Coeff of Vivienne (11.5-14.5) % Plt Count (130-400) K/uL MPV (9.4-12.3) fL PT (9.0-12.0) Seconds INR (0.9-1.1) APTT (21.0-31.0) Seconds PTT Ratio POC Sodium (135-144) mmol/L Sodium (136-145) mmol/L POC Potassium (3.3-5.0) mmol/L Potassium (3.5-5.1) mmol/L POC Chloride (101-112) mmol/L Chloride (98-107) mmol/L Carbon Dioxide (21-32) mmol/L POC Total CO2 (24-31) mmol/L Anion Gap (3-11) POC Anion Gap (16-25) mmol/L POC BUN (7-18) mg/dl BUN (6-23) mg/dl Creatinine (0.6-1.2) mg/dl POC Creatinine (0.6-1.3) mg/dl Est Cr Clr Drug Dosing Est GFR ( Amer) ml/min Est GFR (Non-Af Amer) ml/min BUN/Creatinine Ratio (10-20) Glucose (70-99(Fasting)) mg/dl POC Glucose (other) (70-99) mg/dl Lactate 1.9 (0.4-2.0) mmol/L Calcium (8.5-10.1) mg/dl POC Ioniz Calcium [place] (1.12-1.32) mmol/l Magnesium (1.7-2.4) mg/dl Total Bilirubin (0.2-1.0) mg/dl AST (13-39) U/L ALT (7-52) U/L Alkaline Phosphatase (34-104) U/L Total Creatine Kinase 52 (26-192) U/L Troponin I High Sens 7.1 (0-14) pg/ml Total Protein (6.0-8.3) gm/dl Albumin (3.4-5.0) gm/dl Globulin (2.5-4.0) gm/dl Albumin/Globulin Ratio (0.9-2) Procalcitonin 0.05 (0-0.5) ng/ml Urine Color Urine Appearance (Clear) Urine pH (4.5-7.5) Ur Specific [place] (1.000-1.030) Urine Protein (Negative) Urine Glucose (UA) (Negative) Urine Ketones (Negative) Urine Blood (Negative) Urine Nitrite (Negative) Urine Bilirubin (Negative) Urine Urobilinogen (Negative) Ur Leukocyte Esterase (Negative) Urine WBC (Auto) (0-5) /hpf Urine RBC (Auto) (0-4) /hpf U Hyaline Cast (Auto) (0-5) /lpf U Epithel Cells (Auto) (0-5) /lpf Urine Bacteria (Auto) (Negative) Adenovirus (PCR) (NotDetected) B. pertussis DNA (PCR) (NotDetected) B.parapertussis DNA PCR (NotDetected) C. pneumoniae DNA (PCR) (NotDetected) Coronavirus OC43 (PCR) (NotDetected) Coronavirus HKU1 (PCR) (NotDetected) Coronavirus 229E (PCR) (NotDetected) SARS-CoV-2 (PCR) (NotDetected) Coronavirus NL63 (PCR) (NotDetected) Human Metapneumovir PCR (NotDetected) Influenza Type A (PCR) (NotDetected) Influenza Type B (PCR) (NotDetected) M. pneumoniae (PCR) (NotDetected) Parainfluenza 1 (PCR) (NotDetected) Parainfluenza 2 (PCR) (NotDetected) Parainfluenza 3 (PCR) (NotDetected) Parainfluenza 4 (PCR) (NotDetected) RSV (PCR) (NotDetected) Entero/Rhino (PCR) (NotDetected) 06/26/22 06/26/22 06/26/22 Range/Units 21:55 21:55 22:19 WBC (4.8-10.8) K/ul RBC (3.93-5.22) M/uL Hgb (12.0-16.0) g/dl POC Hgb 13.3 (12.0-16.0) g/dl Hct (34.1-44.9) % POC Hct 39 (37-47) % MCV (80.0-100.0) fL MCH (25.0-34.0) pg MCHC (32.0-36.0) g/dL RDW Std Deviation (36.4-46.3) fL RDW Coeff of Vivienne (11.5-14.5) % Plt Count (130-400) K/uL MPV (9.4-12.3) fL PT (9.0-12.0) Seconds INR (0.9-1.1) APTT (21.0-31.0) Seconds PTT Ratio POC Sodium 141 (135-144) mmol/L Sodium (136-145) mmol/L POC Potassium 4.0 (3.3-5.0) mmol/L Potassium (3.5-5.1) mmol/L POC Chloride 101 (101-112) mmol/L Chloride (98-107) mmol/L Carbon Dioxide (21-32) mmol/L POC Total CO2 28 (24-31) mmol/L Anion Gap (3-11) POC Anion Gap 17.0 (16-25) mmol/L POC BUN 15 (7-18) mg/dl BUN (6-23) mg/dl Creatinine (0.6-1.2) mg/dl POC Creatinine 0.9 (0.6-1.3) mg/dl Est Cr Clr Drug Dosing Est GFR ( Amer) ml/min Est GFR (Non-Af Amer) ml/min BUN/Creatinine Ratio (10-20) Glucose (70-99(Fasting)) mg/dl POC Glucose (other) 162 H (70-99) mg/dl Lactate (0.4-2.0) mmol/L Calcium (8.5-10.1) mg/dl POC Ioniz Calcium [place] 1.21 (1.12-1.32) mmol/l Magnesium (1.7-2.4) mg/dl Total Bilirubin (0.2-1.0) mg/dl AST (13-39) U/L ALT (7-52) U/L Alkaline Phosphatase (34-104) U/L Total Creatine Kinase (26-192) U/L Troponin I High Sens (0-14) pg/ml Total Protein (6.0-8.3) gm/dl Albumin (3.4-5.0) gm/dl Globulin (2.5-4.0) gm/dl Albumin/Globulin Ratio (0.9-2) Procalcitonin (0-0.5) ng/ml Urine Color Yellow Urine Appearance Cloudy A (Clear) Urine pH 8.0 H (4.5-7.5) Ur Specific [place] 1.014 (1.000-1.030) Urine Protein Negative (Negative) Urine Glucose (UA) Negative (Negative) Urine Ketones Negative (Negative) Urine Blood Negative (Negative) Urine Nitrite Negative (Negative) Urine Bilirubin Negative (Negative) Urine Urobilinogen Negative (Negative) Ur Leukocyte Esterase Negative (Negative) Urine WBC (Auto) 1-5 (0-5) /hpf Urine RBC (Auto) 0-4 (0-4) /hpf U Hyaline Cast (Auto) 0 (0-5) /lpf U Epithel Cells (Auto) 10-20 H (0-5) /lpf Urine Bacteria (Auto) Negative (Negative) Adenovirus (PCR) Not Detected (NotDetected) B. pertussis DNA (PCR) Not Detected (NotDetected) B.parapertussis DNA PCR Not Detected (NotDetected) C. pneumoniae DNA (PCR) Not Detected (NotDetected) Coronavirus OC43 (PCR) Not Detected (NotDetected) Coronavirus HKU1 (PCR) Not Detected (NotDetected) Coronavirus 229E (PCR) Not Detected (NotDetected) SARS-CoV-2 (PCR) Not Detected (NotDetected) Coronavirus NL63 (PCR) Not Detected (NotDetected) Human Metapneumovir PCR Not Detected (NotDetected) Influenza Type A (PCR) Not Detected (NotDetected) Influenza Type B (PCR) Not Detected (NotDetected) M. pneumoniae (PCR) Not Detected (NotDetected) Parainfluenza 1 (PCR) Not Detected (NotDetected) Parainfluenza 2 (PCR) Not Detected (NotDetected) Parainfluenza 3 (PCR) Not Detected (NotDetected) Parainfluenza 4 (PCR) Not Detected (NotDetected) RSV (PCR) Not Detected (NotDetected) Entero/Rhino (PCR) Not Detected (NotDetected) Imaging Data Attestation: I personally reviewed and interpreted this imaging study as follows: MDM Narrative Prior records/ancillary studies reviewed. Triage Nursing notes reviewed. Additional history obtained from family. The patient's history was concerning for altered mental status. Differential diagnosis: Etiologies such as sepsis, UTI, pneumonia, metabolic, electrolyte abnormalities, cardiac sources, intracerebral event, toxicologic, neurologic, as well as others were entertained. Physical examination: As above. Pertinent findings were febrile with abdominal pain. Vital signs reviewed and revealed febrile. ER treatment provided: IV fluid resuscitation with Normal saline solution, 2000 mL bolus. Blood and urine cultures Antibiotics cefepime and prior urine cultures were reviewed and is sensitive An order was placed for continuous cardiac monitoring. The monitor shows a rate of 60-100 with a sinus rhythm. On reassessment the patient vital signs improved. Diagnostics interpretation by me: ECG: Ordered for altered mental status EKG: Poor baseline, normal sinus, Q waves in inferior leads, Q waves in the anterior lateral leads, rate of 108. Impression sinus tachycardia with Q waves present interpreted by myself I think arrhythmia is unlikely. EKG shows normal sinus rhythm with no interval abnormalities such as QT prolongation or WPW. There are no findings to suggest Brugada syndrome. Cardiac monitoring in the emergency department reveals no tachycardic or bradycardic dysrhythmia. Hypertrophic cardiomyopathy was considered but there are no clear historical elements pointing toward this. EKG is not suggestive. The QRS voltage is not extremely large The labs revealed mild leukocytosis, negative urine Serum Lactate measurement was 1.9 Blood and urine cultures are pending. Imaging studies: CTA CHEST: The ascending aortic arch is upper normal in diameter measuring 3.7 cm. Mild atherosclerotic calcification is present. No aneurysm or dissection. The great vessels are tortuous and mildly calcified but widely patent. The pulmonary arterial tree is well opacified with contrast. There is mild motion artifact involving the lower lobe branches bilaterally. No pulmonary emboli are identified. The heart is mildly enlarged. Moderate coronary calcification is present. Lungs are moderately expanded. There are scattered linear densities in the central lungs suggest a mild emphysema and streaky densities in both lung bases likely combination of edema and subsegmental atelectasis. No pneumothorax or pleural effusion is seen. Mild degenerative changes throughout the spine. No fracture or destructive bone lesion is seen. Radiologist: Billy Meyer MD CT ABDOMEN & PELVIS With Contrast: Comparison to May 31, 2020. 6.8 cm of stool in the rectum suggesting mild constipation. No other dilated bowel loops are identified. The appendix is normal. No acute inflammatory changes are seen involving the bowel. The liver, gallbladder, pancreas, spleen, adrenal glands, and kidneys appear within normal limits. The aorta is mildly calcified but nondilated. The uterus has been removed. No free fluid is seen in the pelvis. Mild to moderate degenerative changes throughout the spine. No acute fracture or subluxation is seen. Radiologist: Billy Meyer MD CTA NECK: The aortic arch is calcified but nondilated. The proximal great vessels are calcified and tortuous. No significant stenosis is seen. The common carotid and internal carotid arteries are somewhat tortuous bilaterally. There is a trace amount of atherosclerotic calcification in both carotid bifurcations without measurable stenosis. The vertebral arteries are widely patent bilaterally. No significant stenosis or dissection. Moderate degenerative changes throughout the cervical spine. No fracture or subluxation is seen. Radiologist: Billy Meyer MD CT HEAD: Comparison to MRI brain from April 08, [address] from April 07, 2022. Mild to moderate diffuse cerebral atrophy and mild periventricular white matter low density consistent with chronic small vessel disease and/or senescent changes. There is an old lacunar infarct in the left basal ganglia measuring approximate 1 cm, unchanged. No acute large vessel infarct or intracranial hemorrhage is identified. The paranasal sinuses and mastoid air cells are normal. No skull fracture or scalp hematoma is seen. Radiologist: Billy Meyer MD Preliminary Findings Only See Final Report For Complete Findings CTA HEAD: Mild calcified plaque throughout the cavernous portions of the distal internal carotid arteries bilaterally with less than 20% stenosis bilaterally. The distal vertebral and basilar arteries are widely patent. The anterior, middle, and posterior cerebral arteries are patent. No aneurysm, vascular malformation, or arterial thrombus is seen. Mild stenosis of the proximal left posterior cerebral artery. Diffuse cerebral atrophy and periventricular white matter low density consistent with chronic small vessel disease. There is an old infarct in the left basal ganglia. Radiologist: Billy Meyer MD Consultation: A consultation was placed with the hospitalist. The case was discussed and diagnostics were reviewed. The patient was evaluated in the ER for further treatment. Exam and history seem consistent with altered mental status most likely from aspiration pneumonia. Patient was started on antibiotics immediately. Imaging was reviewed and ordered for history of CVA and possible sepsis. Patient had a prolonged delay to being seen secondary to the high volume in the ER. Patient was brought back to the room I immediately saw the patient. Extensive labs and imaging were ordered. Patient was altered. No obvious signs of stroke though. She was reassessed multiple times. She will be admitted. Impression & Plan CAP (community acquired pneumonia), AMS (altered mental status) Discharge Plan Visit Data Chief Complaint: TIA Symptoms Stated Complaint: WEAK, CONFUSED, DRAGGING R FOOT, STROKE 2 MO AGO ED Provider: Shaheen Jones ED Midlevel Provider: Andra Mayo Discharge Problem: CAP (community acquired pneumonia), AMS (altered mental status) Patient Disposition: Admitted As Inpatient Condition: Fair Forms Stand Alone Forms: [facility] Prescriptions Prescriptions: No Action donepezil [Aricept] 5 mg Tablet 5 mg PO QDL levothyroxine 50 mcg tablet 50 mcg PO DAILYBB amlodipine 2.5 mg tablet 7.5 mg PO QAM Rx Instructions: TAKE THREE TABLETS DAILY atorvastatin 40 mg tablet 40 mg PO HS sucralfate 1 gram tablet 1 g PO QID calcium carbonate-vitamin D3 600 mg(1,500mg) -200 unit Tablet 1 tab PO BID ferrous sulfate 325 mg (65 mg iron) Tablet 325 mg PO BID docusate sodium [Stool Softener] 100 mg Capsule 100 mg PO BID PRN (Reason: Constipation) vitamin B complex Tablet 1 tab PO HS [id number]-lutein 0.4-162-18 mg Tablet 1 tab PO QDL aspirin 81 mg Tablet,Delayed Release (Dr/Ec) 81 mg PO HS magnesium citrate Solution 120 ml PO DAILY PRN (Reason: Constipation) multivitamin Tablet 1 tab PO DAILY bisacodyl [Dulcolax (bisacodyl)] 5 mg Tablet,Delayed Release (Dr/Ec) 5 - 10 mg PO DAILY PRN (Reason: Constipation) polyethylene glycol 3350 [Miralax] 17 gram/dose Powder 17 g PO DAILY PRN (Reason: Constipation) clopidogrel 75 mg Tablet 75 mg PO QAM Qty: 30 1RF pantoprazole 40 mg Tablet,Delayed Release (Dr/Ec) 40 mg PO QDL Qty: 30 1RF sertraline 50 mg Tablet 25 mg PO HS Qty: 30 1RF atorvastatin [Lipitor] 20 mg tablet 20 mg PO HS Qty: 30 1RF cefdinir 300 mg capsule 300 mg PO BID Qty: 6 0RF Rx Instructions: Start taking from 04/10/22 Referrals Referrals: Merced Mcgraw MD [Primary Care Provider] - : CAP (community acquired pneumonia) Qualifiers: Laterality: unspecified laterality Qualified Code(s): J18.9 - Pneumonia, unspecified organism
--- NOTE | 2022-06-27 00:41 | Emergency Department Note ---
ED Visit Note I was consulted by the Advanced Practice Provider. I saw the patient personally and performed a substantive portion of the visit. This includes aspects of the HPI, MDM, diagnostic interpretations, and disposition/plan. Patient presents with weakness. She was noted to have a fever. She very likely has pneumonia by work-up. A hospital stay is warranted. Antibiotics have been given. . : CAP (community acquired pneumonia) Qualifiers: Laterality: unspecified laterality Qualified Code(s): J18.9 - Pneumonia, unspecified organism
[2022-06-27] MEDS ORDERED: NITROGLYCERIN SL 0.4 MG/TAB TAB SL PRN (04:13)
[2022-06-27] MEDS ORDERED: bisacodyL 5 MG TABEC PO PRN (04:13)
[2022-06-27] MEDS ORDERED: ACETAMINOPHEN 325 MG TAB PO PRN (04:13)
[2022-06-27] MEDS ORDERED: DOCUSATE SODIUM 100 MG CAP PO PRN (04:13)
[2022-06-27] MEDS ORDERED: ONDANSETRON INJ 2 MG/ML 2 ML VIAL IV PRN (04:13)
[2022-06-27] MEDS: SODIUM CHLORIDE 0.9% 1000ML 1,000 ML IV SCH (05:42)
[2022-06-27] MEDS: DOXYCYCLINE HYCLATE 100 MG in DEXTROSE 5% 100 ML IV SCH ×2 (06:42→18:32)
[2022-06-27 07:38] LABS: Basophils # (auto) 0.04 K/uL (0-0.2); Basophils % (auto) 0.4 %; Eosinophils # (auto) 0.12 K/uL (0-0.50); Eosinophils % (auto) 1.1 %; Hemoglobin 11.9 g/dl (12.0-16.0); Immature Granulocytes # (auto) 0.04 K/uL (0.00-0.02); Immature Granulocytes % (auto) 0.4 %; Lymphocytes # (auto) 1.48 K/uL (1.2-3.4); Lymphocytes % (auto) 13.4 %; Mean Corpuscular Hgb Conc 30.5 g/dL (32.0-36.0); Mean Corpuscular Volume 85.2 fL (80.0-100.0); Monocytes # (auto) 1.08 K/uL (0.24-0.82); Monocytes % (auto) 9.8 %; Neutrophils # (auto) 8.29 K/uL (1.4-6.5); Neutrophils % (auto) 74.9 %; Platelet Count 249 K/uL (130-400); RDW Coefficient of Variation 14.4 % (11.5-14.5); RDW Standard Deviation 44.4 fL (36.4-46.3); Red Blood Count 4.58 M/uL (3.93-5.22); White Blood Count 11.05 K/ul (4.8-10.8)
[2022-06-27] MEDS: LEVOTHYROXINE SODIUM 50 MCG TABLET PO SCH (07:45)
[2022-06-27] MEDS: CEFEPIME 2,000 MG in SYRINGE 0 ML IV SCH ×2 (07:45→22:45)
--- NOTE | 2022-06-27 07:56 | CT Scan Report ---
CT angio neck with con CLINICAL HISTORY: 82 years-old Female with neuro deficit, acute stroke suspected. Acute strokelike symptoms COMPARISON STUDY: CT head and CTA head studies of same day, CTA neck 04/07/2022 TECHNIQUE: Following the IV administration of 104 mL of Optiray, CT angiogram of the neck was perform ed from the aortic arch to the skull base. Images are reviewed in the axial, sagittal, and coronal pl anes. 3-D MIPS images are created and assessed. IV contrast was administered without complication. Al l measurements were calculated based on NASCET criteria. A dose lowering technique was utilized adhe ring to the principles of ALARA. FINDINGS: Atherosclerotic plaque of the thoracic aortic arch and proximal great vessels. The innominate and syd ged subclavian arteries appear patent. The common and internal carotid arteries are patent. Partially imaged mild stenosis of the middle cerebral arteries. The vertebral arteries are codominant. 50% romulo nosis is noted at the origin of the right vertebral artery. No aneurysm, dissection, high-grade steno sis or arterial occlusion identified. Mild groundglass densities of the lung apices. No pneumothorax. Prior bilateral lens repair. Streak a rtifact from dental amalgam hardware. Trace right mastoid effusion. Degenerative changes of the cervi braulio spine. IMPRESSION:Unremarkable CTA of the neck. ACT 112: Negative or not required by law. The above report was generated using voice recognition software. It may contain grammatical, syntax o r spelling errors. Electronically signed by: Melchor Rangel M.D. 06/27/2022 7:53 AM
[2022-06-27 07:57] LABS: BUN Creatinine Ratio 17.1 (10-20); Calcium 8.9 mg/dl (8.5-10.1); Creatinine Clr Calc Pharmacy 46.8 ml/min; Est GFR (African American) 78.3 ml/min; Est GFR (Non-African American) 67.6 ml/min; Magnesium 1.9 mg/dl (1.7-2.4); Potassium 3.9 mmol/L (3.5-5.1)
--- NOTE | 2022-06-27 08:03 | CT Scan Report ---
CT angio chest PE protocol CLINICAL HISTORY: PE TECHNIQUE: Multidetector row helical CT of the chest was performed with angiographic protocol. Demarco l and sagittal reformations were obtained. Coronal and sagittal MIPS were obtained from the axial milan a set and were submitted for review. Automated dose lowering techniques and/or adjustment according to patient size were utilized for this exam. Comparison: None available at the time of this dictation. FINDINGS: Lungs and pleura: Atelectasis versus scarring is seen in the dependent portions of the lungs. Heart and pericardium: Mitral annular calcifications are seen. Vessels: No evidence of pulmonary embolism. There are atherosclerotic disease is seen. Mediastinum and latoya: Unremarkable. Chest wall and lower neck: Unremarkable. Abdomen: Unremarkable. Bones: Degenerative changes in the thoracic spine. IMPRESSION: No evidence of pulmonary embolism. ACT 112: Negative or not required by law. Electronically signed by: Tera Wong M.D. 06/27/2022 8:01 AM
--- NOTE | 2022-06-27 08:28 | CT Scan Report ---
CT angio head w con CLINICAL HISTORY: neuro deficit, acute stroke suspected TECHNIQUE: CT angiography of the head was performed following intravenous administration of iodinated contrast. Coronal and sagittal MIPS were obtained from the axial data set and were submitted for rev iew. Automated dose lowering techniques and/or adjustment according to patient size were utilized fo r this examination. All measurements were calculated based on NASCET criteria. Comparison: Comparison is made to CT head 06/26/2022 FINDINGS: CTA Head: The anterior and posterior cerebral circulations are patent. No hemodynamically significan t stenosis, aneurysm, dissection, or arteriovenous malformation is shown. IMPRESSION: No occlusion, hemodynamically significant stenosis, aneurysm, dissection, or arteriovenous malformati on in the major intracranial arteries. Assessment of stenosis of the internal carotid arteries is based on NASCET criteria. ACT 112: Negative or not required by law. Electronically signed by: Tera Wong M.D. 06/27/2022 8:27 AM
--- NOTE | 2022-06-27 08:31 | XRay Report ---
XR chest 1V portable CLINICAL HISTORY: fever TECHNIQUE: Single frontal radiograph of the chest was obtained. Comparison: Comparison is made to chest radiograph 05/08/2022 FINDINGS: No lines and tubes are seen. Cardiomegaly is noted. The lungs are clear. No evidence of pleural effus ion or pneumothorax. IMPRESSION: No acute abnormalities and in particular no evidence of pneumonia. ACT 112: Negative or not required by law. Electronically signed by: Tera Wong M.D. 06/27/2022 8:29 AM
--- NOTE | 2022-06-27 08:33 | History and Physical Report ---
DATE OF ADMISSION: 06/27/2022 CHIEF COMPLAINT: Weakness, fever. HISTORY OF PRESENT ILLNESS: This is an 82-year-old female with past medical history significant for CVA, hypertension, hyperlipidemia, dementia, GERD, diabetes, currently not on medication, hypothyroidism, history of perforated appendicitis in 05/2020 with secondary abscess. At that time, she was transferred to [facility]. The patient's [place] language is Mike. Granddaughter is in the room who is translating for the patient and granddaughter states that she will stay with the patient. Today evening, the patient seemed to be dragging her left leg a little and they were worried about she was having TIA like symptoms and brought in here. In the waiting room, she vomited. In the ER, she was having spiking temperatures, there is no cough. No complaint of any chest pain or abdominal pain. Normal bowel and bladder movements. No headache, no neck pain. Granddaughter says sometimes when she eats, she coughs, not all the time, since her stroke. In the ER, she was able to go to the bathroom with her help. Usually, she walks with a cane and granddaughter seems to think that she is not dragging her left leg anymore now. CTA of the head seems to be unremarkable in the ER. All the history got from the granddaughter. ALLERGIES: PENICILLIN. PAST MEDICAL HISTORY: As mentioned above. PAST SURGICAL HISTORY: Colonoscopy, EGD, EGD with biopsy, surgery on both feet, aspiration of the abscess, cataract surgery, total abdominal hysterectomy with removal of tubes. MEDICATIONS: The patient is on amlodipine 7.5 mg p.o. a.m., aspirin 81 mg p.o. at bedtime, atorvastatin 40 mg p.o. at bedtime, Dulcolax 10 mg daily p.r.n., calcium carbonate plus vitamin D 1 tablet p.o. b.i.d., Plavix 75 mg p.o. a.m., donepezil 5 mg p.o. daily, levothyroxine 50 mcg p.o. daily, Protonix 40 mg p.o. daily, sertraline 50 mg p.o. at bedtime, sucralfate 1 gram p.o. t.i.d., vitamin B complex 1 tablet p.o. at bedtime. FAMILY HISTORY: Significant for sister has cancer; paternal grandfather had diabetes; son has diabetes. SOCIAL HISTORY: , lives with her son. No smoking, no alcohol, no drug use. REVIEW OF SYSTEMS: As per HPI. All the history got from the granddaughter. PHYSICAL EXAMINATION: GENERAL: The patient is alert and awake, does not seem to be in acute distress. VITAL SIGNS: T-max 38.8, pulse 67, respiratory rate 18, blood pressure 103/64, oxygen 93% on room air. HEENT: Pupils equal, round and reactive to light. Oral mucosa moist. NECK: No JVD or neck masses. CARDIOVASCULAR: S1 and S2 heard. Regular rate and rhythm. No murmur, no gallop. RESPIRATORY SYSTEM: Normal AP diameter. No accessory muscle use. No wheezing or crackles. ABDOMEN: Soft, bowel sounds present, nontender, no distention. CENTRAL NERVOUS SYSTEM: Alert and awake. Speech is clear. No facial droop. Power 3-4/5 in all extremities. Obeys simple commands. EXTREMITIES: No edema, no erythema. LABORATORY DATA: WBC 10.9, hemoglobin 12.6, hematocrit 40.4, platelets 294. PT 10.7, INR 1, APTT 23.1. Sodium 139, potassium 3.9, chloride 101, bicarb 29, BUN 15, creatinine 0.9, serum glucose 169. Lactate 1.9, calcium 9.9, magnesium 2, total bilirubin 0.4, AST 25, ALT 17, alkaline phosphatase 112, total creatine kinase 52. Troponin I high sensitivity 7.1. Procalcitonin 0.05. Urinalysis negative. Respiratory BioFire negative. Chest x-ray: No acute findings. CTA chest, preliminary report: No PE. Lungs are moderately expanded. There are scattered linear densities in the lungs, suggesting mild emphysema. Linear density in both lung bases, likely combination of edema and subsegmental atelectasis. No pneumothorax or pleural effusion seen. Mild degenerative changes throughout the spine. CT abdomen and pelvis: No acute findings. Some constipation. CTA of the neck: No acute findings seen. CTA of the head: No acute findings seen. EKG: Poor quality interpretation. Sinus tachycardia at a rate of 108. ASSESSMENT AND PLAN: This is an 82-year-old female who was brought in because of questionable stroke-like symptoms as the patient was feeling weak and dragging the left leg at home and was found to have fever in the Emergency Room and nausea. 1. Weakness, fever, nausea: Urinalysis negative. Respiratory BioFire is negative. CT chest, questionable emphysema and questionable edema, possible pneumonia. We will follow the final report of the CT scan. We will treat with cefepime and doxycycline. After antibiotics and fluids, as per the granddaughter, the patient is feeling better and she walked to the bathroom in the Emergency Room and she was not dragging the legs, looks like mostly back to baseline. If any concern, we can get an MRI scan. 2. History of cerebrovascular accident: Continue her home aspirin, Plavix, statin. 3. History of prediabetes: Follow HbA1c level. 4. History of hypothyroidism: Continue Synthroid. 5. History of dementia: Continue donepezil. Monitor for delirium. 6. History of gastroesophageal reflux disease: Continue Protonix. 7. History of hypertension: On amlodipine. We will monitor the blood pressure. 8. Deep venous thrombosis prophylaxis: Sequential compression devices for now. DISPOSITION: Closely monitor in the med tele. PT/OT prior to discharge. Social service to help with discharge planning. Job ID: [id number] MTDD
[2022-06-27] MEDS ORDERED: ACETAMINOPHEN 1,000 MG/100 ML VIAL IV STA (08:47)
--- NOTE | 2022-06-27 08:51 | CT Scan Report ---
ABDOMEN AND PELVIS CT WITH IV CONTRAST CT DOSE: 1144.92 mGy.cm HISTORY: Acute generalized abdominal pain with history of prior urinary tract infections pain, fever , hx utis TECHNIQUE: Multiaxial CT images of the abdomen and pelvis were performed following the IV administrat ion of 104 cc of Optiray, A dose lowering technique was utilized adhering to the principles of ALARA . COMPARISON STUDY: CTA chest of same day, CT abdomen and pelvis 05/31/2020 FINDINGS: Limited exam secondary to upper extremity positioning. Cardiomegaly with coronary artery ca lcifications. Trace pericardial effusion. Mild dependent bibasilar consolidation. No pneumatosis or p neumoperitoneum identified. Unremarkable spleen, moderately atrophic pancreas, gallbladder and adrena l glands. Mild right hemidiaphragmatic elevation. The liver is within normal limits. Cortical scarring of the kidneys, left greater than right. No hydronephrosis identified. The previous ly questioned 1.2 cm lesion of the left kidney is not identified on today's study. Unremarkable urina ry bladder. Hysterectomy. Atherosclerosis of the abdominal aorta. Fusiform dilation of the aorta at t he level of diaphragmatic hiatus measures up to 3.2 cm transversely. No lymphadenopathy identified. No bowel obstruction or bowel wall thickening. There is moderate fecal retention of the rectosigmoid. Colonic diverticulosis without acute diverticulitis. Normal appendix. Degenerative changes of the sp ine, pelvis and hips. There is moderate to severe intervertebral disc space narrowing at the L3-L4 an d L4-L5 levels. Healed chronic fracture left inferior pubic ramus. Chronic L1 compression fracture. M ild T12 wedge deformity without retropulsion or significant paravertebral edema. IMPRESSION: 1. Mild dependent subsegmental bibasilar consolidative opacities favor atelectasis. A mild nonspecifi c pneumonitis considered less likely. 2. No bowel obstruction or bowel wall thickening. 3. Moderate rectal fecal retention. 4. Colonic diverticulosis. 5. Mild T12 compression deformity without retropulsion is new from the 05/31/2020 exam, likely subacu te. 6. Additional findings as above. ACT 112: Negative or not required by law. The above report was generated using voice recognition software. It may contain grammatical, syntax o r spelling errors. Electronically signed by: Melchor Rangel M.D. 06/27/2022 8:50 AM
--- NOTE | 2022-06-27 08:51 | CT Scan Report ---
CT head/brain wo con CLINICAL HISTORY: 82 years-old Female with Stroke Alert. Acute strokelike symptoms TECHNIQUE: Multiple axial CT images of the head were obtained without contrast. A dose lowering tech nique was utilized adhering to the principles of ALARA. CT DOSE: 773.57 mGy.cm COMPARISON: 04/07/2022 FINDINGS: No acute intracranial hemorrhage, midline shift, intracranial mass, hydrocephalus, territorial ischem ia or abnormal extra-axial collection. Involutional changes with chronic microvascular ischemic disea se. White matter hypodensities suggest chronic microvascular ischemic disease. Chronic lacunar infarc ts of the basal ganglia and jozef. The calvarium is intact. The paranasal sinuses, mastoid air cells, and middle ear cavities are clear . IMPRESSION: No acute intracranial abnormality. ACT 112: Negative or not required by law. The above report was generated using voice recognition software. It may contain grammatical, syntax o r spelling errors. Electronically signed by: Melchor Rangel M.D. 06/27/2022 8:50 AM
[2022-06-27 09:43] LABS: Estimated Average Glucose 146 mg/dl; Hemoglobin A1C 6.7 % (4.5-5.6)
[2022-06-27] MEDS: amLODIPine BESYLATE 5 MG TAB PO SCH (09:54)
[2022-06-27] MEDS: CLOPIDOGREL BISULFATE 75 MG TAB PO SCH (09:55)
[2022-06-27] MEDS: DONEPEZIL HCL 5 MG TAB PO SCH (09:55)
[2022-06-27] MEDS: SUCRALFATE 1 GM TAB PO SCH ×4 (09:55→22:43)
[2022-06-27] MEDS: PANTOprazole 40 MG TAB PO SCH (09:55)
[2022-06-27] MEDS: CALCIUM 600MG + VIT D 400 IU TAB PO SCH ×2 (09:55→22:44)
[2022-06-27] MEDS ORDERED: PNEUMOCOCCAL POLYSACCHARIDES 25 MCG/0.5 ML VIAL/SYR IM ONE (11:31)
--- NOTE | 2022-06-27 12:18 | Electrocardiogram Report ---
Test Reason : Blood Pressure : / mmHG Vent. Rate : 108 BPM Atrial Rate : 108 BPM P-R Int : 200 ms QRS Dur : 070 ms QT Int : 338 ms P-R-T Axes : 069 038 029 degrees QTc Int : 452 ms Poor data quality, interpretation may be adversely affected Sinus tachycardia Possible Inferior infarct , age undetermined Possible Anterolateral infarct (cited on or before 26-JUN-2022) Abnormal ECG When compared with ECG of 07-APR-2022 16:10, Questionable change in initial forces of Anterolateral leads ST now depressed in Lateral leads Confirmed by Genaro Mijares ([id number]) on 06/27/2022 12:18:30 PM Referred By: REFERRED SELF Confirmed By:Genaro Mijares
--- NOTE | 2022-06-27 13:21 | Magnetic Resonance Report ---
MRI OF THE BRAIN WITHOUT CONTRAST CLINICAL HISTORY: Confusion. Nausea and vomiting. Evaluate for cerebrovascular accident. COMPARISON STUDY: MRI of the brain April 08, [address] and CTA of the head June 26, 2022. TECHNIQUE: Utilizing a 1.5 Laura magnet and dedicated coil, multiplanar, multiecho imaging of the bra in was performed without IV contrast. FINDINGS: There are no foci of restricted diffusion to suggest acute infarct. A small hyperintense fo cus within the right aspect of the jozef on axial diffusion-weighted sequence image 7 of is unchang ed since prior exam. This corresponds to a small infarct which is now chronic. There are 2 old pontin e infarct. There is a 1.6 cm left basal ganglia infarct which is also unchanged. Ventricular system i s stable. Basal cisterns are patent. There are no extra-axial collections. White matter T2 hyperinten se foci favor mild small vessel disease. There is moderate atrophy. No intracranial masses identified on this unenhanced exam. Flow-voids for the major intracranial vessels are present. There is no evid ence for sinusitis. Calvarial signal is normal. IMPRESSION: 1. No acute intracranial findings. 2. 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 ACT 112: Negative or not required by law. Electronically signed by: King Decker M.D. 06/27/2022 1:19 PM
[2022-06-27] MEDS: VITAMIN B COMPLEX TAB PO SCH (22:42)
[2022-06-27] MEDS: ASPIRIN 81 MG ECTAB PO SCH (22:44)
[2022-06-27] MEDS: ATORVASTATIN 40 MG TAB PO SCH (22:44)
[2022-06-27 23:32] LABS: A calco-baum cmplx NotReported Not Detected (NotDetected); Bact fragilis Not Reported Not Detected (NotDetected); C auris Not Reported Not Detected (NotDetected); Calbicans Not Reported Not Detected (NotDetected); Candida glabrata Not Reported Not Detected (NotDetected); Candida krusei Not Reported Not Detected (NotDetected); Cneoformans/gatti Not Reported Not Detected (NotDetected); Cparapsilosis Not Reported Not Detected (NotDetected); Ctropicalis Not Reported Not Detected (NotDetected); E cloacae compx Not Reported Not Detected (NotDetected); Efaecalis Not Reported Not Detected (NotDetected); Efaecium Not Reported Not Detected (NotDetected); Enterobacterales Not Reported Not Detected (NotDetected); Escherichia coli Not Reported Not Detected (NotDetected); H influenzae Not Reported Not Detected (NotDetected); K aerogenes Not Reported Not Detected (NotDetected); Koxytoca Not Reported Not Detected (NotDetected); Kpneumoniae grp Not Reported Not Detected (NotDetected); Lmonocyt Not Reported Not Detected (NotDetected); N meningitidis Not Reported Not Detected (NotDetected); P aeruginosa Not Reported Not Detected (NotDetected); Proteus spp Not Reported Not Detected (NotDetected); Salmonella spp Not Reported Not Detected (NotDetected); Smarcescens Not Reported Not Detected (NotDetected); Staph lugdunensis Not Reported Not Detected (NotDetected); Staph spp. Not Reported DETECTED (NotDetected); Staphaureus Not Reported Not Detected (NotDetected); Staphepi Not Reported DETECTED (NotDetected); Staphylococcus spp. DETECTED (NotDetected); Stenmaltophilia Not Reported Not Detected (NotDetected); Strep agal(GrpB) Not Reported Not Detected (NotDetected); Strep pneum Not Reported Not Detected (NotDetected); Strep pyog (GrpA) Not Reported Not Detected (NotDetected); Strep spp Not Reported Not Detected (NotDetected); mecAC Resistant Gene Not Detected (NotDetected)
[2022-06-28 00:12] LABS: Staphylococcus epidermidis DETECTED (NotDetected)
[2022-06-28] MEDS ORDERED: VANCOMYCIN CONSULT ACTIVE PRN (00:23)
[2022-06-28] MEDS ORDERED: VANCOMYCIN HCL 1,000 MG in SODIUM CHLORIDE 0.9% 250 ML IV SCH (00:30)
[2022-06-28] MEDS ORDERED: VANCOMYCIN HCL 1,250 MG in SODIUM CHLORIDE 0.9% 250 ML IV STA (00:51)
[2022-06-28] MEDS: SODIUM CHLORIDE 0.9% 1000ML 1,000 ML IV SCH (03:28)
[2022-06-28] MEDS: DOXYCYCLINE HYCLATE 100 MG in DEXTROSE 5% 100 ML IV SCH ×2 (05:59→17:53)
[2022-06-28] MEDS: LEVOTHYROXINE SODIUM 50 MCG TABLET PO SCH (06:03)
[2022-06-28] MEDS ORDERED: VANCOMYCIN HCL 750 MG in SODIUM CHLORIDE 0.9% 250 ML IV SCH (09:00)
--- NOTE | 2022-06-28 10:23 | Hospitalist Progress Note ---
Date of Service June 28, 2022 Assessment & Plan (1) AMS (altered mental status): (2) CAP (community acquired pneumonia): Plan: 82-year-old female who was brought in because of questionable stroke-like symptoms as the patient was feeling weak and dragging the left leg at home and was found to have fever in the Emergency Room and nausea. 1. Weakness, fever, nausea: Urinalysis negative. Respiratory BioFire is negative. CT chest, questionable emphysema and questionable edema, possible pneumonia. Started on cefepime and doxycycline - will cont. After antibiotics and fluids, as per the granddaughter, the patient is feeling better and she walked to the bathroom in the Emergency Room and she was not dragging the legs, looks like mostly back to baseline. Per family - pt back to baseline Brain MRI obtained to r/o CVA - 1. No acute intracranial findings. 2. 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 Per family at the bedside, patient has been coughing with eating/aspirating for the past week or so. Speech eval obtained. History of aspiration back in 2019 Video swallow study tomorrow ? Bacteremia 1 blood cultx out of 4 - likely staph epi - most likely contaminant - repeat blood cultx - cont. antibiotics for now Continue to closely monitor 2. History of cerebrovascular accident: Continue her home aspirin, statin. 3. History of prediabetes: Follow HbA1c level 6.7% 4. History of hypothyroidism: Continue Synthroid. 5. History of dementia: Continue donepezil. Monitor for delirium. 6. History of gastroesophageal reflux disease: Continue Protonix. 7. History of hypertension: On amlodipine. We will monitor the blood pressure. DVT: SCDs for now. DISPOSITION: Closely monitor in the med tele. PT/OT prior to discharge. Admission and Anticipated Discharge Date Admission Date: June 27, 2022 Subjective Pt seen in follow up of weakness, fever, hx of aspiration family present at the bedside. Patient already back to baseline yesterday. Family at the bedside and reports that patient is completely back to baseline. She is lying in bed, in no acute distress, comfortable Denies any fevers chills chest pain shortness of breath, headache or weakness Per family at the bedside, they report that patient coughs sometimes with food, now they are altering her liquids and she is better Swallow study ordered by speech therapy Review of Systems Review of Systems: All systems reviewed & are unremarkable except as noted in Subjective Physical Exam Physical Exam: GENERAL: The patient is alert and awake, in NAD HEENT: Pupils equal, round and reactive to light. EOMI, Oral mucosa moist. NECK: No JVD or neck masses. CARDIOVASCULAR: S1 and S2 heard. Regular rate and rhythm. No murmur, no gallop. RESPIRATORY: Normal AP diameter. No accessory muscle use. No wheezing or crackles. ABDOMEN: Soft, bowel sounds present, nontender, no distention. NEURO: Alert and awake. Speech is clear. No facial droop. Obeys simple commands. Moves extremities EXTREMITIES: No edema, no erythema. Results & Data Results & Data ([facility]) Vital Signs (Past 12 Hours) Vital Signs Temp Pulse Pulse Resp BP BP Pulse Ox 06/28/22 07:51 36.7 C 64 20 169/65 H 91 06/28/22 06:22 37.1 C 61 20 179/70 H 98 06/28/22 05:55 61 06/28/22 06:17 06/28/22 05:47 37.1 C 61 20 179/70 H 98 06/28/22 02:00 68 16 138/76 97 06/28/22 00:00 77 22 140/68 90 06/27/22 23:00 73 19 131/99 90 06/27/22 22:39 64 21 06/27/22 22:40 64 18 143/73 H 96 O2 Del Method O2 Flow Rate 06/28/22 07:51 Room Air 06/28/22 06:22 Nasal Cannula 1 06/28/22 05:55 06/28/22 06:17 Room Air, Nasal Cannula 1 06/28/22 05:47 Nasal Cannula 1 06/28/22 02:00 Room Air 06/28/22 00:00 Room Air 06/27/22 23:00 Room Air 06/27/22 22:39 06/27/22 22:40 Nasal Cannula 2 Medications Administered Current Inpatient Medications Acetaminophen (Acetaminophen 325 Mg Tab) 650 mg PO Q4H PRN PRN Reason: Pain or Fever Stop: 07/27/22 04:12 Amlodipine Besylate (Amlodipine Besylate 5 Mg Tab) [facility] Stop: 07/27/22 08:59 Last Admin: 06/28/22 11:11 Dose: 7.5 mg Aspirin (Aspirin 81 Mg Ectab) 81 mg PO HS [facility] Stop: 07/27/22 20:59 Last Admin: 06/28/22 21:28 Dose: 81 mg Atorvastatin Calcium (Atorvastatin 40 Mg Tab) 40 mg PO HS [facility] Stop: 07/27/22 20:59 Last Admin: 06/28/22 21:28 Dose: 40 mg Bisacodyl (Bisacodyl 5 Mg Tabec) 10 mg PO DAILY PRN PRN Reason: Constipation Stop: 07/27/22 04:12 Calcium/Vitamin D (Calcium 600mg + Vit D 400 Iu Tab) 1 tab PO BID [facility] Stop: 07/27/22 08:59 Last Admin: 06/28/22 21:29 Dose: 1 tab Clopidogrel Bisulfate (Clopidogrel Bisulfate 75 Mg Tab) 75 mg PO QAM [facility] Stop: 07/27/22 08:59 Last Admin: 06/28/22 11:10 Dose: 75 mg Docusate Sodium (Docusate Sodium 100 Mg Cap) 100 mg PO BID PRN PRN Reason: Constipation Stop: 07/27/22 04:12 Donepezil HCl (Donepezil Hcl 5 Mg Tab) 5 mg PO QDL [facility] Stop: 07/27/22 11:29 Last Admin: 06/28/22 13:49 Dose: 5 mg Cefepime HCl 2,000 mg/ Syringe 20 mls @ 5 mls/min IV Q12H [facility]; Protocol Stop: 07/04/22 08:59 Last Admin: 06/28/22 21:27 Dose: 5 mls/min Doxycycline Hyclate 100 mg/ (Dextrose) 110 mls @ 50 mls/hr IV Q12H [facility] Stop: 07/04/22 05:59 Last Admin: 06/29/22 06:11 Dose: 50 mls/hr Levothyroxine Sodium (Levothyroxine Sodium 50 Mcg Tablet) 50 mcg PO DAILYBB [facility] Stop: 07/27/22 06:29 Last Admin: 06/29/22 06:11 Dose: 50 mcg Nitroglycerin (Nitroglycerin Sl 0.4 Mg/Tab Tab) 0.4 mg SL UD PRN PRN Reason: Chest Pain Stop: 07/27/22 04:12 Ondansetron HCl (Ondansetron Inj 2 Mg/Ml 2 Ml Vial) 4 mg IV Q6H PRN PRN Reason: Nausea Stop: 07/27/22 04:12 Pantoprazole Sodium (Pantoprazole 40 Mg Tab) 40 mg PO QDL [facility] Stop: 07/27/22 11:29 Last Admin: 06/28/22 13:50 Dose: 40 mg Sucralfate (Sucralfate 1 Gm Tab) 1 gm PO QID [facility] Stop: 07/27/22 08:59 Last Admin: 06/28/22 21:27 Dose: 1 gm Vitamin B Complex (Vitamin B Complex Tab) 1 tab PO HS [facility] Stop: 07/27/22 20:59 Last Admin: 06/28/22 21:27 Dose: 1 tab (1) CAP (community acquired pneumonia) Laterality: unspecified laterality Qualified Code(s): J18.9 - Pneumonia, unspecified organism
[2022-06-28 10:50] LABS: Hematocrit (blood only) 34.7 % (34.1-44.9); Hemoglobin 10.9 g/dl (12.0-16.0); Mean Corpuscular Hemoglobin 26.3 pg (25.0-34.0); Mean Corpuscular Hgb Conc 31.4 g/dL (32.0-36.0); Mean Corpuscular Volume 83.8 fL (80.0-100.0); Mean Platelet Volume 9.8 fL (9.4-12.3); Platelet Count 230 K/uL (130-400); RDW Coefficient of Variation 14.4 % (11.5-14.5); RDW Standard Deviation 43.9 fL (36.4-46.3); Red Blood Count 4.14 M/uL (3.93-5.22); White Blood Count 9.27 K/ul (4.8-10.8)
[2022-06-28] MEDS: CEFEPIME 2,000 MG in SYRINGE 0 ML IV SCH ×2 (11:09→21:27)
[2022-06-28] MEDS: CLOPIDOGREL BISULFATE 75 MG TAB PO SCH (11:10)
[2022-06-28] MEDS: amLODIPine BESYLATE 5 MG TAB PO SCH (11:11)
[2022-06-28] MEDS: CALCIUM 600MG + VIT D 400 IU TAB PO SCH ×2 (11:12→21:29)
[2022-06-28] MEDS: SUCRALFATE 1 GM TAB PO SCH ×4 (11:13→21:27)
[2022-06-28 11:15] LABS: BUN Creatinine Ratio 12.9 (10-20); Calcium 9.1 mg/dl (8.5-10.1); Creatinine Clr Calc Pharmacy 48.4 ml/min; Est GFR (African American) 94.8 ml/min; Est GFR (Non-African American) 81.8 ml/min; Magnesium 1.9 mg/dl (1.7-2.4); Phosphorus 2.9 mg/dl (2.5-4.9); Potassium 3.3 mmol/L (3.5-5.1)
[2022-06-28] MEDS: DONEPEZIL HCL 5 MG TAB PO SCH (13:49)
[2022-06-28] MEDS: PANTOprazole 40 MG TAB PO SCH (13:50)
[2022-06-28] MEDS ORDERED: POTASSIUM CHLORIDE PWD 20 MEQ PACK PO ONE (14:35)
--- NOTE | 2022-06-28 21:15 | Ultrasound Report ---
US venous doppler UE RT CLINICAL HISTORY: right fore arm erythema, dvt? Superficial phlebitis PROCEDURE: Right upper extremity real-time compression venous ultrasound with Duplex and Color Dopple r imaging. Comparison: None available at the time of this dictation. FINDINGS: Utilizing real-time ultrasonic imaging multiple real time high-resolution ultrasonic images of the de ep venous system were performed from the forearm through the subclavian vein including evaluation of the jugular vein. Compression real time ultrasonic imaging was performed in addition to color Dopple r imaging and duplex Doppler ultrasound with velocity spectral profile analysis. There is normal compressibility of the deep venous system from the forearm through the subclavian vei n. Normal vascular flow is currently identified. There is a thrombus in the cephalic vein extending f rom the mid upper arm to the antecubital fossa measuring 8.4 cm in length. Impression: No deep venous thrombus. 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 ACT 112: Negative or not required by law. Electronically signed by: Tera Wong M.D. 06/28/2022 9:14 PM
[2022-06-28] MEDS: VITAMIN B COMPLEX TAB PO SCH (21:27)
[2022-06-28] MEDS: ATORVASTATIN 40 MG TAB PO SCH (21:28)
[2022-06-28] MEDS: ASPIRIN 81 MG ECTAB PO SCH (21:28)
[2022-06-29] MEDS: DOXYCYCLINE HYCLATE 100 MG in DEXTROSE 5% 100 ML IV SCH (06:11)
[2022-06-29] MEDS: LEVOTHYROXINE SODIUM 50 MCG TABLET PO SCH (06:11)
[2022-06-29 06:56] LABS: Hematocrit (blood only) 35.3 % (34.1-44.9); Hemoglobin 11.1 g/dl (12.0-16.0); Mean Corpuscular Hemoglobin 26.3 pg (25.0-34.0); Mean Corpuscular Hgb Conc 31.4 g/dL (32.0-36.0); Mean Corpuscular Volume 83.6 fL (80.0-100.0); Mean Platelet Volume 10.1 fL (9.4-12.3); Platelet Count 263 K/uL (130-400); RDW Coefficient of Variation 14.4 % (11.5-14.5); RDW Standard Deviation 43.9 fL (36.4-46.3); Red Blood Count 4.22 M/uL (3.93-5.22); White Blood Count 8.66 K/ul (4.8-10.8)
[2022-06-29 07:56] LABS: BUN Creatinine Ratio 13.6 (10-20); Calcium 9.1 mg/dl (8.5-10.1); Creatinine Clr Calc Pharmacy 38.5 ml/min; Est GFR (African American) 71.9 ml/min; Est GFR (Non-African American) 62.1 ml/min; Magnesium 1.9 mg/dl (1.7-2.4); Phosphorus 3.2 mg/dl (2.5-4.9); Potassium 3.8 mmol/L (3.5-5.1)
--- NOTE | 2022-06-29 08:45 | Hospitalist Progress Note ---
Date of Service June 29, 2022 Assessment & Plan (1) AMS (altered mental status): (2) CAP (community acquired pneumonia): Plan: 82-year-old female who was brought in because of questionable stroke-like symptoms as the patient was feeling weak and dragging the left leg at home and was found to have fever in the Emergency Room and nausea. 1. Weakness, fever, nausea: Urinalysis negative. Respiratory BioFire is negative. CT chest, questionable emphysema and questionable edema, possible pneumonia. Started on cefepime and doxycycline - cont. while inpt -> switch to PO levaquin now After antibiotics and fluids, as per the granddaughter, the patient is feeling better and she walked to the bathroom in the Emergency Room and she was not dragging the legs, looks like mostly back to baseline. Per family - pt back to baseline Brain MRI obtained to r/o CVA - 1. No acute intracranial findings. 2. 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 Per family at the bedside, patient has been coughing with eating/aspirating for the past week or so. Speech eval obtained. History of aspiration back in 2019 Video swallow study today ? Bacteremia 1 blood cultx out of 4 - coag neg staph not lugdunensis - most likely contaminant - repeat blood cultx so far negative - cont. antibiotics for now Continue to closely monitor Cephalic vein thrombus - mild redness noted overnight doppler obtained - showing SVT - IV now removed, cont. w/ PO meds -warm compress, ibuprofen, closely monitor - no edema, or pain - follow up w/ pcpc within 1 week 2. History of cerebrovascular accident: Continue her home aspirin, statin. 3. History of prediabetes: Follow HbA1c level 6.7% 4. History of hypothyroidism: Continue Synthroid. 5. History of dementia: Continue donepezil. Monitor for delirium. 6. History of gastroesophageal reflux disease: Continue Protonix. 7. History of hypertension: On amlodipine. We will monitor the blood pressure. DVT: heparin subq DISPOSITION:plan to DC home after video swallow Admission and Anticipated Discharge Date Admission Date: June 27, 2022 Subjective Pt seen in follow up of weakness, fever, hx of aspiration family present at the bedside. Family at the bedside and reports that patient is completely back to baseline. Pt is lying in bed, in no acute distress, comfortable Denies any fevers chills chest pain shortness of breath, headache or weakness Per family at the bedside, they report that patient coughs sometimes with food, now they are altering her liquids and she is better Swallow study ordered by speech therapy Overnight mild redness noted over RUE - doppler obtained Review of Systems Review of Systems: All systems reviewed & are unremarkable except as noted in Subjective Physical Exam Physical Exam: GENERAL: The patient is alert and awake, in NAD HEENT: Pupils equal, round and reactive to light. EOMI, Oral mucosa moist. NECK: No JVD or neck masses. CARDIOVASCULAR: S1 and S2 heard. Regular rate and rhythm. No murmur, no gallop. RESPIRATORY: Normal AP diameter. No accessory muscle use. No wheezing or crackles. ABDOMEN: Soft, bowel sounds present, nontender, no distention. NEURO: Alert and awake. Speech is clear. No facial droop. Moves extremities EXTREMITIES: No edema, no erythema. Results & Data Results & Data ([facility]) Vital Signs (Past 12 Hours) Vital Signs Temp Pulse Pulse Resp BP BP Pulse Ox 06/29/22 07:38 36.9 C 69 17 148/70 H 91 06/29/22 05:59 69 06/29/22 03:15 37.0 C 75 20 134/74 93 06/28/22 22:01 75 06/28/22 23:23 37.4 C 79 20 137/68 91 O2 Del Method 06/29/22 07:38 Room Air 06/29/22 05:59 06/29/22 03:15 Room Air 06/28/22 22:01 06/28/22 23:23 Room Air Laboratory Results 06/29/22 06/29/22 06/28/22 Range/Units 06:25 06:25 10:34 WBC 8.66 (4.8-10.8) K/ul RBC 4.22 (3.93-5.22) M/uL Hgb 11.1 L (12.0-16.0) g/dl Hct 35.3 (34.1-44.9) % MCV 83.6 (80.0-100.0) fL MCH 26.3 (25.0-34.0) pg MCHC 31.4 L (32.0-36.0) g/dL RDW Std Deviation 43.9 (36.4-46.3) fL RDW Coeff of Vivienne 14.4 (11.5-14.5) % Plt Count 263 (130-400) K/uL MPV 10.1 (9.4-12.3) fL Sodium 140 139 (136-145) mmol/L Potassium 3.8 3.3 L (3.5-5.1) mmol/L Chloride 107 104 (98-107) mmol/L Carbon Dioxide 25 28 (21-32) mmol/L Anion Gap 8 7 (3-11) BUN 12 9 (6-23) mg/dl Creatinine 0.88 0.70 (0.6-1.2) mg/dl Est Cr Clr Drug Dosing 38.5 48.4 ml/min Est GFR ( Amer) 71.9 94.8 ml/min Est GFR (Non-Af Amer) 62.1 81.8 ml/min BUN/Creatinine Ratio 13.6 12.9 (10-20) Glucose 117 H 136 H (70-99(Fasting)) mg/dl Calcium 9.1 9.1 (8.5-10.1) mg/dl Phosphorus 3.2 2.9 (2.5-4.9) mg/dl Magnesium 1.9 1.9 (1.7-2.4) mg/dl 06/28/ Range/Units 10:34 WBC 9.27 (4.8-10.8) K/ul RBC 4.14 (3.93-5.22) M/uL Hgb 10.9 L (12.0-16.0) g/dl Hct 34.7 (34.1-44.9) % MCV 83.8 (80.0-100.0) fL MCH 26.3 (25.0-34.0) pg MCHC 31.4 L (32.0-36.0) g/dL RDW Std Deviation 43.9 (36.4-46.3) fL RDW Coeff of Vivienne 14.4 (11.5-14.5) % Plt Count 230 (130-400) K/uL MPV 9.8 (9.4-12.3) fL Sodium (136-145) mmol/L Potassium (3.5-5.1) mmol/L Chloride (98-107) mmol/L Carbon Dioxide (21-32) mmol/L Anion Gap (3-11) BUN (6-23) mg/dl Creatinine (0.6-1.2) mg/dl Est Cr Clr Drug Dosing ml/min Est GFR ( Amer) ml/min Est GFR (Non-Af Amer) ml/min BUN/Creatinine Ratio (10-20) Glucose (70-99(Fasting)) mg/dl Calcium (8.5-10.1) mg/dl Phosphorus (2.5-4.9) mg/dl Magnesium (1.7-2.4) mg/dl Medications Administered Current Inpatient Medications Acetaminophen (Acetaminophen 325 Mg Tab) 650 mg PO Q4H PRN PRN Reason: Pain or Fever Stop: 07/27/22 04:12 Amlodipine Besylate (Amlodipine Besylate 5 Mg Tab) [facility] [place] Stop: 07/27/22 08:59 Last Admin: 06/28/22 11:11 Dose: 7.5 mg Aspirin (Aspirin 81 Mg Ectab) 81 mg PO HS [facility] Stop: 07/27/22 20:59 Last Admin: 06/28/22 21:28 Dose: 81 mg Atorvastatin Calcium (Atorvastatin 40 Mg Tab) 40 mg PO HS [facility] Stop: 07/27/22 20:59 Last Admin: 06/28/22 21:28 Dose: 40 mg Bisacodyl (Bisacodyl 5 Mg Tabec) 10 mg PO DAILY PRN PRN Reason: Constipation Stop: 07/27/22 04:12 Calcium/Vitamin D (Calcium 600mg + Vit D 400 Iu Tab) 1 tab PO BID [facility] Stop: 07/27/22 08:59 Last Admin: 06/28/22 21:29 Dose: 1 tab Clopidogrel Bisulfate (Clopidogrel Bisulfate 75 Mg Tab) 75 mg PO QAM [facility] Stop: 07/27/22 08:59 Last Admin: 06/28/22 11:10 Dose: 75 mg Docusate Sodium (Docusate Sodium 100 Mg Cap) 100 mg PO BID PRN PRN Reason: Constipation Stop: 07/27/22 04:12 Donepezil HCl (Donepezil Hcl 5 Mg Tab) 5 mg PO QDL [facility] Stop: 07/27/22 11:29 Last Admin: 06/28/22 13:49 Dose: 5 mg Cefepime HCl 2,000 mg/ Syringe 20 mls @ 5 mls/min IV Q12H [facility]; Protocol Stop: 07/04/22 08:59 Last Admin: 06/28/22 21:27 Dose: 5 mls/min Doxycycline Hyclate 100 mg/ (Dextrose) 110 mls @ 50 mls/hr IV Q12H [facility] Stop: 07/04/22 05:59 Last Admin: 06/29/22 06:11 Dose: 50 mls/hr Levothyroxine Sodium (Levothyroxine Sodium 50 Mcg Tablet) 50 mcg PO DAILYBB [facility] Stop: 07/27/22 06:29 Last Admin: 06/29/22 06:11 Dose: 50 mcg Nitroglycerin (Nitroglycerin Sl 0.4 Mg/Tab Tab) 0.4 mg SL UD PRN PRN Reason: Chest Pain Stop: 07/27/22 04:12 Ondansetron HCl (Ondansetron Inj 2 Mg/Ml 2 Ml Vial) 4 mg IV Q6H PRN PRN Reason: Nausea Stop: 07/27/22 04:12 Pantoprazole Sodium (Pantoprazole 40 Mg Tab) 40 mg PO QDL [facility] Stop: 07/27/22 11:29 Last Admin: 06/28/22 13:50 Dose: 40 mg Sucralfate (Sucralfate 1 Gm Tab) 1 gm PO QID [facility] Stop: 07/27/22 08:59 Last Admin: 06/28/22 21:27 Dose: 1 gm Vitamin B Complex (Vitamin B Complex Tab) 1 tab PO HS [facility] Stop: 07/27/22 20:59 Last Admin: 06/28/22 21:27 Dose: 1 tab (1) CAP (community acquired pneumonia) Laterality: unspecified laterality Qualified Code(s): J18.9 - Pneumonia, unspecified organism
[2022-06-29] MEDS: CEFEPIME 2,000 MG in SYRINGE 0 ML IV SCH (09:00)
[2022-06-29] MEDS ORDERED: IBUPROFEN 200 MG TAB PO STA (09:26)
[2022-06-29] MEDS ORDERED: HEPARIN SOD 5,000 UNIT/0.5 ML VIAL SQ SCH (09:30)
[2022-06-29] MEDS: amLODIPine BESYLATE 5 MG TAB PO SCH (09:33)
[2022-06-29] MEDS: DONEPEZIL HCL 5 MG TAB PO SCH (09:33)
[2022-06-29] MEDS: CALCIUM 600MG + VIT D 400 IU TAB PO SCH (09:33)
[2022-06-29] MEDS: CLOPIDOGREL BISULFATE 75 MG TAB PO SCH (09:33)
[2022-06-29] MEDS: SUCRALFATE 1 GM TAB PO SCH ×2 (09:34→11:19)
[2022-06-29] MEDS: PANTOprazole 40 MG TAB PO SCH (09:34)
--- NOTE | 2022-06-29 09:55 | Discharge Summary ---
Date of Service June 29, 2022 Admission HPI Per Admitting Provider This is an 82-year-old female with past medical history significant for CVA, hypertension, hyperlipidemia, dementia, GERD, diabetes, currently not on medication, hypothyroidism, history of perforated appendicitis in 05/2020 with secondary abscess. At that time, she was transferred to [facility]. The patient's havasupai language is Mike. Granddaughter is in the room who is translating for the patient and granddaughter states that she will stay with the patient. Today evening, the patient seemed to be dragging her left leg a little and they were worried about she was having TIA like symptoms and brought in here. In the waiting room, she vomited. In the ER, she was having spiking temperatures, there is no cough. No complaint of any chest pain or abdominal pain. Normal bowel and bladder movements. No headache, no neck pain. Granddaughter says sometimes when she eats, she coughs, not all the time, since her stroke. In the ER, she was able to go to the bathroom with her help. Usually, she walks with a cane and granddaughter seems to think that she is not dragging her left leg anymore now. CTA of the head seems to be unremarkable in the ER. All the history got from the granddaughter. Admission Exam Per Admitting Provider GENERAL: The patient is alert and awake, does not seem to be in acute distress. VITAL SIGNS: T-max 38.8, pulse 67, respiratory rate 18, blood pressure 103/64, oxygen 93% on room air. HEENT: Pupils equal, round and reactive to light. Oral mucosa moist. NECK: No JVD or neck masses. CARDIOVASCULAR: S1 and S2 heard. Regular rate and rhythm. No murmur, no gallop. RESPIRATORY SYSTEM: Normal AP diameter. No accessory muscle use. No wheezing or crackles. ABDOMEN: Soft, bowel sounds present, nontender, no distention. CENTRAL NERVOUS SYSTEM: Alert and awake. Speech is clear. No facial droop. Power 3-4/5 in all extremities. Obeys simple commands. EXTREMITIES: No edema, no erythema. Principal Diagnosis CAP weakness, fever hx of aspiration Discharge Exam GENERAL: The patient is alert and awake, in NAD HEENT: Pupils equal, round and reactive to light. EOMI, Oral mucosa moist. NECK: No JVD or neck masses. CARDIOVASCULAR: S1 and S2 heard. Regular rate and rhythm. No murmur, no gal lop. RESPIRATORY: Normal AP diameter. No accessory muscle use. No wheezing or crackles. ABDOMEN: Soft, bowel sounds present, nontender, no distention. NEURO: Alert and awake. Speech is clear. No facial droop. Moves extremities EXTREMITIES: No edema, no erythema. Discharge Data Allergies Allergy/AdvReac Type Severity Reaction Status Date / Time Penicillins Allergy Mild RASH Verified 06/27/22 02:46 Consultations 06/27/22 00:41 ED Decision to Admit Stat Ordered Studies 06/26/22 20:45 CT head/brain wo con Urgent FINDINGS: No acute intracranial hemorrhage, midline shift, intracranial mass, hydrocephalus, territorial ischemia or abnormal extra-axial collection. Involutional changes with chronic microvascular ischemic disease. White matter hypodensities suggest chronic microvascular ischemic disease. Chronic lacunar infarcts of the basal ganglia and jozef. The calvarium is intact. The paranasal sinuses, mastoid air cells, and middle ear cavities are clear. IMPRESSION: No acute intracranial abnormality. 06/26/22 21:30 CT angio head w con Urgent CTA Head: The anterior and posterior cerebral circulations are patent. No hemodynamically significant stenosis, aneurysm, dissection, or arteriovenous malformation is shown. IMPRESSION: No occlusion, hemodynamically significant stenosis, aneurysm, dissection, or a rteriovenous malformation in the major intracranial arteries. CT angio neck with con Urgent FINDINGS: Atherosclerotic plaque of the thoracic aortic arch and proximal great vessels. The innominate and imaged subclavian arteries appear patent. The common and internal carotid arteries are patent. Partially imaged mild stenosis of the middle cerebral arteries. The vertebral arteries are codominant. 50% stenosis is noted at the origin of the right vertebral artery. No aneurysm, dissection, high-grade stenosis or arterial occlusion identified. Mild groundglass densities of the lung apices. No pneumothorax. Prior bilateral lens repair. Streak artifact from dental amalgam hardware. Trace right mastoid effusion. Degenerative changes of the cervical spine. IMPRESSION:Unremarkable CTA of the neck. 06/26/22 21:39 CT Abd and Pelvis [CT abd pelvis IV con only] Urgent FINDINGS: Limited exam secondary to upper extremity positioning. Cardiomegaly with coronary artery calcifications. Trace pericardial effusion. Mild dependent bibasilar consolidation. No pneumatosis or pneumoperitoneum identified. Unremarkable spleen, moderately atrophic pancreas, gallbladder and adrenal glands. Mild right hemidiaphragmatic elevation. The liver is within normal limits. Cortical scarring of the kidneys, left greater than right. No hydronephrosis identified. The previously questioned 1.2 cm lesion of the left kidney is not identified on today's study. Unremarkable urinary bladder. Hysterectomy. Atherosclerosis of the abdominal aorta. Fusiform dilation of the aorta at the level of diaphragmatic hiatus measures up to 3.2 cm transversely. No lymphadenopathy identified. No bowel obstruction or bowel wall thickening. There is moderate fecal retention of the rectosigmoid. Colonic diverticulosis without acute diverticulitis. Normal appendix. Degenerative changes of the spine, pelvis and hips. There is moderate to severe intervertebral disc space narrowing at the L3-L4 and L4-L5 levels. Healed chronic fracture left inferior pubic ramus. Chronic L1 compression fracture. Mild T12 wedge deformity without retropulsion or significant paravertebral edema. IMPRESSION: 1. Mild dependent subsegmental bibasilar consolidative opacities favor atelectasis. A mild nonspecific pneumonitis considered less likely. 2. No bowel obstruction or bowel wall thickening. 3. Moderate rectal fecal retention. 4. Colonic diverticulosis. 5. Mild T12 compression deformity without retropulsion is new from the 05/31/2020 exam, likely subacute. 6. Additional findings as above. CT angio chest PE protocol Urgent FINDINGS: Lungs and pleura: Atelectasis versus scarring is seen in the dependent portions of the lungs. Heart and pericardium: Mitral annular calcifications are seen. Vessels: No evidence of pulmonary embolism. There are atherosclerotic disease is seen. Mediastinum and latoya: Unremarkable. Chest wall and lower neck: Unremarkable. Abdomen: Unremarkable. Bones: Degenerative changes in the thoracic spine. IMPRESSION: No evidence of pulmonary embolism. 06/27/22 09:36 MRI Brain [MR brain wo con] Routine FINDINGS: There are no foci of restricted diffusion to suggest acute infarct. A small hyperintense focus within the right aspect of the jozef on axial diffusion- weighted sequence image is unchanged since prior exam. This corresponds to a small infarct which is now chronic. There are 2 old pontine infarct. There is a 1.6 cm left basal ganglia infarct which is also unchanged. Ventricular system is stable. Basal cisterns are patent. There are no extra-axial collections. White matter T2 hyperintense foci favor mild small vessel disease. There is moderate atrophy. No intracranial masses identified on this unenhanced exam. Flow-voids for the major intracranial vessels are present. There is no evidence for sinusitis. Calvarial signal is normal. IMPRESSION: 1. No acute intracranial findings. 2. 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 06/28/22 19:47 US venous doppler UE RT Urgent Impression: No deep venous thrombus. 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 06/29/22 13:15 FL video swallow Routine Hospital Course (1) AMS (altered mental status): (2) CAP (community acquired pneumonia): 82-year-old female who was brought in because of questionable stroke-like symptoms as the patient was feeling weak and dragging the left leg at home and was found to have fever in the Emergency Room and nausea. 1. Weakness, fever, nausea: Urinalysis negative. Respiratory BioFire is negative. CT chest, questionable emphysema and questionable edema, possible pneumonia. Started on cefepime and doxycycline - cont. while inpt -> switch to PO levaquin now After antibiotics and fluids, as per the granddaughter, the patient is feeling better and she walked to the bathroom in the Emergency Room and she was not dragging the legs, looks like mostly back to baseline. Per family - pt back to baseline Brain MRI obtained to r/o CVA - 1. No acute intracranial findings. 2. 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 Per family at the bedside, patient has been coughing with eating/aspirating for the past week or so. Speech eval obtained. History of aspiration back in 2019 Video swallow study today, appreciate their input ? Bacteremia 1 blood cultx out of 4 - coag neg staph not lugdunensis - most likely contaminant - repeat blood cultx so far negative - cont. antibiotics for now Continue to closely monitor Cephalic vein thrombus - mild redness noted overnight doppler obtained - showing SVT - IV now removed, cont. w/ PO meds -warm compress, ibuprofen, closely monitor - no edema, or pain - follow up w/ pcpc within 1 week 2. History of cerebrovascular accident: Continue her home aspirin, statin. 3. History of prediabetes: Follow HbA1c level 6.7% 4. History of hypothyroidism: Continue Synthroid. 5. History of dementia: Continue donepezil. Monitor for delirium. 6. History of gastroesophageal reflux disease: Continue Protonix. 7. History of hypertension: On amlodipine. We will monitor the blood pressure. Total Time Total Time Spent Total Time Spent (In Minutes): 40 Discharge Plan Discharge Items Patient Disposition: Home - Home Health Services Reason For Visit: WEAKNESS Discharge Diagnosis: CAP weakness, fever hx of aspiration Condition on Discharge: Fair Activity: Per Instructions section Non-emergency contact: Primary Care Provider Call non-emergency contact if: you have any medication questions and your symptoms worsen Follow-up/Referrals: Merced Mcgraw MD [Primary Care Provider] - Diet: Carb Consistent or DM2, Heart Healthy and Other - See Diet Comment Diet Texture: Easy to Chew Diet Comment: Follow instructions by speech therapist. Aspiration precautions. Addtl Attending Provider Instructions: Follow-up with primary care physician within 1 week. Finish antibiotic treatment with Levaquin as prescribed. Pending Studies at Discharge: Yes Studies:: final blood cultx Stand-Alone Forms: JDCPhosphate, Smoking Cessation Medications and DC Order Prescriptions: New levofloxacin 750 mg Tablet 750 mg PO Q2D Qty: 2 0RF Rx Instructions: Take first one on 07/01 in the morning Continued donepezil [Aricept] 5 mg Tablet 5 mg PO QDL levothyroxine 50 mcg tablet 50 mcg PO DAILYBB amlodipine 2.5 mg tablet 7.5 mg PO QAM Rx Instructions: TAKE THREE TABLETS DAILY atorvastatin 40 mg tablet 40 mg PO HS sucralfate 1 gram tablet 1 g PO QID calcium carbonate-vitamin D3 600 mg(1,500mg) -200 unit Tablet 1 tab PO BID vitamin B complex Tablet 1 tab PO HS aspirin 81 mg Tablet,Delayed Release (Dr/Ec) 81 mg PO HS bisacodyl [Dulcolax (bisacodyl)] 5 mg Tablet,Delayed Release (Dr/Ec) 5 - 10 mg PO DAILY PRN (Reason: Constipation) pantoprazole 40 mg Tablet,Delayed Release (Dr/Ec) 40 mg PO QDL Qty: 30 1RF sertraline 50 mg tablet 50 mg PO HS Discharge Orders: Discharge Order (Routine); Ordered 06/29/22 Ordered By: Gabo Whitmore/Other Patient Handouts: A1C, Dysphagia: Exercises, Dysphagia Bedside Swallow Exam, Dysphagia Tongue Exercises, Dysphagia Aspiration Tx Admission Data Admit Date/Time: 06/27/22 01:06 Attending Provider: Gabo Villegas Admit Provider: Espinoza Guan Primary Care Provider: Merced Mcgraw Other Providers: Espinoza Guan ; [facility] Other Interventions: Discharge Summary Assessment (RN) Last Done: 06/29/22 14:07
[2022-06-29] MEDS ORDERED: levoFLOXacin 750 MG TAB PO SCH ×2 (11:00)
--- NOTE | 2022-06-29 15:04 | Fluoroscopy Report ---
FL video swallow CLINICAL HISTORY: r/o aspiration TECHNIQUE: Video fluoroscopy of the pharyngeal region was performed as barium mixtures of varying con sistencies were administered to the patient by the speech pathologist. A formal esophagram was not pe rformed. Comparison: None available at the time of this dictation. FINDINGS: Total fluoroscopy time: 2.1 minutes. The patient swallowed the different barium consistencies without difficulty. Aspiration was seen with mildly thick liquids. Pooling of barium was noted in the bilateral piriform sinuses and valleculae. IMPRESSION: Aspiration was seen with mildly thick liquids. Please see the speech pathology report for further details. ACT 112: Negative or not required by law. Electronically signed by: Tera Wong M.D. 06/29/2022 3:02 PM
== END 2022-06-29 14:30 | disposition home health service (06) | DRG 194 ==
LOC: ED 20:37 → EDINP 06-27 01:06 → 2W 06-28 04:13

== ENCOUNTER 2023-11-15 10:47 | Observation (INO) ==
--- NOTE | 2023-11-15 11:16 | Emergency Department Note ---
Impression & Plan Confusion, Hypokalemia, Ambulatory dysfunction ED Provider Note NAME: CORA OJEDA AGE: 83 SEX: F : 1940 ARRIVES VIA: Ambulance INFORMANT: Patient, family ED PROVIDER(S): John Armas DO CHIEF COMPLAINT: Slurred speech and increased urinary frequency HPI: Patient is an 83-year-old female with a past medical history of altered mental status, CVA, complicated UTI, appendicitis, depression and hypertension that presents to the ER with family at bedside. Patient has dementia and is unable to give any history and consequently history is limited. Per family who are present at bedside they gave additional history that patient has had increased urinary frequency since yesterday. They note that she had some slurred speech earlier today when she woke up but that has resolved. Patient denies any belly pain or head pain. They have noted no cough or congestion. ADDITIONAL HISTORY OBTAINED: Per family who are present at bedside they gave additional history that patient has had increased urinary frequency since yesterday. They note that she had some slurred speech earlier today when she woke up but that has resolved Chronic Medical/Social Conditions Affecting Care: Per HPI PAST MEDICAL HISTORY:See Below PAST SURGICAL HISTORY:See Below FAMILY HISTORY:See Below SOCIAL HISTORY:See Below HOME MEDICATIONS:See Below ALLERGIES:See Below VITALS:See Below PHYSICAL EXAMINATION: GENERAL: Sitting up in bed, alert, well appearing, well nourished, no distress, non-toxic EYE EXAM: normal conjunctiva. PERRL and EOM's grossly intact. OROPHARYNX: no exudate, no erythema, lips, buccal mucosa, and tongue normal and mucous membranes are moist NECK: supple, no nuchal rigidity, no adenopathy, non-tender LUNGS: Clear to auscultation. Normal chest wall mechanics HEART: no murmurs, S1 normal and S2 normal ABDOMEN: abdomen soft, non-tender, normo-active bowel sounds, no masses, no rebound or guarding. BACK: Back is symmetrical on inspection and there is no deformity, no midline tenderness, no CVA tenderness. SKIN: no rashes and no bruising UPPER EXTREMITIES: upper extremities are grossly normal. LOWER EXTREMITIES: No pitting edema. NEURO EXAM: Oriented to family but not place or time, cranial nerves II-XII intact, normal speech, no weakness of arms, no weakness of legs. No drift. Unable to perform [id number] gross sensation intact. MEDICAL DECISION MAKING: Patient is an 83-year-old female who presents ER for the above-stated complaint. IV was established blood work was obtained. Labs show no significant leukocytosis or anemia. INR unremarkable. BMP with mild hypokalemia 3.4. LFTs bilirubin was unremarkable. Troponin was negative. Pro-Sourav normal. UA was clean. CT of the head and neck were negative. Chest x-ray was unremarkable. Patient was unable to ambulate which is still new. She is difficult exam due to dementia and does not give any history. She was discussed with the hospitalist for further evaluation management treatment. Consults/Care Managements Discussions: Per [facility] Triage Nursing notes reviewed. Limited review of prior medical records performed Vital Signs: reviewed and remarkable for no significant abnormalities Differential diagnosis: Differential diagnosis includes etiologies such as sepsis, UTI, pneumonia, metabolic, electrolyte abnormalities, cardiac sources, intracerebral event, toxicologic, neurological, as well as others were entertained. ER treatment provided: See below Diagnostics interpreted by me include EKG and cardiac monitoring as listed below: -Cardiac Monitoring: An order was placed for continuous cardiac monitoring. The monitor shows a rate of 70 with sinus rhythm. -ECG: Sinus rhythm rate 73 Normal axis No PVCs Poor baseline inferior leads QTc 396 -Laboratory studies:Interpreted by me as stated above in MDM and shown below. Imaging studies: Xrays: As interpreted by me: Portable AP upright 1 view of the chest shows no focal right CTs show: CT angios of the head and neck as described above are negative Procedures:none Critical Care: None Past Med/Surg History Problem List (Updated 11/15/23 @ 17:56 by John Armas DO) Ambulatory dysfunction (Acute) Hypokalemia (Acute) Confusion (Acute) CAP (community acquired pneumonia) (Acute) AMS (altered mental status) (Acute) CVA (cerebral vascular accident) Complicated UTI (urinary tract infection) AMS (altered mental status) (Acute) Encounter for pre-operative examination Colon cancer screening Aphasia (Acute) Left-sided weakness (Acute) UTI (urinary tract infection) Acute perforated appendicitis Acute appendicitis (Acute) Dyslipidemia GERD (gastroesophageal reflux disease) Depression Hypertension Abnormal CT scan, kidney Dementia Alert & Oriented x3. "loose train of thought and has trouble putting words together at times". Cerebrovascular disease stroke L caudate before 2012; TIA 2013; stroke jozef 2019 (treated at [facility]) Dysphagia Dysphagia due to stroke. Thickened liquids. Medical History Transient ischemic attack (TIA) 2013 COVID-19 ruled out Discharge planning issues DVT prophylaxis Hypokalemia Stroke hx of stroke (2013 & 2019) treated at [facility]. dysphagia since stroke 2019 -- uses thickening for liquids. Pre-diabetes family denies Osteoporosis Osteoarthritis H/O blood clots possibly in 2019? family unsure of specifics. Surgical History History of colonoscopy H/O: hysterectomy Family History Father Diabetes Son Diabetes Hypertension Sister Cancer ? primary Other No family history of adverse response to anesthesia Social History Smoking Status: Unknown if ever smoked Second Hand Exposure: No; Do You Dip or Chew Tobacco: No; Hx Alcohol Use: No Hx Substance Use: No Preferred Language: Mike Communication Ability: Impaired Communication Ability Comment: grand-daughter to translate per family request. Communication Tools: IPad, Language Line Bench Shear Operator, Physical Gestures and Other Bench Shear Operator Required: Yes Beliefs That Will Affect Care: None marital status: Current Living Situation: Family current occupational status: retired Feels Safe at Home: Yes Assistive Devices: Walker and Wheelchair Allergies Allergies Allergy/AdvReac Type Severity Reaction Status Date / Time Penicillins Allergy Mild RASH Verified 11/15/23 17:41 Home Meds Home Medications Medication Instructions Recorded Confirmed donepezil 5 mg tablet (Aricept) 5 mg PO QDB 07/15/18 11/15/23 levothyroxine 50 mcg tablet 50 mcg PO DAILYBB 07/15/18 11/15/23 amlodipine 2.5 mg tablet 7.5 mg PO QAM 05/28/20 11/15/23 atorvastatin 40 mg tablet 40 mg PO QAM 08/25/20 11/15/23 calcium carbonate 600 mg-vitamin 1 tab PO BID 08/25/20 11/15/23 D3 5 mcg (200 unit) tablet sucralfate 1 gram tablet 1 g PO QID 08/25/20 11/15/23 vitamin B complex 1 tab PO HS 08/25/20 11/15/23 aspirin 81 mg tablet,delayed 81 mg PO HS 04/07/22 11/15/23 release sertraline 50 mg tablet 50 mg PO HS 06/27/22 11/15/23 atorvastatin 20 mg tablet 20 mg PO QAM 07/02/23 11/15/23 ferrous sulfate 325 mg (65 mg 325 mg PO .EVERY OTHER DAY 07/02/23 11/15/23 iron) tablet docusate sodium 100 mg capsule 100 mg PO HS 11/15/23 11/15/23 (Stool Softener) pantoprazole 40 mg tablet,delayed 40 mg PO QDB 11/15/23 11/15/23 release Results & Data (ED) Vital Signs Vital Signs - 24 hr 11/15/23 10:56 11/15/23 10:57 11/15/23 10:57 Temperature 37.7 C H Temperature Source Oral Pulse Rate 70 94 H Pulse Rate [Apical] Pulse Rate from SpO2 Sensor 90 Respiratory Rate 23 23 Respiratory Effort / Characteristics Non-Labored Respiratory Depth Normal Blood Pressure 138/81 Blood Pressure [Left Arm] Blood Pressure Mean 100 Blood Pressure Mean [Left Arm] Pulse Oximetry 92 93 93 Oxygen Delivery Method Room Air Room Air Oxygen Flow Rate 0 Sepsis Recent Fever Within 48 Hours No Sepsis New/Unexplained Change in Mental Status N/A Sepsis Action Taken by Nursing No Action Required 11/15/23 11:00 11/15/23 11:00 11/15/23 11:10 Temperature Temperature Source Pulse Rate 93 H 97 H Pulse Rate [Apical] Pulse Rate from SpO2 Sensor 83 Respiratory Rate 38 H 22 Respiratory Effort / Characteristics Respiratory Depth Blood Pressure 120/65 Blood Pressure [Left Arm] Blood Pressure Mean 82 Blood Pressure Mean [Left Arm] Pulse Oximetry 92 Oxygen Delivery Method Oxygen Flow Rate Sepsis Recent Fever Within 48 Hours Sepsis New/Unexplained Change in Mental Status Sepsis Action Taken by Nursing 11/15/23 11:20 11/15/23 11:21 11/15/23 11:30 Temperature Temperature Source Pulse Rate 77 Pulse Rate [Apical] 70 Pulse Rate from SpO2 Sensor Respiratory Rate 19 16 Respiratory Effort / Characteristics Respiratory Depth Blood Pressure 122/68 Blood Pressure [Left Arm] 120/65 Blood Pressure Mean 79 Blood Pressure Mean [Left Arm] 83 Pulse Oximetry 96 Oxygen Delivery Method Room Air Oxygen Flow Rate Sepsis Recent Fever Within 48 Hours Sepsis New/Unexplained Change in Mental Status Sepsis Action Taken by Nursing 11/15/23 11:30 11/15/23 11:40 11/15/23 11:50 Temperature Temperature Source Pulse Rate 74 77 77 Pulse Rate [Apical] Pulse Rate from SpO2 Sensor Respiratory Rate 23 21 20 Respiratory Effort / Characteristics Respiratory Depth Blood Pressure Blood Pressure [Left Arm] Blood Pressure Mean Blood Pressure Mean [Left Arm] Pulse Oximetry 99 Oxygen Delivery Method Oxygen Flow Rate Sepsis Recent Fever Within 48 Hours Sepsis New/Unexplained Change in Mental Status Sepsis Action Taken by Nursing 11/15/23 12:00 11/15/23 12:00 11/15/23 12:07 Temperature Temperature Source Pulse Rate 65 65 Pulse Rate [Apical] Pulse Rate from SpO2 Sensor Respiratory Rate 25 H Respiratory Effort / Characteristics Respiratory Depth Blood Pressure 139/64 Blood Pressure [Left Arm] Blood Pressure Mean 80 Blood Pressure Mean [Left Arm] Pulse Oximetry Oxygen Delivery Method Oxygen Flow Rate Sepsis Recent Fever Within 48 Hours Sepsis New/Unexplained Change in Mental Status Sepsis Action Taken by Nursing 11/15/23 12:10 11/15/23 12:20 11/15/23 12:56 Temperature Temperature Source Pulse Rate 63 66 78 Pulse Rate [Apical] Pulse Rate from SpO2 Sensor Respiratory Rate 23 21 22 Respiratory Effort / Characteristics Respiratory Depth Blood Pressure Blood Pressure [Left Arm] Blood Pressure Mean Blood Pressure Mean [Left Arm] Pulse Oximetry Oxygen Delivery Method Oxygen Flow Rate Sepsis Recent Fever Within 48 Hours Sepsis New/Unexplained Change in Mental Status Sepsis Action Taken by Nursing 11/15/23 13:00 11/15/23 13:00 11/15/23 13:10 Temperature Temperature Source Pulse Rate 65 77 Pulse Rate [Apical] Pulse Rate from SpO2 Sensor Respiratory Rate 21 26 H Respiratory Effort / Characteristics Respiratory Depth Blood Pressure 148/63 H Blood Pressure [Left Arm] Blood Pressure Mean 92 Blood Pressure Mean [Left Arm] Pulse Oximetry Oxygen Delivery Method Oxygen Flow Rate Sepsis Recent Fever Within 48 Hours Sepsis New/Unexplained Change in Mental Status Sepsis Action Taken by Nursing 11/15/23 13:20 11/15/23 13:30 11/15/23 13:30 Temperature Temperature Source Pulse Rate 83 79 Pulse Rate [Apical] Pulse Rate from SpO2 Sensor Respiratory Rate 18 21 Respiratory Effort / Characteristics Respiratory Depth Blood Pressure 137/72 Blood Pressure [Left Arm] Blood Pressure Mean 79 Blood Pressure Mean [Left Arm] Pulse Oximetry Oxygen Delivery Method Oxygen Flow Rate Sepsis Recent Fever Within 48 Hours Sepsis New/Unexplained Change in Mental Status Sepsis Action Taken by Nursing 11/15/23 13:40 11/15/23 13:50 11/15/23 14:00 Temperature Temperature Source Pulse Rate 80 78 82 Pulse Rate [Apical] Pulse Rate from SpO2 Sensor Respiratory Rate 16 20 21 Respiratory Effort / Characteristics Respiratory Depth Blood Pressure Blood Pressure [Left Arm] Blood Pressure Mean Blood Pressure Mean [Left Arm] Pulse Oximetry Oxygen Delivery Method Oxygen Flow Rate Sepsis Recent Fever Within 48 Hours Sepsis New/Unexplained Change in Mental Status Sepsis Action Taken by Nursing 11/15/23 14:00 11/15/23 14:10 11/15/23 14:20 Temperature Temperature Source Pulse Rate 72 83 Pulse Rate [Apical] Pulse Rate from SpO2 Sensor Respiratory Rate 23 15 Respiratory Effort / Characteristics Respiratory Depth Blood Pressure 144/72 H Blood Pressure [Left Arm] Blood Pressure Mean 81 Blood Pressure Mean [Left Arm] Pulse Oximetry Oxygen Delivery Method Oxygen Flow Rate Sepsis Recent Fever Within 48 Hours Sepsis New/Unexplained Change in Mental Status Sepsis Action Taken by Nursing 11/15/23 14:30 11/15/23 14:30 11/15/23 14:40 Temperature Temperature Source Pulse Rate 83 70 Pulse Rate [Apical] Pulse Rate from SpO2 Sensor Respiratory Rate 19 21 Respiratory Effort / Characteristics Respiratory Depth Blood Pressure 133/67 Blood Pressure [Left Arm] Blood Pressure Mean 79 Blood Pressure Mean [Left Arm] Pulse Oximetry Oxygen Delivery Method Oxygen Flow Rate Sepsis Recent Fever Within 48 Hours Sepsis New/Unexplained Change in Mental Status Sepsis Action Taken by Nursing 11/15/23 14:50 11/15/23 15:00 11/15/23 15:00 Temperature Temperature Source Pulse Rate 83 71 Pulse Rate [Apical] Pulse Rate from SpO2 Sensor Respiratory Rate 21 20 Respiratory Effort / Characteristics Respiratory Depth Blood Pressure 138/63 Blood Pressure [Left Arm] Blood Pressure Mean 91 Blood Pressure Mean [Left Arm] Pulse Oximetry Oxygen Delivery Method Oxygen Flow Rate Sepsis Recent Fever Within 48 Hours Sepsis New/Unexplained Change in Mental Status Sepsis Action Taken by Nursing 11/15/23 15:10 11/15/23 15:22 11/15/23 15:22 Temperature Temperature Source Pulse Rate 84 71 Pulse Rate [Apical] Pulse Rate from SpO2 Sensor 74 Respiratory Rate 18 20 Respiratory Effort / Characteristics Respiratory Depth Blood Pressure 153/70 H Blood Pressure [Left Arm] Blood Pressure Mean 122 Blood Pressure Mean [Left Arm] Pulse Oximetry 90 Oxygen Delivery Method Oxygen Flow Rate Sepsis Recent Fever Within 48 Hours Sepsis New/Unexplained Change in Mental Status Sepsis Action Taken by Nursing 11/15/23 15:30 11/15/23 16:37 Temperature Temperature Source Pulse Rate 93 H 77 Pulse Rate [Apical] Pulse Rate from SpO2 Sensor 92 H Respiratory Rate 20 Respiratory Effort / Characteristics Respiratory Depth Blood Pressure Blood Pressure [Left Arm] Blood Pressure Mean Blood Pressure Mean [Left Arm] Pulse Oximetry 92 Oxygen Delivery Method Oxygen Flow Rate Sepsis Recent Fever Within 48 Hours Sepsis New/Unexplained Change in Mental Status Sepsis Action Taken by Nursing Laboratory Data 11/15/23 11:10 11/15/23 11:10 Lab Results 11/15/23 11/15/23 Range/Units 11:10 12:08 WBC 8.76 (4.8-10.8) K/ul RBC 5.23 (4.20-5.40) M/uL Hgb 13.4 (12.0-16.0) g/dl Hct 44.1 (37.0-47.0) % MCV 84.3 (80.0-100.0) fL MCH 25.6 (25.0-34.0) pg MCHC 30.4 L (32.0-36.0) g/dL RDW Std Deviation 48.8 H (36.4-46.3) fL RDW Coeff of Vivienne 15.9 H (11.5-14.5) % Plt Count 297 (130-400) K/uL MPV 10.0 (9.4-12.4) fL Immature Gran % (Auto) 0.5 % Neut % (Auto) 70.9 % Lymph % (Auto) 19.7 % [place] % (Auto) 6.8 % Eos % (Auto) 1.9 % Baso % (Auto) 0.2 % Neut # (Auto) 6.20 (1.40-6.50) K/uL Lymph # (Auto) 1.73 (1.20-3.40) K/uL [place] # (Auto) 0.60 H (0.11-0.59) K/uL Eos # (Auto) 0.17 (0.00-0.50) K/uL Baso # (Auto) 0.02 (0.00-0.20) K/uL Immature Gran # (Auto) 0.04 (0.01-0.20) K/uL PT 10.7 (9.0-12.0) Seconds INR 1.0 (0.9-1.1) APTT 26 (21-31) Seconds PTT Ratio 1.0 Sodium 139 (136-145) mmol/L Potassium 3.4 L (3.5-5.1) mmol/L Chloride 101 (98-107) mmol/L Carbon Dioxide 30 (21-32) mmol/L Anion Gap 8 (3-11) BUN 14 (6-23) mg/dl Creatinine 0.86 (0.6-1.2) mg/dl Est Cr Clr Drug Dosing 46.1 ml/min Est GFR ( Amer) 73.4 ml/min Est GFR (Non-Af Amer) 63.4 ml/min BUN/Creatinine Ratio 16.3 (10-20) Glucose 162 H (70-99(Fasting)) mg/dl Lactate 0.9 (0.4-2.0) mmol/L Calcium 9.8 (8.6-10.3) mg/dl Magnesium 1.9 (1.7-2.4) mg/dl Total Bilirubin 0.5 (0.2-1.0) mg/dl AST 22 (13-39) U/L ALT 15 (7-52) U/L Alkaline Phosphatase 104 (34-104) U/L Troponin I High Sens 8.4 (0-14) pg/ml Total Protein 8.3 (6.0-8.3) gm/dl Albumin 4.4 (3.4-5.0) gm/dl Globulin 3.9 (2.5-4.0) gm/dl Albumin/Globulin Ratio 1.1 (0.9-2) Procalcitonin < 0.02 (0-0.5) ng/ml Urine Color Yellow Urine Appearance Clear (Clear) Urine pH 8.5 H (4.5-7.5) Ur Specific [place] 1.020 (1.000-1.030) Urine Protein Negative (Negative) Urine Glucose (UA) Negative (Negative) Urine Ketones Negative (Negative) Urine Blood Negative (Negative) Urine Nitrite Negative (Negative) Urine Bilirubin Negative (Negative) Urine Urobilinogen Negative (Negative) Ur Leukocyte Esterase Negative (Negative) Administered Medications Discontinued Medications Ioversol (Optiray 320 125ml) 120 ml IV ONCE ONE Stop: 11/15/23 15:37 Last Admin: 11/15/23 15:36 Dose: 120 ml Documented By: DEMETRIA Imaging Data Radiologist's Impression: Chest X-Ray 11/15/23 11:13 SINGLE VIEW CHEST CLINICAL HISTORY: Neurological deficit. Stroke like symptoms. FINDINGS: An AP, portable, upright chest radiograph is compared to study dated 06/27/2022 and correlated with chest CT dated 06/26/2022. The patient's head partially obscures the apices. The heart is enlarged noting atherosclerotic calcification of the thoracic aorta. The pulmonary vasculature is noncongested. There is chronic elevation of the right hemidiaphragm with bibasilar scarring/atelectasis. No airspace consolidation or large pleural effusion is identified. There are scattered calcific granulomas. No pneumothorax is seen. The skeletal structures are osteopenic. The bony thorax is grossly intact. IMPRESSION: Cardiomegaly with no acute cardiopulmonary abnormality identified. ACT 112: Negative or not required by law. Electronically signed by: Shaheen Lopez M.D. 11/15/2023 11:[address] 11/15/23 11:13 CT head/brain wo con CLINICAL HISTORY: 83 years-old Female with neuro deficit, acute stroke suspected. Acute strokelike symptoms TECHNIQUE: Multiple axial CT images of the head were obtained without contrast. A dose lowering technique was utilized adhering to the principles of ALARA. COMPARISON: Brain MRI 06/27/2022 FINDINGS: No acute intracranial hemorrhage, midline shift, intracranial mass, hydrocephalus, territorial ischemia or abnormal extra-axial collection. Involutional changes with chronic microvascular ischemic disease. 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 The calvarium is intact. Prior bilateral lens repair. The paranasal sinuses, mastoid air cells, and middle ear cavities are clear. IMPRESSION: No acute intracranial abnormality identified. ACT 112: Negative or not required by law. The above report was generated using voice recognition software. It may contain grammatical, syntax or spelling errors. Electronically signed by: Melchor Rangel M.D. 11/15/2023 2:52 PM Head CTA 11/15/23 15:25 CT ANGIOGRAM OF THE BRAIN; CT ANGIOGRAM OF THE NECK CLINICAL HISTORY: Strokelike symptoms. COMPARISON STUDY: Unenhanced CT of the brain performed the same day 11/15/2023. CT angiogram of the head and neck dated 06/26/2022. TECHNIQUE: Following the IV administration of 120 of Optiray 320, CT angiogram of the head and neck was performed from the aortic arch to the vertex. Images are reviewed in the axial, sagittal, and coronal planes. 3-D MIPS images are created and assessed. IV contrast was administered without complication. All measurements were calculated based on NASCET criteria. A dose lowering technique was utilized adhering to the principles of ALARA. CT DOSE: 402.95 mGy.cm FINDINGS: Brain parenchyma: There is age-related involutional change noting [id number] subcortical and periventricular microangiopathic disease. There is no evidence of hemorrhage, mass effect, or acute territorial ischemia noting angiographic phase technique. There is no evidence of enhancing mass lesion on the angiogram phase images. A chronic lacunar infarct is noted in the left caudate head. The ventricles, sulci, and cisterns are prominent secondary to positional change. Villagran-white matter differentiation is preserved. No extra- axial fluid collection is seen. Thoracic aorta: There is atherosclerotic calcification of the thoracic air. Visualized portions of the thoracic aorta are normal in caliber. The aortic arch demonstrates standard 3-vessel anatomy. Right carotid arterial system: The right common carotid artery is widely patent, as are the right internal and external carotid arteries. Left carotid arterial system: The left common carotid artery is widely patent, as are the left internal and external carotid arteries. Calcified plaque is noted in the carotid bulb. Vertebral arteries: The vertebral arteries are widely patent bilaterally and codominant. Subclavian arteries: Widely patent bilaterally. Intracranial vasculature: There is atherosclerotic calcification of the cavernous carotid arteries. The internal carotid arteries are patent at the skull base, as are the anterior and middle cerebral arteries bilaterally. The vertebrobasilar system and posterior cerebral arteries are patent. The vertebral arteries are codominant. There is an aneurysm, high-grade stenosis, or focal vessel cutoff seen throughout the intracranial circulation. Jugular veins: Patent bilaterally. Dural sinuses: Patent. Lung apices: Partially visualized upper lobe lung parenchyma appears clear. Soft tissues: The visualized pharyngeal soft tissues are normal in appearance noting angiographic phase technique. The oropharyngeal airway appears widely patent. The salivary and thyroid glands are normal in appearance. No cervical lymphadenopathy is seen. Skeletal structures: The skeletal structures are osteopenic. The calvarium appears intact. The cervical spine is maintained noting advanced multilevel spondylosis. Orbits: The bony orbits are intact. Orbital contents are normal as visualized noting bilateral ocular lens implants. Sinuses and mastoids: The paranasal sinuses are clear. There is a small right mastoid effusion. The left mastoid air cells are well pneumatized. IMPRESSION: 1. There is no evidence of hemorrhage, mass effect, or acute territorial ischemia noting angiographic phase technique. 2. Unremarkable CT angiogram of the brain. 3. Unremarkable CT angiogram of the neck. ACT 112: Negative or not required by law. Electronically signed by: Shaheen Lopez M.D. 11/15/2023 4:07 PM Neck CTA 11/15/23 15:25 CT ANGIOGRAM OF THE BRAIN; CT ANGIOGRAM OF THE NECK CLINICAL HISTORY: Strokelike symptoms. COMPARISON STUDY: Unenhanced CT of the brain performed the same day 11/15/2023. CT angiogram of the head and neck dated 06/26/2022. TECHNIQUE: Following the IV administration of 120 of Optiray 320, CT angiogram of the head and neck was performed from the aortic arch to the vertex. Images are reviewed in the axial, sagittal, and coronal planes. 3-D MIPS images are created and assessed. IV contrast was administered without complication. All measurements were calculated based on NASCET criteria. A dose lowering technique was utilized adhering to the principles of ALARA. CT DOSE: 402.95 mGy.cm FINDINGS: Brain parenchyma: There is age-related involutional change noting [id number] subcortical and periventricular microangiopathic disease. There is no evidence of hemorrhage, mass effect, or acute territorial ischemia noting angiographic phase technique. There is no evidence of enhancing mass lesion on the angiogram phase images. A chronic lacunar infarct is noted in the left caudate head. The ventricles, sulci, and cisterns are prominent secondary to positional change. Villagran-white matter differentiation is preserved. No extra- axial fluid collection is seen. Thoracic aorta: There is atherosclerotic calcification of the thoracic air. Visualized portions of the thoracic aorta are normal in caliber. The aortic arch demonstrates standard 3-vessel anatomy. Right carotid arterial system: The right common carotid artery is widely patent, as are the right internal and external carotid arteries. Left carotid arterial system: The left common carotid artery is widely patent, as are the left internal and external carotid arteries. Calcified plaque is noted in the carotid bulb. Vertebral arteries: The vertebral arteries are widely patent bilaterally and codominant. Subclavian arteries: Widely patent bilaterally. Intracranial vasculature: There is atherosclerotic calcification of the cavernous carotid arteries. The internal carotid arteries are patent at the skull base, as are the anterior and middle cerebral arteries bilaterally. The vertebrobasilar system and posterior cerebral arteries are patent. The vertebral arteries are codominant. There is an aneurysm, high-grade stenosis, or focal vessel cutoff seen throughout the intracranial circulation. Jugular veins: Patent bilaterally. Dural sinuses: Patent. Lung apices: Partially visualized upper lobe lung parenchyma appears clear. Soft tissues: The visualized pharyngeal soft tissues are normal in appearance noting angiographic phase technique. The oropharyngeal airway appears widely patent. The salivary and thyroid glands are normal in appearance. No cervical lymphadenopathy is seen. Skeletal structures: The skeletal structures are osteopenic. The calvarium appears intact. The cervical spine is maintained noting advanced multilevel spondylosis. Orbits: The bony orbits are intact. Orbital contents are normal as visualized noting bilateral ocular lens implants. Sinuses and mastoids: The paranasal sinuses are clear. There is a small right mastoid effusion. The left mastoid air cells are well pneumatized. IMPRESSION: 1. There is no evidence of hemorrhage, mass effect, or acute territorial ischemia noting angiographic phase technique. 2. Unremarkable CT angiogram of the brain. 3. Unremarkable CT angiogram of the neck. ACT 112: Negative or not required by law. Electronically signed by: Shaheen Lopez M.D. 11/15/2023 4:07 PM Discharge Plan Visit Data Chief Complaint: Altered Mental Status Stated Complaint: AMS ED Provider: John Armas Discharge Problem: Confusion, Hypokalemia, Ambulatory dysfunction Forms Stand Alone Forms: [facility] [employer] Prescriptions Prescriptions: No Action donepezil [Aricept] 5 mg Tablet 5 mg PO QDB Rx Instructions: take with largest meal of day levothyroxine 50 mcg tablet 50 mcg PO DAILYBB amlodipine 2.5 mg tablet 7.5 mg PO QAM Rx Instructions: TAKE THREE TABLETS DAILY atorvastatin 40 mg tablet 40 mg PO QAM sucralfate 1 gram tablet 1 g PO QID calcium carbonate-vitamin D3 600 mg(1,500mg) -200 unit Tablet 1 tab PO BID vitamin B complex Tablet 1 tab PO HS atorvastatin 20 mg tablet 20 mg PO QAM ferrous sulfate 325 mg (65 mg iron) Tablet 325 mg PO .EVERY OTHER DAY aspirin 81 mg Tablet,Delayed Release (Dr/Ec) 81 mg PO HS sertraline 50 mg tablet 50 mg PO HS pantoprazole 40 mg tablet,delayed release (DR/EC) 40 mg PO QDB Rx Instructions: take with largest meal of day docusate sodium [Stool Softener] 100 mg Capsule 100 mg PO HS Referrals Referrals: Merced Mcgraw MD [Primary Care Provider] -
[2023-11-15 11:38] LABS: Basophils # (auto) 0.02 K/uL (0.00-0.20); Basophils % (auto) 0.2 %; Eosinophils # (auto) 0.17 K/uL (0.00-0.50); Eosinophils % (auto) 1.9 %; Hematocrit (blood only) 44.1 % (37.0-47.0); Hemoglobin 13.4 g/dl (12.0-16.0); Immature Granulocytes # (auto) 0.04 K/uL (0.01-0.20); Immature Granulocytes % (auto) 0.5 %; Lymphocytes # (auto) 1.73 K/uL (1.20-3.40); Lymphocytes % (auto) 19.7 %; Mean Corpuscular Hemoglobin 25.6 pg (25.0-34.0); Mean Corpuscular Hgb Conc 30.4 g/dL (32.0-36.0); Mean Corpuscular Volume 84.3 fL (80.0-100.0); Monocytes % (auto) 6.8 %; Neutrophils % (auto) 70.9 %; Platelet Count 297 K/uL (130-400); RDW Coefficient of Variation 15.9 % (11.5-14.5); RDW Standard Deviation 48.8 fL (36.4-46.3); Red Blood Count 5.23 M/uL (4.20-5.40); White Blood Count 8.76 K/ul (4.8-10.8)
[2023-11-15 11:47] LABS: Albumin Globulin Ratio 1.1 (0.9-2); Albumin Level 4.4 gm/dl (3.4-5.0); BUN Creatinine Ratio 16.3 (10-20); Bilirubin,Total 0.5 mg/dl (0.2-1.0); Calcium 9.8 mg/dl (8.6-10.3); Creatinine Clr Calc Pharmacy 46.1 ml/min; Est GFR (African American) 73.4 ml/min; Est GFR (Non-African American) 63.4 ml/min; Globulin 3.9 gm/dl (2.5-4.0); Magnesium 1.9 mg/dl (1.7-2.4); Potassium 3.4 mmol/L (3.5-5.1); Total Protein 8.3 gm/dl (6.0-8.3)
--- NOTE | 2023-11-15 11:49 | XRay Report ---
SINGLE VIEW CHEST CLINICAL HISTORY: Neurological deficit. Stroke like symptoms. FINDINGS: An AP, portable, upright chest radiograph is compared to study dated 06/27/2022 and correla dell with chest CT dated 06/26/2022. The patient's head partially obscures the apices. The heart is en larged noting atherosclerotic calcification of the thoracic aorta. The pulmonary vasculature is nonco ngested. There is chronic elevation of the right hemidiaphragm with bibasilar scarring/atelectasis. N o airspace consolidation or large pleural effusion is identified. There are scattered calcific granul omas. No pneumothorax is seen. The skeletal structures are osteopenic. The bony thorax is grossly int act. IMPRESSION: Cardiomegaly with no acute cardiopulmonary abnormality identified. ACT 112: Negative or not required by law. Electronically signed by: Shaheen Lopez M.D. 11/15/2023 11:47 AM
[2023-11-15 11:51] LABS: Appearance Urine Clear (Clear); Bilirubin Urine Negative (Negative); Blood Urine Negative (Negative); Color Urine Yellow; Glucose Urine UA Negative (Negative); Ketones Urine Negative (Negative); Leukocyte Esterase Urine Negative (Negative); Nitrite Urine Negative (Negative); Protein Urine Negative (Negative); Urobilinogen Urine Negative (Negative); pH Urine 8.5 (4.5-7.5)
[2023-11-15 11:53] LABS: Troponin I High Sensitivity 8.4 pg/ml (0-14)
[2023-11-15 11:58] LABS: Partial Thromboplastin Time 26 Seconds (21-31); Prothrombin Time 10.7 Seconds (9.0-12.0)
--- NOTE | 2023-11-15 14:54 | CT Scan Report ---
CT head/brain wo con CLINICAL HISTORY: 83 years-old Female with neuro deficit, acute stroke suspected. Acute strokelike s ymptoms TECHNIQUE: Multiple axial CT images of the head were obtained without contrast. A dose lowering tech nique was utilized adhering to the principles of ALARA. COMPARISON: Brain MRI 06/27/2022 FINDINGS: No acute intracranial hemorrhage, midline shift, intracranial mass, hydrocephalus, territorial ischem ia or abnormal extra-axial collection. Involutional changes with chronic microvascular ischemic disea se. 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 The calvarium is intact. Prior bilateral lens repair. The paranasal sinuses, mastoid air cells, and m iddle ear cavities are clear. IMPRESSION: No acute intracranial abnormality identified. ACT 112: Negative or not required by law. The above report was generated using voice recognition software. It may contain grammatical, syntax o r spelling errors. Electronically signed by: Melchor Rangel M.D. 11/15/2023 2:52 PM
[2023-11-15] MEDS: OPTIRAY 320 125ml IV ONE (15:36)
--- NOTE | 2023-11-15 16:10 | CT Scan Report ---
CT ANGIOGRAM OF THE BRAIN; CT ANGIOGRAM OF THE NECK CLINICAL HISTORY: Strokelike symptoms. COMPARISON STUDY: Unenhanced CT of the brain performed the same day 11/15/2023. CT angiogram of the h ead and neck dated 06/26/2022. TECHNIQUE: Following the IV administration of 120 of Optiray 320, CT angiogram of the head and neck w as performed from the aortic arch to the vertex. Images are reviewed in the axial, sagittal, and jenna nal planes. 3-D MIPS images are created and assessed. IV contrast was administered without complicati on. All measurements were calculated based on NASCET criteria. A dose lowering technique was utilize d adhering to the principles of ALARA. CT DOSE: 402.95 mGy.cm FINDINGS: Brain parenchyma: There is age-related involutional change noting [id number] subcortical and pe riventricular microangiopathic disease. There is no evidence of hemorrhage, mass effect, or acute ter ritorial ischemia noting angiographic phase technique. There is no evidence of enhancing mass lesion on the angiogram phase images. A chronic lacunar infarct is noted in the left caudate head. The ventr icles, sulci, and cisterns are prominent secondary to positional change. Villagran-white matter differenti ation is preserved. No extra-axial fluid collection is seen. Thoracic aorta: There is atherosclerotic calcification of the thoracic air. Visualized portions of th e thoracic aorta are normal in caliber. The aortic arch demonstrates standard 3-vessel anatomy. Right carotid arterial system: The right common carotid artery is widely patent, as are the right int ernal and external carotid arteries. Left carotid arterial system: The left common carotid artery is widely patent, as are the left supervisor international reservations al and external carotid arteries. Calcified plaque is noted in the carotid bulb. Vertebral arteries: The vertebral arteries are widely patent bilaterally and codominant. Subclavian arteries: Widely patent bilaterally. Intracranial vasculature: There is atherosclerotic calcification of the cavernous carotid arteries. T he internal carotid arteries are patent at the skull base, as are the anterior and middle cerebral ar teries bilaterally. The vertebrobasilar system and posterior cerebral arteries are patent. The verteb ral arteries are codominant. There is an aneurysm, high-grade stenosis, or focal vessel cutoff seen t hroughout the intracranial circulation. Jugular veins: Patent bilaterally. Dural sinuses: Patent. Lung apices: Partially visualized upper lobe lung parenchyma appears clear. Soft tissues: The visualized pharyngeal soft tissues are normal in appearance noting angiographic pha se technique. The oropharyngeal airway appears widely patent. The salivary and thyroid glands are nor mal in appearance. No cervical lymphadenopathy is seen. Skeletal structures: The skeletal structures are osteopenic. The calvarium appears intact. The cervic al spine is maintained noting advanced multilevel spondylosis. Orbits: The bony orbits are intact. Orbital contents are normal as visualized noting bilateral ocular lens implants. Sinuses and mastoids: The paranasal sinuses are clear. There is a small right mastoid effusion. The l eft mastoid air cells are well pneumatized. IMPRESSION: 1. There is no evidence of hemorrhage, mass effect, or acute territorial ischemia noting angiographic phase technique. 2. Unremarkable CT angiogram of the brain. 3. Unremarkable CT angiogram of the neck. ACT 112: Negative or not required by law. Electronically signed by: Shaheen Lopez M.D. 11/15/2023 4:07 PM
--- NOTE | 2023-11-15 16:48 | Electrocardiogram Report ---
Test Reason : Blood Pressure : / mmHG Vent. Rate : 073 BPM Atrial Rate : 073 BPM P-R Int : 262 ms QRS Dur : 068 ms QT Int : 360 ms P-R-T Axes : 086 002 018 degrees QTc Int : 396 ms Sinus rhythm with 1st degree A-V block Possible Inferior infarct (cited on or before 26-JUN-2022) Poor R wave progression, consider anterior CA vs. lead placement vs. LVH Abnormal ECG Confirmed by Jv Ferguson ([id number]) on 11/15/2023 4:48:06 PM Referred By: REFERRED SELF Confirmed By:Neptali Ferguson
--- NOTE | 2023-11-15 17:27 | History & Physical Report ---
<Statement entered by Fabio Carroll, DO - 11/15/23 19:45> I have seen and examined the patient and have discussed the case with the provider above. I have reviewed the advanced practitioner's documentation, and I agree with, and take responsibility for that plan of care. 25 minutes additional spent with patient and family. Patient seen and examined while still in ED. Patient pleasantly confused CV: Heart regular Lungs: Clear Neuro: Moving all 4 extremities, questionable right facial droop Extensive conversation with patient's granddaughter at bedside. Discussed possibility of patient having a TIA exacerbating her confusion in the setting of advanced dementia. We discussed diagnostic imaging with MRI. I expressed my concern that it may be difficult to have the patient lie still with her dementia and understand the reasoning for the exam and be cooperative with the exam. I also explained that most likely MRI findings would not change our plan of care. Granddaughter was agreeable to holding off on the MRI at this time. We then had a discussion that it seems as though the patient is having a more rapid progression and decline in her dementia. Family reports that over the past several weeks to months they have needed to crush her pills because she would not be taking them at whole as previously also she has decreased her desire to eat and they have had to resort to hand feeding her. Also they have noticed that the patient is sleeping more often during the day and napping throughout the day. Explained that her that these are all symptoms of progressing dementia. The family is fully committed to continuing to care for the patient at home. Agreeable to observation overnight to see if any further acute issue may present itself otherwise we will have care management assist the family with possibly getting some additional services at home and having the family know that this is most likely progression of her dementia and she will need increasing levels of care. Date of Service November 15, 2023 Assessment & Plan (1) AMS (altered mental status): (2) Alzheimer's dementia: (3) Ambulatory dysfunction: Plan: Kade Diggs is an 83y/o F with PMHx of HTN, DM type II [currently not on medication], hypothyroidism, HTN, CVA, GERD w/o esophagitis, generalized osteoarthritis, depression and Alzheimer's dementia who presented to the ED via EMS for evaluation of AMS. Of note, patient's granddaughter is the main manager technical services for communicating with the patient [patient does not speak any Georgian, only Mike]. Patient is currently living at home with her close family [son, nkxrauze-un-gsa and granddaughter] who provide her with 24/7 care. Elevated BSG of 162 in ED, but otherwise lab results are benign. TSH in normal range, urine is clear. Appears that no acute infectious disease process is occurring. Chest x-ray significant for cardiomegaly, but no acute cardiopulmonary abnor mality was identified. Head CT clear, no evidence of acute intracranial abnormality noted. Head CTA and Neck CTA were both benign. No evidence of hemorrhage, mass effect or acute ischemia noted on either imaging study. -Patient discussed with Dr. Carroll, who recommends holding off on getting a brain MRI. -Clinical coordinator approved for family member to stay at bedside with patient. -PT/OT evals, speech therapy ordered. Likely to benefit from CM services. -Fall precautions ordered, OOB w/ assistance -Monitor for any signs of increasing delirium -Continuous cardiac monitoring -CBC, BMP ordered for AM -Continue donepezil (4) Dysphagia: Plan: -Speech therapy consult ordered, appreciate their recommendation(s) moving forward. -Patient is hand-fed by family members at home. An [id number], vegetarian diet order has been placed. (5) History of CVA (cerebrovascular accident): (6) Cerebrovascular disease: Plan: -Continue aspirin, atorvastatin (7) GERD (gastroesophageal reflux disease): Plan: -Continue pantoprazole (8) Dyslipidemia: Plan: -Continue atorvastatin (9) Hypothyroidism: Plan: -TSH of 1.372, performed in the ED. -Continue levothyroxine (10) DM type 2 (diabetes mellitus, type 2): Plan: -Not on oral medication or insulin therapy at home, diet managed. -Order placed for A1C in the AM; last A1C 6.7, performed on 06/27/22. -BSG ACHS, loose SSI (11) Depression: Plan: -Continue sertraline DVT Prophylaxis: Lovenox Code Status: Full Code PCP: Merced Mcgraw MD Dispo: Observation in Med/Surg w/ Telemetry Patient seen in collaboration with Dr. Carroll. Please see addendum. I spent a total of 75 minutes coordinating, documenting, and providing care for this patient excluding time spent in the performance of separately billed services. This included personally reviewing all current laboratories and imaging studies, medical reconciliation, outpatient chart review and discussion with specialists. History of Present Illness Chief Complaint: AMS, Lethargy & Increased Urination Primary Care Provider: Merced Mcgraw MD Kade Diggs is an 83y/o F with PMHx of HTN, DM type II [currently not on medication], hypothyroidism, HTN, CVA, GERD w/o esophagitis, generalized osteoarthritis, depression and Alzheimer's dementia who presented to the ED via EMS for evaluation of AMS. History obtained from the patient's granddaughter, who is translating for the patient [patient does not speak any Georgian, only Mike]. Of note, patient was originally accompanied by her son and gomcnmtx-we-ntr in the ED. Patient is currently living at home with her close family [son, tsclecxr-ou-mju and granddaughter] who provide her with 24/7 care. Granddaughter states that the family has noticed a steady decline in her mental status over the past approximately 2-3 months. She can no longer properly identify family members, household pets. She also has started to wander around in the house when left unsupervised, which has very much so worried the family d/t potential danger of her exiting the house by accident. Granddaughter reports that her parents attempted to get her out of bed today (granddaughter was not home to assist), but she has all of the sudden become extremely lethargic/difficult to transfer and they were unable to move her [which prompted the call to EMS for transport to the ED]. Patient was able to ambulate appropriately with a walker prior to today. Most recently, she has been occasion ally transferred directly from her bed to a wheelchair, which family uses to push her around the house when she is acting more sleepy/tired. Granddaughter does mention that she was up throughout the night approximately every 2 hours to urinate, which is not normal at baseline. She does constantly wear a urinary incontinence diaper at baseline [but was able to ambulate w/ her walker and family assistance to the nearby bathroom throughout the night], which worried the family that she may have developed a UTI. Granddaughter does report frequent changes of her diaper throughout the day. In addition to the increased urination, patient's granddaughter states that she may of had an episode of slurred speech and some facial drooping this morning that both quickly resolved. However, granddaughter states that she was not home this morning and had obtained this information from her mother (who was home this morning with the patient). Granddaughter states that the patient has had some dysphagia recently as well. She is on a soft-food diet at home, but granddaughter states that she coughs a lot while eating and tends not to eat very often. Patient is hand-fed by family members, as she is unable to appropriately feed herself. She hasn't really been drinking well at home either. Granddaughter endorses that the patient has expressed some agitation with eating/drinking at home since this gradual decline in her mental status began. Granddaughter denies any SOB, chest pain, hematuria or bowel habit changes. She further denies any lightheadedne ss/dizziness, recent falls or headaches. Granddaughter mentions that she has not noticed any swelling in her legs. Patient does routinely lay down in bed with both of her knees flexed at baseline. Allergies Allergy/AdvReac Type Severity Reaction Status Date / Time Penicillins Allergy Mild RASH Verified 11/15/23 17:41 Home Medications Medication Instructions Recorded Confirmed Type donepezil 5 mg tablet (Aricept) 5 mg PO QDB 07/15/18 11/15/23 History levothyroxine 50 mcg tablet 50 mcg PO DAILYBB 07/15/18 11/15/23 History amlodipine 2.5 mg tablet 7.5 mg PO QAM 05/28/20 11/15/23 History atorvastatin 40 mg tablet 40 mg PO QAM 08/25/20 11/15/23 History calcium carbonate 600 mg-vitamin 1 tab PO BID 08/25/20 11/15/23 History D3 5 mcg (200 unit) tablet sucralfate 1 gram tablet 1 g PO QID 08/25/20 11/15/23 History vitamin B complex 1 tab PO HS 08/25/20 11/15/23 History aspirin 81 mg tablet,delayed 81 mg PO HS 04/07/22 11/15/23 History release sertraline 50 mg tablet 50 mg PO HS 06/27/22 11/15/23 History atorvastatin 20 mg tablet 20 mg PO QAM 07/02/23 11/15/23 History ferrous sulfate 325 mg (65 mg 325 mg PO .EVERY OTHER DAY 07/02/23 11/15/23 History iron) tablet docusate sodium 100 mg capsule 100 mg PO HS 11/15/23 11/15/23 History (Stool Softener) pantoprazole 40 mg tablet,delayed 40 mg PO QDB 11/15/23 11/15/23 History release Past Med/Surg History Problem List (Updated 11/15/23 @ 18:53 by Sangeetha Morgan PA-C) Cerebrovascular disease DM type 2 (diabetes mellitus, type 2) Hypothyroidism History of CVA (cerebrovascular accident) Dysphagia Alzheimer's dementia Ambulatory dysfunction (Acute) Hypokalemia (Acute) Confusion (Acute) CAP (community acquired pneumonia) (Acute) AMS (altered mental status) (Acute) CVA (cerebral vascular accident) Complicated UTI (urinary tract infection) AMS (altered mental status) (Acute) Encounter for pre-operative examination Colon cancer screening Aphasia (Acute) Left-sided weakness (Acute) UTI (urinary tract infection) Acute perforated appendicitis Acute appendicitis (Acute) Dyslipidemia GERD (gastroesophageal reflux disease) Depression Hypertension Abnormal CT scan, kidney Dementia Alert & Oriented x3. "loose train of thought and has trouble putting words together at times". Cerebrovascular disease stroke L caudate before 2012; TIA 2012; stroke jozef 2019 (treated at [facility]) Medical History Dysphagia Dysphagia due to stroke. Thickened liquids. Transient ischemic attack (TIA) 2012 COVID-19 ruled out Discharge planning issues DVT prophylaxis Hypokalemia Stroke hx of stroke (2012 & 2019) treated at [facility]. dysphagia since stroke 2019 -- uses thickening for liquids. Pre-diabetes family denies Osteoporosis Osteoarthritis H/O blood clots possibly in 2019? family unsure of specifics. Surgical History History of colonoscopy H/O: hysterectomy Family History Father Diabetes Son Diabetes Hypertension Sister Cancer ? primary Other No family history of adverse response to anesthesia Social History Smoking Status: Unknown if ever smoked Second Hand Exposure: No; Do You Dip or Chew Tobacco: No; Hx Alcohol Use: No Hx Substance Use: No Preferred Language: Mike Communication Ability: Impaired Communication Ability Comment: grand-daughter to translate per family request. Communication Tools: IPad, Language Line Deli Cook, Physical Gestures and Other Deli Cook Required: Yes Beliefs That Will Affect Care: None marital status: Current Living Situation: Family current occupational status: retired Feels Safe at Home: Yes Assistive Devices: Walker and Wheelchair Review of Systems Review of Systems: At least ten systems reviewed and negative, except as noted in the HPI. Physical Exam Physical Exam: General Appearance: Laying down in bed, no acute distress, non-toxic appearing. Head: Normocephalic, atraumatic. Eyes: Normal inspection, PERRL, conjunctivae normal, anicteric sclerae. ENT: External ear and nose normal, oropharynx normal. Neck: Normal visual inspection, trachea midline, no thyromegaly. Respiratory: Normal respiratory effort, lungs clear to auscultation, no wheeze, rales, rhonchi. No accessory muscle use. Cardiovascular: Regular rate, rhythm, no murmur, normal peripheral pulses, no BLE edema. Vessels: No JVD. Chest: Normal inspection of chest. Abdomen/GI: Normal bowel sounds, soft, nontender, no hepatosplenomegaly. Extremities/Musculoskeletal: No cyanosis or clubbing, upper and lower extremities grossly normal. Neurologic: PERRL, EOMI, accommodation nl, no face palsy, no dysarthria, CN's II-XI grossly intact bilaterally and moves all extremities. Psychiatric: Worsening dementia, unable to properly communicate. Minimal eye contact. Skin: No rashes, normal color, warm/dry. Results & Data Results & Data Vital Signs (Past 12 Hours) Vital Signs Temp Pulse Pulse Resp BP BP Pulse Ox 11/15/23 16:37 77 11/15/23 15:30 93 H 20 92 11/15/23 15:22 71 20 90 11/15/23 15:22 153/70 H 11/15/23 15:10 84 18 11/15/23 15:00 71 20 11/15/23 15:00 138/63 11/15/23 14:50 83 21 11/15/23 14:40 70 21 11/15/23 14:30 83 19 11/15/23 14:30 133/67 11/15/23 14:20 83 15 11/15/23 14:10 72 23 11/15/23 14:00 144/72 H 11/15/23 14:00 82 21 11/15/23 13:50 78 20 11/15/23 13:40 80 16 11/15/23 13:30 79 21 11/15/23 13:30 137/72 11/15/23 13:20 83 18 11/15/23 13:10 77 26 H 11/15/23 13:00 148/63 H 11/15/23 13:00 65 21 11/15/23 12:56 78 22 11/15/23 12:20 66 21 11/15/23 12:10 63 23 11/15/23 12:07 65 11/15/23 12:00 65 25 H 11/15/23 12:00 139/64 11/15/23 11:50 77 20 99 11/15/23 11:40 77 21 11/15/23 11:30 74 23 11/15/23 11:30 122/68 11/15/23 11:21 70 16 120/65 96 11/15/23 11:20 77 19 11/15/23 11:10 97 H 22 11/15/23 11:00 120/65 11/15/23 11:00 93 H 38 H 92 11/15/23 10:57 94 H 23 93 11/15/23 10:57 37.7 C H 70 23 138/81 93 11/15/23 10:56 92 O2 Del Method O2 Flow Rate 11/15/23 16:37 11/15/23 15:30 11/15/23 15:22 11/15/23 15:22 11/15/23 15:10 11/15/23 15:00 11/15/23 15:00 11/15/23 14:50 11/15/23 14:40 11/15/23 14:30 11/15/23 14:30 11/15/23 14:20 11/15/23 14:10 11/15/23 14:00 11/15/23 14:00 11/15/23 13:50 11/15/23 13:40 11/15/23 13:30 11/15/23 13:30 11/15/23 13:20 11/15/23 13:10 11/15/23 13:00 11/15/23 13:00 11/15/23 12:56 11/15/23 12:20 11/15/23 12:10 11/15/23 12:07 11/15/23 12:00 11/15/23 12:00 11/15/23 11:50 11/15/23 11:40 11/15/23 11:30 11/15/23 11:30 11/15/23 11:21 Room Air 11/15/23 11:20 11/15/23 11:10 11/15/23 11:00 11/15/23 11:00 11/15/23 10:57 11/15/23 10:57 Room Air 11/15/23 10:56 Room Air 0 Laboratory Results Short CBC 11/15/23 Range/Units 11:10 WBC 8.76 (4.8-10.8) K/ul Hgb 13.4 (12.0-16.0) g/dl Hct 44.1 (37.0-47.0) % Plt Count 297 (130-400) K/uL BMP 11/15/23 11:10 Sodium 139 Potassium 3.4 L Chloride 101 Carbon Dioxide 30 BUN 14 Creatinine 0.86 Glucose 162 H Calcium 9.8 Liver Function 11/15/23 Range/Units 11:10 Total Bilirubin 0.5 (0.2-1.0) mg/dl AST 22 (13-39) U/L ALT 15 (7-52) U/L Alkaline Phosphatase 104 (34-104) U/L Albumin 4.4 (3.4-5.0) gm/dl Urine 11/15/23 Range/Units 11:10 Urine Color Yellow Urine Appearance Clear (Clear) Urine pH 8.5 H (4.5-7.5) Ur Specific [place] 1.020 (1.000-1.030) Urine Protein Negative (Negative) Urine Glucose (UA) Negative (Negative) Diagnostic Findings Chest X-Ray 11/15/23 11:13 SINGLE VIEW CHEST CLINICAL HISTORY: Neurological deficit. Stroke like symptoms. FINDINGS: An AP, portable, upright chest radiograph is compared to study dated 06/27/2022 and correlated with chest CT dated 06/26/2022. The patient's head partially obscures the apices. The heart is enlarged noting atherosclerotic calcification of the thoracic aorta. The pulmonary vasculature is noncongested. There is chronic elevation of the right hemidiaphragm with bibasilar scarring/atelectasis. No airspace consolidation or large pleural effusion is identified. There are scattered calcific granulomas. No pneumothorax is seen. The skeletal structures are osteopenic. The bony thorax is grossly intact. IMPRESSION: Cardiomegaly with no acute cardiopulmonary abnormality identified. ACT 112: Negative or not required by law. Electronically signed by: Shaheen Lopez M.D. 11/15/2023 11:[address] 11/15/23 11:13 CT head/brain wo con CLINICAL HISTORY: 83 years-old Female with neuro deficit, acute stroke suspected. Acute strokelike symptoms TECHNIQUE: Multiple axial CT images of the head were obtained without contrast. A dose lowering technique was utilized adhering to the principles of ALARA. COMPARISON: Brain MRI 06/27/2022 FINDINGS: No acute intracranial hemorrhage, midline shift, intracranial mass, hydrocephalus, territorial ischemia or abnormal extra-axial collection. Involutional changes with chronic microvascular ischemic disease. 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 The calvarium is intact. Prior bilateral lens repair. The paranasal sinuses, mastoid air cells, and middle ear cavities are clear. IMPRESSION: No acute intracranial abnormality identified. ACT 112: Negative or not required by law. The above report was generated using voice recognition software. It may contain grammatical, syntax or spelling errors. Electronically signed by: Melchor Rangel M.D. 11/15/2023 2:52 PM Head CTA 11/15/23 15:25 CT ANGIOGRAM OF THE BRAIN; CT ANGIOGRAM OF THE NECK CLINICAL HISTORY: Strokelike symptoms. COMPARISON STUDY: Unenhanced CT of the brain performed the same day 11/15/2023. CT angiogram of the head and neck dated 06/26/2022. TECHNIQUE: Following the IV administration of 120 of Optiray 320, CT angiogram of the head and neck was performed from the aortic arch to the vertex. Images are reviewed in the axial, sagittal, and coronal planes. 3-D MIPS images are created and assessed. IV contrast was administered without complication. All measurements were calculated based on NASCET criteria. A dose lowering technique was utilized adhering to the principles of ALARA. CT DOSE: 402.95 mGy.cm FINDINGS: Brain parenchyma: There is age-related involutional change noting [id number] subcortical and periventricular microangiopathic disease. There is no evidence of hemorrhage, mass effect, or acute territorial ischemia noting angiographic phase technique. There is no evidence of enhancing mass lesion on the angiogram phase images. A chronic lacunar infarct is noted in the left caudate head. The ventricles, sulci, and cisterns are prominent secondary to positional change. Villagran-white matter differentiation is preserved. No extra- axial fluid collection is seen. Thoracic aorta: There is atherosclerotic calcification of the thoracic air. Visualized portions of the thoracic aorta are normal in caliber. The aortic arch demonstrates standard 3-vessel anatomy. Right carotid arterial system: The right common carotid artery is widely patent, as are the right internal and external carotid arteries. Left carotid arterial system: The left common carotid artery is widely patent, as are the left internal and external carotid arteries. Calcified plaque is noted in the carotid bulb. Vertebral arteries: The vertebral arteries are widely patent bilaterally and codominant. Subclavian arteries: Widely patent bilaterally. Intracranial vasculature: There is atherosclerotic calcification of the cavernous carotid arteries. The internal carotid arteries are patent at the skull base, as are the anterior and middle cerebral arteries bilaterally. The vertebrobasilar system and posterior cerebral arteries are patent. The vertebral arteries are codominant. There is an aneurysm, high-grade stenosis, or focal vessel cutoff seen throughout the intracranial circulation. Jugular veins: Patent bilaterally. Dural sinuses: Patent. Lung apices: Partially visualized upper lobe lung parenchyma appears clear. Soft tissues: The visualized pharyngeal soft tissues are normal in appearance noting angiographic phase technique. The oropharyngeal airway appears widely patent. The salivary and thyroid glands are normal in appearance. No cervical lymphadenopathy is seen. Skeletal structures: The skeletal structures are osteopenic. The calvarium appears intact. The cervical spine is maintained noting advanced multilevel spondylosis. Orbits: The bony orbits are intact. Orbital contents are normal as visualized noting bilateral ocular lens implants. Sinuses and mastoids: The paranasal sinuses are clear. There is a small right mastoid effusion. The left mastoid air cells are well pneumatized. IMPRESSION: 1. There is no evidence of hemorrhage, mass effect, or acute territorial ischemia noting angiographic phase technique. 2. Unremarkable CT angiogram of the brain. 3. Unremarkable CT angiogram of the neck. ACT 112: Negative or not required by law. Electronically signed by: Shaheen Lopez M.D. 11/15/2023 4:07 PM Neck CTA 11/15/23 15:25 CT ANGIOGRAM OF THE BRAIN; CT ANGIOGRAM OF THE NECK CLINICAL HISTORY: Strokelike symptoms. COMPARISON STUDY: Unenhanced CT of the brain performed the same day 11/15/2023. CT angiogram of the head and neck dated 06/26/2022. TECHNIQUE: Following the IV administration of 120 of Optiray 320, CT angiogram of the head and neck was performed from the aortic arch to the vertex. Images are reviewed in the axial, sagittal, and coronal planes. 3-D MIPS images are created and assessed. IV contrast was administered without complication. All measurements were calculated based on NASCET criteria. A dose lowering technique was utilized adhering to the principles of ALARA. CT DOSE: 402.95 mGy.cm FINDINGS: Brain parenchyma: There is age-related involutional change noting [id number] subcortical and periventricular microangiopathic disease. There is no evidence of hemorrhage, mass effect, or acute territorial ischemia noting angiographic phase technique. There is no evidence of enhancing mass lesion on the angiogram phase images. A chronic lacunar infarct is noted in the left caudate head. The ventricles, sulci, and cisterns are prominent secondary to positional change. Villagran-white matter differentiation is preserved. No extra- axial fluid collection is seen. Thoracic aorta: There is atherosclerotic calcification of the thoracic air. Visualized portions of the thoracic aorta are normal in caliber. The aortic arch demonstrates standard 3-vessel anatomy. Right carotid arterial system: The right common carotid artery is widely patent, as are the right internal and external carotid arteries. Left carotid arterial system: The left common carotid artery is widely patent, as are the left internal and external carotid arteries. Calcified plaque is noted in the carotid bulb. Vertebral arteries: The vertebral arteries are widely patent bilaterally and codominant. Subclavian arteries: Widely patent bilaterally. Intracranial vasculature: There is atherosclerotic calcification of the cavernous carotid arteries. The internal carotid arteries are patent at the skull base, as are the anterior and middle cerebral arteries bilaterally. The vertebrobasilar system and posterior cerebral arteries are patent. The vertebral arteries are codominant. There is an aneurysm, high-grade stenosis, or focal vessel cutoff seen throughout the intracranial circulation. Jugular veins: Patent bilaterally. Dural sinuses: Patent. Lung apices: Partially visualized upper lobe lung parenchyma appears clear. Soft tissues: The visualized pharyngeal soft tissues are normal in appearance noting angiographic phase technique. The oropharyngeal airway appears widely patent. The salivary and thyroid glands are normal in appearance. No cervical lymphadenopathy is seen. Skeletal structures: The skeletal structures are osteopenic. The calvarium appears intact. The cervical spine is maintained noting advanced multilevel spondylosis. Orbits: The bony orbits are intact. Orbital contents are normal as visualized noting bilateral ocular lens implants. Sinuses and mastoids: The paranasal sinuses are clear. There is a small right mastoid effusion. The left mastoid air cells are well pneumatized. IMPRESSION: 1. There is no evidence of hemorrhage, mass effect, or acute territorial ischemia noting angiographic phase technique. 2. Unremarkable CT angiogram of the brain. 3. Unremarkable CT angiogram of the neck. ACT 112: Negative or not required by law. Electronically signed by: Shaheen Lopez M.D. 11/15/2023 4:07 PM Medications Administered Discontinued Medications Ioversol (Optiray 320 125ml) 120 ml IV ONCE ONE Stop: 11/15/23 15:37 Last Admin: 11/15/23 15:36 Dose: 120 ml Documented By: DEMETRIA Code Status & VTE Plan Code Status FULL CODE (1) AMS (altered mental status) Altered mental status type: unspecified Qualified Code(s): R41.82 - Altered mental status, unspecified (2) Alzheimer's dementia Alzheimer's disease onset: unspecified onset Dementia behavioral or psychological symptom: unspecified whether behavioral, psychotic, or mood disturbance or anxiety Dementia severity: unspecified severity Qualified Code (s): G30.9 - Alzheimer's disease, unspecified; F02.80 - Dementia in other diseases classified elsewhere, unspecified severity, without behavioral disturbance, psychotic disturbance, mood disturbance, and anxiety (4) Dysphagia Dysphagia type: unspecified Qualified Code(s): R13.10 - Dysphagia, unspecified (7) GERD (gastroesophageal reflux disease) Esophagitis presence: without esophagitis Qualified Code(s): K21.9 - Gastro- esophageal reflux disease without esophagitis (9) Hypothyroidism Hypothyroidism type: unspecified Qualified Code(s): E03.9 - Hypothyroidism, unspecified (10) DM type 2 (diabetes mellitus, type 2) Diabetes mellitus complication status: without complication Diabetes mellitus middle or intermediate school principal insulin use: without middle or intermediate school principal use Qualified Code(s): E11.9 - Type 2 diabetes mellitus without complications (11) Depression Depression Type: unspecified Qualified Code(s): F32.A - Depression, unspecified
[2023-11-15] MEDS ORDERED: GLUCAGON FOR INJ 1 MG VIAL SQ PRN (20:58)
[2023-11-15] MEDS ORDERED: POLYETHYLENE (MIRALAX) 17 GM PACK PO PRN (20:58)
[2023-11-15] MEDS ORDERED: MAGNESIUM HYDROXIDE SUSP 30 ML UDC PO PRN (20:58)
[2023-11-15] MEDS ORDERED: ACETAMINOPHEN 325 MG TAB PO PRN (20:58)
[2023-11-15] MEDS ORDERED: ALUMINUM/MAGNESIUM SUSP 30 ML UDC PO PRN (20:58)
[2023-11-15] MEDS ORDERED: GLUCOSE 40% GEL 15 GM TUBE PO PRN (20:58)
[2023-11-15] MEDS ORDERED: CARBOHYDRATES FOR HYPOGLYCEMIA PO PRN (20:58)
[2023-11-15] MEDS ORDERED: GLUCOSE 10 TAB/TUBE PO PRN (20:58)
[2023-11-15] MEDS ORDERED: DEXTROSE 50% 50 ML SYRINGE IV PRN (20:58)
[2023-11-15] MEDS: INSULIN ASPART PER UNIT CHARGE SC SCH (21:52)
[2023-11-15] MEDS: CALCIUM 600MG + VIT D 400 IU TAB PO SCH (22:01)
[2023-11-15] MEDS: ENOXAPARIN INJ 40 MG/0.4 ML SYR SQ SCH (22:01)
[2023-11-15] MEDS: SERTRALINE HCL 50 MG TABLET PO SCH (22:02)
[2023-11-15] MEDS: DOCUSATE SODIUM 100 MG CAP PO SCH (22:02)
[2023-11-15] MEDS: ASPIRIN 81 MG ECTAB PO SCH (22:03)
[2023-11-15] MEDS: VITAMIN B COMPLEX TAB PO SCH (22:03)
[2023-11-15] MEDS: SUCRALFATE 1 GM TAB PO SCH (22:03)
[2023-11-15] MEDS: POTASSIUM CHLORIDE CRTAB 20 MEQ TABCR PO STA (22:33)
[2023-11-16] MEDS: LEVOTHYROXINE SODIUM 50 MCG TABLET PO SCH (05:45)
[2023-11-16 07:50] LABS: Hematocrit (blood only) 36.3 % (37.0-47.0); Hemoglobin 11.2 g/dl (12.0-16.0); Mean Corpuscular Hemoglobin 25.5 pg (25.0-34.0); Mean Corpuscular Hgb Conc 30.9 g/dL (32.0-36.0); Mean Corpuscular Volume 82.7 fL (80.0-100.0); Platelet Count 251 K/uL (130-400); RDW Coefficient of Variation 15.9 % (11.5-14.5); RDW Standard Deviation 48.2 fL (36.4-46.3); Red Blood Count 4.39 M/uL (4.20-5.40); White Blood Count 8.06 K/ul (4.8-10.8)
[2023-11-16 08:16] LABS: BUN Creatinine Ratio 17.5 (10-20); Calcium 9.5 mg/dl (8.6-10.3); Creatinine Clr Calc Pharmacy 48.3 ml/min; Est GFR (African American) 80.1 ml/min; Est GFR (Non-African American) 69.1 ml/min; Potassium 3.7 mmol/L (3.5-5.1)
[2023-11-16 08:20] LABS: Estimated Average Glucose 146 mg/dl; Hemoglobin A1C 6.7 % (4.5-5.6)
[2023-11-16 08:41] LABS: Base Excess VBG 6.4 mEq/L; HCO3 VBG 32 mmol/L; Oxygen Saturation VBG 92.6 %; PCO2 VBG 48 mmHg (38-50); PO2 VBG 59 mmHg; pH VBG 7.43 (7.36-7.41)
[2023-11-16] MEDS: FERROUS SULFATE 325 MG TAB PO SCH (11:52)
[2023-11-16] MEDS: amLODIPine BESYLATE 5 MG TAB PO SCH (11:53)
[2023-11-16] MEDS: ATORVASTATIN 40 MG TAB PO SCH (11:53)
[2023-11-16] MEDS: DONEPEZIL HCL 5 MG TAB PO SCH (11:53)
[2023-11-16] MEDS: PANTOprazole 40 MG TAB PO SCH (11:54)
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
--- OUTSIDE RECORDS SUMMARY | 2023-11-16 13:45 | External Medical Summary | Summary of Care ---
Author Name Unknown Organization [facility] Address [address] [place] [address] Phone [phone] Care Team Providers Care Poultry Husbandman Name Role Phone Merced Mcgraw MD Primary Care Provider + Reason for Visit * Reason Onset Date Comments Health Maintenance 11/08/2023 Encounter Details Date Type Department Care Team (Late st Contact Info) Description 11/08/2023 Telephone General Internal Medicine [facility] [address] [facility], [place] [id number] Merced Mcgraw MD [address] [place] [address] Health Maintenance Allergies Active Allergy Reactions Criticality Noted Date Comments Penicillins Rash Medium 08/30/2011 documented as of this encounter (statuses as of 11/08/2023) Medications Medication Sig Dispensed Refills Start Date [...] as of this encounter (statuses as of 11/08/2023) Active Problems Problem Noted Date Diagnosed Date Mild dementia without behavi oral disturbance, psychotic disturbance, mood disturbance, or anxiety 07/14/2022 Late onset Alzheimer dementia 07/14/2022 Type 2 diabetes mellitus wit h hemoglobin A1c goal of less than 8.0% 04/20/2022 Alzheimer's disease 03/16/2022 Dyslipidemia, goal LDL below 70 03/16/2022 Gastroesophageal reflux disease without esophagi tis 03/16/2022 Senile osteoporosis 04/27/2020 Recurrent major depressive disorder, in partial remission 04/27/2020 Cerebrovascular disease, arteriosclerotic, post- stroke 08/20/2018 HTN, goal below 140/90 12/27/2011 Acquired hypothyroidism 11/07/2007 Other constipation 11/07/2007 Generalized osteoarthritis 11/07/2007 Dementia documented as of this encounter (statuses as of 11/08/2023) Resolved Problems Problem Noted Date Diagnosed Date Resolved Date Acute perforated appendicitis 06/03/2020 11/08/2023 Overview: - 2019 Prediabetes 08/15/2017 04/20/2022 Overview: Per Prediabetes protocol #1 Senile dementia, uncomplicated 07/18/2017 10/10/2022 Overview: Duplicated on pl Major depressive disorder 03/20/2012 Overview: ICD-10 update of inactive term Osteoporosis 02/02/2010 03/16/2022 Overview: No meds based on [address] Esophageal reflux 11/07/2007 10/20/2022 Major depressive disorder 11/07/2007 Overview: ICD-10 update of inactive term documented as of this encounter (statuses as of 11/08/2023) Immunizations Name Administration Dates Next Due COVID-19 [...] encounter Miscellaneous Notes * Telephone Encounter - Brooklyn Flannery LPN - 11/08/2023 2:51 PM EDT Care Gaps Comprehensive Care Outreach Last Office/Telemedicine Visit: 05/09/2023 (in office), 06/07/2022 (telemedicine) Next Office Visit: 11/09/2023 Hemoglobin AIC Results: Lab Results Component Value Date/Time HEMOGLOBIN A1C - [facility] 6.7 (H) 10/21/2022 03:45 PM HEMOGLOBIN A1C - [facility] 6.4 (H) 04/15/2021 01:40 PM HEMOGLOBIN A1C - [facility] 6.4 (H) 02/26/2020 04:50 PM HEMOGLOBIN A1C - [facility] 6.0 (H) 04/11/2019 11:36 AM HEMOGLOBIN A1C - [facility] 6.0 07/18/2017 01:00 PM BP Readings from Last 1 Encounters: 05/09/23 106/58 Reviewed Health Maintenance below: Health Maintenance Topic Date Due Diabetic Foot Exam Never done Zoster Vaccines (1 of 2) Never done Diabetic Eye Exam 03/13/2013 Albumin/Creatinine Ratio 10/10/2015 *BISPHONATE OR OTHER ACCEPTABLE MEDICATION NEEDED FOR OSTEOPOROSIS (REFER TO SMARTSET #1146) Never done DTaP,Tdap,and Td Vaccines (2 - Td or Tdap) 10/05/2022 COVID-19 Vaccine ( season) 2023 HbA1c 04/22/2023 GFR 10/22/2023 Labs already ordered Eye Care Gap Outreach Action Taken: Unable to reach loud beeping documented in this encounter Plan of Treatment Upcoming Encounters Date Type Department Care Team (Late st Contact Info) Description 11/09/2023 2:20 PM EDT Office Visit General Internal Medicine [facility] [address] [facility] [place] [address] Merced Mcgraw MD [address] [facility] [address] [address] Health Maintenance Due Date Last Done Comments Diabetic Foot Exam 1960 Zoster Vaccines (1 of 2) 1992 Diabetic Eye Exam 03/13/2013 03/13/2012 Albumin/Creatinine Ratio 10/10/2015 10/09/2014 *BISPHONATE OR OTHER ACCEPTABLE MEDICATION NEEDED FOR OSTEOPOROSIS (REFER TO SMARTSET #1146) 07/19/2022 DTaP,Tdap,and Td Vaccines (2 - Td or Tdap) 10/05/2022 10/05/2012 COVID-19 Vaccine ( season) 2023 03/29/2021, 09/01/2020, 07/29/2020 HbA1c 04/22/2023 [...] Not on filedocumented as of this encounter Advance Directives Latest Code Status [...] the patient have Health Care Power of Special Services Agent? Yes, not currently available Care Teams Poultry Husbandman Relationship Specialty Start Date End Date Merced Mcgraw MD [address] [facility] [place] [address] PCP - General Internal Medicine 05/22/15 documented as of this encounter
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
--- OUTSIDE RECORDS SUMMARY | 2023-11-16 13:46 | External Medical Summary | Summary of Care ---
Author Name Unknown Organization [facility] Address [address] [place] [address] Phone [phone] Care Team Providers Care Insulation Estimator Name Role Phone Merced Mcgraw MD Primary Care Provider + Encounter Details Date Type Department Care Team (Late st Contact Info) Description 10/17/2023 Orders Only PATIENT PORTAL DO NOT DELETE THIS DEPT [id number] Allergies Active Allergy Reactions Criticality Noted Date Comments Penicillins Rash Medium 08/30/2011 documented as of this encounter (statuses as of 10/17/2023) Medications Medication Sig Dispensed Refills Start Date [...] severe constipation. 240 mL 1 09/01/2016 Active ferrous sulfate (FEOSOL) 325 (65 FE) MG [...] as of this encounter (statuses as of 10/17/2023) Active Problems Problem Noted Date Diagnosed Date [...] as of this encounter (statuses as of 10/17/2023) Resolved Problems Problem Noted Date Diagnosed Date [...] as of this encounter (statuses as of 10/17/2023) Immunizations Name Administration Dates Next Due COVID-19 [...] pur e alcohol) PHQ-2 Answer Date Recorded PHQ-2 Score 0 05/07/2018 Hunger Vital Sign Answer Date Recorded Within the past 12 months, y ou worried that your food would run out before you got the money to buy more. Never true 12/15/19 23 Within the past 12 months, t he food you bought just didn't last and you didn't have money to get more. Never true 12/14/2022 Sex and Gender Information Value Date Recorded [...] No 06/02/2020 documented as of this encounter Plan of Treatment Upcoming Encounters Date Type Department Care Team (Late st Contact Info) Description 11/09/2023 2:20 PM EDT Office Visit General Internal Medicine [facility] [address] [place] [address] Merced Mcgraw MD 200 [facility] [place] [address] Health Maintenance Due Date Last Done Comments Diabetic Foot Exam 1960 Zoster Vaccines (1 of 2) 1992 Diabetic Eye Exam 03/13/2013 03/13/2012 Albumin/Creatinine Ratio 10/10/2015 10/09/2014 *BISPHONATE OR OTHER ACCEPTABLE MEDICATION NEEDED FOR OSTEOPOROSIS (REFER TO SMARTSET #1146) 07/19/2022 DTaP,Tdap,and Td Vaccines (2 - Td or Tdap) 10/05/2022 10/05/2012 COVID-19 Vaccine ( - season) 2023 03/29/2021, 09/01/2020, 07/29/2020 HbA1c 04/22/2023 10/21/2022, 04/02, 02/26/2020, Additional history exists GFR 10/22/2023 10/21/2022, 04/02, 06/07/2020, Additional history exists TSH 10/22/2023 10/21/2022, 04/02, 02/26/2020, Additional history exists Pneumococcal Vaccine: 65+ Years Completed 06/23/2016, 05/22/2015 Influenza Vaccine (FLU shot) Completed 12/2022, 04/20/2022, 03/21/2020, Additional history exists GARDASIL-HPV IMMUNIZATION [...] the patient have Health Care Power of Eligibility Worker? Yes, not currently available Care Teams Insulation Estimator Relationship Specialty Start Date End Date Merced Mcgraw MD [address] [facility] [place] [address] PCP - General Internal Medicine 05/22/15 documented as of this encounter
--- OUTSIDE RECORDS SUMMARY | 2023-11-16 13:46 | External Medical Summary | Summary of Care ---
Author Name Unknown Organization [facility] Address [address] [place] [address] Phone [phone] Care Team Providers Care Development Rep Name Role Phone Olga Mcgraw MD Primary Care Provider + Reason for Visit * Reason Comments eRx-Medication Refill Encounter Details Date Type Department Care Team (Late st Contact Info) Description 10/09/2023 Refill General Internal Medicine [facility] [address] [place] [address] Olga Mcgraw MD [address] [place] [address] Type 2 diabetes mellitus with hemoglobin A1c goal of less than 8.0% ([facility]); Acquired hypothyroidism Allergies Active Allergy Reactions Criticality Noted Date Comments Penicillins Rash Medium 08/30/2011 documented as of this encounter (statuses as of 10/10/2023) Medications Medication Sig Dispensed Refills Start Date End Date Status CENTRUM SILVER PO TABS Take 1 Tablet by mouth in the morning. 0 Active CALCIUM 600+D 600-200 MG-UNIT PO TABS Take 1 Tab by mouth 2 times a day. 0 Active ASPIRIN 81 MG PO TABS Take 1 Tablet by mouth in the morning. 0 Active magnesium citrate solutionIndication s:Constipation Take 120 mL by mouth daily as needed for Constipation. for severe constipation. 240 mL 1 7 Active ferrous sulfate (FEOSOL) 325 (65 FE) MG TabletIndications: Anemia Take 1 Tab by mouth 2 times a day. 60 Tab 11 7 Active Additional Information Patient taking differently:325 mg Oral,(No frequency reported), Takes every other day, Informant: At Discharge, Reported on 10/25/2022 bisacodyl (DULCOLAX) 5 MG TBECIndications:Sl ow transit constipation 1-2 tablet twice daily as needed for severe constipation. 60 Tab 1 7 Active MiraLax 17 GM/SCOOP Oral Powder Take 17 g by mouth daily as needed for Constipation. 0 Active Docusate Sodium 100 MG Oral Capsule Take 1 Capsule by mouth in the morning and 1 Capsule before bedtime. As needed. 0 0 Active Zoster Vac Recomb Adjuvanted 50 MCG/0.5ML Intramuscular Suspension Reconstituted (Shingrix)Indicati ons:Need for vaccination for zoster Inject 0.5 mL into a large muscle now and repeat dose in 60 to 180 days 1 Each 1 2 Active Vitamin B Complex Oral Tablet Take 1 Tablet by mouth at bedtime. 0 Active PreserVision/Lutei n Oral Capsule Take 1 Capsule by mouth in the morning. 0 Active Levothyroxine Sodium 50 MCG Oral Tablet (Levoxyl)Indicatio ns:Hypothyroidism TAKE 1 TABLET BY MOUTH ONCE A DAY AT LEAST 30 MIN BEFORE BREAKFAST AND OTHER MEDICATIONS 90 Tablet 3 3 Active Atorvastatin Calcium 40 MG Oral Tablet (Lipitor) take 1 tablet by mouth every morning 90 Tablet 1 3 Active Sertraline HCl 50 MG Oral Tablet (Zoloft) take 1 tablet by mouth at bedtime 90 Tablet 1 3 Active amLODIPine Besylate 2.5 MG Oral Tablet (Norvasc) TAKE 3 TABLETS BY MOUTH DAILY 270 Tablet 1 3 Active Pantoprazole Sodium 40 MG Oral Tablet Delayed Release (Protonix) take 1 tablet by mouth every morning 1 HOUR BEFORE FIRST MEAL OF THE DAY 90 Tablet 1 4 Active Sucralfate 1 GM Oral Tablet (Carafate)Indicati ons:Gastroesophage al reflux disease without esophagitis TAKE 1 TABLET BY MOUTH 4 TIMES A DAY BEFORE MEALS AND AT BEDTIME 120 Tablet 11 4 Active Donepezil HCl 5 MG Oral Tablet (Aricept)Indicatio ns:Alzheimer's disease (HCC) TAKE 1 TABLET BY MOUTH IN THE MORNING. TAKE WITH LARGEST MEAL OF THE DAY.. 90 Tablet 1 4 Active Atorvastatin Calcium 20 MG Oral Tablet (Lipitor) TAKE 1 TABLET BY MOUTH EVERY MORNING 90 Tablet 1 4 Active Atorvastatin Calcium 20 MG Oral Tablet (Lipitor) take 1 tablet by mouth every morning 90 Tablet 1 3 10/10/19 24 Discontinued documented as of this encounter (statuses as of 10/10/2023) Active Problems Problem Noted Date Diagnosed Date [...] as of this encounter (statuses as of 10/10/2023) Resolved Problems Problem Noted Date Diagnosed Date [...] as of this encounter (statuses as of 10/10/2023) Immunizations Name Administration Dates Next Due COVID-19 [...] encounter Miscellaneous Notes * Telephone Encounter - Nate Ivan RPh - 10/10/2023 12:13 PM EDT Signed Prescriptions: Disp Refills Atorvastatin Calcium 20 MG Oral Tablet (Li*90 Tab*1 Sig: TAKE 1TABLET BY MOUTH EVERY MORNINGAuthorizing Provider: OLGA MCGRAW User: NATE IVAN documented in this encounter Plan of Treatment Upcoming Encounters Date Type Department Care Team (Late st Contact Info) Description 11/09/2023 2:20 PM EDT Office Visit General Internal Medicine [place] [address] [place], [place] [address] Olga Mcgraw MD [address] [facility] [place] [address] Scheduled Orders Name Type Priority Associated Diagnoses Orde r Schedule ALBUMIN / CREATININE RATIO, URINE Lab Routine Type 2 diabetes mellitus with hemoglobin A1c goal of less than 8.0% (HCC) Expected: 10/10/2023, Expires: 10/09/2024 TSH WITH FREE T4 IF INDICATED Lab Routine Acquired hypothyroidism Expected: 10/10/2023 (Approximate), Expires: 10/09/2024 Health Maintenance Due Date Last Done Comments [...] as of this encounter Visit Diagnoses Diagnosis Type 2 diabetes mellitus with hemoglobin A1c goal of less than 8.0% (HCC) Acquired hypothyroidism Unspecified hypothyroidism documented in this encounter Advance Directives Latest [...] the patient have Health Care Power of University Administrative Assistant? Yes, not currently available Care Teams Development Rep Relationship Specialty Start Date End Date Olga Mcgraw MD [address] [place] [address] PCP - General Internal Medicine 05/22/15 documented as of this encounter
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
--- OUTSIDE RECORDS SUMMARY | 2023-11-16 13:46 | External Medical Summary | Summary of Care ---
Author Name Unknown Organization [facility] Address [address] [place] [address] Phone [phone] Care Team Providers Care Medical Information Specialist Name Role Phone Merced Mcgraw MD Primary Care Provider + Reason for Visit * Reason Onset Date Comments Nurse Documentation 11/03/2023 Advance Care Planning/ MyCareChoices Encounter Details Date Type Department Care Team (Late st Contact Info) Description 11/03/2023 Telephone Care Coordination [address] [place] [address] Autumn Christensen LPN Nurse Documentation [...] encounter Miscellaneous Notes * Telephone Encounter - Autumn Christensen LPN - 11/03/2023 10:11 AM EDT My[facility]Choices team received message from Gris Garces LPN to contact patient daughter Latonya for assistance with advance directives. LVM with direct contact information. Autumn Christensen LPN My Care Choices Faculty Research Physician [phone] documented in this encounter Plan of Treatment Upcoming Encounters Date Type Department Care Team (Late st Contact Info) Description 11/09/2023 2:20 PM EDT Office Visit General Internal Medicine [facility] [address] [facility] [place] [address] Merced Mcgraw MD [address] [facility] [place] [address] Health Maintenance Due Date Last Done Comments [...] the patient have Health Care Power of Renal Technician? Yes, not currently available Care Teams Medical Information Specialist Relationship Specialty Start Date End Date Merced Mcgraw MD [address] [place] [address] PCP - General Internal Medicine 05/22/15 documented as of this encounter
--- OUTSIDE RECORDS SUMMARY | 2023-11-16 13:47 | External Medical Summary | Summary of Care ---
Author Name Unknown Organization [facility] Address [address] [place] [address] Phone [phone] Care Team Providers Care Special Distribution Clerk Name Role Phone Merced Mcgraw MD Primary Care Provider + Encounter Details Date Type Department Care Team (Late st Contact Info) Description 08/25/2023 Population Health External Data Unspecified Department Allergies Active Allergy Reactions Criticality Noted Date Comments Penicillins Rash Medium 08/30/2011 documented as of this encounter (statuses as of 08/25/2023) Medications Medication Sig Dispensed Refills Start Date [...] OTHER MEDICATIONS 90 Tablet 3 10/24/2022 Active Sucralfate 1 GM Oral Tablet (Carafate)Indication s:Gastroesophageal reflux disease without esophagitis TAKE 1 TABLET BY MOUTH 4 TIMES A DAY BEFORE MEALS AND AT BEDTIME 120 Tablet 11 10/25/2022 Active Atorvastatin Calcium 40 MG Oral Tablet (Lipitor) take 1 tablet by mouth every morning 90 Tablet 1 05/09/2023 Active Sertraline HCl 50 MG Oral Tablet (Zoloft) take 1 tablet by mouth at bedtime 90 Tablet 1 05/26/2023 Active Atorvastatin Calcium 20 MG Oral Tablet (Lipitor) take 1 tablet by mouth every morning 90 Tablet 1 05/29/2023 Active Donepezil HCl 5 MG Oral Tablet (Aricept)Indications :Alzheimer's disease (HCC) Take 1 Tablet by mouth in the morning. Take with largest meal of the day.. 90 Tablet 1 06/30/2023 Active amLODIPine Besylate 2.5 MG Oral Tablet (Norvasc) TAKE 3 TABLETS BY MOUTH DAILY 270 Tablet 1 06/29/2023 Active Pantoprazole Sodium 40 MG Oral Tablet Delayed Release (Protonix) take 1 tablet by mouth every morning 1 HOUR BEFORE FIRST MEAL OF THE DAY 90 Tablet 1 07/25/2023 Active documented as of this encounter (statuses as of 08/25/2023) Active Problems Problem Noted Date Diagnosed Date [...] as of this encounter (statuses as of 08/25/2023) Resolved Problems Problem Noted Date Diagnosed Date [...] as of this encounter (statuses as of 08/25/2023) Immunizations Name Administration Dates Next Due COVID-19 [...] Team (Late st Contact Info) Description 11/09/2023 3:20 PM EDT Office Visit General Internal Medicine [facility] [place] [address] [place] [address] Merced Mcgraw MD [address] [place] [address] Health Maintenance Due Date Last Done Comments Diabetic Foot Exam 1958 Zoster Vaccines (1 of 2) 1992 Diabetic Eye Exam 03/13/2013 03/13/2012 Albumin/Creatinine Ratio 10/10/2015 10/09/2014 Depression Screening 04/28/2021 04/28/2020 *BISPHONATE OR OTHER ACCEPTABLE MEDICATION NEEDED FOR OSTEOPOROSIS (REFER TO SMARTSET #1146) 07/19/2022 DTaP,Tdap,and Td Vaccines (2 - Td or Tdap) 10/05/2022 10/05/2012 COVID-19 Vaccine ( - 2022- season) 2023 03/29/2021, 09/01/2020, 07/29/2020 [...] the patient have Health Care Power of Radius Corner Machine Operator? Yes, not currently available Care Teams Special Distribution Clerk Relationship Specialty Start Date End Date Merced Mcgraw MD [address] [facility] [address] PCP - General Internal Medicine 05/22/15 documented as of this encounter
--- OUTSIDE RECORDS SUMMARY | 2023-11-16 13:47 | External Medical Summary | Summary of Care ---
Author Name Unknown Organization [facility] Address [address] [place] [address] Phone [phone] Care Team Providers Care Multigraph Operator Name Role Phone Olga Mcgraw MD Primary Care Provider + Reason for Visit * Reason Onset Date Comments Medication Refill 08/29/2023 Encounter Details Date Type Department Care Team (Late st Contact Info) Description 08/29/2023 Refill General Internal Medicine [facility] [address] [facility] [place] [address] Olga Mcgraw MD [address] [facility] [place] [id number] Gastroesophageal reflux disease without esophagitis Allergies Active Allergy Reactions Criticality Noted Date Comments Penicillins Rash Medium 08/30/2011 documented as of this encounter (statuses as of 09/01/2023) Medications Medication Sig Dispensed Refills Start Date [...] MG Oral Tablet (Aricept)Indicatio ns:Alzheimer's disease (HCC) Take 1 Tablet by mouth [...] 07/25/2023 Active Sucralfate 1 GM Oral Tablet (Carafate)Indicati ons:Gastroesophage al reflux disease without esophagitis TAKE 1 TABLET BY MOUTH 4 TIMES A DAY BEFORE MEALS AND AT BEDTIME 120 Tablet 11 09/01/2023 Active Sucralfate 1 GM Oral Tablet (Carafate)Indicati ons:Gastroesophage al reflux disease without esophagitis TAKE 1 TABLET BY MOUTH 4 TIMES A DAY BEFORE MEALS AND AT BEDTIME 120 Tablet 11 10/25/2022 Discontinue d(Refill) documented as of this encounter (statuses as of 09/01/2023) Active Problems Problem Noted Date Diagnosed Date [...] as of this encounter (statuses as of 09/01/2023) Resolved Problems Problem Noted Date Diagnosed Date [...] as of this encounter (statuses as of 09/01/2023) Immunizations Name Administration Dates Next Due COVID-19 [...] encounter Miscellaneous Notes * Telephone Encounter - Olga Mcgraw MD - 09/01/2023 9:11 AM ESTSigned Prescriptions: Disp Refills Sucralfate 1 GM Oral Tablet (Carafate) 120 Ta*11 Sig: TAKE 1 TABLET BY MOUTH 4 TIMES A DAY BEFORE MEALS AND AT BEDTIME Authorizing Provider: OLGA MCGRAW * Telephone Encounter - Gloria Lay LPN - 09/01/2023 8:51 AM ESTPending Prescriptions: Disp Refills Sucralfate 1 GM Oral Tablet (Carafate) 120 Ta*11 Sig: TAKE 1 TABLET BY MOUTH 4 TIMES A DAY BEFORE MEALS AND AT BEDTIME * Telephone Encounter - Salvador Ashraf OSA - 08/29/2023 2:02 PM EST 90 Day Prescription Request Did you pend patient's preferred pharmacy and medication before forwarding?yes Pharmacy: [id number] [id number] [place] [address] Pending Prescriptions: Disp Refills Sucralfate 1 GM Oral Tablet (Carafate) 120 Ta*11 Sig: TAKE 1 TABLET BY MOUTH 4 TIMES A DAY BEFORE MEALS AND AT BEDTIME Last Visit: 05/09/2023 (in office), 06/07/2022 (telemedicine) Next Visit: 11/09/2023 If no future appointments scheduled, and last appointment is greater than a year ago, please schedule patient for a follow-up appointment Last date the medication was ordered: 10/25/2022 Is this request for a controlled substance?No Urine Drug Screen:No results found for this or any previous visit. Patient Phone Numbers Labs: Lab Results Component Value Date/Time CREAT 0.9 10/21/2022 03:45 PM CREAT 0.7 06/07/2020 08:26 AM POTASSIUM 4.0 10/21/2022 03:45 PM POTASSIUM 3.5 06/07/2020 08:26 AM TSH 0.49 10/21/2022 03:45 PM TSH 1.22 02/26/2020 04:50 PM LDLCALC 60 10/21/2022 03:45 PM LDLCALC 129 10/09/2014 11:48 AM LDLDIRECT 83 04/15/2021 01:40 PM LDLDIRECT 62 04/11/2019 11:36 AM ALT 20 10/21/2022 03:45 PM ALT 14 02/26/2020 04:50 PM HGBA1C 6.7 (H) 10/21/2022 03:45 PM HGBA1C 6.4 (H) 02/26/2020 04:50 PM documented in this encounter Plan of Treatment Upcoming Encounters Date Type Department Care Team (Late st Contact Info) Description 11/09/2023 3:20 PM EDT Office Visit General Internal Medicine [facility] [address] [place] [address] Olga Mcgraw MD [address] [place] [address] Health Maintenance Due Date Last Done Comments Diabetic Foot Exam 1960 Zoster Vaccines (1 of 2) 1992 Diabetic Eye Exam 03/13/2013 03/13/2012 Albumin/Creatinine Ratio 10/10/2015 10/09/2014 Depression Screening 04/28/2021 04/28/2020 *BISPHONATE OR OTHER ACCEPTABLE MEDICATION NEEDED FOR OSTEOPOROSIS (REFER TO SMARTSET #1146) 07/19/2022 DTaP,Tdap,and Td Vaccines (2 - Td or Tdap) 10/05/2022 10/05/2012 COVID-19 Vaccine (4 - season) 2023 03/29/2021, 09/01/2020, 07/29/2020 HbA1c [...] as of this encounter Visit Diagnoses Diagnosis Gastroesophageal reflux disease without esophagitis Esophageal reflux documented in this encounter Advance Directives Latest [...] the patient have Health Care Power of Bending Roll Hand? Yes, not currently available Care Teams Multigraph Operator Relationship Specialty Start Date End Date Olga Mcgraw MD [address] [facility] [place] [address] PCP - General Internal Medicine 05/22/15 documented as of this encounter
--- OUTSIDE RECORDS SUMMARY | 2023-11-16 13:47 | External Medical Summary | Summary of Care ---
Author Name Unknown Organization [facility] Address [address] [place] [address] Phone [phone] Care Team Providers Care Supplier Engineer Name Role Phone Merced Mcgraw MD Primary Care Provider + Reason for Visit * Reason Comments eRx-Medication Refill Encounter Details Date Type Department Care Team (Late st Contact Info) Description 10/08/2023 Refill General Internal Medicine [facility] [address] [facility] [address] Venkata Rojo [facility]-C [address] [facility] [address] Alzheimer's disease (HCC) Allergies Active Allergy Reactions Criticality Noted Date Comments Penicillins Rash Medium 08/30/2011 documented as of this encounter (statuses as of 10/09/2023) Medications Medication Sig Dispensed Refills Start Date [...] at bedtime 90 Tablet 1 3 Active Atorvastatin Calcium 20 MG Oral Tablet (Lipitor) take 1 tablet by mouth every morning 90 Tablet 1 3 Active amLODIPine Besylate [...] THE DAY.. 90 Tablet 1 4 Active Donepezil HCl 5 MG Oral Tablet (Aricept)Indicatio ns:Alzheimer's disease (HCC) Take 1 Tablet by mouth in the morning. Take with largest meal of the day.. 90 Tablet 1 3 10/09/19 24 Discontinued documented as of this encounter (statuses as of 10/09/2023) Active Problems Problem Noted Date Diagnosed Date [...] as of this encounter (statuses as of 10/09/2023) Resolved Problems Problem Noted Date Diagnosed Date [...] as of this encounter (statuses as of 10/09/2023) Immunizations Name Administration Dates Next Due COVID-19 [...] encounter Miscellaneous Notes * Telephone Encounter - Sammi Mendez MD - 10/09/2023 3:49 PM EDTSigned Prescriptions: Disp Refills Donepezil HCl 5 MG Oral Tablet (Aricept) 90 Tab*1 Sig: TAKE 1 TABLET BY MOUTH IN THE MORNING. TAKE WITH LARGEST MEAL OF THE DAY.. Authorizing Provider: SAMMI MENDEZ * Telephone Encounter - Sukumar Murrieta RN - 10/09/2023 10:05 AM EDTPending Prescriptions: Disp Refills Donepezil HCl 5 MG Oral Tablet [Pharmacy M*90 Tab*1 Sig: Take 1 Tablet by mouth in the morning. Take with largest meal of the day.. * Telephone Encounter - Sukumar Murrieta RN - 10/09/2023 10:04 AM EDT Images from the original note were not included. Refill routed to provider. Provider to address: med Reason for Call: eRx-Medication Refill Contact: [facility] Contact Type: Medication Outcome: See above Face to face time spent with Patient (minutes): 0 Total Time including non face to face (minutes): 10 Sukumar Murrieta [facility] Primary Care Nurse Coordinator [facility] (Helping out) * Telephone Encounter - Fracisco Colindres - 10/09/2023 4:32 AM EDTPending Prescriptions: Disp Refills Donepezil HCl 5 MG Oral Tablet [Pharmacy M*90 Tab*1 Sig: Take 1Tablet by mouth in the morning. Take with largest meal of the day.. documented in this encounter Plan of Treatment Upcoming Encounters Date Type Department Care Team (Late st Contact Info) Description 11/09/2023 2:20 PM EDT Office Visit General Internal Medicine [facility] [address] [place] [address] [address] Merced Mcgraw MD [address] [place] [address] Health Maintenance Due Date Last Done Comments [...] as of this encounter Visit Diagnoses Diagnosis Alzheimer's disease (HCC) Alzheimer's disease documented in this encounter Advance Directives Latest [...] the patient have Health Care Power of Steel Hanger? Yes, not currently available Care Teams Supplier Engineer Relationship Specialty Start Date End Date Merced Mcgraw MD [address] [place] [address] PCP - General Internal Medicine 05/22/15 documented as of this encounter
--- OUTSIDE RECORDS SUMMARY | 2023-11-16 13:47 | External Medical Summary | Summary of Care ---
Author Name Unknown Organization [facility] Address [address] [place] [address] Phone [phone] Care Team Providers Care Cloth Brushing And Sueding Supervisor Name Role Phone Olga Mcgraw MD Primary Care Provider + Reason for Visit * Reason Onset Date Comments Medication Refill 07/25/2023 Encounter Details Date Type Department Care Team (Late st Contact Info) Description 07/25/2023 Refill General Internal Medicine [facility] [address] [facility] [place] [address] Olga Mcgraw MD [address] [facility] [address] Allergies Active Allergy Reactions Criticality Noted Date Comments Penicillins Rash Medium 08/30/2011 documented as of this encounter (statuses as of 07/25/2023) Medications Medication Sig Dispensed Refills Start Date [...] 10/24/2022 Active Sucralfate 1 GM Oral Tablet (Carafate)Indicati [...] THE DAY 90 Tablet 1 07/25/2023 Active Pantoprazole Sodium 40 MG Oral Tablet Delayed Release (Protonix) take 1 tablet by mouth every morning 1 HOUR BEFORE FIRST MEAL OF THE DAY 90 Tablet 1 05/29/2023 4 Discontinue d(Refill) documented as of this encounter (statuses as of 07/25/2023) Active Problems Problem Noted Date Diagnosed Date [...] as of this encounter (statuses as of 07/25/2023) Resolved Problems Problem Noted Date Diagnosed Date [...] as of this encounter (statuses as of 07/25/2023) Immunizations Name Administration Dates Next Due COVID-19 [...] Telephone Encounter - Olga Mcgraw MD - 07/25/2023 1:31 PM ESTSigned Prescriptions: Disp Refills Pantoprazole Sodium 40 MG Oral Tablet Chanda*90 Tab*1 Sig: take 1 tablet by mouth every morning 1 HOUR BEFORE FIRST MEAL OF THE DAY Authorizing Provider: OLGA MCGRAW * Telephone Encounter - Danielle Fish LPN - 07/25/2023 12:15 PM EST Pending Prescriptions: Disp Refills Pantoprazole Sodium 40 MG Oral Tablet Chanda*90 Tab*1 Sig: take 1 tablet by mouth every morning 1 HOUR BEFORE FIRST MEAL OF THE DAY * Telephone Encounter - Carmen Bill OSA - 07/25/2023 11:23 AM EST 90 day Did you pend patient's preferred pharmacy and medication before forwarding?yes Pharmacy: [id number] [address] [facility] Pending Prescriptions: Disp Refills Pantoprazole Sodium 40 MG Oral Tablet Del*90 Tab*1 Sig: take 1 tablet by mouth every morning 1 HOUR BEFORE FIRST MEAL OF THE DAY Last Visit: 05/09/2023 (in office), 06/07/2022 (telemedicine) Next Visit: 11/09/2023 If no future appointments scheduled, and last appointment is greater than a year ago, please schedule patient for a follow-up appointment Last date the medication was ordered: 05/29/23 Is this request for a controlled substance?No [...] Medicine [facility] [address] [place], [place] [address] Olga Mcgraw MD [address] [facility] [place] [address] Health Maintenance Due Date Last Done Comments Diabetic Foot Exam 1958 Zoster Vaccines (1 of 2) 1992 Hepatitis B (1 of 3 - Risk 3-dose series) 2002 Diabetic Eye Exam 03/13/2013 03/13/2012 Albumin/Creatinine Ratio [...] the patient have Health Care Power of Adobe Ball Mixer? Yes, not currently available Care Teams Cloth Brushing And Sueding Supervisor Relationship Specialty Start Date End Date Olga Mcgraw MD [address] [place] [address] PCP - General Internal Medicine 05/22/15 documented as of this encounter
--- NOTE | 2023-11-16 14:09 | Hospitalist Progress Note ---
Date of Service November 16, 2023 Assessment & Plan (1) AMS (altered mental status): (2) Alzheimer's dementia: (3) Ambulatory dysfunction: Plan: Kade Digsg is an 83y/o F with PMHx of HTN, DM type II [currently not on medication], hypothyroidism, HTN, CVA, GERD w/o esophagitis, generalized osteoarthritis, depression and Alzheimer's dementia who presented to the ED via EMS for evaluation of AMS. Of note, patient's granddaughter is the main pattern setter for communicating with the patient [patient does not speak any Malian, only Mike]. Patient is currently living at home with her close family [son, [id number] and granddaughter] who provide her with 23/01 care. Strokelike symptoms Generalized weakness Altered mental status in setting of dementia DD: Possible TIA, worsening dementia, delirium, ?Hypoxia contributing H/O CVA --CT head: No acute intracranial abnormality identified. --Head/Neck CTA:There is no evidence of hemorrhage, mass effect, or acute territorial ischemia noting angiographic phase technique. Unremarkable CT rojelio ogram of the brain. Unremarkable CT angiogram of the neck. -- Normal TSH, vitamin B12, ammonia levels. No hypercarbia on VBG --Blood cultures pending --No obvious signs of infection --Patient's family prefers to defer MRI given dementia/claustrophobia --Continue aspirin, statin --Will repeat CT head tomorrow --PT OT, speech eval requested --Fall precautions --Reorient frequently to minimize delirium --Continue home medications for dementia Hypoxia Possible obstructive sleep apnea --CXR:Cardiomegaly with no acute cardiopulmonary abnormality identified. Will obtain nocturnal oximetry study Will advise sleep study as outpatient (4) Dysphagia: Plan: Likely from prior CVA Appreciate speech therapy recommendations Continue minced and moist, thin liquids Aspiration precautions Refuses thickened liquids Mouth care as needed (5) History of CVA (cerebrovascular accident): (6) Cerebrovascular disease: Plan: Continue home medications as above (7) GERD (gastroesophageal reflux disease): Plan: -Continue pantoprazole (8) Dyslipidemia: Plan: -Continue atorvastatin (9) Hypothyroidism: Plan: -TSH 1.37 -Continue levothyroxine (10) DM type 2 (diabetes mellitus, type 2): Plan: HbA1c 6.7 Diet controlled Continue insulin while hospitalized Monitor BGs (11) Depression: Plan: -Continue sertraline DVT Px Lovenox SQ Code Status: Full Code Admission and Anticipated Discharge Date Admission Date: November 15, 2023 Subjective Patient is seen and examined at bedside Poor historian secondary to dementia Discussed with patient's family at bedside Able to tolerate breakfast this morning with no swallowing issues Family concern for generalized weakness, possible mild worsening of facial droop from baseline Patient follows simple commands Was able to move all extremities with no issues Denies any chest pain, dyspnea, abdominal pain, nausea Review of Systems Review of Systems: Other Physical Exam Physical Exam: Physical Exam: Vitals signs as noted above General Appearance:Moderately built and nourished, no apparent distress, Elderly Head: normocephalic, Atraumatic, +Mild facial droop Eyes: normal inspection, EOMI Neck: supple, Trachea midline Respiratory/Chest: Normal breath sounds, CTA, No accessory muscle use Cardiovascular: S1, S2, No murmur Abdomen/GI:Soft, Non tender, Bowel sounds present Extremities/Musculoskeletal:normal inspection, no edema Neurologic/Psych:Alert, awake, grossly no focal neurological deficits, +dementia, +Follows simple commands Skin: normal color, warm Results & Data Results & Data Vital Signs (Past 12 Hours) Vital Signs Temp Pulse Pulse Resp BP BP Pulse Ox 11/16/23 11:36 36.8 C 74 18 143/83 H 94 11/16/23 07:55 37.0 C 68 18 146/75 H 94 11/16/23 07:11 64 11/16/23 04:09 36.8 C 69 18 159/87 H 94 O2 Del Method O2 Flow Rate 11/16/23 11:36 Nasal Cannula 3 11/16/23 07:55 Nasal Cannula 2 11/16/23 07:11 11/16/23 04:09 Nasal Cannula Laboratory Results Short CBC 11/16/23 Range/Units 07:12 WBC 8.06 (4.8-10.8) K/ul Hgb 11.2 L (12.0-16.0) g/dl Hct 36.3 L (37.0-47.0) % Plt Count 251 (130-400) K/uL BMP 11/16/23 07:12 Sodium 140 Potassium 3.7 Chloride 104 Carbon Dioxide 30 BUN 14 Creatinine 0.80 Glucose 123 H Calcium 9.5 (1) AMS (altered mental status) Altered mental status type: unspecified Qualified Code(s): R41.82 - Altered mental status, unspecified (2) Alzheimer's dementia Alzheimer's disease onset: unspecified onset Dementia severity: unspecified severity Dementia behavioral or psychological symptom: unspecified whether behavioral, psychotic, or mood disturbance or anxiety Qualified Code(s): G30.9 - Alzheimer's disease, unspecified; F02.80 - Dementia in other diseases classified elsewhere, unspecified severity, without behavioral disturbance, psychotic disturbance, mood disturbance, and anxiety (4) Dysphagia Dysphagia type: unspecified Qualified Code(s): R13.10 - Dysphagia, unspecified (7) GERD (gastroesophageal reflux disease) Esophagitis presence: without esophagitis Qualified Code(s): K21.9 - Gastro- esophageal reflux disease without esophagitis (9) Hypothyroidism Hypothyroidism type: unspecified Qualified Code(s): E03.9 - Hypothyroidism, unspecified (10) DM type 2 (diabetes mellitus, type 2) Diabetes mellitus intermodal customer service insulin use: without intermodal customer service use Diabetes mellitus complication status: without complication Qualified Code(s): E11.9 - Type 2 diabetes mellitus without complications (11) Depression Depression Type: unspecified Qualified Code(s): F32.A - Depression, unspecified
[2023-11-16] MEDS: LACTATED RINGER'S 1,000 ML IV ONE (17:24)
--- NOTE | 2023-11-17 07:55 | CT Scan Report ---
CT head/brain wo con CLINICAL HISTORY: 83 years-old Female with Stroke like symptoms. Acute strokelike symptoms TECHNIQUE: Multiple axial CT images of the head were obtained without contrast. A dose lowering tech nique was utilized adhering to the principles of ALARA. CT DOSE: 1094.1 mGy.cm COMPARISON: 11/15/2023 FINDINGS: Motion degraded exam. No acute intracranial hemorrhage, midline shift, intracranial mass, hydrocephal us, territorial ischemia or abnormal extra-axial collection. Involutional changes with chronic microv ascular ischemic disease. 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 The calvarium is intact. P rior bilateral lens repair. The paranasal sinuses, mastoid air cells, and middle ear cavities are yaa ar. IMPRESSION: No acute intracranial abnormality identified. ACT 112: Negative or not required by law. The above report was generated using voice recognition software. It may contain grammatical, syntax o r spelling errors. Electronically signed by: Melchor Rangel M.D. 11/17/2023 7:54 AM
[2023-11-17 08:13] LABS: Calcium 9.2 mg/dl (8.6-10.3); Creatinine Clr Calc Pharmacy 48.8 ml/min; Est GFR (African American) 81.4 ml/min; Est GFR (Non-African American) 70.2 ml/min; Magnesium 1.9 mg/dl (1.7-2.4); Potassium 3.7 mmol/L (3.5-5.1)
[2023-11-17] MEDS: ATORVASTATIN 20 MG TAB PO SCH (09:39)
--- NOTE | 2023-11-17 13:14 | Hospitalist Progress Note ---
Date of Service November 17, 2023 Assessment & Plan (1) AMS (altered mental status): (2) Alzheimer's dementia: (3) Ambulatory dysfunction: Plan: Kade Diggs is an 83y/o F with PMHx of HTN, DM type II [currently not on medication], hypothyroidism, HTN, CVA, GERD w/o esophagitis, generalized osteoarthritis, depression and Alzheimer's dementia who presented to the ED via EMS for evaluation of AMS. Of note, patient's granddaughter is the main manager of software for communicating with the patient [patient does not speak any Burmese, only Mike]. Patient is currently living at home with her close family [son, [id number] and granddaughter] who provide her with 23/01 care. Strokelike symptoms Generalized weakness Altered mental status in setting of dementia DD: Possible TIA, worsening dementia, delirium, ?Hypoxia contributing H/O CVA --CT head: No acute intracranial abnormality identified. --Head/Neck CTA:There is no evidence of hemorrhage, mass effect, or acute territorial ischemia noting angiographic phase technique. Unremarkable CT rojelio ogram of the brain. Unremarkable CT angiogram of the neck. --Repeat CT head:No acute intracranial abnormality identified. -- Normal TSH, vitamin B12, ammonia levels. No hypercarbia on VBG --Blood cultures: No growth to date --No obvious signs of infection --Patient's family prefers to defer MRI given dementia/claustrophobia --Continue aspirin, statin --PT OT, speech eval requested --Fall precautions --Reorient frequently to minimize delirium --Continue home medications for dementia Mental status seem to be back to baseline Plan to be discharged home today Hypoxia Possible obstructive sleep apnea Likely has Restrictive lung disease due to Chronic elevation of the right hemidiaphragm on imaging ? Kyphosis could be contributing as well Also noted diastolic dysfunction on prior ECHO ? contributing to hypoxia --CXR:An AP, portable, upright chest radiograph is compared to study dated 06/27/2022 and correlated with chest CT dated 06/26/2022. The patient's head partially obscures the apices. The heart is enlarged noting atherosclerotic calcification of the thoracic aorta. The pulmonary vasculature is noncongested. There is chronic elevation of the right hemidiaphragm with bibasilar scarring/atelectasis. No airspace consolidation or large pleural effusion is identified. There are scattered calcific granulomas. No pneumothorax is seen. The skeletal structures are osteopenic. The bony thorax is grossly intact. --ECHO from 04/08/2020: EF 55 to 60%. Grade 1 diastolic dysfunction. Mild aortic valve sclerosis Reviewed nocturnal oximetry study: Qualifies for oxygen Advised to get sleep study as outpatient 2 Step: Needs 2 L at rest and with activity. Plan to discharge on supplemental oxygen and further evaluation as outpatient (4) Dysphagia: Plan: Likely from prior CVA Appreciate speech therapy recommendations Continue minced and moist, thin liquids Aspiration precautions Refuses thickened liquids Mouth care as needed Given dementia, ambulatory dysfunction, dysphagia Patient requires positioning of the bed in ways not feasible with ordinary bed. Patient would benefit from head of the bed to be elevated more than 30 degrees most of the time due to chronic aspiration issues. (5) History of CVA (cerebrovascular accident): (6) Cerebrovascular disease: Plan: Continue home medications as above (7) GERD (gastroesophageal reflux disease): Plan: -Continue pantoprazole (8) Dyslipidemia: Plan: -Continue atorvastatin (9) Hypothyroidism: Plan: -TSH 1.37 -Continue levothyroxine (10) DM type 2 (diabetes mellitus, type 2): Plan: HbA1c 6.7 Diet controlled Continue insulin while hospitalized Monitor BGs (11) Depression: Plan: -Continue sertraline DVT Px Lovenox SQ Code Status: Full Code Disposition Home Family prefers no rehab, Admission and Anticipated Discharge Date Admission Date: November 15, 2023 Subjective Patient is seen and examined at bedside Poor historian secondary to dementia No distress on exam Discussed with patient's son at bedside. States patient seems to be back to baseline today Had 2 step earlier today Denies any chest pain, dyspnea, abdominal pain, nausea Review of Systems Review of Systems: Other Physical Exam Physical Exam: Physical Exam: Vitals signs as noted above General Appearance:Moderately built and nourished, no apparent distress, Elderly Head: normocephalic, Atraumatic, +Mild facial droop Eyes: normal inspection, EOMI Neck: supple, Trachea midline Respiratory/Chest: Normal breath sounds, CTA, No accessory muscle use Cardiovascular: S1, S2, No murmur Abdomen/GI:Soft, Non tender, Bowel sounds present Extremities/Musculoskeletal:normal inspection, no edema Neurologic/Psych:Alert, awake, grossly no focal neurological deficits, +dementia, +Follows simple commands Skin: normal color, warm Results & Data Results & Data Vital Signs (Past 12 Hours) Vital Signs Temp Pulse Pulse Pulse Pulse Pulse Pulse 11/17/23 11:45 37.1 C 66 11/17/23 11:06 11/17/23 09:18 98 H 74 100 H 11/17/23 08:10 37.4 C 68 11/17/23 07:59 64 11/17/23 03:37 37 C 64 11/17/23 02:42 Pulse Resp Resp Resp Resp Resp BP 11/17/23 11:45 18 153/73 H 11/17/23 11:06 11/17/23 09:18 67 17 14 14 12 11/17/23 08:10 16 152/77 H 11/17/23 07:59 11/17/23 03:37 16 112/71 11/17/23 02:42 63 Pulse Ox Pulse Ox Pulse Ox Pulse Ox Pulse Ox O2 Del Method O2 Del Method 11/17/23 11:45 94 Nasal Cannula 11/17/23 11:06 Nasal Cannula 11/17/23 09:18 93 86 L 89 L 84 L 11/17/23 08:10 90 Room Air 11/17/23 07:59 11/17/23 03:37 92 Nasal Cannula 11/17/23 02:42 89 L Room Air O2 Flow Rate O2 Flow Rate O2 Flow Rate O2 Flow Rate 11/17/23 11:45 2 11/17/23 11:06 2 11/17/23 09:18 2 1 2 11/17/23 08:10 11/17/23 07:59 11/17/23 03:37 3 11/17/23 02:42 Laboratory Results BMP 11/17/23 07:11 Sodium 140 Potassium 3.7 Chloride 106 Carbon Dioxide 29 BUN 15 Creatinine 0.79 Glucose 130 H Calcium 9.2 (1) AMS (altered mental status) Altered mental status type: unspecified Qualified Code(s): R41.82 - Altered mental status, unspecified (2) Alzheimer's dementia Alzheimer's disease onset: unspecified onset Dementia behavioral or psychological symptom: unspecified whether behavioral, psychotic, or mood disturbance or anxiety Dementia severity: unspecified severity Qualified Code(s): G30.9 - Alzheimer's disease, unspecified; F02.80 - Dementia in other diseases classified elsewhere, unspecified severity, without behavioral disturbance, psychotic disturbance, mood disturbance, and anxiety (4) Dysphagia Dysphagia type: unspecified Qualified Code(s): R13.10 - Dysphagia, unspecified (7) GERD (gastroesophageal reflux disease) Esophagitis presence: without esophagitis Qualified Code(s): K21.9 - Gastro- esophageal reflux disease without esophagitis (9) Hypothyroidism Hypothyroidism type: unspecified Qualified Code(s): E03.9 - Hypothyroidism, unspecified (10) DM type 2 (diabetes mellitus, type 2) Diabetes mellitus complication status: without complication Diabetes mellitus superintendent container terminal insulin use: without superintendent container terminal use Qualified Code(s): E11.9 - Type 2 diabetes mellitus without complications (11) Depression Depression Type: unspecified Qualified Code(s): F32.A - Depression, unspecified
--- NOTE | 2023-11-17 13:36 | Discharge Summary ---
Date of Service November 17, 2023 Admission HPI Per Admitting Provider Kade Diggs is an 83y/o F with PMHx of HTN, DM type II [currently not on medication], hypothyroidism, HTN, CVA, GERD w/o esophagitis, generalized osteoarthritis, depression and Alzheimer's dementia who presented to the ED via EMS for evaluation of AMS. History obtained from the patient's granddaughter, who is translating for the patient [patient does not speak any Bruneian, only Mike]. Of note, patient was originally accompanied by her son and oqscloye-hw-qcg in the ED. Patient is currently living at home with her close family [son, jgfrybho-em-hla and granddaughter] who provide her with 23/01 care. Granddaughter states that the family has noticed a steady decline in her mental status over the past approximately 2-3 months. She can no longer properly id entify family members, household pets. She also has started to wander around in the house when left unsupervised, which has very much so worried the family d/t potential danger of her exiting the house by accident. Granddaughter reports that her parents attempted to get her out of bed today (granddaughter was not home to assist), but she has all of the sudden become extremely lethargic/difficult to transfer and they were unable to move her [which prompted the call to EMS for transport to the ED]. Patient was able to ambulate appropriately with a walker prior to today. Most recently, she has been occasionally transferred directly from her bed to a wheelchair, which family uses to push her around the house when she is acting more sleepy/tired. Granddaughter does mention that she was up throughout the night approximately every 2 hours to urinate, which is not normal at baseline. She does constantly wear a urinary incontinence diaper at baseline [but was able to ambulate w/ her walker and family assistance to the nearby bathroom throughout the night], which worried the family that she may have developed a UTI. Granddaughter does report frequent changes of her diaper throughout the day. In addition to the increased urination, patient's granddaughter states that she may of had an episode of slurred speech and some facial drooping this morning that both quickly resolved. However, granddaughter states that she was not home this morning and had obtained this information from her mother (who was home this morning with the patient). Granddaughter states that the patient has had some dysphagia recently as well. She is on a soft-food diet at home, but granddaughter states that she coughs a lot while eating and tends not to eat very often. Patient is hand-fed by family members, as she is unable to appropriately feed herself. She hasn't really been drinking well at home either. Granddaughter endorses that the patient has expressed some agitation with eating/drinking at home since this gradual decline in her mental status began. Granddaughter denies any SOB, chest pain, hematuria or bowel habit changes. She further denies any lightheadedness/dizziness, recent falls or headaches. Granddaughter mentions that she has not noticed any swelling in her legs. Patient does routinely lay down in bed with both of her knees flexed at baseline. Admission Exam Per Admitting Provider General Appearance: Laying down in bed, no acute distress, non-toxic appearing. Head: Normocephalic, atraumatic. Eyes: Normal inspection, PERRL, conjunctivae normal, anicteric sclerae. ENT: External ear and nose normal, oropharynx normal. Neck: Normal visual inspection, trachea midline, no thyromegaly. Respiratory: Normal respiratory effort, lungs clear to auscultation, no wheeze, rales, rhonchi. No accessory muscle use. Cardiovascular: Regular rate, rhythm, no murmur, normal peripheral pulses, no BLE edema. Vessels: No JVD. Chest: Normal inspection of chest. Abdomen/GI: Normal bowel sounds, soft, nontender, no hepatosplenomegaly. Extremities/Musculoskeletal: No cyanosis or clubbing, upper and lower extremities grossly normal. Neurologic: PERRL, EOMI, accommodation nl, no face palsy, no dysarthria, CN's II-XI grossly intact bilaterally and moves all extremities. Psychiatric: Worsening dementia, unable to properly communicate. Minimal eye contact. Skin: No rashes, normal color, warm/dry. Principal Diagnosis Strokelike symptoms Generalized weakness Nocturnal hypoxia Dementia Chronic dysphagia Discharge Data Allergies Allergy/AdvReac Type Severity Reaction Status Date / Time Penicillins Allergy Mild RASH Verified 11/15/23 17:41 Consultations 11/15/23 15:25 ED Decision to Admit Stat Procedures Performed Laboratory Results WBC 8.06 K/ul (4.8-10.8) 11/16/23 07:12 RBC 4.39 M/uL (4.20-5.40) 11/16/23 07:12 Hgb 11.2 g/dl (12.0-16.0) L 11/16/23 07:12 Hct 36.3 % (37.0-47.0) L 11/16/23 07:12 MCV 82.7 fL (80.0-100.0) 11/16/23 07:12 MCH 25.5 pg (25.0-34.0) 11/16/23 07:12 MCHC 30.9 g/dL (32.0-36.0) L 11/16/23 07:12 RDW Std Deviation 48.2 fL (36.4-46.3) H 11/16/23 07:12 RDW Coeff of Vivienne 15.9 % (11.5-14.5) H 11/16/23 07:12 Plt Count 251 K/uL (130-400) 11/16/23 07:12 MPV 10.0 fL (9.4-12.4) 11/16/23 07:12 Immature Gran % (Auto) 0.5 % 11/15/23 11:10 Neut % (Auto) 70.9 % 11/15/23 11:10 Lymph % (Auto) 19.7 % 11/15/23 11:10 Campbell % (Auto) 6.8 % 11/15/23 11:10 Eos % (Auto) 1.9 % 11/15/23 11:10 Baso % (Auto) 0.2 % 11/15/23 11:10 Neut # (Auto) 6.20 K/uL (1.40-6.50) 11/15/23 11:10 Lymph # (Auto) 1.73 K/uL (1.20-3.40) 11/15/23 11:10 Campbell # (Auto) 0.60 K/uL (0.11-0.59) H 11/15/23 11:10 Eos # (Auto) 0.17 K/uL (0.00-0.50) 11/15/23 11:10 Baso # (Auto) 0.02 K/uL (0.00-0.20) 11/15/23 11:10 Immature Gran # (Auto) 0.04 K/uL (0.01-0.20) 11/15/23 11:10 PT 10.7 Seconds (9.0-12.0) 11/15/23 11:10 INR 1.0 (0.9-1.1) 11/15/23 11:10 APTT 26 Seconds (21-31) 11/15/23 11:10 PTT Ratio 1.0 11/15/23 11:10 VBG pH 7.43 (7.36-7.41) H 11/16/23 08:17 VBG pCO2 48 mmHg (38-50) 11/16/23 08:17 VBG pO2 59 mmHg 11/16/23 08:17 VBG HCO3 32 mmol/L 11/16/23 08:17 VBG O2 Saturation 92.6 % 11/16/23 08:17 VBG Base Excess 6.4 mEq/L 11/16/23 08:17 Sodium 140 mmol/L (136-145) 11/17/23 07:11 Potassium 3.7 mmol/L (3.5-5.1) 11/17/23 07:11 Chloride 106 mmol/L (98-107) 11/17/23 07:11 Carbon Dioxide 29 mmol/L (21-32) 11/17/23 07:11 Anion Gap 5 (3-11) 11/17/23 07:11 BUN 15 mg/dl (6-23) 11/17/23 07:11 Creatinine 0.79 mg/dl (0.6-1.2) 11/17/23 07:11 Est Cr Clr Drug Dosing 48.8 ml/min 11/17/23 07:11 Est GFR ( Amer) 81.4 ml/min 11/17/23 07:11 Est GFR (Non-Af Amer) 70.2 ml/min 11/17/23 07:11 BUN/Creatinine Ratio 19.0 (10-20) 11/17/23 07:11 Glucose 130 mg/dl (70-99(Fasting)) H 11/17/23 07:11 POC Glucose 145 mg/dl (70-99) H 11/17/23 12:04 Estimat Average Glucose 146 mg/dl 11/16/23 07:12 Hemoglobin A1c 6.7 % (4.5-5.6) H 11/16/23 07:12 Lactate 0.9 mmol/L (0.4-2.0) 11/15/23 12:08 Calcium 9.2 mg/dl (8.6-10.3) 11/17/23 07:11 Magnesium 1.9 mg/dl (1.7-2.4) 11/17/23 07:11 Total Bilirubin 0.5 mg/dl (0.2-1.0) 11/15/23 11:10 AST 22 U/L (13-39) 11/15/23 11:10 ALT 15 U/L (7-52) 11/15/23 11:10 Alkaline Phosphatase 104 U/L (34-104) 11/15/23 11:10 Ammonia 26.0 umol/L (18-72) 11/16/23 08:17 Troponin I High Sens 8.4 pg/ml (0-14) 11/15/23 11:10 Total Protein 8.3 gm/dl (6.0-8.3) 11/15/23 11:10 Albumin 4.4 gm/dl (3.4-5.0) 11/15/23 11:10 Globulin 3.9 gm/dl (2.5-4.0) 11/15/23 11:10 Albumin/Globulin Ratio 1.1 (0.9-2) 11/15/23 11:10 Vitamin B12 729 pg/ml (180-914) 11/16/23 08:17 Procalcitonin < 0.02 ng/ml (0-0.5) 11/15/23 12:08 TSH 1.372 uIu/ml (0.300-4.500) 11/15/23 12:18 Urine Color Yellow 11/15/23 11:10 Urine Appearance Clear (Clear) 11/15/23 11:10 Urine pH 8.5 (4.5-7.5) H 11/15/23 11:10 Ur Specific [place] 1.020 (1.000-1.030) 11/15/23 11:10 Urine Protein Negative (Negative) 11/15/23 11:10 Urine Glucose (UA) Negative (Negative) 11/15/23 11:10 Urine Ketones Negative (Negative) 11/15/23 11:10 Urine Blood Negative (Negative) 11/15/23 11:10 Urine Nitrite Negative (Negative) 11/15/23 11:10 Urine Bilirubin Negative (Negative) 11/15/23 11:10 Urine Urobilinogen Negative (Negative) 11/15/23 11:10 Ur Leukocyte Esterase Negative (Negative) 11/15/23 11:10 Impressions Chest X-Ray 11/15/23 11:13 SINGLE VIEW CHEST CLINICAL HISTORY: Neurological deficit. Stroke like symptoms. FINDINGS: An AP, portable, upright chest radiograph is compared to study dated 06/27/2022 and correlated with chest CT dated 06/26/2022. The patient's head partially obscures the apices. The heart is enlarged noting atherosclerotic calcification of the thoracic aorta. The pulmonary vasculature is noncongested. There is chronic elevation of the right hemidiaphragm with bibasilar scarring/atelectasis. No airspace consolidation or large pleural effusion is identified. There are scattered calcific granulomas. No pneumothorax is seen. The skeletal structures are osteopenic. The bony thorax is grossly intact. IMPRESSION: Cardiomegaly with no acute cardiopulmonary abnormality identified. ACT 112: Negative or not required by law. Electronically signed by: Shaheen Lopez M.D. 11/15/2023 11:47 AM Head CTA 11/15/23 15:25 CT ANGIOGRAM OF THE BRAIN; CT ANGIOGRAM OF THE NECK CLINICAL HISTORY: Strokelike symptoms. COMPARISON STUDY: Unenhanced CT of the brain performed the same day 11/15/2023. CT angiogram of the head and neck dated 06/26/2022. TECHNIQUE: Following the IV administration of 120 of Optiray 320, CT angiogram of the head and neck was performed from the aortic arch to the vertex. Images are reviewed in the axial, sagittal, and coronal planes. 3-D MIPS images are created and assessed. IV contrast was administered without complication. All me asurements were calculated based on NASCET criteria. A dose lowering technique was utilized adhering to the principles of ALARA. CT DOSE: 402.95 mGy.cm FINDINGS: Brain parenchyma: There is age-related involutional change noting [id number] subcortical and periventricular microangiopathic disease. There is no evidence of hemorrhage, mass effect, or acute territorial ischemia noting angiographic phase technique. There is no evidence of enhancing mass lesion on the angiogram phase images. A chronic lacunar infarct is noted in the left caudate head. The ventricles, sulci, and cisterns are prominent secondary to positional change. Villagran-white matter differentiation is preserved. No extra- axial fluid collection is seen. Thoracic aorta: There is atherosclerotic calcification of the thoracic air. Visualized portions of the thoracic aorta are normal in caliber. The aortic arch demonstrates standard 3-vessel anatomy. Right carotid arterial system: The right common carotid artery is widely patent, as are the right internal and external carotid arteries. Left carotid arterial system: The left common carotid artery is widely patent, as are the left internal and external carotid arteries. Calcified plaque is noted in the carotid bulb. Vertebral arteries: The vertebral arteries are widely patent bilaterally and codominant. Subclavian arteries: Widely patent bilaterally. Intracranial vasculature: There is atherosclerotic calcification of the cavernous carotid arteries. The internal carotid arteries are patent at the skull base, as are the anterior and middle cerebral arteries bilaterally. The vertebrobasilar system and posterior cerebral arteries are patent. The vertebral arteries are codominant. There is an aneurysm, high-grade stenosis, or focal vessel cutoff seen throughout the intracranial circulation. Jugular veins: Patent bilaterally. Dural sinuses: Patent. Lung apices: Partially visualized upper lobe lung parenchyma appears clear. Soft tissues: The visualized pharyngeal soft tissues are normal in appearance noting angiographic phase technique. The oropharyngeal airway appears widely patent. The salivary and thyroid glands are normal in appearance. No cervical lymphadenopathy is seen. Skeletal structures: The skeletal structures are osteopenic. The calvarium appears intact. The cervical spine is maintained noting advanced multilevel sp ondylosis. Orbits: The bony orbits are intact. Orbital contents are normal as visualized noting bilateral ocular lens implants. Sinuses and mastoids: The paranasal sinuses are clear. There is a small right mastoid effusion. The left mastoid air cells are well pneumatized. IMPRESSION: 1. There is no evidence of hemorrhage, mass effect, or acute territorial ischemia noting angiographic phase technique. 2. Unremarkable CT angiogram of the brain. 3. Unremarkable CT angiogram of the neck. ACT 112: Negative or not required by law. Electronically signed by: Shaheen Lopez M.D. 11/15/2023 4:07 PM Neck CTA 11/15/23 15:25 CT ANGIOGRAM OF THE BRAIN; CT ANGIOGRAM OF THE NECK CLINICAL HISTORY: Strokelike symptoms. COMPARISON STUDY: Unenhanced CT of the brain performed the same day 11/15/2023. CT angiogram of the head and neck dated 06/26/2022. TECHNIQUE: Following the IV administration of 120 of Optiray 320, CT angiogram of the head and neck was performed from the aortic arch to the vertex. Images are reviewed in the axial, sagittal, and coronal planes. 3-D MIPS images are created and assessed. IV contrast was administered without complication. All measurements were calculated based on NASCET criteria. A dose lowering technique was utilized adhering to the principles of ALARA. CT DOSE: 402.95 mGy.cm FINDINGS: Brain parenchyma: There is age-related involutional change noting fcyj-er-nxieoyat subcortical and periventricular microangiopathic disease. There is no evidence of hemorrhage, mass effect, or acute territorial ischemia noting angiographic phase technique. There is no evidence of enhancing mass lesion on the angiogram phase images. A chronic lacunar infarct is noted in the left caudate head. The ventricles, sulci, and cisterns are prominent secondary to positional change. Villagran-white matter differentiation is preserved. No extra- axial fluid collection is seen. Thoracic aorta: There is atherosclerotic calcification of the thoracic air. Visualized portions of the thoracic aorta are normal in caliber. The aortic arch demonstrates standard 3-vessel anatomy. Right carotid arterial system: The right common carotid artery is widely patent, as are the right internal and external carotid arteries. Left carotid arterial system: The left common carotid artery is widely patent, as are the left internal and external carotid arteries. Calcified plaque is noted in the carotid bulb. Vertebral arteries: The vertebral arteries are widely patent bilaterally and codominant. Subclavian arteries: Widely patent bilaterally. Intracranial vasculature: There is atherosclerotic calcification of the cavernous carotid arteries. The internal carotid arteries are patent at the skull base, as are the anterior and middle cerebral arteries bilaterally. The vertebrobasilar system and posterior cerebral arteries are patent. The vertebral arteries are codominant. There is an aneurysm, high-grade stenosis, or focal vessel cutoff seen throughout the intracranial circulation. Jugular veins: Patent bilaterally. Dural sinuses: Patent. Lung apices: Partially visualized upper lobe lung parenchyma appears clear. Soft tissues: The visualized pharyngeal soft tissues are normal in appearance noting angiographic phase technique. The oropharyngeal airway appears widely patent. The salivary and thyroid glands are normal in appearance. No cervical lymphadenopathy is seen. Skeletal structures: The skeletal structures are osteopenic. The calvarium appears intact. The cervical spine is maintained noting advanced multilevel spondylosis. Orbits: The bony orbits are intact. Orbital contents are normal as visualized noting bilateral ocular lens implants. Sinuses and mastoids: The paranasal sinuses are clear. There is a small right mastoid effusion. The left mastoid air cells are well pneumatized. IMPRESSION: 1. There is no evidence of hemorrhage, mass effect, or acute territorial ischemia noting angiographic phase technique. 2. Unremarkable CT angiogram of the brain. 3. Unremarkable CT angiogram of the neck. ACT 112: Negative or not required by law. Electronically signed by: Shaheen Lopez M.D. 11/15/2023 4:[address] 11/17/23 07:00 CT head/brain wo con CLINICAL HISTORY: 83 years-old Female with Stroke like symptoms. Acute strokelike symptoms TECHNIQUE: Multiple axial CT images of the head were obtained without contrast. A dose lowering technique was utilized adhering to the principles of ALARA. CT DOSE: 1094.1 mGy.cm COMPARISON: 11/15/2023 FINDINGS: Motion degraded exam. No acute intracranial hemorrhage, midline shift, intracranial mass, hydrocephalus, territorial ischemia or abnormal extra-axial collection. Involutional changes with chronic microvascular ischemic disease. 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 The calvarium is intact. Prior bilateral lens repair. The paranasal sinuses, mastoid air cells, and middle ear cavities are clear. IMPRESSION: No acute intracranial abnormality identified. ACT 112: Negative or not required by law. The above report was generated using voice recognition software. It may contain grammatical, syntax or spelling errors. Electronically signed by: Melchor Rangel M.D. 11/17/2023 7:54 AM Ordered Studies 11/15/23 11:13 CT head/brain wo con Stat 11/15/23 15:25 CT angio head w con Stat CT angio neck with con Stat 11/17/23 07:00 CT head/brain wo con Routine Hospital Course (1) AMS (altered mental status): (2) Alzheimer's dementia: (3) Ambulatory dysfunction: Kade Diggs is an 83y/o F with PMHx of HTN, DM type II [currently not on medication], hypothyroidism, HTN, CVA, GERD w/o esophagitis, generalized osteoarthritis, depression and Alzheimer's dementia who presented to the ED via EMS for evaluation of AMS. Of note, patient's granddaughter is the main instrument lens generator for communicating with the patient [patient does not speak any Bruneian, only Mike]. Patient is currently living at home with her close family [son, ynieerrm-ls-rlh and granddaughter] who provide her with 24/7 care. Strokelike symptoms Generalized weakness Altered mental status in setting of dementia DD: Possible TIA, worsening dementia, delirium, ?Hypoxia contributing H/O CVA --CT head: No acute intracranial abnormality identified. --Head/Neck CTA:There is no evidence of hemorrhage, mass effect, or acute territ orial ischemia noting angiographic phase technique. Unremarkable CT angiogram of the brain. Unremarkable CT angiogram of the neck. --Repeat CT head:No acute intracranial abnormality identified. -- Normal TSH, vitamin B12, ammonia levels. No hypercarbia on VBG --Blood cultures: No growth to date --No obvious signs of infection --Patient's family prefers to defer MRI given dementia/claustrophobia --Continue aspirin, statin --PT OT, speech eval requested --Fall precautions --Reorient frequently to minimize delirium --Continue home medications for dementia Mental status seem to be back to baseline Plan to be discharged home today Hypoxia Possible obstructive sleep apnea Likely has Restrictive lung disease due to Chronic elevation of the right hemidiaphragm on imaging ? Kyphosis could be contributing as well Also noted diastolic dysfunction on prior ECHO ? contributing to hypoxia --CXR:An AP, portable, upright chest radiograph is compared to study dated 06/27/2022 and correlated with chest CT dated 06/26/2022. The patient's head partially obscures the apices. The heart is enlarged noting atherosclerotic calcification of the thoracic aorta. The pulmonary vasculature is noncongested. There is chronic elevation of the right hemidiaphragm with bibasilar scarring/atelectasis. No airspace consolidation or large pleural effusion is identified. There are scattered calcific granulomas. No pneumothorax is seen. The skeletal structures are osteopenic. The bony thorax is grossly intact. --ECHO from 04/08/2020: EF 55 to 60%. Grade 1 diastolic dysfunction. Mild aortic valve sclerosis Reviewed nocturnal oximetry study: Qualifies for oxygen Advised to get sleep study as outpatient 2 Step: Needs 2 L at rest and with activity. Plan to discharge on supplemental oxygen and further evaluation as outpatient (4) Dysphagia: Likely from prior CVA Appreciate speech therapy recommendations Continue minced and moist, thin liquids Aspiration precautions Refuses thickened liquids Mouth care as needed Given dementia, ambulatory dysfunction, dysphagia Patient requires positioning of the bed in ways not feasible with ordinary bed. Patient would benefit from head of the bed to be elevated more than 30 degrees most of the time due to chronic aspiration issues. (5) History of CVA (cerebrovascular accident): (6) Cerebrovascular disease: Continue home medications as above (7) GERD (gastroesophageal reflux disease): -Continue pantoprazole (8) Dyslipidemia: -Continue atorvastatin (9) Hypothyroidism: -TSH 1.37 -Continue levothyroxine (10) DM type 2 (diabetes mellitus, type 2): HbA1c 6.7 Diet controlled Continue insulin while hospitalized Monitor BGs (11) Depression: -Continue sertraline DVT Px Lovenox SQ Code Status: Full Code Disposition Home Family prefers no rehab, Total Time Total Time Spent Total Time Spent (In Minutes): 65 minutes Discharge Plan Discharge Items Patient Disposition: Home - Self-Care Reason For Visit: AMS, STROKE WORK-UP Discharge Diagnosis: Strokelike symptoms Generalized weakness Nocturnal hypoxia Dementia Chronic dysphagia Activity: Per Instructions section Exercise/Sports: Gradually increase as tolerated Non-emergency contact: Primary Care Provider Call non-emergency contact if: you have any medication questions, your symptoms worsen, your pain is concerning for you and you have a fever Follow-up/Referrals: Merced Mcgraw MD [Primary Care Provider] - (Date & Time 11/23/2023 10:20 AM Provider Sheyla Beavers MD Department General Internal Medicine [facility] ) Dietitian Info: Minced and Moist Diet: Vegetarian (Lacto-Ovo) Addtl Attending Provider Instructions: Follow-up with your primary care physician Dr. Merced Mcgraw on 11/23/2023 10:20 AM -- Use supplemental oxygen 2 L via nasal cannula as advised --Obtain sleep study as outpatient to rule out sleep apnea -- Your final blood cultures are pending at the time of discharge. Follow-up with your physician for results. Seek immediate medical attention if your symptoms reoccur or worsen Please take all medications as instructed on discharge list below. Please call if you have any questions or problems. You can reach a [facility] hospitalist on duty at [facility] 24 hours a day by calling [phone] Pending Studies at Discharge: Yes Studies:: Blood Cultures Stand-Alone Forms: My [facility], Smoking Cessation Medications and DC Order Prescriptions: Continued donepezil [Aricept] 5 mg Tablet 5 mg PO QDB Rx Instructions: take with largest meal of day levothyroxine 50 mcg tablet 50 mcg PO DAILYBB amlodipine 2.5 mg tablet 7.5 mg PO QAM Rx Instructions: TAKE THREE TABLETS DAILY atorvastatin 40 mg tablet 40 mg PO QAM sucralfate 1 gram tablet 1 g PO QID calcium carbonate-vitamin D3 600 mg(1,500mg) -200 unit Tablet 1 tab PO BID vitamin B complex Tablet 1 tab PO HS atorvastatin 20 mg tablet 20 mg PO QAM ferrous sulfate 325 mg (65 mg iron) Tablet 325 mg PO .EVERY OTHER DAY aspirin 81 mg Tablet,Delayed Release (Dr/Ec) 81 mg PO HS sertraline 50 mg tablet 50 mg PO HS pantoprazole 40 mg tablet,delayed release (DR/EC) 40 mg PO QDB Rx Instructions: take with largest meal of day docusate sodium [Stool Softener] 100 mg Capsule 100 mg PO HS Discharge Orders: Discharge Order (Routine); Ordered 11/17/23 Ordered By: Ignacio Whitmore/Other Patient Handouts: Managing Type 2 Diabetes Admission Data Admit Date/Time: 11/15/23 17:19 Attending Provider: Ignacio Newton Admit Provider: Fabio Carroll Primary Care Provider: Merced Mcgraw Other Providers: Fabio Carroll
== END 2023-11-17 15:59 | disposition home or self-care (01) ==
LOC: ED 10:47 → EDINP 10:47 → SUATTDRO 17:19 → 2W 20:54

== ENCOUNTER 2024-05-11 09:27 | Inpatient (IN) ==
--- OUTSIDE RECORDS SUMMARY | 2024-05-11 09:34 | External Medical Summary | Summary of Care ---
Author Name Unknown Organization [facility] Address [address] [place] [address] Phone [phone] Care Team Providers Care Sign Hanger Supervisor Name Role Phone Olga Mcgraw MD Primary Care Provider + Reason for Visit * Reason Comments eRx-Medication Refill Encounter Details Date Type Department Care Team (Late st Contact Info) Description 01/11/2024 Refill General Internal Medicine [facility] [address] [facility] [place] [address] Olga Mcgraw MD [address] [place] [address] Hypothyroidism Allergies Active Allergy Reactions Criticality Noted Date Comments Penicillins Rash Medium 08/30/2011 documented as of this encounter (statuses as of 01/18/2024) Medications Medication Sig Dispensed Refills Start Date End Date Status CENTRUM SILVER PO TABS Take 1 Tablet by mouth in the morning. Active CALCIUM 600+D 600-200 MG-UNIT PO TABS Take 1 Tab by mouth 2 times a day. Active ASPIRIN 81 MG PO TABS Take 1 Tablet by mouth in the morning. Active magnesium citrate solutionIndication s:Constipation Take 120 mL by mouth daily as needed for Constipation. for severe constipation. 240 mL 1 03/02/201 7 Active Additional Information Patient not taking.Reported on [...] by mouth daily as needed for Constipation. Active Docusate Sodium 100 MG Oral Capsule Take 1 Capsule by mouth in the morning and 1 Capsule before bedtime. As needed. 0 Active Zoster Vac Recomb Adjuvanted 50 MCG/0.5ML Intramuscular Suspension Reconstituted (Shingrix)Indicati ons:Need for vaccination for zoster Inject 0.5 mL into a large muscle now and repeat dose in 60 to 180 days 1 Each 1 2 Active Vitamin B Complex Oral Tablet Take 1 Tablet by mouth at bedtime. Active PreserVision/Lutei n Oral Capsule Take 1 Capsule by mouth in the morning. Active Atorvastatin Calcium 40 MG Oral Tablet (Lipitor) take 1 tablet by mouth every morning 90 Tablet 1 3 Active Sucralfate 1 GM Oral Tablet (Carafate)Indicati [...] EVERY MORNING 90 Tablet 1 4 Active Sertraline HCl 50 MG Oral Tablet (Zoloft) TAKE 1 TABLET BY MOUTH AT BEDTIME 90 Tablet 3 4 Active amLODIPine Besylate 2.5 MG Oral Tablet (Norvasc) TAKE 3 TABLETS BY MOUTH DAILY 270 Tablet 3 4 Active Levothyroxine Sodium 50 MCG Oral Tablet (Levoxyl)Indicatio ns:Hypothyroidism TAKE 1 TABLET BY MOUTH ONCE A DAY AT LEAST 30 MIN BEFORE BREAKFAST AND OTHER MEDICATIONS 90 Tablet 4 Active Levothyroxine Sodium 50 MCG Oral Tablet (Levoxyl)Indicatio ns:Hypothyroidism TAKE 1 TABLET BY MOUTH ONCE A DAY AT LEAST 30 MIN BEFORE BREAKFAST AND OTHER MEDICATIONS 90 Tablet 3 3 01/12/20 24 Discontinued Pantoprazole Sodium 40 MG Oral Tablet Delayed Release (Protonix) take 1 tablet by mouth every morning 1 HOUR BEFORE FIRST MEAL OF THE DAY 90 Tablet 1 4 01/13/20 24 Discontinued documented as of this encounter (statuses as of 01/18/2024) Active Problems Problem Noted Date Diagnosed Date [...] as of this encounter (statuses as of 01/18/2024) Resolved Problems Problem Noted Date Diagnosed Date Resolved Date Acute perforated appendicitis 06/03/2020 11/08/2023 Overview: History - 2020 Prediabetes 08/15/2017 04/20/2022 Overview: Per Prediabetes protocol #1 Senile dementia, uncomplicated 07/18/2017 10/10/2022 Overview: Duplicated on pl Major depressive disorder 03/20/2012 Overview: ICD-10 update of inactive term Osteoporosis 02/02/2010 03/16/2022 Overview: No meds based on [address] Esophageal reflux 11/07/2007 10/20/2022 Major depressive disorder 11/07/2007 Overview: ICD-10 update of inactive term documented as of this encounter (statuses as of 01/18/2024) Immunizations Name Administration Dates Next Due COVID-19 [...] money to buy more. Never true 11/01/19 Within the past 12 months, t he food you bought just didn't last and you didn't have money to get more. Never true 11/01/2023 Childcare Answer Date Recorded Do you feel overwhelmed with taking care of a child, family member or friend? No 11/01/2023 Does your family need help f inding childcare? (Household - for ages 0-17 years) Not on file 11/01/2023 Clothing Answer Date Recorded Have you been unable to get clothing when it was really needed? No 11/01/2023 Is your family able to get c lothes or diapers when needed? (Household - for ages 0-17 years) Not on file 11/01/2023 Personal Safety Answer Date Recorded Do you feel unsafe or have concerns for your saf ety? No 11/01/2023 Do you have concerns for you r family's safety? (Household - for ages 0-17 years) Not on file 11/01/2023 Utilities Answer Date Recorded Do you have trouble paying y our heating, water, or electric bill? No 11/01/2023 Is your family able to pay t he heat, water, or electric bill? (Household - for ages 0-17 years) Not on file 11/01/2023 Does your family have access to good internet? (Household - for ages 0-17 years) Not on file 11/01/2023 Employment Status Answer Date Recorded Are you unemployed or without regular income? No 11/01/2023 [facility] the [facility] have [facility]? (Household - for ages 0-17 years) Not on file 11/01/2023 Social Connections Answer Date Recorded How often do you feel lonely or isolated from th ose around you? Never 11/01/2023 Financial Resource Strain Answer Date R ecorded Do you have any trouble payi ng for your medications, or do you think you might in the future? No 11/01/2023 Does your family have troubl e paying for medicine? (Household - for ages 0-17 years) Not on file 11/01/2023 Transportation Needs Answer Date Record ed READ ONLY Do you have troubl e getting a ride to medical visits or work? Never True 11/01/2023 Does your family have a hard time getting a ride to doctors visits? (Household - for ages 0-17 years) Not on file 11/01/2023 Has lack of transportation k ept you from medical appointments, meetings, work, or from getting things needed for daily living? Check all that apply. (Adult - for ages 18 years and over) Not on file 11/01/2023 Do you (or your family) have trouble finding or paying for a ride (transportation)? (Household - for ages 0-17 years) Not on file 11/01/2023 Housing Stability Answer Date Recorded Do you currently live in a s helter or have no steady place to sleep at night? No 11/01/2023 READ ONLY Do you think you a re at risk of becoming homeless? No 11/01/2023 Does your family worry about paying for your home or becoming homeless? (Household - for ages 0-17 years) Not on file 0 11/01/2023 Are you homeless or worried that you might be in the future? (Adult - for ages 18 years and over) Not on file Are you (or your family) jossie eless or worried that you might be in the future? (Household - for ages 0-17 years) Not on file Food Insecurity Answer Date Recorded Do you need food for this week? No 11/01/2023 Are you able to get enough f ood for your family? (Household - for ages 0-17 years) Not on file 11/01/2023 Does your family need food t his week? (Household - for ages 0-17 years) Not on file 11/01/2023 Do you always have enough fo od for your family? (Household - for ages 0-17 years) Not on file 11/01/2023 Sex and Gender Information Value Date [...] encounter Miscellaneous Notes * Telephone Encounter - Alisia Colindres - 01/18/2024 2:08 PM EDT Received message from [facility] regarding patient needing labs. Patient was notified. Successfully contacted patient and provided [facility] message. * Telephone Encounter - Stefani Barger RPh - 01/12/2024 10:08 AM EDTSigned Prescriptions: Disp Refills Levothyroxine Sodium 50 MCG Oral Tablet (L*90 Tab*0 Sig: TAKE 1 TABLET BY MOUTH ONCE A DAY AT LEAST 30 MIN BEFORE BREAKFAST AND OTHER MEDICATIONS Authorizing Provider: OLGA MCGRAW Ordering User: STEFANI BARGER * Telephone Encounter - Stefani Barger RPh - 01/12/2024 10:07 AM EDT Provided 90 days supply with 0 refill(s). Per refill protocol patient should have thyroid labs on file within past year. Reviewed AMP report, Care Gaps/Health Maintenance, medications list, and for any routine labs typically ordered for this patient. Lab orders placed. Please contact patient to advise of labs ordered for blood draw. Recommend patient to fast if able for labs. Patient may still have water and regular medications. Advise to obtain labs before requesting the next refill. Thank you, Stefani Barger [facility] Clinical Pharmacist [facility] ([facility]) 01/12/24 10:07 AM [phone] * Telephone Encounter - Stefani Barger RPh - 01/12/2024 10:03 AM EDT Did you pend patient's preferred pharmacy and medication before forwarding?yes Pharmacy: [id number] [facility] Pending Prescriptions: Disp Refills Levothyroxine Sodium 50 MCG Oral Tablet (*90 Tab*0 Sig: TAKE 1 TABLET BY MOUTH ONCE A DAY AT LEAST 30 MIN BEFORE BREAKFAST AND OTHER MEDICATIONS Last Visit: 05/09/2023 (in office), 06/07/2022 (telemedicine) Next Visit: Visit date not found If no future appointments scheduled, and last appointment is greater than a year ago, please schedule patient for a follow-up appointment Last date the medication was ordered: 10/24/2022 Is this request for a controlled substance?No [...] 14 02/26/2020 04:50 PM HGBA1C 6.7 (H) 01/02/2024 03:43 PM HGBA1C 6.4 (H) 02/26/2020 04:50 PM documented in this encounter Plan of Treatment Health Maintenance Due Date Last Done Comments Diabetic Foot Exam 1960 Zoster Vaccines (1 of 2) 1992 Diabetic Eye Exam 03/13/2013 03/13/2012 Albumin/Creatinine Ratio 10/10/2015 10/09/2014 *BISPHONATE OR OTHER ACCEPTABLE MEDICATION NEEDED FOR OSTEOPOROSIS (REFER TO SMARTSET #1146) 07/19/2022 DTaP,Tdap,and Td Vaccines (2 - Td or Tdap) 10/05/2022 10/05/2012 COVID-19 Vaccine (4 - 2022- season) 2023 03/29/2021, 09/01/2020, 07/29/2020 GFR 10/22/2023 10/21/2022, 04/02, 06/07/2020, Additional history exists TSH 10/22/2023 10/21/2022, 04/02, 02/26/2020, Additional history exists Influenza Vaccine (FLU shot) (#1) 2024 05/09/2023, 04/20/2022, 03/21/2020, Additional history exists HbA1c 07/04/2024 01/02/2024, 10/02, 04/15/2021, Additional history exists Depression Monitoring 10/31/2024 11/01/2023 Pneumococcal Vaccine: 65+ Years Completed 06/23/2016, 05/22/2015 Colonoscopy Discontinued 08/27/2020, 04/03, 04/24/2018, Additional history exists HPV (Gardasil) Vaccine Aged Out No lo nger eligible based on patient's age to complete this topic Hepatitis B Vaccine Aged Out No longe r eligible based on patient's age to complete this topic MENINGOCOCCAL (MENACTRA/MENVEO) Aged Out No longer eligible based on patient's age to complete this topic documented as of this encounter Medical Devices Not on filedocumented as of this encounter Visit Diagnoses Diagnosis Hypothyroidism Unspecified hypothyroidism documented in this encounter Advance Directives * Full Code (Latest Code Status on File) Date Activated Date Inactivated Comments 06/02/2020 1:37 AM 06/07/2020 3:34 PM This order r eflects the patients wishes and were consensually agreed upon. Question Answer Comments Discussion of Advance Directives occurred with: Not Discussed Does the patient have a Living Will? Yes, not cu rrently available Does the patient have Health Care Power of Outboard Technician? Yes, not currently available Care Teams Sign Hanger Supervisor Relationship Specialty Start Date End Date Olga Mcgraw MD [address] [place] [address] PCP - General Internal Medicine 05/22/15 documented as of this encounter
--- OUTSIDE RECORDS SUMMARY | 2024-05-11 09:34 | External Medical Summary | Summary of Care ---
Author Name Unknown Organization [facility] Address [address] [place] [address] Phone [phone] Care Team Providers Care Land Resource Specialist Name Role Phone Merced Mcgraw MD Primary Care Provider + Encounter Details Date Type Department Care Team (Late st Contact Info) Description 04/09/2024 Orders Only PATIENT PORTAL DO NOT DELETE THIS DEPT USED BY MANUEL GUTIÉRREZ [id number] Allergies Active Allergy Reactions Criticality Noted Date Comments Penicillins Rash Medium 08/30/2011 documented as of this encounter (statuses as of 04/09/2024) Medications Medication Sig Dispensed Refills Start Date End Date Status CENTRUM SILVER PO TABS Take 1 Tablet by mouth in the morning. Active CALCIUM 600+D 600-200 MG-UNIT PO TABS Take 1 Tab by mouth 2 times a day. Active ASPIRIN 81 MG PO TABS Take 1 Tablet by mouth in the morning. Active magnesium citrate solutionIndications: Constipation Take 120 [...] and 1 Capsule before bedtime. As needed. 04/30/2020 Active Zoster Vac Recomb Adjuvanted 50 MCG/0.5ML Intramuscular Suspension Reconstituted (Shingrix)Indication s:Need for vaccination for zoster Inject 0.5 mL into a large muscle now and repeat dose in 60 to 180 days 1 Each 1 02/01/2022 Active Vitamin B Complex Oral Tablet Take 1 Tablet by mouth at bedtime. Active PreserVision/Lutein Oral Capsule Take 1 Capsule by mouth in the morning. Active Sucralfate 1 GM Oral Tablet (Carafate)Indication [...] EVERY MORNING 90 Tablet 1 10/10/2023 Active Sertraline HCl 50 MG Oral Tablet (Zoloft) TAKE 1 TABLET BY MOUTH AT BEDTIME 90 Tablet 3 12/08/2023 Active amLODIPine Besylate 2.5 MG Oral Tablet (Norvasc) TAKE 3 TABLETS BY MOUTH DAILY 270 Tablet 3 12/10/2023 Active Levothyroxine Sodium 50 MCG Oral Tablet (Levoxyl)Indications :Hypothyroidism TAKE 1 TABLET BY MOUTH ONCE A DAY AT LEAST 30 MIN BEFORE BREAKFAST AND OTHER MEDICATIONS 90 Tablet 01/12/2024 Active Pantoprazole Sodium 40 MG Oral Tablet Delayed Release (Protonix) TAKE 1 TABLET BY MOUTH EVERY MORNING 1 HOUR BEFORE FIRST MEAL OF THE DAY 90 Tablet 1 01/13/2024 Active Atorvastatin Calcium 40 MG Oral Tablet (Lipitor) TAKE 1 TABLET BY MOUTH EVERY MORNING 90 Tablet 1 04/03/2024 Active documented as of this encounter (statuses as of 04/09/2024) Active Problems Problem Noted Date Diagnosed Date [...] as of this encounter (statuses as of 04/09/2024) Resolved Problems Problem Noted Date Diagnosed Date [...] as of this encounter (statuses as of 04/09/2024) Immunizations Name Administration Dates Next Due COVID-19 mRNA, LNP-s, No Pre serve, 2-Dose Series (Moderna) 03/29/2021,09/01/2020,07/29/2020 Pneumococcal Conjugate Vacc, 13 Valent (Prevnar) 05/22/2015 Pneumococcal Polysaccharide PPV23 (Pneumovax) 06/23/2016 Seasonal Influenza Vac., MDV , IM, 0.5 mL (Fluzone) 03/11/2014,04/11/2013,03/20/2012,04/20,06/03/2010,04/25/2008 Seasonal Influenza, High Dos e, Trivalent, PF, IM (Fluzone HD) 07/24/2017 Seasonal Influenza, PF, 6 M & above, IM , (FluLaval or Fluzone) 03/21/2020,2018 Seasonal Influenza, Quadriva lent Hd (Fluzone Hd) 05/09/2023,04/20/2022 Seasonal Influenza, Quadriva lent, No Preserve, IM 03/10/2016,05/22/2015 Seasonal Influenza, Trivalen t, Adjuvanted, 65+ YRS, PF, (Fluad) 04/11/2019 TDAP (age 10 and older)(Boostrix) 10/05/2012 documented [...] No 11/01/2023 Does the household have a re lar source of income? (Household - for ages [...] (15 years old or older) No 06/02/20 Cognitive Status Response Date of Assessm ent Because of a physical, menta l, or emotional condition, do you have serious difficulty concentrating, remembering, or making decisions? (5 years old or older) No 06/02/2020 documented as of this encounter Plan of Treatment Health Maintenance Due Date Last Done Comments Diabetic Foot Exam 1960 Zoster Vaccines (1 of 2) 1992 Adult Wellness Visit 2008 Diabetic Eye Exam 03/13/2013 03/13/2012 Albumin/Creatinine Ratio 10/10/2015 10/09/2014 *BISPHONATE OR OTHER ACCEPTABLE MEDICATION NEEDED FOR OSTEOPOROSIS (REFER TO SMARTSET #1146) 07/19/2022 DTap/Tdap Vaccines (2 - Td or Tdap) 10/05/2022 10/05/2012 GFR 10/22/2023 10/21/2022, 04/02, 06/07/2020, Additional history exists TSH 10/22/2023 10/21/2022, 04/02, 02/26/2020, Additional history exists COVID-19 Vaccine ( season) 2024 03/29/2021, 09/01/2020, 07/29/2020 Influenza Vaccine (FLU shot) (#1) 2024 05/09/2023, [...] filedocumented as of this encounter Advance Directives * Full Code [...] the patient have Health Care Power of Rn Employee Health? Yes, not currently available Care Teams Land Resource Specialist Relationship Specialty Start Date End Date Merced Mcgraw MD [address] [place] [address] PCP - General Internal Medicine 05/22/15 documented as of this encounter
--- OUTSIDE RECORDS SUMMARY | 2024-05-11 09:34 | External Medical Summary | Summary of Care ---
Author Name Unknown Organization [facility] Address [address] [place] [address] Phone [phone] Care Team Providers Care Winterizer Name Role Phone Olga Mcgraw MD Primary Care Provider + Reason for Visit * Reason Comments eRx-Medication Refill Encounter Details Date Type Department Care Team (Late st Contact Info) Description 04/11/2024 Refill General Internal Medicine [facility] [address] [facility] [place] [address] Olga Mcgraw MD [address] [place] [address] Hypothyroidism Allergies Active Allergy Reactions Criticality Noted Date Comments Penicillins Rash Medium 08/30/2011 documented as of this encounter (statuses as of 04/12/2024) Medications Medication Sig Dispensed Refills Start Date [...] morning. Active Sucralfate 1 GM Oral Tablet (Carafate)Indicati ons:Gastroesophage al reflux disease without esophagitis TAKE 1 TABLET BY MOUTH 4 TIMES A DAY BEFORE MEALS AND AT BEDTIME 120 Tablet 11 4 Active Atorvastatin Calcium 20 MG Oral Tablet (Lipitor) TAKE 1 TABLET BY MOUTH EVERY MORNING 90 Tablet 1 4 Active Sertraline HCl 50 MG Oral Tablet (Zoloft) TAKE 1 TABLET BY MOUTH AT BEDTIME 90 Tablet 3 4 Active amLODIPine Besylate 2.5 MG Oral Tablet (Norvasc) TAKE 3 TABLETS BY MOUTH DAILY 270 Tablet 3 4 Active Pantoprazole Sodium 40 MG Oral Tablet Delayed Release (Protonix) TAKE 1 TABLET BY MOUTH EVERY MORNING 1 HOUR BEFORE FIRST MEAL OF THE DAY 90 Tablet 1 4 Active Atorvastatin Calcium 40 MG Oral Tablet (Lipitor) TAKE 1 TABLET BY MOUTH EVERY MORNING 90 Tablet 1 4 Active Levothyroxine Sodium 50 MCG Oral Tablet (Levoxyl)Indicatio ns:Hypothyroidism TAKE 1 TABLET BY MOUTH ONCE A DAY AT LEAST 30 MIN BEFORE BREAKFAST AND OTHER MEDICATIONS 90 Tablet 4 Active Levothyroxine Sodium 50 MCG Oral Tablet (Levoxyl)Indicatio ns:Hypothyroidism TAKE 1 TABLET BY MOUTH ONCE A DAY AT LEAST 30 MIN BEFORE BREAKFAST AND OTHER MEDICATIONS 90 Tablet 4 04/12/20 24 Discontinued documented as of this encounter (statuses as of 04/12/2024) Active Problems Problem Noted Date Diagnosed Date [...] as of this encounter (statuses as of 04/12/2024) Resolved Problems Problem Noted Date Diagnosed Date [...] reflux 11/07/2007 10/20/2022 Major depressive disorder 11/07/2007 12 / Overview: ICD-10 update of inactive term documented as of this encounter (statuses as of 04/12/2024) Immunizations Name Administration Dates Next Due COVID-19 [...] No 11/01/2023 Does the household have a [facility] source of income? (Household - for ages [...] encounter Miscellaneous Notes * Telephone Encounter - Meek [facility] - 04/12/2024 10:20 AM EDTSigned Prescriptions: Disp Refills Levothyroxine Sodium 50 MCG Oral Tablet (L*90 Tab*0 Sig: TAKE 1 TABLET BY MOUTH ONCE A DAY AT LEAST 30 MIN BEFORE BREAKFAST AND OTHER MEDICATIONSAuthorizing Provider: OLGA MCGRAW User: MEEK REYES * Telephone Encounter - Meek [facility] - 04/12/2024 10:19 AM EDT 2nd attempt Provided 90 days supply with 0 refill(s). Per refill protocol patient should have TSH on file within past year. Reviewed AMP report, Care Gaps/Health Maintenance, medications list, and for any routine labs typically ordered for this patient. Lab orders placed. Please contact patient to advise of labs ordered for blood draw. Fasting is not required. Advise toobtain labs before requesting the next refill. Thank You, Meek Reyes [facility] Clinical Pharmacist Centralized Clinical Pharmacy Services ([facility]) 04/12/2024, 10:19 AM * Telephone Encounter - Meek [facility] - 04/12/2024 10:18 AM EDT Pending Prescriptions: Disp Refills Levothyroxine Sodium 50 [...] appointment Last date the medication was ordered: 01/12/24 Pharmacy: [id number] [facility] Is this request for a controlled substance? No Urine Drug Screen:No results found for this or any previous visit. Patient Phone Numbers Labs: Lab Results Component Value Date/Time CREAT 0.9 10/21/2022 03:45 PM CREAT 0.7 06/07/2020 08:26 AM POTASSIUM 4.0 10/21/2022 03:45 PM POTASSIUM 3.5 06/07/2020 08:26 AM TSH 0.49 10/21/2022 03:45 PM TSH 1.22 02/26/2020 04:50 PM LDL 60 10/21/2022 03:45 PM LDL 62 04/11/2019 11:36 AM LDL 129 10/09/2014 11:48 AM ALT 20 10/21/2022 03:45 PM ALT [...] the patient have Health Care Power of Asian Studies Professor? Yes, not currently available Care Teams Winterizer Relationship Specialty Start Date End Date Olga Mcgraw MD [address] [place] [address] PCP - General Internal Medicine 05/22/15 documented as of this encounter
--- OUTSIDE RECORDS SUMMARY | 2024-05-11 09:34 | External Medical Summary | Summary of Care ---
Author Name Unknown Organization [facility] Address [address] [place] [address] Phone [phone] Care Team Providers Care Vending Machine Servicer Name Role Phone Merced Mcgraw MD Primary Care Provider + Reason for Visit * Reason Onset Date Comments Health Maintenance 02/02/2024 Encounter Details Date Type Department Care Team (Late st Contact Info) Description 02/02/2024 Telephone General Internal Medicine [facility] [address] [facility], [place] [id number] Merced Mcgraw MD [address] [place] [address] Health Maintenance Allergies Active Allergy Reactions Criticality Noted Date Comments Penicillins Rash Medium 08/30/2011 documented as of this encounter (statuses as of 03/11/2024) Medications Medication Sig Dispensed Refills Start Date [...] every morning 90 Tablet 1 05/09/2023 Active Sucralfate 1 GM Oral Tablet (Carafate)Indication [...] THE DAY 90 Tablet 1 01/13/2024 Active documented as of this encounter (statuses as of 03/11/2024) Active Problems Problem Noted Date Diagnosed Date [...] as of this encounter (statuses as of 03/11/2024) Resolved Problems Problem Noted Date Diagnosed Date [...] as of this encounter (statuses as of 03/11/2024) Immunizations Name Administration Dates Next Due COVID-19 mRNA, LNP-s, No Pre serve, 2-Dose Series (Moderna) 03/29/2021,09/01/2020,07/29/2020 Pneumococcal Conjugate Vacc, 13 Valent (Prevnar) 05/22/2015 Pneumococcal Polysaccharide PPV23 (Pneumovax) 06/23/2016 Seasonal Influenza, High Dos e, Trivalent, PF, IM (Fluzone HD) 07/24/2017 Seasonal Influenza, PF, 6 M & above, IM , (FluLaval or Fluzone) 03/21/2020,2018 Seasonal Influenza, Quadriva lent Hd (Fluzone Hd) 05/09/2023,04/20/2022 Seasonal Influenza, Quadriva lent, No Preserve, IM 03/10/2016,05/22/2015 Seasonal Influenza, Trivalen t, (IIV3), with Preserv, (Fluzone) 03/11/2014,04/11/2013,03/20/2012,04/20,06/03/2010,04/25/2008 Seasonal Influenza, Trivalen t, Adjuvanted, 65+ YRS, [...] No 11/01/2023 Does the household have a [facility] source of income? (Household - for ages [...] shopping? (15 years old or older) No 12/01/20 20 Cognitive Status Response Date of Assessm ent Because of a physical, menta l, or emotional condition, do you have serious difficulty concentrating, remembering, or making decisions? (5 years old or older) No 06/02/2020 documented as of this encounter Miscellaneous Notes * Telephone Encounter - Brooklyn Flannery LPN - 03/11/2024 3:34 PM EDT letter * Telephone Encounter - Brooklyn Flannery LPN - 02/02/2024 1:19 PM EDT Care Gaps Comprehensive Care Outreach Last Office/Telemedicine Visit: 05/09/2023 (in office), 06/07/2022 (telemedicine) Next Office Visit: Visit date not found Hemoglobin AIC Results: Lab Results Component Value Date/Time HEMOGLOBIN A1C - [facility] 6.7 (H) 10/21/2022 03:45 PM HEMOGLOBIN A1C - [facility] 6.4 (H) 04/15/2021 01:40 PM HEMOGLOBIN A1C - [facility] 6.4 (H) 02/26/2020 04:50 PM HEMOGLOBIN A1C - [facility] 6.0 (H) 04/11/2019 11:36 AM HEMOGLOBIN A1C - [facility] 6.0 07/18/2017 01:00 PM HEMOGLOBIN A1C POCT - [facility] 6.7 (H) 01/02/2024 03:43 PM BP Readings from Last 1 Encounters: 05/09/23 106/58 Reviewed Health Maintenance below: Health Maintenance Topic Date Due Diabetic Foot Exam Never done Zoster Vaccines (1 of 2) Never done Diabetic Eye Exam 03/13/2013 Albumin/Creatinine Ratio 10/10/2015 *BISPHONATE OR OTHER ACCEPTABLE MEDICATION NEEDED FOR OSTEOPOROSIS (REFER TO SMARTSET #1146) Never done DTaP,Tdap,and Td Vaccines (2 - Td or Tdap) 10/05/2022 COVID-19 Vaccine (4 - 2022-24 season) 2023 GFR 10/22/2023 TSH 10/22/2023 [facility] eye Care Gap Outreach Action Taken: Unable to reach and MyChart message sent documented in this encounter Plan of Treatment [...] the patient have Health Care Power of Fuel Handler? Yes, not currently available Care Teams Vending Machine Servicer Relationship Specialty Start Date End Date Merced Mcgraw MD [address] [place] [address] PCP - General Internal Medicine 05/22/15 documented as of this encounter
--- OUTSIDE RECORDS SUMMARY | 2024-05-11 09:34 | External Medical Summary | Summary of Care ---
Author Name Unknown Organization [facility] Address [address] [place] [address] Phone [phone] Care Team Providers Care Service Delivery Manager Name Role Phone Olga Mcgraw MD Primary Care Provider + Reason for Visit * Reason Comments eRx-Medication Refill Encounter Details Date Type Department Care Team (Late st Contact Info) Description 04/12/2024 Refill General Internal Medicine [facility] [address] [place] [address] Danyelle Mendez MD [address] [place] [address] Alzheimer's disease (HCC) Allergies Active Allergy Reactions [...] severe constipation. 240 mL 1 7 Active Additional Information Patient not taking.Reported [...] AND OTHER MEDICATIONS 90 Tablet 4 Active Pantoprazole Sodium 40 MG Oral Tablet Delayed Release (Protonix) TAKE 1 TABLET BY MOUTH EVERY MORNING 1 HOUR BEFORE FIRST MEAL OF THE DAY 90 Tablet 1 4 Active Atorvastatin Calcium 40 MG Oral Tablet (Lipitor) TAKE 1 TABLET BY MOUTH EVERY MORNING 90 Tablet 1 4 Active Donepezil HCl 5 MG Oral Tablet (Aricept)Indicatio ns:Alzheimer's disease (HCC) TAKE 1 TABLET BY MOUTH EVERY MORNING WITH LARGEST MEAL OF THE DAY 90 Tablet 1 4 Active Donepezil HCl 5 MG Oral Tablet (Aricept)Indicatio ns:Alzheimer's disease (HCC) TAKE 1 TABLET BY MOUTH IN THE MORNING. TAKE WITH LARGEST MEAL OF THE DAY.. 90 Tablet 1 4 04/12/20 24 Discontinued documented as of [...] 11/01/2023 Does the household have a re gular source of income? (Household - for ages [...] Telephone Encounter - Olga Mcgraw MD - 04/12/2024 9:39 AM EDTSigned Prescriptions: Disp Refills Donepezil HCl 5 MG Oral Tablet (Aricept) 90 Tab*1 Sig: TAKE 1 TABLET BY MOUTH EVERY MORNING WITH LARGEST MEAL OF THE DAY Authorizing Provider: OLGA MCGRAW * Telephone Encounter - Gloria Lay LPN - 04/12/2024 8:55 AM EDTPending Prescriptions: Disp Refills Donepezil HCl 5 MG Oral Tablet [Pharmacy M*90 Tab*1 Sig: TAKE 1 TABLET BY MOUTH EVERY MORNING WITH LARGEST MEAL OF THE DAY * Telephone Encounter - Fracisco Colindres - 04/12/2024 4:12 AM EDTPending Prescriptions: Disp Refills Donepezil HCl 5 MG Oral Tablet [Pharmacy M*90 Tab*1 Sig: TAKE 1TABLET BY MOUTH EVERY MORNING WITH LARGEST MEAL OF THE DAY documented in this encounter Plan of Treatment [...] disease documented in this encounter Advance Directives * [...] the patient have Health Care Power of Wine Blender? Yes, not currently available Care Teams Service Delivery Manager Relationship Specialty Start Date End Date Olga Mcgraw MD 200 [facility] [address] PCP - General Internal Medicine 05/22/15 documented as of this encounter
--- OUTSIDE RECORDS SUMMARY | 2024-05-11 09:34 | External Medical Summary | Summary of Care ---
Author Name Unknown Organization [facility] Address [address] [place] [address] Phone [phone] Care Team Providers Care Riverboat Master Name Role Phone Olga Mcgraw MD Primary Care Provider + Reason for Visit * Reason Comments eRx-Medication Refill Encounter Details Date Type Department Care Team (Late st Contact Info) Description 04/01/2024 Refill General Internal Medicine [facility] 200 [facility] [place] [address] Olga Mcgraw MD [address] [place] [address] Dyslipidemia, goal LDL below 70* Allergies Active Allergy Reactions Criticality Noted Date Comments Penicillins Rash Medium 08/30/2011 documented as of this encounter (statuses as of 04/03/2024) Medications Medication Sig Dispensed Refills Start Date [...] mouth every morning 90 Tablet 1 3 04/03/20 24 Discontinued documented as of this encounter (statuses as of 04/03/2024) Active Problems Problem Noted Date Diagnosed Date [...] as of this encounter (statuses as of 04/03/2024) Resolved Problems Problem Noted Date Diagnosed Date [...] as of this encounter (statuses as of 04/03/2024) Immunizations Name Administration Dates Next Due COVID-19 [...] No 11/01/2023 [facility]? (Household - [...] encounter Miscellaneous Notes * Telephone Encounter - Morelia Jacome RPh - 04/03/2024 10:56 AM EDTSigned Prescriptions: Disp Refills Atorvastatin Calcium 40 MG Oral Tablet (Li*90 Tab*1 Sig: TAKE 1 TABLET BY MOUTH EVERY MORNINGAuthorizing Provider: OLGA MCGRAW User: MORELIA JACOME * Telephone Encounter - Morelia Jacome RPh - 04/03/2024 10:49 AM EDT Atorvastatin dose of 60 mg daily since [facility] hospital discharge Apr 2022. Thanks, Papi SinghD Clinical Pharmacist [facility]) [phone] 04/03/2024 10:56 AM documented in this encounter Plan of Treatment Scheduled Orders Name Type Priority Associated Diagnoses Orde r Schedule LIPID PANEL WITH DIRECT LDL IF TG IS HIGH Lab Routine Dyslipidemia, goal LDL below 70 Expected: 04/10/2024, Expires: 04/03/2025 Health Maintenance Due Date Last Done Comments [...] as of this encounter Visit Diagnoses Diagnosis Dyslipidemia, goal LDL below 70- Primary Other and unspecified hyperlipidemia documented in this encounter Advance Directives * [...] the patient have Health Care Power of Neuroscientist? Yes, not currently available Care Teams Riverboat Master Relationship Specialty Start Date End Date Olga Mcgraw MD 200 [facility] [place] [address] PCP - General Internal Medicine 05/22/15 documented as of this encounter
--- OUTSIDE RECORDS SUMMARY | 2024-05-11 09:34 | External Medical Summary | Summary of Care ---
Author Name Unknown Organization [facility] Address [address] [place] [address] Phone [phone] Care Team Providers Care Agriculture Specialist Name Role Phone Olga Mcgraw MD Primary Care Provider + Reason for Visit * Reason Comments eRx-Medication Refill Encounter Details Date Type Department Care Team (Late st Contact Info) Description 04/11/2024 Refill General Internal Medicine [facility] 200 [facility] [place] [address] Olga Mcgraw MD [address] [place] [address] Hypothyroidism Allergies Active Allergy Reactions Criticality Noted Date Comments Penicillins Rash Medium 08/30/2011 documented as of this encounter (statuses as of 04/15/2024) Medications Medication Sig Dispensed Refills Start Date [...] as of this encounter (statuses as of 04/15/2024) Active Problems Problem Noted Date Diagnosed Date [...] as of this encounter (statuses as of 04/15/2024) Resolved Problems Problem Noted Date Diagnosed Date [...] as of this encounter (statuses as of 04/15/2024) Immunizations Name Administration Dates Next Due COVID-19 [...] No 11/01/2023 Does the household have a [facility] source of income? (Household - for [...] * Telephone Encounter - Alisia Colindres - 04/15/2024 4:07 PM EDT Received message from [facility] regarding patient needing labs. Patient was notified. Successfully contacted patient and provided [facility] message. * Telephone Encounter - Meek Brock [facility] - 04/12/2024 10:20 AM EDTSigned Prescriptions: Disp Refills Levothyroxine Sodium 50 MCG Oral Tablet (L*90 Tab*0 Sig: TAKE 1TABLET BY MOUTH ONCE A DAY AT LEAST 30 MIN BEFORE BREAKFAST AND OTHER MEDICATIONSAuthorizing Provider: OLGA MCGRAW User: MEEK REYES * Telephone Encounter - Meek Brock [facility] - 04/12/2024 10:19 AM EDT 2nd attempt [...] the next refill. Thank You, Meek Reyes [facility] Clinical Pharmacist [facility] 04/12/2024, 10:19 AM * Telephone Encounter - Meek Brock [facility] - 04/12/2024 10:18 AM EDT Pending Prescriptions: [...] was ordered: 01/12/24 Pharmacy: [id number] Is this request for a controlled substance? [...] the patient have Health Care Power of Hosiery Mater? Yes, not currently available Care Teams Agriculture Specialist Relationship Specialty Start Date End Date Olga Mcgraw MD [address] [place] [address] PCP - General Internal Medicine 05/22/15 documented as of this encounter
--- OUTSIDE RECORDS SUMMARY | 2024-05-11 09:34 | External Medical Summary | Summary of Care ---
Author Name Unknown Organization [facility] Address [address] [place] [address] Phone [phone] Care Team Providers Care Accounting Administrator Name Role Phone Olga Mcgraw MD Primary Care Provider + Reason for Visit * Reason Comments eRx-Medication Refill Encounter Details Date Type Department Care Team (Late st Contact Info) Description 01/12/2024 Refill General Internal Medicine [facility] 200 [facility] [place] [address] Olga Mcgraw MD 200 [place] [address] Allergies Active Allergy Reactions Criticality Noted Date Comments Penicillins Rash Medium 08/30/2011 documented as of this encounter (statuses as of 01/13/2024) Medications Medication Sig Dispensed Refills Start Date [...] THE DAY 90 Tablet 1 4 Active Pantoprazole Sodium 40 MG Oral Tablet Delayed Release (Protonix) take 1 tablet by mouth every morning 1 HOUR BEFORE FIRST MEAL OF THE DAY 90 Tablet 1 4 01/13/20 24 Discontinued documented as of this encounter (statuses as of 01/13/2024) Active Problems Problem Noted Date Diagnosed Date [...] as of this encounter (statuses as of 01/13/2024) Resolved Problems Problem Noted Date Diagnosed Date [...] as of this encounter (statuses as of 01/13/2024) Immunizations Name Administration Dates Next Due COVID-19 [...] encounter Miscellaneous Notes * Telephone Encounter - Demi Knox RPh - 01/13/2024 9:16 AM EDTSigned Prescriptions: Disp Refills Pantoprazole Sodium 40 MG Oral Tablet Chanda*90 Tab*1 Sig: TAKE 1 TABLET BY MOUTH EVERY MORNING 1 HOUR BEFORE FIRST MEAL OF THE DAYAuthorizing Provider: OLGA MCGRAW User: DEMI KNOX documented in this encounter Plan of Treatment Health Maintenance Due Date Last Done Comments Diabetic Foot Exam 1960 Zoster Vaccines (1 of 2) 1992 Diabetic Eye Exam 03/13/2013 03/13/2012 Albumin/Creatinine Ratio 10/10/2015 10/09/2014 *BISPHONATE OR OTHER ACCEPTABLE MEDICATION NEEDED FOR OSTEOPOROSIS (REFER TO SMARTSET #1146) 07/19/2022 DTaP,Tdap,and Td Vaccines (2 - Td or Tdap) 10/05/2022 10/05/2012 COVID-19 Vaccine (4 - 2022-24 season) 2023 03/29/2021, 09/01/2020, 07/29/2020 GFR 10/22/2023 [...] the patient have Health Care Power of Rotary Saw Operator? Yes, not currently available Care Teams Accounting Administrator Relationship Specialty Start Date End Date Olga Mcgraw MD [address] [place] [address] PCP - General Internal Medicine 05/22/15 documented as of this encounter
--- OUTSIDE RECORDS SUMMARY | 2024-05-11 09:34 | External Medical Summary | Summary of Care ---
Author Name Unknown Organization [facility] Address [address] [place] [address] Phone [phone] Care Team Providers Care Commercial Relationship Manager Name Role Phone Merced Mcgraw MD Primary Care Provider + Reason for Visit * Reason Onset Date Comments Health Maintenance 02/02/2024 Encounter Details Date Type Department Care Team (Late st Contact Info) Description 02/02/2024 Telephone General Internal Medicine [facility] 200 [facility], [place] [id number] Merced Mcgraw MD [address] [place] [address] Health Maintenance Allergies Active Allergy Reactions Criticality Noted Date Comments Penicillins Rash Medium 08/30/2011 documented as of this encounter (statuses as of 02/02/2024) Medications Medication Sig Dispensed Refills Start Date [...] as of this encounter (statuses as of 02/02/2024) Active Problems Problem Noted Date Diagnosed Date [...] as of this encounter (statuses as of 02/02/2024) Resolved Problems Problem Noted Date Diagnosed Date [...] as of this encounter (statuses as of 02/02/2024) Immunizations Name Administration Dates Next Due COVID-19 [...] No 11/01/2023 Does the household have a [facility] source of income? (Household - for ages [...] Outreach Action Taken: Unable to reach and [employer] message sent documented in this encounter Plan [...] (4 - season) 2023 03/29/2021, 09/01/2020, 07/29/2020 GFR 10/22/2023 [...] the patient have Health Care Power of Liberal Arts Teacher? Yes, not currently available Care Teams Commercial Relationship Manager Relationship Specialty Start Date End Date Merced Mcgraw MD [address] [place] [address] PCP - General Internal Medicine 05/22/15 documented as of this encounter
--- OUTSIDE RECORDS SUMMARY | 2024-05-11 09:35 | External Medical Summary | Summary of Care ---
Author Name Unknown Organization [facility] Address [address] [place] [address] Phone [phone] Care Team Providers Care Benefits Assistant Name Role Phone Merced Mcgraw MD Primary Care Provider + Reason for Visit * Reason Onset Date Comments Medication Refill 12/07/2023 Encounter Details Date Type Department Care Team (Late st Contact Info) Description 12/07/2023 Refill General Internal Medicine [facility] [address] [place] [address] Merced Mcgraw MD [address] [place] [address] Allergies Active Allergy Reactions Criticality Noted Date Comments Penicillins Rash Medium 08/30/2011 documented as of this encounter (statuses as of 12/08/2023) Medications Medication Sig Dispensed Refills Start Date [...] Capsule by mouth in the morning. Active Levothyroxine Sodium 50 MCG Oral Tablet (Levoxyl)Indications :Hypothyroidism TAKE 1 TABLET BY MOUTH ONCE A DAY AT LEAST 30 MIN BEFORE BREAKFAST AND OTHER MEDICATIONS 90 Tablet 3 10/24/2022 Active Atorvastatin Calcium 40 MG Oral Tablet (Lipitor) take 1 tablet by mouth every morning 90 Tablet 1 05/09/2023 Active amLODIPine Besylate 2.5 MG Oral Tablet [...] as of this encounter (statuses as of 12/08/2023) Active Problems Problem Noted Date Diagnosed Date [...] as of this encounter (statuses as of 12/08/2023) Resolved Problems Problem Noted Date Diagnosed Date [...] as of this encounter (statuses as of 12/08/2023) Immunizations Name Administration Dates Next Due COVID-19 [...] the patient have Health Care Power of Personal Finance Instructor? Yes, not currently available Care Teams Benefits Assistant Relationship Specialty Start Date End Date Merced Mcgraw MD 200 [facility] [place] [address] PCP - General Internal Medicine 05/22/15 documented as of this encounter
--- OUTSIDE RECORDS SUMMARY | 2024-05-11 09:35 | External Medical Summary | Summary of Care ---
Author Name Unknown Organization [facility] Address [address] [place] [address] Phone [phone] Care Team Providers Care Migratory Worker Name Role Phone Merced Mcgraw MD Primary Care Provider + Reason for Visit * Reason Onset Date Comments FYI 01/02/2024 Encounter Details Date Type Department Care Team (Late st Contact Info) Description 01/02/2024 Telephone General Internal Medicine [facility] 200 [facility], [place] [id number] Merced Mcgraw MD 200 [facility] [place] [address] FYI Allergies Active Allergy Reactions Criticality Noted Date Comments Penicillins Rash Medium 08/30/2011 documented as of this encounter (statuses as of 01/03/2024) Medications Medication Sig Dispensed Refills Start Date [...] every morning 90 Tablet 1 05/09/2023 Active Pantoprazole Sodium 40 MG Oral Tablet [...] MOUTH DAILY 270 Tablet 3 12/10/2023 Active documented as of this encounter (statuses as of 01/03/2024) Active Problems Problem Noted Date Diagnosed Date [...] as of this encounter (statuses as of 01/03/2024) Resolved Problems Problem Noted Date Diagnosed Date [...] as of this encounter (statuses as of 01/03/2024) Immunizations Name Administration Dates Next Due COVID-19 [...] Does the household have a [facility] source of income? (Household - for ages [...] encounter Miscellaneous Notes * Telephone Encounter - Gissell Lozano MED ASSIST - 01/02/2024 4:53 PM EDT A1C was 6.7. Letter finished and ready to be signed. Will cherry picker operator forms tomorrow * Telephone Encounter - Merced Mcgraw MD - 01/02/2024 4:28 PM EDT Family needs letter typed again on [employer] letterhead, signed and with phone number looking at pt's underlying medical condition and as she can not travel to [place] to finish legal paperwork. Look at last letter and please correct it with added info as above. Once done , please call the family to cherry picker operator. Thanks. documented in this encounter Plan of Treatment [...] the patient have Health Care Power of Claims Administrator? Yes, not currently available Care Teams Migratory Worker Relationship Specialty Start Date End Date Merced Mcgraw MD [address] [place] [address] PCP - General Internal Medicine 05/22/15 documented as of this encounter
--- OUTSIDE RECORDS SUMMARY | 2024-05-11 09:35 | External Medical Summary | Summary of Care ---
Author Name Unknown Organization [facility] Address [address] [place] [address] Phone [phone] Care Team Providers Care Bushing Press Operator Name Role Phone Olga Mcgraw MD Primary Care Provider + Reason for Visit * Reason Comments eRx-Medication Refill Encounter Details Date Type Department Care Team (Late st Contact Info) Description 12/08/2023 Refill General Internal Medicine [facility] 200 [facility] [place] [address] Olga Mcgraw MD [address] [place] [address] Allergies Active Allergy Reactions Criticality Noted Date [...] AT BEDTIME 90 Tablet 3 4 Active Sertraline HCl 50 MG Oral Tablet (Zoloft) take 1 tablet by mouth at bedtime 90 Tablet 1 3 12/08/19 24 Discontinued documented as of this encounter [...] encounter Miscellaneous Notes * Telephone Encounter - Jv Segura RPh - 12/08/2023 7:01 AM EDT Signed Prescriptions: Disp Refills Sertraline HCl 50 MG Oral Tablet (Zoloft) 90 Tab*3 Sig: TAKE 1 TABLET BY MOUTH AT BEDTIMEAuthorizing Provider: OLGA MCGRAW User: JV SEGURA documented in this encounter Plan of Treatment [...] the patient have Health Care Power of Ice Scraper? Yes, not currently available Care Teams Bushing Press Operator Relationship Specialty Start Date End Date Olga Mcgraw MD 200 [place] [address] PCP - General Internal Medicine 05/22/15 documented as of this encounter
--- OUTSIDE RECORDS SUMMARY | 2024-05-11 09:35 | External Medical Summary | Summary of Care ---
Author Name Unknown Organization [facility] Address [address] [place] [address] Phone [phone] Care Team Providers Care Distance Learning Unit Leader Name Role Phone Olga Mcgraw MD Primary Care Provider + Reason for Visit * Reason Comments eRx-Medication Refill Encounter Details Date Type Department Care Team (Late st Contact Info) Description 12/10/2023 Refill General Internal Medicine [facility] [address] [facility] [place] [address] Olga Mcgraw MD [address] [place] [address] Allergies Active Allergy Reactions Criticality Noted Date Comments Penicillins Rash Medium 08/30/2011 documented as of this encounter (statuses as of 12/10/2023) Medications Medication Sig Dispensed Refills Start Date [...] every morning 90 Tablet 1 3 Active Pantoprazole Sodium 40 [...] MOUTH DAILY 270 Tablet 3 4 Active amLODIPine Besylate 2.5 MG Oral Tablet (Norvasc) TAKE 3 TABLETS BY MOUTH DAILY 270 Tablet 1 3 12/10/19 24 Discontinued documented as of this encounter (statuses as of 12/10/2023) Active Problems Problem Noted Date Diagnosed Date [...] as of this encounter (statuses as of 12/10/2023) Resolved Problems Problem Noted Date Diagnosed Date [...] as of this encounter (statuses as of 12/10/2023) Immunizations Name Administration Dates Next Due COVID-19 [...] Telephone Encounter - Jv Segura RPh - 12/10/2023 8:15 PM EDT Signed Prescriptions: Disp Refills amLODIPine Besylate 2.5 MG Oral Tablet (No*270 Ta*3 Sig: TAKE 3 TABLETS BY MOUTH DAILYAuthorizing Provider: OLGA MCGRAW User: JV SEGURA documented [...] the patient have Health Care Power of Bobbin Coil Winder? Yes, not currently available Care Teams Distance Learning Unit Leader Relationship Specialty Start Date End Date Olga Mcgraw MD [address] [place] [address] PCP - General Internal Medicine 05/22/15 documented as of this encounter
--- OUTSIDE RECORDS SUMMARY | 2024-05-11 09:35 | External Medical Summary | Summary of Care ---
Author Name Unknown Organization [facility] Address [address] [place] [address] Phone [phone] Care Team Providers Care Production Intern Name Role Phone Merced Mcgraw MD Primary Care Provider + Reason for Visit * Reason Onset Date Comments FYI 01/02/2024 Encounter Details Date Type Department Care Team (Late st Contact Info) Description 01/02/2024 Telephone General Internal Medicine [facility] [address] [facility], [place] [phone] Merced Mcgraw MD [address] [place] [address] FYI Allergies Active Allergy Reactions Criticality Noted Date Comments Penicillins Rash Medium 08/30/2011 documented as of this encounter (statuses as of 01/10/2024) Medications Medication Sig Dispensed Refills Start Date [...] as of this encounter (statuses as of 01/10/2024) Active Problems Problem Noted Date Diagnosed Date [...] as of this encounter (statuses as of 01/10/2024) Resolved Problems Problem Noted Date Diagnosed Date [...] as of this encounter (statuses as of 01/10/2024) Immunizations Name Administration Dates Next Due COVID-19 [...] No 11/01/2023 Does the household have a [facility] source [facility] income? (Household - for ages [...] encounter Miscellaneous Notes * Telephone Encounter - Rosie Michele MED ASSIST - 01/10/2024 4:30 PM EDT The envelope is no longer in the patient curing pickling packer drawer. * Telephone Encounter - Merced Mcgraw MD - 01/08/2024 9:49 AM EDT Did pt curing pickling packer the letter? * Telephone Encounter - Gissell Lozano MED ASSIST - 01/02/2024 4:53 PM EDT A1C was 6.7. Letter finished and ready to be signed. Will curing pickling packer forms tomorrow * Telephone Encounter - Merced Mcgraw MD - 01/02/2024 4:28 PM EDT Family needs letter typed again on [employer] letterhead, signed and with phone number looking at pt's underlying medical condition and as she can not travel to [place] to finish legal paperwork. Look at last letter and please correct it with added info as above. Once done , please call the family to curing pickling packer. Thanks. documented in this encounter Plan of [...] Vaccine ( season) 2023 03/29/2021, 09/01/2020, 07/29/2020 GFR 10/22/2023 [...] the patient have Health Care Power of Auditing Coder? Yes, not currently available Care Teams Production Intern Relationship Specialty Start Date End Date Merced Mcgraw MD [address] [place] [place] [address] PCP - General Internal Medicine 05/22/15 documented as of this encounter
--- OUTSIDE RECORDS SUMMARY | 2024-05-11 09:35 | External Medical Summary ---
Author Name Unknown Address Unknown Organization K09[facility] [place] [id number] Laboratory Report Ordering Provider Test Date Status INT,NURSE 01/02/2024 15:43:31 Final Observation Date Value Abnormality Reference (Units ) Status HbA1C 01/02/2024 15:43:31 6.7 Above high normal 4. 0-5.6 (%) Final Performing Location [facility] [place] [address]
--- OUTSIDE RECORDS SUMMARY | 2024-05-11 09:35 | External Medical Summary | Summary of Care ---
Author Name Unknown Organization [facility] Address [address] [place] [address] Phone [phone] Care Team Providers Care Degreasing Wheel Operator Name Role Phone Merced Mcgraw MD Primary Care Provider + Reason for Visit * Reason Onset Date Comments FYI 01/02/2024 Encounter Details Date Type Department Care Team (Late st Contact Info) Description 01/02/2024 Telephone General Internal Medicine [facility] [address] [facility], [place] [phone] Mecred Mcgraw MD [address] [place] [address] FYI Allergies Active Allergy Reactions Criticality Noted Date Comments Penicillins Rash Medium 08/30/2011 documented as of this encounter (statuses as of 01/08/2024) Medications Medication Sig Dispensed Refills Start Date [...] as of this encounter (statuses as of 01/08/2024) Active Problems Problem Noted Date Diagnosed Date [...] as of this encounter (statuses as of 01/08/2024) Resolved Problems Problem Noted Date Diagnosed Date [...] as of this encounter (statuses as of 01/08/2024) Immunizations Name Administration Dates Next Due COVID-19 [...] No 11/01/2023 Does the household have a [facility] source [facility] income? (Household - for ages [...] - 01/08/2024 9:49 AM EDT Did pt slate picker the letter? * Telephone Encounter - Gissell Lozano MED ASSIST - 01/02/2024 4:53 PM EDT A1C was 6.7. Letter finished and ready to be signed. Will slate picker forms tomorrow * Telephone Encounter - Merced Mcgraw MD - 01/02/2024 4:28 PM EDT Family needs letter typed again on [employer] letterhead, signed and with phone number looking at pt's underlying medical condition and as she can not travel to [place] to finish legal paperwork. Look at last letter and please correct it with added info as above. Once done , please call the family to slate picker. Thanks. documented in this encounter Plan of [...] the patient have Health Care Power of Nick Setter? Yes, not currently available Care Teams Degreasing Wheel Operator Relationship Specialty Start Date End Date Merced Mcgraw MD [address] [place] [address] PCP - General Internal Medicine 05/22/15 documented as of this encounter
--- OUTSIDE RECORDS SUMMARY | 2024-05-11 09:35 | External Medical Summary | Summary of Care ---
Author Name Unknown Organization [facility] Address [address] [place] [address] Phone [phone] Care Team Providers Care Mold Inspector Name Role Phone Merced Mcgraw MD Primary Care Provider + Reason for Visit * Reason Comments Status Check Pt had A1C tested. A 1c was 6.7 Encounter Details Date Type Department Care Team (Late st Contact Info) Description 01/02/2024 4:00 PM EDT Nurse Only Ancillary [facility] [address] [place] [address] Nurse, Int Med [address] [place] [address] Status Check (Pt had A1C tested. A1c was 6.7) Allergies Active Allergy Reactions Criticality Noted Date [...] No 11/01/2023 Does the household have a [facility]? (Household - for [...] No 06/02/2020 documented as of this encounter Nursing Notes * Gissell Lozano MED ASSIST - 01/03/2024 9:36 AM EDT Chief Complaint Patient presents with Status Check Pt had A1C tested. A1c was 6.7 documented in this encounter Plan of Treatment [...] 2024 05/09/2023, 04/20/2022, 03/21/2020, Additional history exists Depression Monitoring 10/31/2024 11/01/2023 [...] patient have Health Care Power of Claims Examiner? Yes, not currently available Care Teams Mold Inspector Relationship Specialty Start Date End Date Merced Mcgraw MD [address] [place] [address] PCP - General Internal Medicine 05/22/15 documented as of this encounter
[2024-05-11 10:35] LABS: Basophils # (auto) 0.02 K/uL (0.00-0.20); Basophils % (auto) 0.2 %; Hematocrit (blood only) 40.5 % (37.0-47.0); Hemoglobin 12.4 g/dl (12.0-16.0); Immature Granulocytes # (auto) 0.05 K/uL (0.01-0.20); Immature Granulocytes % (auto) 0.4 %; Lymphocytes # (auto) 1.54 K/uL (1.20-3.40); Lymphocytes % (auto) 13.6 %; Mean Corpuscular Hemoglobin 26.3 pg (25.0-34.0); Mean Corpuscular Hgb Conc 30.6 g/dL (32.0-36.0); Mean Corpuscular Volume 85.8 fL (80.0-100.0); Mean Platelet Volume 10.7 fL (9.4-12.4); Monocytes # (auto) 0.88 K/uL (0.11-0.59); Monocytes % (auto) 7.8 %; Neutrophils # (auto) 8.83 K/uL (1.40-6.50); Platelet Count 263 K/uL (130-400); RDW Coefficient of Variation 13.6 % (11.5-14.5); RDW Standard Deviation 42.7 fL (36.4-46.3); Red Blood Count 4.72 M/uL (4.20-5.40); White Blood Count 11.32 K/ul (4.8-10.8)
[2024-05-11 10:44] LABS: Appearance Urine Cloudy (Clear); Bacteria Urine Automated 4+ (None Seen); Bilirubin Urine Negative (Negative); Blood Urine Negative (Negative); Cast Urine Automated 0-2 /lpf (0-2); Color Urine Dark Yellow; Epithelial Cell Urine Auto 0-2 /hpf (0-2); Glucose Urine UA Negative (Negative); Ketones Urine Negative (Negative); Leukocyte Esterase Urine Trace (Negative); Nitrite Urine Negative (Negative); Protein Urine 1+ (Negative); RBC Urine Automated 0-2 /hpf (0-2); Specific Gravity Urine 1.016 (1.000-1.030); Urobilinogen Urine Negative (Negative); WBC Urine Automated 0-5 /hpf (0-5)
[2024-05-11 11:01] LABS: Albumin Globulin Ratio 1.1 (0.9-2); BUN Creatinine Ratio 19.3 (10-20); Bilirubin,Total 0.5 mg/dl (0.2-1.0); Calcium 9.7 mg/dl (8.6-10.3); Creatinine Clr Calc Pharmacy 49.4 ml/min; Globulin 3.7 gm/dl (2.5-4.0); Total Protein 7.7 gm/dl (6.0-8.3)
[2024-05-11 11:04] LABS: Partial Thromboplastin Ratio 0.9; Partial Thromboplastin Time 25 Seconds (21-31)
[2024-05-11 11:07] LABS: Troponin I High Sensitivity 10.1 pg/ml (0-14)
--- NOTE | 2024-05-11 11:09 | CT Scan Report ---
CT OF THE HEAD WITHOUT CONTRAST CLINICAL HISTORY: Weakness. COMPARISON STUDY: Head CT Nov 17 2023. MRI of the brain June 27, 2022. CT DOSE: 547.75 mGy.cm TECHNIQUE: Helical axial images of the head were obtained without IV contrast. Automated exposure con trol was utilized for the study. A dose lowering technique was utilized adhering to the principles o f ALARA. FINDINGS: No acute intracranial hemorrhage, midline shift or mass effect is present. The ventricular system is stable. Moderate atrophy is again noted. White matter hypodensity suggests small vessel dis ease. 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 The basal cisterns are patent. No extra-axial collections are present. There are no findings to suggest acute dural sinus thrombosis or acute territorial infarct. No significant calvarial abnormalities are present. There is a small amou nt of fluid within the bilateral mastoid air cells. IMPRESSION: No acute intracranial findings. No change in appearance of the brain. ACT 112: Negative or not required by law. Electronically signed by: King Decker M.D. 05/11/2024 11:08 AM
[2024-05-11 11:16] LABS: Thyroid Stimulating Hormone 0.677 uIu/ml (0.300-4.500)
--- NOTE | 2024-05-11 11:25 | Emergency Department Note ---
Impression & Plan Generalized weakness, Acute UTI (urinary tract infection) ED Provider Note ED Provider Note NAME: CORA OJEDA AGE:84 SEX: Female : 1940 ARRIVES VIA: Private vehicle INFORMANT: Family ED PROVIDER(s): Paulina Vo DO CHIEF COMPLAINT: Generalized weakness HPI: This is an 84-year-old female who presents emergency department due to concern for increased generalized weakness. Patient's family at bedside provides the history as she has dementia and is Mike speaking only. They state in the last 3 to 4 days patient has seemed more weak compared to normal, has had decreased intake of water, but is still eating. They also states she appears to have pain in her right arm as she holds it and guards it and will not use it normally. Patient is typically able to use a walker however has been unable to due to her pain and weakness. They deny noting any fevers but states she did wake up sweating recently. They state she has not had any recent change in any medications and no one in the household is sick. They deny any vomiting or apparent difficulty breathing. No recent trauma or falls. PAST MEDICAL HISTORY:See Below PAST SURGICAL HISTORY:See Below FAMILY HISTORY:See Below SOCIAL HISTORY:See Below HOME MEDICATIONS:See Below ALLERGIES:See Below VITALS:See Below PHYSICAL EXAMINATION: GENERAL: alert, well appearing, well nourished, no distress, non-toxic EYE EXAM: normal conjunctiva, PERRL and EOM's grossly intact OROPHARYNX: no exudate, no erythema, lips, buccal mucosa, and tongue normal and mucous membranes are moist NECK: supple, no nuchal rigidity, no adenopathy, non-tender LUNGS: Clear to auscultation. Normal chest wall mechanics, no w/r/r HEART: no murmurs, S1 normal and S2 normal ABDOMEN: abdomen soft, non-tender, normo-active bowel sounds, no masses, no rebound or guarding. BACK: Back is symmetrical on inspection and there is no deformity, no midline tenderness, no CVA tenderness. SKIN: no rashes, petechiae, orbruising UPPER EXTREMITIES: upper extremities are grossly normal. FROM, nml pulses b/l. LOWER EXTREMITIES: No pitting edema. FROM, nml pulses b/l. NEURO EXAM: Normal sensorium, cranial nerves II-XII grossly intact, normal speech, no facial droop,nogross weakness of arms, no gross weakness of legs. Gross sensation intact. No ataxia. Vital Signs: reviewed and remarkable Differential Diagnosis: dehydration, stroke, anemia, hypoglycemia, hyponatremia, hypernatremia, urinary tract infection, pneumonia, bronchitis, sepsis, gastroenteritis, additional abdominal pathology, metabolic abnormalities, as well as others were considered MEDICAL DECISION MAKING: This is an 84-year-old female who presents emergency department with family at bedside who help to provide history as patient has dementia and is Mike speaking only due to concern for increased weakness and confusion. She was afebrile and vital signs stable on arrival. Labs drawn and sent, IV established, EKG and chest x-ray performed at bedside interpreted by me and patient monitored on telemetry. Due to reported decreased oral intake she was started on IV fluids. She was sent for CT head additionally. Straight cath urine collected and sent by staff also. I did discuss all results with the patient's son at bedside as well as with a granddaughter who is a physician school bus driver/teacher assistant via phone at his request. UA did reveal 4+ bacteria and patient has previously had UTIs. In light of this she was started on IV Rocephin. Given other reassuring labs and imaging, I discussed with them possible patient was developing a urinary tract infection and likely also has a component of dehydration additionally. Family discussed disposition additionally and would like patient to be at mated until she is well enough to return to baseline that she can return home as today she was too weak to walk or even use her walker. At this time I do not suspect bacteremia/sepsis. I do not suspect pyelonephritis or other obstructive uropathy. No evidence of ODILIA. Consultation(s): 1502: Discussed with Shahana Holly hospitalist team, for additional evaluation and management. ER Treatment Provided: See below Diagnostics Interpreted By Me: -ECG: Normal sinus at 73, first-degree AV block, normal axis, normal intervals, no acute ST/T wave changes -Cardiac Monitoring: An order was placed for continuous cardiac monitoring. The monitor shows a rate of [] with [] rhythm. -Laboratory studies: As stated above and show below. -Imaging studies: ct head: no ich Triage Nursing Note Reviewed Prior/Outside Records Reviewed -prior urine cultures reviewed which showed E. coli Past Med/Surg History Problem List (Updated 05/11/24 @ 20:19 by Paulina Vo, ) Acute UTI (urinary tract infection) (Acute) Chronic hypoxic respiratory failure Generalized weakness (Acute) Nocturnal hypoxemia Cerebrovascular disease DM type 2 (diabetes mellitus, type 2) Hypothyroidism History of CVA (cerebrovascular accident) Dysphagia Alzheimer's dementia Ambulatory dysfunction (Acute) Hypokalemia (Acute) Confusion (Acute) CAP (community acquired pneumonia) (Acute) AMS (altered mental status) (Acute) CVA (cerebral vascular accident) Complicated UTI (urinary tract infection) AMS (altered mental status) (Acute) Encounter for pre-operative examination Colon cancer screening Aphasia (Acute) Left-sided weakness (Acute) UTI (urinary tract infection) Acute perforated appendicitis Acute appendicitis (Acute) Dyslipidemia GERD (gastroesophageal reflux disease) Depression Hypertension Abnormal CT scan, kidney Dementia Cerebrovascular disease stroke L caudate before 2012; TIA 2012; stroke jozef 2019 (treated at [facility]) Medical History Restrictive lung disease Dysphagia Dysphagia due to stroke. Thickened liquids. Transient ischemic attack (TIA) 2012 COVID-19 ruled out Discharge planning issues DVT prophylaxis Hypokalemia Stroke hx of stroke (2012 & 2019) treated at [facility]. dysphagia since stroke 2019 -- uses thickening for liquids. Pre-diabetes family denies Osteoporosis Osteoarthritis H/O blood clots possibly in 2019? family unsure of specifics. Surgical History History of colonoscopy H/O: hysterectomy Family History Father Diabetes Son Diabetes Hypertension Sister Cancer ? primary Other No family history of adverse response to anesthesia Social History Smoking Status: Never smoker Second Hand Exposure: No; Do You Dip or Chew Tobacco: No; Tobacco Cessation Education Requested by Patient: No Hx Alcohol Use: No Hx Substance Use: No Preferred Language: Mike Communication Ability: Impaired Communication Ability Comment: grand-daughter to translate per family request. Communication Tools: IPad, Language Line Hospitality Director, Physical Gestures and Other Hospitality Director Required: Yes Beliefs That Will Affect Care: None marital status: Current Living Situation: Family current occupational status: retired Other Information That Helps Us Care for You: No Feels Safe at Home: Yes Safety Concerns: Feels Safe At This Time Assistive Devices: Denture - Upper, Denture - Lower, Glasses and Walker Allergies Allergies Allergy/AdvReac Type Severity Reaction Status Date / Time Penicillins Allergy Mild RASH Verified 11/15/23 17:41 Home Meds Home Medications Medication Instructions Recorded Confirmed donepezil 5 mg tablet (Aricept) 5 mg PO QDB 07/15/18 05/11/24 levothyroxine 50 mcg tablet 50 mcg PO DAILYBB 07/15/18 05/11/24 amlodipine 2.5 mg tablet 7.5 mg PO QAM 05/28/20 05/11/24 atorvastatin 40 mg tablet 40 mg PO QAM 08/25/20 05/11/24 calcium 600 mg (as 1 tab PO BID 08/25/20 05/11/24 carbonate)-vitamin D3 5 mcg (200 unit) tablet sucralfate 1 gram tablet 1 g PO QID 08/25/20 05/11/24 vitamin B complex 1 tab PO HS 08/25/20 05/11/24 aspirin 81 mg tablet,delayed 81 mg PO HS 04/07/22 05/11/24 release sertraline 50 mg tablet 50 mg PO HS 06/27/22 05/11/24 ferrous sulfate 325 mg (65 mg 325 mg PO .EVERY OTHER DAY 07/02/23 05/11/24 iron) tablet docusate sodium 100 mg capsule 100 mg PO HS 11/15/23 05/11/24 (Stool Softener) pantoprazole 40 mg tablet,delayed 40 mg PO QDB 11/15/23 05/11/24 release atorvastatin 20 mg tablet 20 mg PO DAILY 05/11/24 05/11/24 Results & Data (ED) Vital Signs Vital Signs - 24 hr 05/11/24 09:27 05/11/24 10:09 05/11/24 10:34 Temperature 37.3 C Temperature Source Oral Pulse Rate 72 72 63 Pulse Rate [Right Finger] Pulse Rate from SpO2 Sensor Pulse Rhythm Regular Respiratory Rate 20 20 Respiratory Effort / Characteristics Non-Labored Respiratory Depth Normal Respiratory Pattern Regular Blood Pressure 131/77 Blood Pressure [Left Arm] Blood Pressure Mean 95 Blood Pressure Mean [Left Arm] Pulse Oximetry 96 96 Oxygen Delivery Method Nasal Cannula Nasal Cannula Oxygen Flow Rate 2 2 Sepsis Recent Fever Within 48 Hours No Sepsis New/Unexplained Change in Mental Status No Sepsis Action Taken by Nursing No Action Required 05/11/24 11:00 05/11/24 11:03 05/11/24 11:30 Temperature Temperature Source Pulse Rate 75 79 58 L Pulse Rate [Right Finger] Pulse Rate from SpO2 Sensor 72 58 L Pulse Rhythm Respiratory Rate 18 17 19 Respiratory Effort / Characteristics Respiratory Depth Respiratory Pattern Blood Pressure 128/55 L 128/55 L 96/48 L Blood Pressure [Left Arm] Blood Pressure Mean 79 79 64 Blood Pressure Mean [Left Arm] Pulse Oximetry 98 98 97 Oxygen Delivery Method Nasal Cannula Oxygen Flow Rate 2 Sepsis Recent Fever Within 48 Hours Sepsis New/Unexplained Change in Mental Status Sepsis Action Taken by Nursing 05/11/24 12:03 05/11/24 12:11 05/11/24 12:33 Temperature Temperature Source Pulse Rate 58 L 58 L Pulse Rate [Right Finger] 60 Pulse Rate from SpO2 Sensor 59 L 61 Pulse Rhythm Respiratory Rate 16 18 17 Respiratory Effort / Characteristics Non-Labored Spontaneous Respiratory Depth Respiratory Pattern Blood Pressure 90/59 L 152/76 H Blood Pressure [Left Arm] 152/76 H Blood Pressure Mean 69 101 Blood Pressure Mean [Left Arm] 101 Pulse Oximetry 98 99 100 Oxygen Delivery Method Room Air Oxygen Flow Rate Sepsis Recent Fever Within 48 Hours Sepsis New/Unexplained Change in Mental Status Sepsis Action Taken by Nursing 05/11/24 13:03 05/11/24 13:33 05/11/24 14:00 Temperature Temperature Source Pulse Rate 56 L 57 L Pulse Rate [Right Finger] 62 Pulse Rate from SpO2 Sensor 57 L 57 L Pulse Rhythm Respiratory Rate 16 18 16 Respiratory Effort / Characteristics Non-Labored Spontaneous Respiratory Depth Respiratory Pattern Blood Pressure 135/74 120/70 Blood Pressure [Left Arm] 139/74 Blood Pressure Mean 94 86 Blood Pressure Mean [Left Arm] 95 Pulse Oximetry 99 97 98 Oxygen Delivery Method Room Air Oxygen Flow Rate Sepsis Recent Fever Within 48 Hours Sepsis New/Unexplained Change in Mental Status Sepsis Action Taken by Nursing 05/11/24 14:00 05/11/24 14:30 05/11/24 14:34 Temperature Temperature Source Pulse Rate 60 61 60 Pulse Rate [Right Finger] Pulse Rate from SpO2 Sensor 59 L 58 L Pulse Rhythm Respiratory Rate 19 19 Respiratory Effort / Characteristics Respiratory Depth Respiratory Pattern Blood Pressure 139/74 126/74 Blood Pressure [Left Arm] Blood Pressure Mean 95 91 Blood Pressure Mean [Left Arm] Pulse Oximetry 99 97 Oxygen Delivery Method Oxygen Flow Rate Sepsis Recent Fever Within 48 Hours Sepsis New/Unexplained Change in Mental Status Sepsis Action Taken by Nursing 05/11/24 15:00 Temperature Temperature Source Pulse Rate Pulse Rate [Right Finger] 61 Pulse Rate from SpO2 Sensor Pulse Rhythm Respiratory Rate 18 Respiratory Effort / Characteristics Respiratory Depth Respiratory Pattern Blood Pressure Blood Pressure [Left Arm] 150/71 H Blood Pressure Mean Blood Pressure Mean [Left Arm] 97 Pulse Oximetry 98 Oxygen Delivery Method Room Air Oxygen Flow Rate Sepsis Recent Fever Within 48 Hours Sepsis New/Unexplained Change in Mental Status Sepsis Action Taken by Nursing Laboratory Data 05/11/24 09:45 05/11/24 09:45 Lab Results 05/11/24 05/11/24 05/11/24 Range/Units 09:45 10:00 12:03 WBC 11.32 H (4.8-10.8) K/ul RBC 4.72 (4.20-5.40) M/uL Hgb 12.4 (12.0-16.0) g/dl Hct 40.5 (37.0-47.0) % MCV 85.8 (80.0-100.0) fL MCH 26.3 (25.0-34.0) pg MCHC 30.6 L (32.0-36.0) g/dL RDW Std Deviation 42.7 (36.4-46.3) fL RDW Coeff of Vivienne 13.6 (11.5-14.5) % Plt Count 263 (130-400) K/uL MPV 10.7 (9.4-12.4) fL Immature Gran % (Auto) 0.4 % Neut % (Auto) 78.0 % Lymph % (Auto) 13.6 % Mcmullen % (Auto) 7.8 % Eos % (Auto) 0.0 % Baso % (Auto) 0.2 % Neut # (Auto) 8.83 H (1.40-6.50) K/uL Lymph # (Auto) 1.54 (1.20-3.40) K/uL Mcmullen # (Auto) 0.88 H (0.11-0.59) K/uL Eos # (Auto) 0.00 (0.00-0.50) K/uL Baso # (Auto) 0.02 (0.00-0.20) K/uL Immature Gran # (Auto) 0.05 (0.01-0.20) K/uL PT 11.0 (9.0-12.0) Seconds INR 1.0 (0.9-1.1) APTT 25 (21-31) Seconds PTT Ratio 0.9 Sodium 141 (136-145) mmol/L Potassium 4.0 (3.5-5.1) mmol/L Chloride 103 (98-107) mmol/L Carbon Dioxide 31 (21-32) mmol/L Anion Gap 7 (3-11) BUN 16 (6-23) mg/dl Creatinine 0.83 (0.6-1.2) mg/dl Est Cr Clr Drug Dosing 49.4 ml/min eGFR 70.34 BUN/Creatinine Ratio 19.3 (10-20) Glucose 152 H (70-99(Fasting)) mg/dl Calcium 9.7 (8.6-10.3) mg/dl Magnesium 2.1 (1.7-2.4) mg/dl Total Bilirubin 0.5 (0.2-1.0) mg/dl AST 22 (13-39) U/L ALT 14 (7-52) U/L Alkaline Phosphatase 82 (34-104) U/L Troponin I High Sens 10.1 (0-14) pg/ml Total Protein 7.7 (6.0-8.3) gm/dl Albumin 4.0 (3.4-5.0) gm/dl Globulin 3.7 (2.5-4.0) gm/dl Albumin/Globulin Ratio 1.1 (0.9-2) TSH 0.677 0.521 (0.300-4.500) uIu/ml Urine Color Dark Yellow Urine Appearance Cloudy A (Clear) Urine pH 8.0 H (4.5-7.5) Ur Specific [place] 1.016 (1.000-1.030) Urine Protein 1+ H (Negative) Urine Glucose (UA) Negative (Negative) Urine Ketones Negative (Negative) Urine Blood Negative (Negative) Urine Nitrite Negative (Negative) Urine Bilirubin Negative (Negative) Urine Urobilinogen Negative (Negative) Ur Leukocyte Esterase Trace H (Negative) Urine WBC (Auto) 0-5 (0-5) /hpf Urine RBC (Auto) 0-2 (0-2) /hpf U Hyaline Cast (Auto) 0-2 (0-2) /lpf U Epithel Cells (Auto) 0-2 (0-2) /hpf Urine Bacteria (Auto) 4+ H (None Seen) Administered Medications Enoxaparin Sodium (Enoxaparin Inj 40 Mg/0.4 Ml Syr) 40 mg SQ Q24H [place] Stop: 06/10/24 17:29 Last Admin: 05/11/24 18:26 Dose: 40 mg Documented By: ROC Sodium Chloride (Nss) 1,000 mls @ 200 mls/hr IV .Q5H [place] Stop: 05/12/24 11:29 Last Admin: 05/11/24 17:11 Dose: 200 mls/hr Documented By: Infusion: 05/11/24 16:35 Dose: Infused Documented By: Admin: 05/11/24 11:35 Dose: 200 mls/hr Documented By: BJORN Influenza Virus Vacc Triv Types A&B (Influenza Vacc [id number](65y+)/Pf (Iiv3) 0.5ml Syr) 0.5 ml IM .ONCE ONE Stop: 05/11/24 21:01 Last Admin: 05/11/24 18:27 Dose: 0.5 ml Documented By: ROC Insulin Aspart (Insulin Aspart Per Unit Charge) 0 units SC ACHS [place] Stop: 06/10/24 17:08 Last Admin: 05/11/24 17:55 Dose: Not Given Documented By: ROC Co-signed By: MRE Discontinued Medications Ceftriaxone Sodium (Rocephin) 2,000 mg in 50 mls @ 100 mls/hr IV NOW STA Stop: 05/11/24 12:39 Last Infusion: 05/11/24 12:54 Dose: Infused Documented By: Admin: 05/11/24 12:17 Dose: 100 mls/hr Documented By: BJORN Imaging Data Radiologist's Impression: Chest X-Ray 05/11/24 10:09 XR chest 1V not portable CLINICAL HISTORY: Weakness COMPARISON STUDY: Chest CT June 26, 2022. Chest radiograph November 15, 2023. FINDINGS: Elevation of the right hemidiaphragm is unchanged. Moderate cardiomegaly is again noted. There is interstitial thickening. No lobar consolidation is present. There is no pneumothorax or pleural effusion. There are mild bibasilar opacities. IMPRESSION: 1. Cardiomegaly with interstitial thickening suggestive of mild pulmonary edema. 2. Bibasilar opacities which could reflect pneumonia or atelectasis. ACT 112: Negative or not required by law. Electronically signed by: King Decker M.D. 05/11/2024 11:[address] 05/11/24 10:31 CT OF THE HEAD WITHOUT CONTRAST CLINICAL HISTORY: Weakness. COMPARISON STUDY: Head CT Nov 17 2023. MRI of the brain June 27, 2022. CT DOSE: 547.75 mGy.cm TECHNIQUE: Helical axial images of the head were obtained without IV contrast. Automated exposure control was utilized for the study. A dose lowering technique was utilized adhering to the principles of ALARA. FINDINGS: No acute intracranial hemorrhage, midline shift or mass effect is present. The ventricular system is stable. Moderate atrophy is again noted. White matter hypodensity suggests small vessel disease. 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 The basal cisterns are patent. No extra- axial collections are present. There are no findings to suggest acute dural sinus thrombosis or acute territorial infarct. No significant calvarial abnormalities are present. There is a small amount of fluid within the bilateral mastoid air cells. IMPRESSION: No acute intracranial findings. No change in appearance of the brain. ACT 112: Negative or not required by law. Electronically signed by: King Decker M.D. 05/11/2024 11:08 AM Discharge Plan Visit Data Chief Complaint: Weakness Stated Complaint: weakness ED Provider: Paulina Vo Discharge Problem: Generalized weakness, Acute UTI (urinary tract infection) Patient Disposition: Admitted As Inpatient Discharge Instructions Interventions: ED Discharge Assessment Last Done: 05/11/24 16:25
--- NOTE | 2024-05-11 11:30 | XRay Report ---
XR chest 1V not portable CLINICAL HISTORY: Weakness COMPARISON STUDY: Chest CT June 26, 2022. Chest radiograph November 15, 2023. FINDINGS: Elevation of the right hemidiaphragm is unchanged. Moderate cardiomegaly is again noted. Th ere is interstitial thickening. No lobar consolidation is present. There is no pneumothorax or pleura l effusion. There are mild bibasilar opacities. IMPRESSION: 1. Cardiomegaly with interstitial thickening suggestive of mild pulmonary edema. 2. Bibasilar opacities which could reflect pneumonia or atelectasis. ACT 112: Negative or not required by law. Electronically signed by: King Decker M.D. 05/11/2024 11:29 AM
[2024-05-11] MEDS: SODIUM CHLORIDE 0.9% 1,000 ML IV SCH (11:35)
[2024-05-11] MEDS: cefTRIAXone SODIUM 2,000 MG/50 ML BAG IV STA (12:17)
[2024-05-11 13:00] LABS: Magnesium 2.1 mg/dl (1.7-2.4)
--- NOTE | 2024-05-11 15:09 | History & Physical Report ---
Date of Service May 11, 2024 Assessment & Plan (1) Generalized weakness: (2) Ambulatory dysfunction: (3) UTI (urinary tract infection): Plan: Patient is 84 year old female with PMH HTN, dyslipidemia, chronic oxygen use at 2L, DM II, CVA, chronic dysphagia, dementia, hypothyroidism, GERD, depression presented to ER with family with complaint of increased weakness past couple of days. In ER afebrile, vitals stable WBC: 11 UA: Trace leuk esterase, 4+ bacteria from straight cath specimen CXR: Cardiomegaly, interstitial thickening. Bibasilar opacities possible atelectasis CT head: No acute intracranial findings In ER given Rocephin, Started on gentle IVF Ammonia level pending Urine culture and blood culture pending Continue Rocephin Does not examine volume overloaded at this time Fall precautions, aspiration precautions PT/OT eval CBC, BMP in am (4) History of CVA (cerebrovascular accident): Plan: Continue aspirin, atorvastatin 60mg (5) Chronic hypoxic respiratory failure: Plan: On chronic 2L Continue 2L oxygen (6) DM type 2 (diabetes mellitus, type 2): Plan: A1c: 6.7 on 01/02/24 Not on medication (7) Hypertension: Plan: Continue amlodipine (8) Dyslipidemia: Plan: Continue atorvastatin (9) Dementia: Plan: At baseline mental status per family Will require frequent reorientation Monitor for delirium (10) GERD (gastroesophageal reflux disease): Plan: Continue PPI, Carafate (11) Hypothyroidism: Plan: Continue levothyroxine DVT Prophylaxis Lovenox SQ Admit med surg Full Code as per discussion with patients family. Reports son is PADMINI. Follows with Dr Merced Mcgraw for routine care Pt was seen and care coordinated with Dr Newton. See addendum I spent a total of 70 minutes reviewing notes, outpatient records, labs, medication, coordinating, documenting and providing care for this patient excluding time spent in the performance of separately billed services. History of Present Illness Chief Complaint: weakness Primary Care Provider: Merced Mcgraw MD Patient is 84 year old female with PMH HTN, dyslipidemia, chronic oxygen use at 2L, DM II, CVA, dementia, hypothyroidism, GERD, depression presented to ER with family with complaint of increased weakness past couple of days. History obtained from patient's family at bedside. Patient is Mike speaking.She lives with family at home. Family reports have noticed increased weakness and noted decreased oral intake. Concerned for UTI as had similar symptoms in past with UTI. History of stroke with residual with left sided weakness. Usually uses walker with family assistance, however today unable to stand with walker. Family feels patient is at her baseline mental status. States is confused at baseline and is difficult to communicate with family at baseline. This morning was noted to be sweaty. No noted fever/chills, cough, vomiting, diarrhea, noted SOB or rashes. Allergies Allergy/AdvReac Type Severity Reaction Status Date / Time Penicillins Allergy Mild RASH Verified 11/15/23 17:41 Home Medications Medication Instructions Recorded Confirmed Type donepezil 5 mg tablet (Aricept) 5 mg PO QDB 07/15/18 05/11/24 History levothyroxine 50 mcg tablet 50 mcg PO DAILYBB 07/15/18 05/11/24 History amlodipine 2.5 mg tablet 7.5 mg PO QAM 05/28/20 05/11/24 History atorvastatin 40 mg tablet 40 mg PO QAM 08/25/20 05/11/24 History calcium 600 mg (as 1 tab PO BID 08/25/20 05/11/24 History carbonate)-vitamin D3 5 mcg (200 unit) tablet sucralfate 1 gram tablet 1 g PO QID 08/25/20 05/11/24 History vitamin B complex 1 tab PO HS 08/25/20 05/11/24 History aspirin 81 mg tablet,delayed 81 mg PO HS 04/07/22 05/11/24 History release sertraline 50 mg tablet 50 mg PO HS 06/27/22 05/11/24 History ferrous sulfate 325 mg (65 mg 325 mg PO .EVERY OTHER DAY 07/02/23 05/11/24 History iron) tablet docusate sodium 100 mg capsule 100 mg PO HS 11/15/23 05/11/24 History (Stool Softener) pantoprazole 40 mg tablet,delayed 40 mg PO QDB 11/15/23 05/11/24 History release atorvastatin 20 mg tablet 20 mg PO DAILY 05/11/24 05/11/24 History Past Med/Surg History Problem List Chronic hypoxic respiratory failure Generalized weakness (Acute) Nocturnal hypoxemia Cerebrovascular disease DM type 2 (diabetes mellitus, type 2) Hypothyroidism History of CVA (cerebrovascular accident) Dysphagia Alzheimer's dementia Ambulatory dysfunction (Acute) Hypokalemia (Acute) Confusion (Acute) CAP (community acquired pneumonia) (Acute) AMS (altered mental status) (Acute) CVA (cerebral vascular accident) Complicated UTI (urinary tract infection) AMS (altered mental status) (Acute) Encounter for pre-operative examination Colon cancer screening Aphasia (Acute) Left-sided weakness (Acute) UTI (urinary tract infection) Acute perforated appendicitis Acute appendicitis (Acute) Dyslipidemia GERD (gastroesophageal reflux disease) Depression Hypertension Abnormal CT scan, kidney Dementia Cerebrovascular disease stroke L caudate before 2012; TIA 2012; stroke jozef 2019 (treated at [facility]) Medical History Restrictive lung disease Dysphagia Dysphagia due to stroke. Thickened liquids. Transient ischemic attack (TIA) 2012 COVID-19 ruled out Discharge planning issues DVT prophylaxis Hypokalemia Stroke hx of stroke (2012 & 2019) treated at [facility]. dysphagia since stroke 2019 -- uses thickening for liquids. Pre-diabetes family denies Osteoporosis Osteoarthritis H/O blood clots possibly in 2019? family unsure of specifics. Surgical History History of colonoscopy H/O: hysterectomy Family History Father Diabetes Son Diabetes Hypertension Sister Cancer ? primary Other No family history of adverse response to anesthesia Social History Smoking Status: Never smoker Second Hand Exposure: No; Do You Dip or Chew Tobacco: No; Hx Alcohol Use: No Hx Substance Use: No Preferred Language: Mike Communication Ability: Impaired Communication Ability Comment: grand-daughter to translate per family request. Communication Tools: IPad, Language Line Ecology Teacher, Physical Gestures and Other Ecology Teacher Required: Yes Beliefs That Will Affect Care: None marital status: Current Living Situation: Family current occupational status: retired Feels Safe at Home: Yes Assistive Devices: Walker and Wheelchair Review of Systems Review of Systems: Unobtainable due to cognitive status Results & Data Results & Data Vital Signs (Past 12 Hours) Vital Signs Temp Pulse Pulse Resp BP BP Pulse Ox 05/11/24 14:34 60 05/11/24 14:30 61 19 126/74 97 05/11/24 14:00 60 19 139/74 99 05/11/24 14:00 62 16 139/74 98 05/11/24 13:33 57 L 18 120/70 97 05/11/24 13:03 56 L 16 135/74 99 05/11/24 12:33 58 L 17 152/76 H 100 05/11/24 12:11 60 18 152/76 H 99 05/11/24 12:03 58 L 16 90/59 L 98 05/11/24 11:30 58 L 19 96/48 L 97 05/11/24 11:03 79 17 128/55 L 98 05/11/24 11:00 75 18 128/55 L 98 05/11/24 10:34 63 05/11/24 10:09 72 20 96 05/11/24 09:27 37.3 C 72 20 131/77 96 O2 Del Method O2 Flow Rate 05/11/24 14:34 05/11/24 14:30 05/11/24 14:00 05/11/24 14:00 Room Air 05/11/24 13:33 05/11/24 13:03 05/11/24 12:33 05/11/24 12:11 Room Air 05/11/24 12:03 05/11/24 11:30 05/11/24 11:03 05/11/24 11:00 Nasal Cannula 2 05/11/24 10:34 05/11/24 10:09 Nasal Cannula 2 05/11/24 09:27 Nasal Cannula 2 Laboratory Results Short CBC 05/11/24 Range/Units 09:45 WBC 11.32 H (4.8-10.8) K/ul Hgb 12.4 (12.0-16.0) g/dl Hct 40.5 (37.0-47.0) % Plt Count 263 (130-400) K/uL BMP 05/11/24 09:45 Sodium 141 Potassium 4.0 Chloride 103 Carbon Dioxide 31 BUN 16 Creatinine 0.83 Glucose 152 H Calcium 9.7 Liver Function 05/11/24 Range/Units 09:45 Total Bilirubin 0.5 (0.2-1.0) mg/dl AST 22 (13-39) U/L ALT 14 (7-52) U/L Alkaline Phosphatase 82 (34-104) U/L Albumin 4.0 (3.4-5.0) gm/dl Urine 05/11/24 Range/Units 10:00 Urine Color Dark Yellow Urine Appearance Cloudy A (Clear) Urine pH 8.0 H (4.5-7.5) Ur Specific Martin 1.016 (1.000-1.030) Urine Protein 1+ H (Negative) Urine Glucose (UA) Negative (Negative) Diagnostic Findings Chest X-Ray 05/11/24 10:09 XR chest 1V not portable CLINICAL HISTORY: Weakness COMPARISON STUDY: Chest CT June 26, 2022. Chest radiograph November 15, 2023. FINDINGS: Elevation of the right hemidiaphragm is unchanged. Moderate cardiomegaly is again noted. There is interstitial thickening. No lobar consolidation is present. There is no pneumothorax or pleural effusion. There are mild bibasilar opacities. IMPRESSION: 1. Cardiomegaly with interstitial thickening suggestive of mild pulmonary edema. 2. Bibasilar opacities which could reflect pneumonia or atelectasis. ACT 112: Negative or not required by law. Electronically signed by: King Decker M.D. 05/11/2024 11:[address] 05/11/24 10:31 CT OF THE HEAD WITHOUT CONTRAST CLINICAL HISTORY: Weakness. COMPARISON STUDY: Head CT Nov 17 2023. MRI of the brain June 27, 2022. CT DOSE: 547.75 mGy.cm TECHNIQUE: Helical axial images of the head were obtained without IV contrast. Automated exposure control was utilized for the study. A dose lowering technique was utilized adhering to the principles of ALARA. FINDINGS: No acute intracranial hemorrhage, midline shift or mass effect is present. The ventricular system is stable. Moderate atrophy is again noted. White matter hypodensity suggests small vessel disease. 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 The basal cisterns are patent. No extra- axial collections are present. There are no findings to suggest acute dural sinus thrombosis or acute territorial infarct. No significant calvarial abnormalities are present. There is a small amount of fluid within the bilateral mastoid air cells. IMPRESSION: No acute intracranial findings. No change in appearance of the brain. ACT 112: Negative or not required by law. Electronically signed by: King Decker M.D. 05/11/2024 11:08 AM ECG Additional Comments: sinus rhythm with 1st degree AV block per my interpretation Supervising Physician Co-Signing Physician Notes Patient is an 84-year-old female with history of dementia, CVA, chronic respiratory failure with hypoxia, oxygen dependency, hypothyroidism, dyslipidemia, GERD, depression, chronic dysphagia and other medical problems presents with history of generalized weakness, ambulatory dysfunction, decreased poor oral intake especially since 2 days duration. Patient unable to provide history secondary to dementia and most of the history is obtained from patient's family at bedside. No known history of fever, chills but admits to have diaphoresis today. Patient has history of multiple UTIs in the past. Please review HPI for complete details of presentation. I personally reviewed blood work and imaging studies. WBC count elevated at 11.3 K, glucose 152, urinalysis suggestive of bacteriuria, chest x-ray showed mild pulmonary edema. EKG mostly unchanged. Physical Exam: Vitals signs as noted above General Appearance:Moderately built and nourished, no apparent distress, Elderly Head: normocephalic, Atraumatic Eyes: normal inspection, EOMI Neck: supple, Trachea midline Respiratory/Chest: Normal breath sounds, CTA, No accessory muscle use Cardiovascular: S1, S2, No murmur Abdomen/GI:Soft, Non tender, Bowel sounds present Extremities/Musculoskeletal:normal inspection, no edema Neurologic/Psych:Alert, awake, grossly no focal neurological deficits, +dementia, confused Skin: normal color, warm Generalized weakness Likely secondary to urinary tract infection Ambulatory dysfunction Urine culture pending Get blood cultures Given IV fluids in ED Started on empirically on Rocephin PT OT, fall precautions Continue home supplemental oxygen Continue home medications as able Aspiration, fall precautions I personally interviewed and examined at bedside. Patient's care is coordinated with Tresa Boland PA-C. I have reviewed the advanced practitioner's documentation, and I agree with plan of care. Please refer to the documentation above for details of patient's presentation and for discussion of other issues. I spent a total [id number] coordinating, documenting, and providing care for this patient excluding time spent in the performance of separately billed services. (6) DM type 2 (diabetes mellitus, type 2) Diabetes mellitus complication status: without complication Diabetes mellitus detention insulin use: without detention use Qualified Code(s): E11.9 - Type 2 diabetes mellitus without complications (10) GERD (gastroesophageal reflux disease) Esophagitis presence: without esophagitis Qualified Code(s): K21.9 - Gastro- esophageal reflux disease without esophagitis (11) Hypothyroidism Hypothyroidism type: unspecified Qualified Code(s): E03.9 - Hypothyroidism, unspecified
[2024-05-11 16:04] LABS: HCO3 VBG 32 mmol/L; Oxygen Saturation VBG < 60.0 %; PCO2 VBG 55 mmHg (38-50); PO2 VBG 33 mmHg; pH VBG 7.37 (7.36-7.41)
[2024-05-11] MEDS ORDERED: GLUCOSE 40% GEL 15 GM TUBE PO PRN (17:09)
[2024-05-11] MEDS ORDERED: ACETAMINOPHEN 325 MG TAB PO PRN (17:09)
[2024-05-11] MEDS ORDERED: CARBOHYDRATES FOR HYPOGLYCEMIA PO PRN (17:09)
[2024-05-11] MEDS ORDERED: POLYETHYLENE (MIRALAX) 17 GM PACK PO PRN (17:09)
[2024-05-11] MEDS ORDERED: ONDANSETRON INJ 2 MG/ML 2 ML VIAL IV PRN (17:09)
[2024-05-11] MEDS ORDERED: GLUCAGON FOR INJ 1 MG VIAL SQ PRN (17:09)
[2024-05-11] MEDS ORDERED: DEXTROSE 50% 50 ML SYRINGE IV PRN (17:09)
[2024-05-11] MEDS ORDERED: GLUCOSE 10 TAB/TUBE PO PRN (17:09)
[2024-05-11] MEDS: INSULIN ASPART PER UNIT CHARGE SC SCH (17:55)
[2024-05-11] MEDS: ENOXAPARIN INJ 40 MG/0.4 ML SYR SQ SCH (18:26)
[2024-05-11] MEDS: INFLUENZA VACC TS2024-25(65y+)/PF (IIV3) 0.5mL Syr IM ONE (18:27)
[2024-05-11] MEDS: CALCIUM 600MG + VIT D 400 IU TAB PO SCH (21:22)
[2024-05-11] MEDS: VITAMIN B COMPLEX TAB PO SCH (21:22)
[2024-05-11] MEDS: ASPIRIN 81 MG ECTAB PO SCH (21:23)
[2024-05-11] MEDS: SERTRALINE HCL 50 MG TABLET PO SCH (21:23)
[2024-05-11] MEDS: SUCRALFATE 1 GM TAB PO SCH (21:25)
[2024-05-11] MEDS: DOCUSATE SODIUM 100 MG CAP PO SCH (21:32)
[2024-05-12] MEDS: LEVOTHYROXINE SODIUM 50 MCG TABLET PO SCH (06:03)
[2024-05-12 06:31] LABS: Hematocrit (blood only) 33.5 % (37.0-47.0); Mean Corpuscular Hemoglobin 26.1 pg (25.0-34.0); Mean Corpuscular Hgb Conc 29.9 g/dL (32.0-36.0); Mean Corpuscular Volume 87.5 fL (80.0-100.0); Mean Platelet Volume 10.7 fL (9.4-12.4); Platelet Count 226 K/uL (130-400); RDW Coefficient of Variation 13.8 % (11.5-14.5); RDW Standard Deviation 44.2 fL (36.4-46.3); Red Blood Count 3.83 M/uL (4.20-5.40); White Blood Count 7.61 K/ul (4.8-10.8)
[2024-05-12 07:00] LABS: BUN Creatinine Ratio 18.8 (10-20); Calcium 8.2 mg/dl (8.6-10.3); Creatinine Clr Calc Pharmacy 64.1 ml/min; Magnesium 1.7 mg/dl (1.7-2.4); Potassium 3.5 mmol/L (3.5-5.1)
--- NOTE | 2024-05-12 07:39 | Hospitalist Progress Note ---
Date of Service May 12, 2024 Assessment & Plan (1) Generalized weakness: (2) Ambulatory dysfunction: (3) UTI (urinary tract infection): (4) Dementia: (5) History of CVA (cerebrovascular accident): (6) Chronic hypoxic respiratory failure: (7) DM type 2 (diabetes mellitus, type 2): (8) Hypertension: (9) Dyslipidemia: (10) GERD (gastroesophageal reflux disease): (11) Hypothyroidism: Plan Patient is 84 year old female with PMH HTN, dyslipidemia, chronic oxygen use at 2L, DM II, CVA, chronic dysphagia, dementia, hypothyroidism, GERD, depression presented to ER with family with complaint of increased weakness past couple of days. UTI: Acute Ms. Cain leukocytosis has improved from 11.3--> 7.6. Her UA revealed trace Leukocyte Esterase, 4+ bacteria from straight cath specimen Urine culture and blood cultures remain pending today. Continue Ceftriaxone and adjust based on culture results CXR on admission: Cardiomegaly, interstitial thickening. Bibasilar opacities possible atelectasis CT head on admission: No acute intracranial findings Ammonia level 16 and Vitamin B12 810 Continue fall precautions and aspiration precautions PT/OT evaluation given generalized weakness; may be difficult to retain information given dementia Continue trending labs in AM to ensure WBC continues to improve History of CVA: Chronic In discussion with her son, Jaime, she experienced a stroke approximately 3 years ago for which she does have left sided residual weakness. She does typically utilize a walker at baseline without any gait dysfunction No overt intervention was performed during the stroke; no TNK per son Pt dementia preceeded her CVA event; patient has aphagia; likely from advanced dementia as outlined below Continue aspirin and atorvastatin Dementia without behavior disturbance: Chronic Patient family indicates she is at her baseline functional status Will require frequent reorientation at times and does recognize family members but is unable to state their names. Monitor for delirium in setting of UTI FAST score: all of 6 and including up to 7A. The patients generalized weakness could be secondary to advanced progression of her dementia. Tremendous amount of family care provided at home. Given the sensitivity of the patients/family culture, allow a day or two for cultures to result; if no active infection to be found; consider palliative medicine to further conversation for goals of care; given advanced dementia. The next phase of her dementia would include difficulty with walking, which may be what we are entering. For now, patient to remain a full code. Overarching goals of care conversation would benefit. Patient would qualify for Hospice with a diagnosis of: senile degeneration of the brain. Chronic Respiratory Failure: Chronic. Wears 2L Supplemental O2 at home; No hypoxia on admission Diabetes Mellitus, Type 2: Chronic. A1c: 6.7 on 01/02/24; does not take anti- diabetic medications HTN: Chronic. Continue amlodipine; no lower extremity swelling noted HLD:Chronic. Patient takes Atorvastatin; continue GERD: Chronic. Continue Carafate Hypothyroidism: Chronic. Patient takes Levothyroxine; continue Disposition: Code Status: Full Code; sonJaime, is PADMINI DVT Prophylaxis: Lovenox SQ PCP:Dr Merced Mcgarw for routine care I spent a total of 56 minutes reviewing notes, outpatient records, labs, medication, coordinating, documenting and providing care for this patient excluding time spent in the performance of separately billed services. Admission and Anticipated Discharge Date Admission Date: May 11, 2024 Supervising Physician Co-Signing Physician Notes Chart reviewed; discussed with over provider. Patient is a 84-year-old female with history of dementia was brought to the hospital due to concern of confusion likely due to urinary tract infection. Blood culture and urine culture pending Continue antibiotics; will follow-up on blood and urine culture I have reviewed the advanced practitioner's documentation, and I agree with, and take responsibility for the plan of care Subjective Pt lying in her hospital bed in no apparent distress She nods her head and smiles. I said ''kiddaan" which is hello in [place] to her and she smiled. Unreliable ROS due to advanced dementia Pt son and Jaime [place], at bedside who is fluent in Cym[place]. No added value in using a director drug safety service given her advanced dementia. Full plan of care discussed with son at bedside; see below for details. Review of Systems Review of Systems: Unobtainable due to cognitive status Physical Exam Physical Exam: Neuro: AAOx4, PERRLA, no aphagia, memory changes, CNII-XII grossly intact HEENT: head normocephalic, moist mucus membranes CV: S1/S2, (-) M/G/R, (-) edema, cap refill < 3 seconds Resp: Lungs CTA in all plummer. On RA GI: Abdomen S/NT/ND, Ax4 bowel sounds, (-) CVA tenderness Musculoskeletal: 5/5 B/L UE strength, 5/5 B/L LE strength. No gait disturbance Skin: (-) rashes , (-) erythema. Psych: euthymic mood Results & Data Results & Data Laboratory Results Short CBC 05/11/24 05/12/24 Range/Units 09:45 05:39 WBC 11.32 H 7.61 (4.8-10.8) K/ul Hgb 12.4 10.0 L (12.0-16.0) g/dl Hct 40.5 33.5 L (37.0-47.0) % Plt Count 263 226 (130-400) K/uL BMP 05/11/24 05/12/24 09:45 05:39 Sodium 141 144 Potassium 4.0 3.5 Chloride 103 110 H Carbon Dioxide 31 27 BUN 16 12 Creatinine 0.83 0.64 Glucose 152 H 124 H Calcium 9.7 8.2 L Liver Function 05/11/24 Range/Units 09:45 Total Bilirubin 0.5 (0.2-1.0) mg/dl AST 22 (13-39) U/L ALT 14 (7-52) U/L Alkaline Phosphatase 82 (34-104) U/L Albumin 4.0 (3.4-5.0) gm/dl Urine 05/11/24 Range/Units 10:00 Urine Color Dark Yellow Urine Appearance Cloudy A (Clear) Urine pH 8.0 H (4.5-7.5) Ur Specific [place] 1.016 (1.000-1.030) Urine Protein 1+ H (Negative) Urine Glucose (UA) Negative (Negative) (7) DM type 2 (diabetes mellitus, type 2) Diabetes mellitus complication status: without complication Diabetes mellitus intermission coordinator insulin use: without fdc use Qualified Code(s): E11.9 - Type 2 diabetes mellitus without complications (10) GERD (gastroesophageal reflux disease) Esophagitis presence: without esophagitis Qualified Code(s): K21.9 - Gastro- esophageal reflux disease without esophagitis (11) Hypothyroidism Hypothyroidism type: unspecified Qualified Code(s): E03.9 - Hypothyroidism, unspecified
[2024-05-12 07:40] LABS: Estimated Average Glucose 148 mg/dl; Hemoglobin A1C 6.8 % (4.5-5.6)
[2024-05-12] MEDS: DONEPEZIL HCL 5 MG TAB PO SCH (09:18)
[2024-05-12] MEDS: FERROUS SULFATE 325 MG TAB PO SCH (09:18)
[2024-05-12] MEDS: amLODIPine BESYLATE 5 MG TAB PO SCH (09:18)
[2024-05-12] MEDS: ATORVASTATIN 40 MG TAB PO SCH (09:18)
[2024-05-12] MEDS: PANTOprazole 40 MG TAB PO SCH (09:18)
[2024-05-12] MEDS: ATORVASTATIN 20 MG TAB PO SCH (09:18)
[2024-05-12] MEDS: cefTRIAXone SODIUM 2,000 MG/50 ML BAG IV SCH (12:37)
[2024-05-13 07:19] LABS: Hematocrit (blood only) 34.5 % (37.0-47.0); Hemoglobin 10.4 g/dl (12.0-16.0); Mean Corpuscular Hgb Conc 30.1 g/dL (32.0-36.0); Mean Corpuscular Volume 86.3 fL (80.0-100.0); Mean Platelet Volume 10.5 fL (9.4-12.4); Platelet Count 237 K/uL (130-400); RDW Coefficient of Variation 13.5 % (11.5-14.5); RDW Standard Deviation 42.5 fL (36.4-46.3); White Blood Count 7.07 K/ul (4.8-10.8)
[2024-05-13 07:32] VITALS: BP 158/73; PULSE 73; RESP 18; TEMP 98.1; O2SAT 96
[2024-05-13 07:32] LABS: BUN Creatinine Ratio 12.1 (10-20); Calcium 9.1 mg/dl (8.6-10.3); Creatinine Clr Calc Pharmacy 62.2 ml/min; Potassium 3.4 mmol/L (3.5-5.1)
[2024-05-13] MEDS ORDERED: POTASSIUM CHLORIDE / WTR 10 MEQ/100 ML PLCT IV SCH (08:15)
[2024-05-13] MEDS: POTASSIUM CHLORIDE 10 MEQ TABCR PO SCH (08:46)
[2024-05-13] MEDS: CEFDINIR 300 MG CAP PO SCH (11:29)
--- NOTE | 2024-05-13 12:10 | Discharge Summary ---
Discharge Summary Date of Service May 13, 2024 Principal Dx & Hospital Course #1 = Principal Diagnosis (1) Generalized weakness: (2) Ambulatory dysfunction: (3) UTI (urinary tract infection): (4) Dementia: Robin Diggs is an 83y/o F with PMHx of HTN, dyslipidemia, DM type II [currently not on medication], chronic hypoxic respiratory failure [on 2L via NC], hypothyroidism, history of CVA with residual left-sided weakness, GERD, chronic dysphagia, generalized osteoarthritis, Alzheimer's dementia and depression who presented to the ED on 05/11/2024 via EMS due to increasing weakness/fatigue and decreased oral intake. Patient does NOT speak any Anguillan [only Mike], her granddaughter (Ramses) is the primary point of contact as she speaks Anguillan and helps to organize the patient's care. Generalized Weakness, Acute UTI: Leukocytosis, UTI noted on admission. There was no evidence of sepsis. Admitting head CT/CXR were unremarkable. She was started on IV Rocephin. Her WBC continued to improve. Blood culture with NGTD. Urine culture resulted on 05/13 and grew Alpha strep not enterococcus. She was transitioned to po cefdinir 300mg BID to complete a full 7-day course of ABX therapy. PT/OT evaluated the patient - patient OK to return home with 23/01 family assistance. Spoke with the patient's granddaughter, Ramses, who was agreeable with doing so. Transportation arranged with case management. Patient approved for [facility]. Additional referral made to Critical access hospital (nursing + PT/OT) at the family's request. History of CVA: In discussion with her son, Jaime, she experienced a stroke approximately 3 years ago for which she does have left sided residual weakness. She does typically utilize a walker at baseline without any gait dysfunction. No overt intervention was performed during the stroke - no TNK per son. Patient's dementia preceded her CVA event; patient has dysphagia, likely from advanced Alzheimer's dementia as outlined below. Continue aspirin and atorvastatin. Alzheimer's Dementia: Patient family indicates she is at her baseline functional status. The patients generalized weakness could be secondary to advanced progression of her dementia. Tremendous amount of family care provided at home. Could consider palliative medicine in the future to further conversation for goals of care given the patient's advanced dementia. Patient is being discharged home with 24/7 family support. Referral pending for Critical access hospital for home nursing and PT/OT assistance at the family's request as per above. Hypokalemia: K+ 3.4 on 05/13, K+ successfully repleted with po KCl. Diabetes Mellitus, Type 2: Hgb A1c 6.8% this admission, patient does not take any diabetic medications. Chronic Hypoxic Respiratory Failure: Wears 2L supplemental O2 via NC at baseline, no hypoxia noted this admission. Other Chronic Medical Conditions: GERD/hypothyroidism/HLD/HTN --> Can continue home medications for these specific conditions. DVT Prophylaxis: SQ Lovenox Code Status: FULL CODE [Patient's son, Jaime, is POA.] PCP: Merced Mcgraw MD Disposition: Patient is being discharged home in stable condition with 24/7 family support. * Referral to Critical access hospital pending at time of discharge. She also qualifies for [facility]. Patient seen in collaboration with Dr. Bolanos. Please see addendum. I spent a total of 50 minutes coordinating, documenting, and providing care for this patient excluding time spent in the performance of separately billed services. This included personally reviewing all current laboratories and syd ging studies, medical reconciliation, outpatient chart review and discussion with specialists. This chart was completed in part utilizing Speech Voice Recognition Software. Grammatical errors, random word insertions, pronoun errors, and incomplete sentences are an occasional consequence of this system due to software limitations, ambient noise, and hardware issues. Any formal questions or concern s about the content, text, or information contained within the body of this dictation should be directly addressed to the provider for clarification. Notes For Next Care Provider [facility]erral to [facility] for nursing and PT/OT services. Patient does meet requirements for [facility], which she would greatly benefit from. Medication Changes From Visit No medication changes were made this admission. Admission HPI Per Admitting Provider Patient is 84 year old female with PMH HTN, dyslipidemia, chronic oxygen use at 2L, DM II, CVA, dementia, hypothyroidism, GERD, depression presented to ER with family with complaint of increased weakness past couple of days. History obtained from patient's family at bedside. Patient is Mike speaking.She lives with family at home. Family reports have noticed increased weakness and noted decreased oral intake. Concerned for UTI as had similar symptoms in past with UTI. History of stroke with residual with left sided weakness. Usually uses walker with family assistance, however today unable to stand with walker. Family feels patient is at her baseline mental status. States is confused at baseline and is difficult to communicate with family at baseline. This morning was noted to be sweaty. No noted fever/chills, cough, vomiting, diarrhea, noted SOB or rashes. Admission Exam Per Admitting Provider General Appearance:Moderately built and nourished, no apparent distress, Elderly Head: normocephalic, Atraumatic Eyes: normal inspection, EOMI Neck: supple, Trachea midline Respiratory/Chest: Normal breath sounds, CTA, No accessory muscle use Cardiovascular: S1, S2, No murmur Abdomen/GI:Soft, Non tender, Bowel sounds present Extremities/Musculoskeletal:normal inspection, no edema Neurologic/Psych:Alert, awake, grossly no focal neurological deficits, +dementia, confused Skin: normal color, warm Discharge Exam General: WD/WN, NAD, laying down in bed, unable to converse with the patient 2/2 language barrier, cooperative with exam. HEENT: Normocephalic, atraumatic. Conjunctivae normal, anicteric sclerae. External ear and nose normal, oropharynx normal. Respiratory: Normal respiratory effort, lungs clear to auscultation, no wheeze, rales, rhonchi. No accessory muscle use. Cardiovascular: Regular rate, rhythm, no murmur, normal peripheral pulses, no BLE edema. Vessels: No JVD. Abdomen/GI: Normal bowel sounds, soft, nontender, no hepatosplenomegaly. Extremities/Musculoskeletal: No cyanosis or clubbing, extremities motor strength intact, moves all extremities. Neurologic: No focal deficits, CN's II-XI not formally tested but appear grossly intact bilaterally. Skin: No rashes, normal color, warm/dry. Updated Medication List Medication Instructions Recorded Confirmed Type donepezil 5 mg tablet (Aricept) 5 mg PO QDB 07/15/18 05/11/24 History levothyroxine 50 mcg tablet 50 mcg PO DAILYBB 07/15/18 05/11/24 History amlodipine 2.5 mg tablet 7.5 mg PO QAM 05/28/20 05/11/24 History atorvastatin 40 mg tablet 40 mg PO QAM 08/25/20 05/11/24 History calcium 600 mg (as 1 tab PO BID 08/25/20 05/11/24 History carbonate)-vitamin D3 5 mcg (200 unit) tablet sucralfate 1 gram tablet 1 g PO QID 08/25/20 05/11/24 History vitamin B complex 1 tab PO HS 08/25/20 05/11/24 History aspirin 81 mg tablet,delayed 81 mg PO HS 04/07/22 05/11/24 History release sertraline 50 mg tablet 50 mg PO HS 06/27/22 05/11/24 History ferrous sulfate 325 mg (65 mg 325 mg PO .EVERY OTHER DAY 07/02/23 05/11/24 History iron) tablet docusate sodium 100 mg capsule 100 mg PO HS 11/15/23 05/11/24 History (Stool Softener) pantoprazole 40 mg tablet,delayed 40 mg PO QDB 11/15/23 05/11/24 History release atorvastatin 20 mg tablet 20 mg PO DAILY 05/11/24 05/11/24 History cefdinir 300 mg capsule 300 mg PO BID #9 caps 05/13/24 Rx Hospital Stay Data Consultations 05/11/24 15:06 ED Decision to Admit Stat Diagnostic Imagining Performed 05/11/24 10:31 CT head/brain wo con Stat Discharge Instructions Given to Patient (Per Discharging Provider) Kade, You were admitted to the hospital with generalized weakness/fatigue and found to have an acute urinary tract infection (UTI). You were treated with IV antibiotics and are being transitioned home on a 5-day course of oral CEFDINIR. Please take this antibiotic as prescribed and in its entirety! Your next dose will be due TONIGHT. Please remember to take an [id number]-[id number] daily probiotic as well while on this course of oral antibiotics. UPCOMING APPOINTMENT Date & Time: 05/21/2024 @ 11:00AM Provider: Merced Mcgraw MD Department: [facility] General Internal Medicine @ [facility] Please attend your primary care follow-up appointment as scheduled! Seek medical attention if you have: * temperature above 101F * chest pain or trouble breathing * abdominal pain, nausea, vomiting * diarrhea, dark stools or bloody stools * any unanswered questions or concerns Call 911 if symptoms are severe. Please take good care of yourself! It has been a pleasure taking care of you. If you have any questions regarding your recent hospitalization please contact [facility] and request Shahana Meeks @ [phone]. Total Time Total Time Spent Total Time Spent (In Minutes): 50 Supervising Physician Co-Signing Physician Notes Patient seen and examined at bedside. Family at bedside as well Patient is at baseline mentation presently Prescribe antibiotics to be taken at home Also referral sent for [facility], home health Encourage goals of care discussion at home given advanced dementia. I have reviewed the advanced practitioner's documentation, and I agree with, and take responsibility for the plan of care I spent a total of 20 minutes coordinating, documenting, and providing care for this patient excluding time spent in the performance of separately billed services. All of the aforementioned completed while collaborating with the assigned advanced practitioner for a full treatment plan
--- NOTE | 2024-05-13 15:19 | Electrocardiogram Report ---
Test Reason : Blood Pressure : */* mmHG Vent. Rate : 73 BPM Atrial Rate : 73 BPM P-R Int : 240 ms QRS Dur : 74 ms QT Int : 412 ms P-R-T Axes : 43 22 42 degrees QTcB Int : 453 ms Poor data quality, interpretation may be adversely affected Sinus rhythm with 1st degree A-V block Cannot rule out Anterior infarct (cited on or before 07-Apr-2022) Abnormal ECG When compared with ECG of 15-Nov-2023 10:54, Borderline criteria for Inferior infarct are no longer Present Confirmed by Tyron Elise ([id number]) on 05/13/2024 3:19:11 PM Referred By: REFERRED SELF Confirmed By: Tyron Elise
== END 2024-05-13 13:48 | disposition home or self-care (01) | DRG 948 ==
LOC: ED 09:27 → SUATTDRO 15:12 → 3W 15:12

== ENCOUNTER 2025-03-05 22:00 | Observation (INO) ==
--- NOTE | 2025-03-05 22:08 | Emergency Department Note ---
Impression & Plan COVID-19 virus infection Admission ED Provider Note HPI: History obtained from EMS The patient is a 84-year-old female with history of Alzheimer's dementia, previous CVA, aphasia/nonverbal, presents to the emergency department today with reported decline in mentation/listlessness. Per EMS report the family had concerned that the patient was not at her baseline recently. Patient son later arrived at the bedside as well as her [id number]. They state that the patient has not been able to eat or drink very well over about the past month. Today she developed sweats which were concerning to them, they did a home COVID- 19 test which was positive. They state they have been having difficulty taking care of the patient at home recently secondary to her inability to tolerate p.o. intake, lethargy, and ambulatory dysfunction. On arrival here to the ED today the patient is hemodynamically stable, she is unable to provide me with any further history secondary to her baseline aphasia but she does not appear to be in any acute physical distress ROS: - Per HPI Differential Diagnosis: COVID-19 infection, other viral infection, sepsis, urinary tract infection, pneumonia, intracranial hemorrhage, stroke, amongst other potential pathologies. *Outpatient medications and allergy history reviewed. PE: General: Alert, frail-appearing, no acute distress HEENT: Normocephalic, trachea midline Eyes: Extraocular eye movement is intact, no scleral erythema Pulmonary: Clear to auscultation bilaterally, no wheezing Cardio: Regular rate and rhythm GI: Abdomen is soft to palpation : No suprapubic tenderness MSK: No evidence of trauma or malformation of the extremities, no edema Skin: No evidence of rash Neuro: Alert, no focal deficits Psychiatric: Cooperative INDEPENDENT INTERPRETATIONS: landscape architect: (As interpreted by myself): - An order was placed for continuous cardiac monitoring - Patient was noted to be in sinus rhythm with a rate of 85 Chest x-ray: (As interpreted by myself): No focal infiltrate Interventions provided in ED: - IV fluid bolus Medical Decision Making: IV was established and lab work obtained, patient was placed on commercial loan analyst. Patient son and her [id number] at the bedside requested admission for potential placement as they had concerns that the patient was not doing well at home and they could not take care of the patient. At this point they left the emergency department and requested admission. Lab work was obtained and shows no leukocytosis, hemoglobin is stable 11.4, platelet count is normal, CMP shows hyperglycemia at 351 but no anion gap elevation. Lactic acid is mildly elevated 2.7 for which the patient was given IV fluids. Repeat lactic acid is normal. Viral panel testing was obtained and the patient is positive for COVID-19. CT imaging of the head does not show any evidence of any acute intracranial process. Patient remained otherwise stable here in the ED, I suspect her symptoms are likely secondary to COVID-19 at this point. I did call the patient's granddaughter at the request of the patient's son and her [id number]. I did discuss with the patient's granddaughter all of these findings and she is in agreement for the patient to be admitted for further care. Case was discussed with the on-call hospitalist, Dr. Osullivan, and the patient was placed for admission in stable condition. Consultants/Discussions held with other healthcare providers: - Hospitalist, Dr. Osullivan Disposition discussion held by myself with: - Patient's son, patient's [id number], and the patient's granddaughter over the phone Diagnosis: 1. COVID-19 infection, acute 2. Hyperglycemia without DKA 3. Lactic acidosis 4. Advanced dementia, chronic 5. Ambulatory dysfunction, chronic Disposition: Admission Rubén Edgar DO Emergency Medicine Past Med/Surg History Problem List (Updated 03/06/25 @ 01:06 by Rubén Edgar DO) COVID-19 virus infection (Acute) Nocturnal hypoxemia Cerebrovascular disease Dysphagia Alzheimer's dementia Hypokalemia (Acute) Confusion (Acute) CAP (community acquired pneumonia) (Acute) AMS (altered mental status) (Acute) CVA (cerebral vascular accident) Complicated UTI (urinary tract infection) AMS (altered mental status) (Acute) Encounter for pre-operative examination Colon cancer screening Aphasia (Acute) Left-sided weakness (Acute) Acute perforated appendicitis Acute appendicitis (Acute) Depression Abnormal CT scan, kidney Cerebrovascular disease stroke L caudate before 2012; TIA 2012; stroke jozef 2018 (treated at [facility]) Medical History Restrictive lung disease Dysphagia Dysphagia due to stroke. Thickened liquids. Transient ischemic attack (TIA) 2012 COVID-19 ruled out Discharge planning issues DVT prophylaxis Hypokalemia Stroke hx of stroke (2012 & 2018) treated at [facility]. dysphagia since stroke 2019 -- uses thickening for liquids. Pre-diabetes family denies Osteoporosis Osteoarthritis H/O blood clots possibly in 2019? family unsure of specifics. Surgical History History of colonoscopy H/O: hysterectomy Family History Father Diabetes Son Diabetes Hypertension Sister Cancer ? primary Other No family history of adverse response to anesthesia Social History Smoking Status: Never smoker Second Hand Exposure: No; Do You Dip or Chew Tobacco: No; Hx Alcohol Use: No Hx Substance Use: No Preferred Language: Mike Communication Ability: Impaired Communication Ability Comment: grand-daughter to translate per family request. Communication Tools: Language Line Clinical Appeals Reviewer Clinical Appeals Reviewer Required: Yes Beliefs That Will Affect Care: None marital status: Current Living Situation: Family current occupational status: retired Feels Safe at Home: Yes Assistive Devices: Hospital Bed, Oxygen - Continuous, Walker and Wheelchair Allergies Allergies Allergy/AdvReac Type Severity Reaction Status Date / Time Penicillins Allergy Mild RASH Verified 03/06/25 00:35 Home Meds Home Medications Medication Instructions Recorded Confirmed donepezil 5 mg tablet (Aricept) 5 mg PO QDB 07/15/18 03/06/25 levothyroxine 50 mcg tablet 50 mcg PO DAILYBB 07/15/18 03/06/25 amlodipine 2.5 mg tablet 2.5 mg PO QAM 05/28/20 03/06/25 sertraline 50 mg tablet 50 mg PO HS 06/27/22 03/06/25 ferrous sulfate 325 mg (65 mg 325 mg PO DAILY 07/02/23 03/06/25 iron) tablet docusate sodium 100 mg capsule 100 mg PO HS 11/15/23 03/06/25 (Stool Softener) pantoprazole 40 mg tablet,delayed 40 mg PO QDB 11/15/23 03/06/25 release atorvastatin 20 mg tablet 20 mg PO DAILY 05/11/24 03/06/25 aspirin 81 mg chewable tablet 81 mg PO DAILY 03/06/25 03/06/25 (Aspirin Childrens) calcium 600 mg-D3 20 mcg-magnesium 1 tab PO DAILY 03/06/25 03/06/25 50 oj-Pt-phcffs-adi-boron tablet (Calcium 600-D3 Plus (mag-zinc)) clotrimazole-betamethasone 1 1 applic topical BID 03/06/25 03/06/25 %-0.05 % topical cream guaifenesin 400 mg tablet 400 mg PO TID PRN Congestion 03/06/25 03/06/25 hyoscyamine sulfate 0.125 mg 0.125 mg PO Q4 PRN Secretions 03/06/25 03/06/25 sublingual tablet ipratropium 0.5 mg-albuterol 3 mg 3 ml inhalation BID PRN Shortness 03/06/25 03/06/25 (2.5 mg base)/3 mL nebulization Of Breath soln lorazepam 0.5 mg tablet 0.5 mg PO Q6 PRN ANXIETY OR 03/06/25 03/06/25 RESTLESSNESS morphine concentrate 100 mg/5 mL 5 mg PO .EVERY 3 HOURS PRN PAIN OR 03/06/25 03/06/25 (20 mg/mL) oral solution SOB vit C 226 mg-vit E 90 mg-copper 1 cap PO DAILY 03/06/25 03/06/25 0.8 mg-zinc oxide-lutein 5 mg capsule (PreserVision Lutein) Results & Data (ED) Vital Signs Vital Signs - 24 hr 03/05/25 22:07 03/05/25 22:14 03/05/25 22:14 Temperature 36.1 C L Temperature Source Axillary Pulse Rate 86 Pulse Rate [Finger] 89 Pulse Rhythm [Finger] Regular Pulse Strength [Finger] Normal Respiratory Rate 20 20 Respiratory Effort / Characteristics Non-Labored Spontaneous Non-Labored Respiratory Depth Normal Normal Respiratory Pattern Regular Regular Blood Pressure 117/80 Blood Pressure [Left Arm] 117/80 Blood Pressure Mean 92 Blood Pressure Mean [Left Arm] 92 Blood Pressure Position [Left Arm] Lying Pulse Oximetry 95 94 Oxygen Delivery Method Nasal Cannula Nasal Cannula Room Air Oxygen Flow Rate 2 2 Sepsis New/Unexplained Change in Mental Status Yes Sepsis Action Taken by Nursing Physician Notified 03/05/25 23:48 Temperature Temperature Source Pulse Rate 83 Pulse Rate [Finger] Pulse Rhythm [Finger] Pulse Strength [Finger] Respiratory Rate Respiratory Effort / Characteristics Respiratory Depth Respiratory Pattern Blood Pressure Blood Pressure [Left Arm] Blood Pressure Mean Blood Pressure Mean [Left Arm] Blood Pressure Position [Left Arm] Pulse Oximetry Oxygen Delivery Method Oxygen Flow Rate Sepsis New/Unexplained Change in Mental Status Sepsis Action Taken by Nursing Laboratory Data 03/05/25 22:26 03/05/25 22:26 Lab Results 03/05/25 03/05/25 03/05/25 Range/Units 22:26 22:48 22:55 WBC 6.43 (4.8-10.8) K/ul RBC 4.46 (4.20-5.40) M/uL Hgb 11.4 L (12.0-16.0) g/dl Hct 37.4 (37.0-47.0) % MCV 83.9 (80.0-100.0) fL MCH 25.6 (25.0-34.0) pg MCHC 30.5 L (32.0-36.0) g/dL RDW Std Deviation 45.4 (36.4-46.3) fL RDW Coeff of Vivienne 15.0 H (11.5-14.5) % Plt Count 241 (130-400) K/uL MPV 10.6 (9.4-12.4) fL Immature Gran % (Auto) 0.8 % Neut % (Auto) 79.9 % Lymph % (Auto) 15.9 % Cial[place] % (Auto) 3.1 % Eos % (Auto) 0.0 % Baso % (Auto) 0.3 % Neut # (Auto) 5.14 (1.40-6.50) K/uL Lymph # (Auto) 1.02 L (1.20-3.40) K/uL [place] # (Auto) 0.20 (0.11-0.59) K/uL Eos # (Auto) 0.00 (0.00-0.50) K/uL Baso # (Auto) 0.02 (0.00-0.20) K/uL Immature Gran # (Auto) 0.05 (0.01-0.20) K/uL PT Cancelled 10.8 INR Cancelled 1.0 Sodium 135 L (136-145) mmol/L Potassium 3.9 (3.5-5.1) mmol/L Chloride 99 (98-107) mmol/L Carbon Dioxide 25 (21-32) mmol/L Anion Gap 11 (3-11) BUN 18 (6-23) mg/dl Creatinine 0.98 (0.6-1.2) mg/dl Est Cr Clr Drug Dosing 38.2 ml/min eGFR 57.63 BUN/Creatinine Ratio 18.4 (10-20) Glucose 351 H* (70-99(Fasting)) mg/dl Lactate 2.7 H* (0.4-2.0) mmol/L Calcium 9.2 (8.6-10.3) mg/dl Total Bilirubin 0.3 (0.2-1.0) mg/dl AST 38 (13-39) U/L ALT 20 (7-52) U/L Alkaline Phosphatase 79 (34-104) U/L Total Protein 7.2 (6.0-8.3) gm/dl Albumin 3.2 L (3.4-5.0) gm/dl Globulin 4.0 (2.5-4.0) gm/dl Albumin/Globulin Ratio 0.8 L (0.9-2) Lipase 15 (11-82) U/L Adenovirus (PCR) Not Detected (NotDetected) B. pertussis DNA (PCR) Not Detected (NotDetected) B.parapertussis DNA PCR Not Detected (NotDetected) C. pneumoniae DNA (PCR) Not Detected (NotDetected) Coronavirus OC43 (PCR) Not Detected (NotDetected) Coronavirus HKU1 (PCR) Not Detected (NotDetected) Coronavirus 229E (PCR) Not Detected (NotDetected) SARS-CoV-2 (PCR) DETECTED A (NotDetected) Coronavirus NL63 (PCR) Not Detected (NotDetected) Human Metapneumovir PCR Not Detected (NotDetected) Influenza Type A (PCR) Not Detected (NotDetected) Influenza Type B (PCR) Not Detected (NotDetected) M. pneumoniae (PCR) Not Detected (NotDetected) Parainfluenza 1 (PCR) Not Detected (NotDetected) Parainfluenza 2 (PCR) Not Detected (NotDetected) Parainfluenza 3 (PCR) Not Detected (NotDetected) Parainfluenza 4 (PCR) Not Detected (NotDetected) RSV (PCR) Not Detected (NotDetected) Entero/Rhino (PCR) Not Detected (NotDetected) 03/06/25 Range/Units 00:42 WBC (4.8-10.8) K/ul RBC (4.20-5.40) M/uL Hgb (12.0-16.0) g/dl Hct (37.0-47.0) % MCV (80.0-100.0) fL MCH (25.0-34.0) pg MCHC (32.0-36.0) g/dL RDW Std Deviation (36.4-46.3) fL RDW Coeff of Vivienne (11.5-14.5) % Plt Count (130-400) K/uL MPV (9.4-12.4) fL Immature Gran % (Auto) % Neut % (Auto) % Lymph % (Auto) % [place] % (Auto) % Eos % (Auto) % Baso % (Auto) % Neut # (Auto) (1.40-6.50) K/uL Lymph # (Auto) (1.20-3.40) K/uL Ciales # (Auto) (0.11-0.59) K/uL Eos # (Auto) (0.00-0.50) K/uL Baso # (Auto) (0.00-0.20) K/uL Immature Gran # (Auto) (0.01-0.20) K/uL PT INR Sodium (136-145) mmol/L Potassium (3.5-5.1) mmol/L Chloride (98-107) mmol/L Carbon Dioxide (21-32) mmol/L Anion Gap (3-11) BUN (6-23) mg/dl Creatinine (0.6-1.2) mg/dl Est Cr Clr Drug Dosing ml/min eGFR BUN/Creatinine Ratio (10-20) Glucose (70-99(Fasting)) mg/dl Lactate 1.9 (0.4-2.0) mmol/L Calcium (8.6-10.3) mg/dl Total Bilirubin (0.2-1.0) mg/dl AST (13-39) U/L ALT (7-52) U/L Alkaline Phosphatase (34-104) U/L Total Protein (6.0-8.3) gm/dl Albumin (3.4-5.0) gm/dl Globulin (2.5-4.0) gm/dl Albumin/Globulin Ratio (0.9-2) Lipase (11-82) U/L Adenovirus (PCR) (NotDetected) B. pertussis DNA (PCR) (NotDetected) B.parapertussis DNA PCR (NotDetected) C. pneumoniae DNA (PCR) (NotDetected) Coronavirus OC43 (PCR) (NotDetected) Coronavirus HKU1 (PCR) (NotDetected) Coronavirus 229E (PCR) (NotDetected) SARS-CoV-2 (PCR) (NotDetected) Coronavirus NL63 (PCR) (NotDetected) Human Metapneumovir PCR (NotDetected) Influenza Type A (PCR) (NotDetected) Influenza Type B (PCR) (NotDetected) M. pneumoniae (PCR) (NotDetected) Parainfluenza 1 (PCR) (NotDetected) Parainfluenza 2 (PCR) (NotDetected) Parainfluenza 3 (PCR) (NotDetected) Parainfluenza 4 (PCR) (NotDetected) RSV (PCR) (NotDetected) Entero/Rhino (PCR) (NotDetected) Administered Medications Discontinued Medications Sodium Chloride (Nss) 500 mls @ 999 mls/hr IV .Q31M STA Stop: 03/05/25 22:38 Last Infusion: 03/06/25 00:52 Dose: Infused Documented By: Admin: 03/05/25 22:48 Dose: 999 mls/hr Documented By: CDJennifer Imaging Data Radiologist's Impression: Chest X-Ray 03/05/25 22:38 Exam(s): XR CXR 1 VIEW EXAM: XR Chest, 1 View CLINICAL HISTORY: Reason for exam: cough. TECHNIQUE: Frontal view of the chest. COMPARISON: XR Chest dated 08/18/2024 FINDINGS: Lungs: Patchy/linear opacities in the left mid to lower lung, similar to the prior. No focal consolidation. Pleural space: Unremarkable. No pneumothorax. Heart: Unremarkable. No cardiomegaly. Mediastinum: Unremarkable. Normal mediastinal contour. Bones/joints: Unremarkable. No acute fracture. Upper abdomen: Elevated right hemidiaphragm, stable. IMPRESSION: Patchy/linear opacities in the left mid to lower lung, similar to the prior. Likely atelectasis or scarring rather than acute process. Electronically signed by: Leah Berumen M.D. 03/06/25 00:[address] 03/05/25 22:46 Exam(s): CT HEAD Without Contrast EXAM: CT Head Without Intravenous Contrast CLINICAL HISTORY: Reason for exam: lethargy. TECHNIQUE: Axial computed tomography images of the head/brain without intravenous contrast. CTDI is 36.43 mGy and DLP is 625.8 mGy-cm. Automated exposure control was utilized for the study. A dose lowering technique was utilized adhering to the principles of ALARA. COMPARISON: CT Head dated 08/18/2024 FINDINGS: Brain: Volume loss with prominent ventricles and sulci. Periventricular and subcortical white matter hypoattenuation likely reflects chronic small vessel disease. Old lacunar infarcts in the left basal ganglia and jozef, stable. No hemorrhage. Ventricles: Unremarkable. No ventriculomegaly. Bones/joints: Unremarkable. No acute fracture. Soft tissues: Unremarkable. Sinuses: Mild paranasal sinus mucosal thickening. Mastoid air cells: Unremarkable as visualized. No mastoid effusion. Orbits: Bilateral intra-ocular lens implants. IMPRESSION: No evidence of acute intracranial abnormality. Electronically signed by: Leah Berumen M.D. 03/06/25 00:22 AM Discharge Plan Visit Data Chief Complaint: Illness Stated Complaint: illness ED Provider: Rubén Edgar Discharge Problem: COVID-19 virus infection Patient Disposition: Admitted As Inpatient Condition: Fair Forms Stand Alone Forms: [facility] Prescriptions Prescriptions: No Action donepezil [Aricept] 5 mg Tablet 5 mg PO QDB Rx Instructions: take with largest meal of day levothyroxine 50 mcg tablet 50 mcg PO DAILYBB amlodipine 2.5 mg tablet 2.5 mg PO QAM ferrous sulfate 325 mg (65 mg iron) Tablet 325 mg PO DAILY sertraline 50 mg tablet 50 mg PO HS pantoprazole 40 mg tablet,delayed release (DR/EC) 40 mg PO QDB Rx Instructions: take with largest meal of day docusate sodium [Stool Softener] 100 mg Capsule 100 mg PO HS atorvastatin 20 mg tablet 20 mg PO DAILY ipratropium-albuterol 0.5 mg-3 mg(2.5 mg base)/3 mL solution for nebulization 3 ml INHALATION BID PRN (Reason: Shortness Of Breath) lorazepam 0.5 mg Tablet 0.5 mg PO Q6 PRN (Reason: ANXIETY OR RESTLESSNESS) hyoscyamine sulfate 0.125 mg tablet, sublingual 0.125 mg PO Q4 PRN (Reason: Secretions) aspirin [Aspirin Childrens] 81 mg Tablet,Chewable 81 mg PO DAILY PreserVision Lutein 226-90-0.8-5 mg Capsule 1 cap PO DAILY morphine concentrate 100 mg/5 mL (20 mg/mL) Solution 5 mg PO .EVERY 3 HOURS PRN (Reason: PAIN OR SOB) Rx Instructions: 0.25 ML guaifenesin 400 mg Tablet 400 mg PO TID PRN (Reason: Congestion) Ca-D3-mag ab-kaya-zox-deepika-bor [Calcium 600-D3 Plus (mag-zinc)] 600 mg calcium- 20 mcg-50 mg Tablet 1 tab PO DAILY clotrimazole-betamethasone 1-0.05 % Cream 1 applic TOPICAL BID Rx Instructions: APPLY SMALL AMOUNT TO RASH 2 X DAILY Referrals Referrals: Merced Mcgraw MD [Primary Care Provider] -
[2025-03-05 22:48] LABS: Hematocrit (blood only) 37.4 % (37.0-47.0); Hemoglobin 11.4 g/dl (12.0-16.0); Immature Granulocytes # (auto) 0.05 K/uL (0.01-0.20); Immature Granulocytes % (auto) 0.8 %; Mean Corpuscular Hemoglobin 25.6 pg (25.0-34.0); Mean Corpuscular Volume 83.9 fL (80.0-100.0); Platelet Count 241 K/uL (130-400); RDW Standard Deviation 45.4 fL (36.4-46.3); Red Blood Count 4.46 M/uL (4.20-5.40); White Blood Count 6.43 K/ul (4.8-10.8)
[2025-03-05] MEDS: SODIUM CHLORIDE 0.9% 500 ML IV STA (22:48)
[2025-03-05 23:11] LABS: Anion Gap 11.0 (3-11); Bilirubin,Total 0.3 mg/dl (0.2-1.0); Calcium 9.2 mg/dl (8.6-10.3); Carbon Dioxide 25.0 mmol/L (21-32); Chloride 99.0 mmol/L (98-107); Potassium 3.9 mmol/L (3.5-5.1); Sodium 135.0 mmol/L (136-145)
[2025-03-05 23:20] LABS: Alanine Aminotransferase 20.0 U/L (7-52); Albumin Globulin Ratio 0.8 (0.9-2); Alkaline Phosphatase 79.0 U/L (34-104); Blood Urea Nitrogen 18.0 mg/dl (6-23); Creatinine Clr Calc Pharmacy 38.2 ml/min; Globulin 4.0 gm/dl (2.5-4.0); Glucose 351.0 mg/dl (70-99(Fasting)); Lipase 15.0 U/L (11-82); Total Protein 7.2 gm/dl (6.0-8.3)
[2025-03-05 23:36] LABS: INR 1.0 (0.9-1.1); Prothrombin Time 10.8 Seconds (9.0-12.0)
--- NOTE | 2025-03-06 00:22 | XRay Report ---
Exam(s): XR CXR 1 VIEW EXAM: XR Chest, 1 View CLINICAL HISTORY: Reason for exam: cough. TECHNIQUE: Frontal view of the chest. COMPARISON: XR Chest dated 08/18/2024 FINDINGS: Lungs: Patchy/linear opacities in the left mid to lower lung, similar to the prior. No focal consolidation. Pleural space: Unremarkable. No pneumothorax. Heart: Unremarkable. No cardiomegaly. Mediastinum: Unremarkable. Normal mediastinal contour. Bones/joints: Unremarkable. No acute fracture. Upper abdomen: Elevated right hemidiaphragm, stable. IMPRESSION: Patchy/linear opacities in the left mid to lower lung, similar to the prior. Likely atelectasis or scarring rather than acute process. Electronically signed by: Leah Berumen M.D. 03/06/25 00:21 AM
--- NOTE | 2025-03-06 00:24 | CT Scan Report ---
Exam(s): CT HEAD Without Contrast EXAM: CT Head Without Intravenous Contrast CLINICAL HISTORY: Reason for exam: lethargy. TECHNIQUE: Axial computed tomography images of the head/brain without intravenous contrast. CTDI is 36.43 mGy and DLP is 625.8 mGy-cm. Automated exposure control was utilized for the study. A dose lowering technique was utilized adhering to the principles of ALARA. COMPARISON: CT Head dated 08/18/2024 FINDINGS: Brain: Volume loss with prominent ventricles and sulci. Periventricular and subcortical white matter hypoattenuation likely reflects chronic small vessel disease. Old lacunar infarcts in the left basal ganglia and jozef, stable. No hemorrhage. Ventricles: Unremarkable. No ventriculomegaly. Bones/joints: Unremarkable. No acute fracture. Soft tissues: Unremarkable. Sinuses: Mild paranasal sinus mucosal thickening. Mastoid air cells: Unremarkable as visualized. No mastoid effusion. Orbits: Bilateral intra-ocular lens implants. IMPRESSION: No evidence of acute intracranial abnormality. Electronically signed by: Leah Berumen M.D. 03/06/25 00:22 AM
[2025-03-06 00:26] LABS: Chlamydia pneumoniae PCR Not Detected (NotDetected); Coronavirus 229E PCR Not Detected (NotDetected); Coronavirus CoV-2 (COVID19)PCR DETECTED (NotDetected); Coronavirus HKU1 PCR Not Detected (NotDetected); Coronavirus NL63 PCR Not Detected (NotDetected); Coronavirus OC43PCR Not Detected (NotDetected); Human Metapneumovirus PCR Not Detected (NotDetected); Parainfluenza Virus 1 PCR Not Detected (NotDetected); Parainfluenza Virus 2 PCR Not Detected (NotDetected); Parainfluenza Virus 3 PCR Not Detected (NotDetected); Parainfluenza Virus 4 PCR Not Detected (NotDetected); Respiratory Syncytial VirusPCR Not Detected (NotDetected); Rhinovirus/Enterovirus PCR Not Detected (NotDetected)
--- NOTE | 2025-03-06 01:35 | History & Physical Report ---
Date of Service March 06, 2025 Assessment & Plan (1) Generalized weakness: Plan: Assessment and plan below following discussion of case with ED provider and reviewing patient history/pertinent normal/abnormal diagnostic test results. Increasing weakness History COVID-19 pneumonia No sepsis for now chronic respiratory failure secondary to emphysema on home O2 hx CVA hypertension, stable hyperlipidemia, on statin Rx hx dementia, mentation at baseline as per family DM2 diet-controlled, patient markedly hyperglycemic, well-controlled as of recent hemoglobin A1c of 6.93 months ago hypothyroidism, euthyroid as of recent outpatient TSH chronic anemia (baseline hemoglobin of 11). OBS Admit to medical unit Supportive management for COVID-19 illness Basal bolus insulin, ISS BG goal 110-140, carb con coverage, update hemoglobin A1c PT OT eval DVT prophylaxis. Lovenox subcu DNR as per patient prior directives as per family. Family requesting updates from providers. Ms. Gonzalo Diggs (granddaughter), contact number [phone]. Mr. Randell Diggs (son), contact #[phone]. Ms. Ifeanyi Diggs ([id number]), contact #[phone]. Text document was generated using Y[employer] voice recognition software. It may contain grammatical or spelling errors. Kindly contact undersigned for clarification of any documentation item in question. History of Present Illness Chief Complaint: Weakness, positive COVID-19 test Primary Care Provider: Merced Mcgraw MD History obtained from patient's family and records. Limited history from patient secondary to language barrier and dementia. Patient's [place] language is Mike. Medical history significant for chronic respiratory failure secondary to emphysema on home O2, CVA, hypertension, hyperlipidemia, dementia, GERD, DM2 diet-controlled, hypothyroidism, chronic anemia (baseline hemoglobin of 11). Last confinement May 2024 for generalized weakness and complicated UTI. Patient noted to have increasing weakness at home the last few days as per family. Patient receiving home hospice services the last few months for extra help at home as per family. Not any more confused than usual. Dry cough symptoms. Not sure about sick contacts. No complaints of chest pain or unusual SOB. EMS called to patient's home. BSG noted to be 370s. Patient brought to ER for evaluation. 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 Allergies Allergy/AdvReac Type Severity Reaction Status Date / Time Penicillins Allergy Mild RASH Verified 03/06/25 00:35 lorazepam AdvReac Intermediate Confusion Verified 03/06/25 01:45 Home Medications Medication Instructions Recorded Confirmed Type donepezil 5 mg tablet (Aricept) 5 mg PO QDB 07/15/18 03/06/25 History levothyroxine 50 mcg tablet 50 mcg PO DAILYBB 07/15/18 03/06/25 History amlodipine 2.5 mg tablet 2.5 mg PO QAM 05/28/20 03/06/25 History sertraline 50 mg tablet 50 mg PO HS 06/27/22 03/06/25 History ferrous sulfate 325 mg (65 mg 325 mg PO DAILY 07/02/23 03/06/25 History iron) tablet docusate sodium 100 mg capsule 100 mg PO HS 11/15/23 03/06/25 History (Stool Softener) pantoprazole 40 mg tablet,delayed 40 mg PO QDB 11/15/23 03/06/25 History release atorvastatin 20 mg tablet 20 mg PO DAILY 05/11/24 03/06/25 History aspirin 81 mg chewable tablet 81 mg PO DAILY 03/06/25 03/06/25 History (Aspirin Childrens) calcium 600 mg-D3 20 mcg-magnesium 1 tab PO DAILY 03/06/25 03/06/25 History 50 cj-Oz-yjketg-adi-boron tablet (Calcium 600-D3 Plus (mag-zinc)) clotrimazole-betamethasone 1 1 applic topical BID 03/06/25 03/06/25 History %-0.05 % topical cream guaifenesin 400 mg tablet 400 mg PO TID PRN Congestion 03/06/25 03/06/25 History hyoscyamine sulfate 0.125 mg 0.125 mg PO Q4 PRN Secretions 03/06/25 03/06/25 History sublingual tablet ipratropium 0.5 mg-albuterol 3 mg 3 ml inhalation BID PRN Shortness 03/06/25 03/06/25 History (2.5 mg base)/3 mL nebulization Of Breath soln lorazepam 0.5 mg tablet 0.5 mg PO Q6 PRN ANXIETY OR 03/06/25 03/06/25 History RESTLESSNESS morphine concentrate 100 mg/5 mL 5 mg PO .EVERY 3 HOURS PRN PAIN OR 03/06/25 03/06/25 History (20 mg/mL) oral solution SOB vit C 226 mg-vit E 90 mg-copper 1 cap PO DAILY 03/06/25 03/06/25 History 0.8 mg-zinc oxide-lutein 5 mg capsule (PreserVision Lutein) Past Med/Surg History Problem List (Updated 03/06/25 @ 04:22 by Diego Osullivan MD) Generalized weakness COVID-19 virus infection (Acute) Nocturnal hypoxemia Cerebrovascular disease Dysphagia Alzheimer's dementia Hypokalemia (Acute) Confusion (Acute) CAP (community acquired pneumonia) (Acute) AMS (altered mental status) (Acute) CVA (cerebral vascular accident) Complicated UTI (urinary tract infection) AMS (altered mental status) (Acute) Encounter for pre-operative examination Colon cancer screening Aphasia (Acute) Left-sided weakness (Acute) Acute perforated appendicitis Acute appendicitis (Acute) Depression Abnormal CT scan, kidney Cerebrovascular disease stroke L caudate before 2012; TIA 2012; stroke jozef 2019 (treated at [facility]) Medical History Restrictive lung disease Dysphagia Dysphagia due to stroke. Thickened liquids. Transient ischemic attack (TIA) 2012 COVID-19 ruled out Discharge planning issues DVT prophylaxis Hypokalemia Stroke hx of stroke (2012 & 2019) treated at [facility]. dysphagia since stroke 2019 -- uses thickening for liquids. Pre-diabetes family denies Osteoporosis Osteoarthritis H/O blood clots possibly in 2019? family unsure of specifics. Surgical History History of colonoscopy H/O: hysterectomy Family History Father Diabetes Son Diabetes Hypertension Sister Cancer ? primary Other No family history of adverse response to anesthesia Social History Smoking Status: Never smoker Second Hand Exposure: No; Do You Dip or Chew Tobacco: No; Hx Alcohol Use: No Hx Substance Use: No Preferred Language: Mike Communication Ability: Impaired Communication Ability Comment: grand-daughter to translate per family request. 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 Beliefs That Will Affect Care: None marital status: Current Living Situation: Family current occupational status: retired Feels Safe at Home: Yes Assistive Devices: Hospital Bed, Oxygen - Continuous, Walker and Wheelchair Review of Systems Review of Systems: Could not be reliably obtained secondary to dementia Physical Exam Physical Exam: GENERAL: Demented, no respiratory distress SKIN: Normal color, warm HEENT: [place] palpebral conjunctivae, no ptosis, dry buccal mucosa, nasal cannula in place NECK : Supple, no tenderness CHEST : Decreased breath sounds, no tenderness HEART : RRR, no obvious murmurs ABDOMEN: Some distention, nontender EXTREMITIES : No LE swelling/tenderness, no other conspicuous deformities noted NEUROLOGIC : Demented, no facial asymmetry, gait and stance not assessed Results & Data Results & Data Vital Signs (Past 12 Hours) Vital Signs Temp Pulse Pulse Resp BP BP Pulse Ox 03/06/25 01:00 67 22 141/70 H 99 03/06/25 00:30 69 22 120/69 99 03/06/25 00:00 68 22 136/71 99 03/05/25 23:48 83 03/05/25 23:00 74 20 105/62 98 03/05/25 22:30 87 19 115/74 94 03/05/25 22:14 03/05/25 22:14 89 20 117/80 94 03/05/25 22:08 85 19 117/80 95 03/05/25 22:07 36.1 C L 86 20 117/80 95 O2 Del Method O2 Flow Rate 03/06/25 01:00 Nasal Cannula 2 03/06/25 00:30 Nasal Cannula 2 03/06/25 00:00 Nasal Cannula 2 03/05/25 23:48 03/05/25 23:00 Nasal Cannula 2 03/05/25 22:30 Nasal Cannula 2 03/05/25 22:14 Room Air 03/05/25 22:14 Nasal Cannula 2 03/05/25 22:08 Nasal Cannula 2 03/05/25 22:07 Nasal Cannula 2 Laboratory Results Laboratory Results WBC 6.43 K/ul (4.8-10.8) 03/05/25 22:26 RBC 4.46 M/uL (4.20-5.40) 03/05/25 22:26 Hgb 11.4 g/dl (12.0-16.0) L 03/05/25: Hct 37.4 % (37.0-47.0) 03/05/25: MCV 83.9 fL (80.0-100.0) 03/05/25: MCH 25.6 pg (25.0-34.0) 03/05/25: MCHC 30.5 g/dL (32.0-36.0) L 03/05/25: RDW Std Deviation 45.4 fL (36.4-46.3) 03/05/25: RDW Coeff of Vivienne 15.0 % (11.5-14.5) H 03/05/25: Plt Count 241 K/uL (130-400) 03/05/25: MPV 10.6 fL (9.4-12.4) 03/05/25: Immature Gran % (Auto) 0.8 % 03/05/25: Neut % (Auto) 79.9 % 03/05/25: Lymph % (Auto) 15.9 % 03/05/25 22: Lamar % (Auto) 3.1 % 03/05/25: Eos % (Auto) 0.0 % 03/05/25: Baso % (Auto) 0.3 % 03/05/25: Neut # (Auto) 5.14 K/uL (1.40-6.50) 03/05/25: Lymph # (Auto) 1.02 K/uL (1.20-3.40) L 03/05/25: Lamar # (Auto) 0.20 K/uL (0.11-0.59) 03/05/25: Eos # (Auto) 0.00 K/uL (0.00-0.50) 03/05/25: Baso # (Auto) 0.02 K/uL (0.00-0.20) 03/05/25: Immature Gran # (Auto) 0.05 K/uL (0.01-0.20) 03/05/25: PT 10.8 Seconds (9.0-12.0) 03/05/25 22:48 INR 1.0 (0.9-1.1) 03/05/25 22:48 Sodium 135 mmol/L (136-145) L 03/05/25 22:26 Potassium 3.9 mmol/L (3.5-5.1) 03/05/25 22:26 Chloride 99 mmol/L (98-107) 03/05/25 22:26 Carbon Dioxide 25 mmol/L (21-32) 03/05/25 22:26 Anion Gap 11 (3-11) 03/05/25 22:26 BUN 18 mg/dl (6-23) 03/05/25 22:26 Creatinine 0.98 mg/dl (0.6-1.2) 03/05/25 22:26 Est Cr Clr Drug Dosing 38.2 ml/min 03/05/25 22:26 eGFR 57.63 03/05/25 22:26 BUN/Creatinine Ratio 18.4 (10-20) 03/05/25 22:26 Glucose 351 mg/dl (70-99(Fasting)) H* 03/05/25 22:26 Lactate 1.9 mmol/L (0.4-2.0) 03/06/25 00:42 Calcium 9.2 mg/dl (8.6-10.3) 03/05/25 22:26 Total Bilirubin 0.3 mg/dl (0.2-1.0) 03/05/25 22:26 AST 38 U/L (13-39) 03/05/25 22:26 ALT 20 U/L (7-52) 03/05/25 22:26 Alkaline Phosphatase 79 U/L (34-104) 03/05/25 22:26 Total Protein 7.2 gm/dl (6.0-8.3) 03/05/25 22:26 Albumin 3.2 gm/dl (3.4-5.0) L 03/05/25 22:26 Globulin 4.0 gm/dl (2.5-4.0) 03/05/25 22:26 Albumin/Globulin Ratio 0.8 (0.9-2) L 03/05/25 22:26 Lipase 15 U/L (11-82) 03/05/25 22:26 Adenovirus (PCR) Not Detected (NotDetected) 03/05/25 22:55 B. pertussis DNA (PCR) Not Detected (NotDetected) 03/05/25 22:55 B.parapertussis DNA PCR Not Detected (NotDetected) 03/05/25 22:55 C. pneumoniae DNA (PCR) Not Detected (NotDetected) 03/05/25 22:55 Coronavirus OC43 (PCR) Not Detected (NotDetected) 03/05/25 22:55 Coronavirus HKU1 (PCR) Not Detected (NotDetected) 03/05/25 22:55 Coronavirus 229E (PCR) Not Detected (NotDetected) 03/05/25 22:55 SARS-CoV-2 (PCR) DETECTED (NotDetected) A 03/05/25 22:55 Coronavirus NL63 (PCR) Not Detected (NotDetected) 03/05/25 22:55 Human Metapneumovir PCR Not Detected (NotDetected) 03/05/25 22:55 Influenza Type A (PCR) Not Detected (NotDetected) 03/05/25 22:55 Influenza Type B (PCR) Not Detected (NotDetected) 03/05/25 22:55 M. pneumoniae (PCR) Not Detected (NotDetected) 03/05/25 22:55 Parainfluenza 1 (PCR) Not Detected (NotDetected) 03/05/25 22:55 Parainfluenza 2 (PCR) Not Detected (NotDetected) 03/05/25 22:55 Parainfluenza 3 (PCR) Not Detected (NotDetected) 03/05/25 22:55 Parainfluenza 4 (PCR) Not Detected (NotDetected) 03/05/25 22:55 RSV (PCR) Not Detected (NotDetected) 03/05/25 22:55 Entero/Rhino (PCR) Not Detected (NotDetected) 03/05/25 22:55 Impressions Chest X-Ray 03/05/25 22:38 Exam(s): XR CXR 1 VIEW EXAM: XR Chest, 1 View CLINICAL HISTORY: Reason for exam: cough. TECHNIQUE: Frontal view of the chest. COMPARISON: XR Chest dated 08/18/2024 FINDINGS: Lungs: Patchy/linear opacities in the left mid to lower lung, similar to the prior. No focal consolidation. Pleural space: Unremarkable. No pneumothorax. Heart: Unremarkable. No cardiomegaly. Mediastinum: Unremarkable. Normal mediastinal contour. Bones/joints: Unremarkable. No acute fracture. Upper abdomen: Elevated right hemidiaphragm, stable. IMPRESSION: Patchy/linear opacities in the left mid to lower lung, similar to the prior. Likely atelectasis or scarring rather than acute process. Electronically signed by: Leah Berumen M.D. 03/06/25 00:[address] 03/05/25 22:46 Exam(s): CT HEAD Without Contrast EXAM: CT Head Without Intravenous Contrast CLINICAL HISTORY: Reason for exam: lethargy. TECHNIQUE: Axial computed tomography images of the head/brain without intravenous contrast. CTDI is 36.43 mGy and DLP is 625.8 mGy-cm. Automated exposure control was utilized for the study. A dose lowering technique was utilized adhering to the principles of ALARA. COMPARISON: CT Head dated 08/18/2024 FINDINGS: Brain: Volume loss with prominent ventricles and sulci. Periventricular and subcortical white matter hypoattenuation likely reflects chronic small vessel disease. Old lacunar infarcts in the left basal ganglia and jozef, stable. No hemorrhage. Ventricles: Unremarkable. No ventriculomegaly. Bones/joints: Unremarkable. No acute fracture. Soft tissues: Unremarkable. Sinuses: Mild paranasal sinus mucosal thickening. Mastoid air cells: Unremarkable as visualized. No mastoid effusion. Orbits: Bilateral intra-ocular lens implants. IMPRESSION: No evidence of acute intracranial abnormality. Electronically signed by: Leah Berumen M.D. 03/06/25 00:22 AM Diagnostic Findings EKG as per my interpretation :
[2025-03-06] MEDS ORDERED: CARBOHYDRATES FOR HYPOGLYCEMIA PO PRN (01:41)
[2025-03-06] MEDS ORDERED: GLUCAGON FOR INJ 1 MG VIAL SQ PRN (01:41)
[2025-03-06] MEDS ORDERED: GLUCOSE 40% GEL 15 GM TUBE PO PRN (01:41)
[2025-03-06] MEDS ORDERED: GLUCOSE 10 TAB/TUBE PO PRN (01:41)
[2025-03-06] MEDS ORDERED: DEXTROSE 50% 50 ML SYRINGE IV PRN (01:41)
[2025-03-06] MEDS ORDERED: LEVALBUTEROL 1.25 MG/3 ML NEB NEB PRN (01:42)
[2025-03-06] MEDS ORDERED: IPRATROPIUM BROMIDE NEB SOLN 0.02% 0.5MG/2.5ML VIAL INH PRN (01:42)
[2025-03-06] MEDS ORDERED: ACETAMINOPHEN 325 MG TAB PO PRN (01:44)
[2025-03-06] MEDS ORDERED: PROMETHAZINE 6.25 MG/50.25 ML BAG IV PRN (01:44)
[2025-03-06] MEDS: INSULIN ASPART PER UNIT CHARGE SC SCH (02:54)
[2025-03-06] MEDS: LANTUS PER UNIT CHARGE SQ SCH (02:55)
[2025-03-06 03:53] LABS: Base Excess VBG 2.2 mEq/L; HCO3 VBG 28 mmol/L; Oxygen Saturation VBG 90.6 %; PCO2 VBG 46 mmHg (38-50); PO2 VBG 59 mmHg; pH VBG 7.39 (7.36-7.41)
[2025-03-06] MEDS: NSS + 20MEQ KCL 20 MEQ/1,000 ML BAG IV ONE (03:57)
[2025-03-06 04:00] LABS: Hematocrit (blood only) 36.2 % (37.0-47.0); Hemoglobin 11.0 g/dl (12.0-16.0); Immature Granulocytes # (auto) 0.05 K/uL (0.01-0.20); Immature Granulocytes % (auto) 0.6 %; Mean Corpuscular Hemoglobin 25.4 pg (25.0-34.0); Mean Corpuscular Volume 83.6 fL (80.0-100.0); Platelet Count 220 K/uL (130-400); RDW Standard Deviation 45.5 fL (36.4-46.3); Red Blood Count 4.33 M/uL (4.20-5.40); White Blood Count 7.81 K/ul (4.8-10.8)
[2025-03-06 04:14] LABS: Anion Gap 7.0 (3-11); Blood Urea Nitrogen 17.0 mg/dl (6-23); Calcium 9.1 mg/dl (8.6-10.3); Carbon Dioxide 26.0 mmol/L (21-32); Chloride 103.0 mmol/L (98-107); Creatinine Clr Calc Pharmacy 41.2 ml/min; Glucose 279.0 mg/dl (70-99(Fasting)); Potassium 3.6 mmol/L (3.5-5.1); Sodium 136.0 mmol/L (136-145)
[2025-03-06 07:36] LABS: Hemoglobin A1C 7.4 % (4.5-5.6)
[2025-03-06] MEDS: ATORVASTATIN 20 MG TAB PO SCH (08:06)
[2025-03-06] MEDS: ASPIRIN 81 MG CHEW PO SCH (08:06)
[2025-03-06] MEDS: FERROUS SULFATE 325 MG TAB PO SCH (08:06)
[2025-03-06] MEDS: LEVOTHYROXINE SODIUM 50 MCG TABLET PO SCH (08:07)
[2025-03-06] MEDS: ENOXAPARIN INJ 40 MG/0.4 ML SYR SQ SCH (08:07)
[2025-03-06] MEDS: DONEPEZIL HCL 5 MG TAB PO SCH (08:08)
[2025-03-06 08:40] VITALS: O2SAT 95
[2025-03-06 08:54] LABS: Appearance Urine Cloudy (Clear); Bacteria Urine Automated 4+ (None Seen); Cast Urine Automated 0-2 /lpf (0-2); Glucose Urine UA 1+ (Negative)
[2025-03-06 09:04] LABS: RBC Urine Automated 0-2 /hpf (0-2)
[2025-03-06 15:30] VITALS: RESP 18
--- NOTE | 2025-03-06 15:52 | Communication Note ---
Date of Service: March 06, 2025 Evaluated patient in ED No respiratory distress noted or other acute distress Exam
--- NOTE | 2025-03-06 16:18 | Discharge Summary ---
Discharge Summary Date of Service March 06, 2025 Principal Dx & Hospital Course #1 = Principal Diagnosis (1) Generalized weakness: Ms Diggs is an 84 year old woman with medical history significant for chronic respiratory failure secondary to emphysema on home O2, CVA, hypertension, hyperlipidemia, dementia, GERD, DM2 diet-controlled, hypothyroidism, chronic anemia (baseline hemoglobin of 11_ who was admitted for weakness and found to have COVID infection and hyperglycemia. Patient did not require any further medications for symptom control. Discussed with granddaughter over phone who would like to bring patient home. Discussed that patient's o2 level stable and not current additional treatments ongoing at this time time. Patient at baseline per family. #COVID infection #Generalzied Weakness #Hospice no leukocytosis, no signs of sepsis chronic o2 requirement stable discharge home for symptomatic treatment #DMTII A1C 7.4% follow up with PCP #chronic respiratory failure secondary to emphysema on home O2 continue home regimen #HLD #hx CVA continue statin and asa #hypertension continue amlodipine #hypothyroidism continue synthroid #chronic anemia (baseline hemoglobin of 11). stable Notes For Next Care Provider A1C 7.4 Medication Changes From Visit none Admission HPI Per Admitting Provider History obtained from patient's family and records. Limited history from patient secondary to language barrier and dementia. Patient's [place] language is Mike. Medical history significant for chronic respiratory failure secondary to emphysema on home O2, CVA, hypertension, hyperlipidemia, dementia, GERD, DM2 diet-controlled, hypothyroidism, chronic anemia (baseline hemoglobin of 11). Last confinement May 2024 for generalized weakness and complicated UTI. Patient noted to have increasing weakness at home the last few days as per erum zaldivar. Patient receiving home hospice services the last few months for extra help at home as per family. Not any more confused than usual. Dry cough symptoms. Not sure about sick contacts. No complaints of chest pain or unusual SOB. EMS called to patient's home. BSG noted to be 370s. Patient brought to ER for evaluation. 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 Admission Exam Per Admitting Provider GENERAL: Demented, no respiratory distress SKIN: Normal color, warm HEENT: [place] palpebral conjunctivae, no ptosis, dry buccal mucosa, nasal cannula in place NECK : Supple, no tenderness CHEST : Decreased breath sounds, no tenderness HEART : RRR, no obvious murmurs ABDOMEN: Some distention, nontender EXTREMITIES : No LE swelling/tenderness, no other conspicuous deformities noted NEUROLOGIC : Demented, no facial asymmetry, gait and stance not assessed Discharge Exam Constitutional pleasant, no distress Respiratory diminished, no wheezing/crackles Cardiovascular RRR, no murmur, no edema Updated Medication List Medication Instructions Recorded Confirmed Type donepezil 5 mg tablet (Aricept) 5 mg PO QDB 07/15/18 03/06/25 History levothyroxine 50 mcg tablet 50 mcg PO DAILYBB 07/15/18 03/06/25 History amlodipine 2.5 mg tablet 2.5 mg PO QAM 05/28/20 03/06/25 History sertraline 50 mg tablet 50 mg PO HS 06/27/22 03/06/25 History ferrous sulfate 325 mg (65 mg 325 mg PO DAILY 07/02/23 03/06/25 History iron) tablet docusate sodium 100 mg capsule 100 mg PO HS 11/15/23 03/06/25 History (Stool Softener) pantoprazole 40 mg tablet,delayed 40 mg PO QDB 11/15/23 03/06/25 History release atorvastatin 20 mg tablet 20 mg PO DAILY 05/11/24 03/06/25 History aspirin 81 mg chewable tablet 81 mg PO DAILY 03/06/25 03/06/25 History (Aspirin Childrens) calcium 600 mg-D3 20 mcg-magnesium 1 tab PO DAILY 03/06/25 03/06/25 History 50 qz-Jb-yafsnj-adi-boron tablet (Calcium 600-D3 Plus (mag-zinc)) clotrimazole-betamethasone 1 1 applic topical BID 03/06/25 03/06/25 History %-0.05 % topical cream guaifenesin 400 mg tablet 400 mg PO TID PRN Congestion 03/06/25 03/06/25 History hyoscyamine sulfate 0.125 mg 0.125 mg PO Q4 PRN Secretions 03/06/25 03/06/25 History sublingual tablet ipratropium 0.5 mg-albuterol 3 mg 3 ml inhalation BID PRN Shortness 03/06/25 03/06/25 History (2.5 mg base)/3 mL nebulization Of Breath soln lorazepam 0.5 mg tablet 0.5 mg PO Q6 PRN ANXIETY OR 03/06/25 03/06/25 History RESTLESSNESS morphine concentrate 100 mg/5 mL 5 mg PO .EVERY 3 HOURS PRN PAIN OR 03/06/25 03/06/25 History (20 mg/mL) oral solution SOB vit C 226 mg-vit E 90 mg-copper 1 cap PO DAILY 03/06/25 03/06/25 History 0.8 mg-zinc oxide-lutein 5 mg capsule (PreserVision Lutein) Hospital Stay Data Consultations 03/06/25 00:48 ED Decision to Admit Stat Diagnostic Imagining Performed 03/05/25 22:46 CT head/brain wo con Stat Discharge Instructions Given to Patient (Per Discharging Provider) You were admitted for weakness and found to have a COVID infection You can continue supportive measures and [id number] treatment -Tylenol 650mg every 6-8 hours for fever or aches/pains -Cough drops for sore throat Please stay hydrated as much as tolerated Please follow up with your pcp Total Time Total Time Spent Total Time Spent (In Minutes): 55
[2025-03-06 16:19] VITALS: BP 159/76; PULSE 78; TEMP 98.1
[2025-03-06] MEDS ORDERED: DOCUSATE SODIUM 100 MG CAP PO SCH (21:00)
[2025-03-06] MEDS ORDERED: SERTRALINE HCL 50 MG TABLET PO SCH (21:00)
== END 2025-03-06 17:40 | disposition hospice, home (50) ==
LOC: EDINP 22:00 → ED 22:00 → 3W 03-06 15:37